=== PATIENT | male | born 1940 | race African-American/Black ===

== ENCOUNTER 2020-08-16 21:21 | Inpatient (IN) | payer MEDICARE, SELFPAY ==
[2020-08-16] VITALS (7 sets, daily range): BP systolic 163–242; BP diastolic 114–173; PULSE 106–150; RESP 24–31; TEMP 36.1–36.8; O2SAT 91–100; BMI 20.1
--- NOTE | ~2020-08-16 | US_ITS ---
EXAMINATION: US VENOUS ULTRASOUND WITH DOPPLER LOWER EXTREMITY, BILATERAL CLINICAL INFORMATION: Swelling, right greater than left COMPARISON: None TECHNIQUE: Ultrasound of the deep veins is performed from the hip to the calf bilaterally with compression sonography and color and pulse Doppler assessment. Spectral analysis with color-flow imaging is performed. FINDINGS: RIGHT: There is normal venous compression and respiratory variation and augmented flow. The visualized common femoral vein, superficial femoral vein, profunda femoral vein, popliteal vein, and the trifurcation region shows no evidence of deep venous thrombosis. There is no significant popliteal fossa cyst. LEFT: There is normal venous compression and respiratory variation and augmented flow. The visualized common femoral vein, superficial femoral vein, profunda femoral vein, popliteal vein, and the trifurcation region shows no evidence of deep venous thrombosis. There is no significant popliteal fossa cyst. If the patient's symptoms persist, followup ultrasound in 5 days 7 days might be of value to exclude proximal propagation from a non-visualized calf vein. US/US venous duplex LE BI IMPRESSION: No DVT demonstrated in the bilateral lower extremities.
--- NOTE | ~2020-08-16 | CT_ITS ---
EXAMINATION: CTA CHEST, ABDOMEN AND PELVIS WITH CONTRAST CLINICAL INFORMATION: Reason for Exam aaa dissection. COMPARISON: No pertinent prior studies are available for comparison. TECHNIQUE: Initially, noncontrast timing run was performed with the timing in the proximal descending thoracic aorta. Next, Multidetector volumetric imaging was performed from the thoracic inlet through the pubic symphysis following administration of 85 mL Omnipaque 350. Sagittal and coronal reformatted images were obtained on the technologist's workstation. In addition, Images were evaluated on an independent dedicated 3-D workstation and 3-D images were reconstructed with concurrent radiologist supervision and subsequently interpreted. This CT examination was performed using dose optimization techniques as appropriate, variously including the following: *Automated exposure control *Adjustment of mA and/or kV according to patient size (this includes techniques or standardized protocols for targeted exams where dose is matched to indication/reason for exam; i.e. extremities or head) *Use of iterative reconstruction technique DLP: 433 mGy-cm FINDINGS: VASCULATURE The ascending aorta appears unremarkable. A tricuspid aortic valve is present. Maximal dimension of the ascending aorta in the transverse plane at the level of the right main pulmonary artery is 3.2 x 3.1 cm. A three-vessel arch is present and the great vessels are widely patent and normal in appearance. Of note, just beyond the origin of the left subclavian, the aortic lumen increases in size but the superior aspect does not fill with contrast and some irregular projections from the opacified lumen can be seen protruding into this area. Differential diagnosis would include a dissection with a thrombosed false lumen versus eccentric thrombus with ulceration. This abnormal area of aorta extends over a length of about 5 cm. I suspect that the most likely diagnosis is the ulcerated thrombus rather than a dissection. Distal to this, the aortic lumen is ectatic and only a single lumen is identified. As the aorta extends into the abdomen, the contrast bolus becomes suboptimal. An aorto biiliac stent graft is present. On the right, the stent graft extends into the external iliac artery and on the left just into the common iliac artery. In the distal aorta and pelvic vessels, there is no opacification whatsoever so patency cannot even be assessed. Although not carried out for evaluation of the pulmonary arteries, no large pulmonary emboli are seen. Aortic branches are suboptimally visualized due to the poor contrast bolus. A celiac stenosis is present. The SMA is patent. Single renal arteries are patent. The NEETU is not seen. NONVASCULAR : CHEST: Lung: Emphysematous changes are present throughout the lungs. Multiple areas of bullous formation are seen. No worrisome lung masses are seen. Mosaic ground-glass changes are present throughout which could represent some element of interstitial edema secondary to elevated left ventricular end-diastolic pressure. The left atrium appears enlarged. Mediastinum: The mediastinum is unremarkable. Heart size is normal. The left atrium appears enlarged. No hilar or mediastinal lymphadenopathy. Pericardium/Pleura: No significant effusion. No pleural mass or thickening. Chest Wall/Axilla: Unremarkable ABDOMEN/PELVIS: Peritoneal Space: No significant free air or free fluid identified. Liver, Gallbladder, Biliary Tree: The liver is normal in size, shape, and attenuation. No focal hepatic lesion or biliary ductal dilatation is present. The gallbladder is poorly seen but is probably present and contracted. High density material is suggested within the gallbladder but there is considerable artifact from EKG leads. Pancreas: Unremarkable Spleen: Unremarkable Adrenal Glands: Unremarkable Kidneys and Ureters: The kidneys are normal in size, shape, and attenuation. No hydronephrosis, hydroureter, or calculi seen. No perinephric stranding. Bladder: Unremarkable Gastrointestinal Tract: The small and large bowel are unremarkable. The appendix is unremarkable. Abdominal Wall: No significant hernia is appreciated. Lymph Nodes: No gross retroperitoneal lymphadenopathy. PELVIC VISCERA: There is marked prostatic enlargement with prostate measuring 6.2 x 4.8 x 6.9 cm. Marked symmetric bladder wall thickening is present measuring over a centimeter in thickness. OSSEUS STRUCTURES: Marked degenerative changes are present in the spine most marked in the lumbar region with severe disc space narrowing at all lumbar levels. There is grade 1 anterolisthesis of L4 upon L5. No pars defects are seen. CT/CT angio abdomen pelvis IMPRESSION: 1. No evidence of an ascending aortic aneurysm or dissection. 2. Transverse arch is abnormal for about 5 cm where there is eccentric dilatation and non filling of the lumen on the superior aspect. Most likely diagnosis would be ulceration into eccentric plaque but a thrombosed dissection is a possibility but felt to be much less likely. 3. The descending thoracic aorta otherwise appears normal. 4. Aortobiiliac stent graft as described above. 5. Nonvascular findings show emphysema, ground-glass changes which may represent mild interstitial edema, possible gallstones. Markedly enlarged prostate with markedly thickened bladder. This critical result was discussed with Dr. Norwood at 22:43 on the day the exam and it was ascertained that the content and urgency of the report was understood at the time of direct communication.
--- NOTE | ~2020-08-16 | XR_ITS ---
EXAMINATION: XR CHEST CLINICAL INFORMATION: Question of aortic dissection COMPARISON: None TECHNIQUE: Frontal view of the chest was obtained. FINDINGS: Heart size is normal. The aorta is unfolded. The lungs may be hyperinflated. Increased reticular nodular interstitial markings are present throughout. As no prior films are available for comparison, the significance is uncertain. Some curly B lines are present at the right lung base which would be chronic. Findings could represent chronic interstitial disease or even more acute multifocal groundglass infiltrates. Incidental note made of the top of an aortic stent graft in the abdominal aorta. XR/XR chest 1V IMPRESSION: Pulmonary parenchymal findings as described above which could be chronic but some/all could be relatively acute as well. If prior films are available for comparison this would be helpful.. It seems that this patient will be undergoing chest CT which should be able to give significantly better information.
--- NOTE | 2020-08-16 21:37 | ECG_ITS ---
Test Reason : SOB Blood Pressure : / mmHG Vent. Rate : 101 BPM Atrial Rate : 101 BPM P-R Int : 156 ms QRS Dur : 084 ms QT Int : 402 ms P-R-T Axes : 080 091 098 degrees QTc Int : 521 ms Sinus tachycardia with Fusion complexes Possible Left atrial enlargement Rightward axis ST & T wave abnormality, consider anterior ischemia Prolonged QT Abnormal ECG No previous ECGs available Referred By: Kun Rincon Electronically Signed By:Celestino Connors
--- NOTE | 2020-08-16 21:44 | ED_ITS ---
HPI - SOB/Dyspnea General Chief Complaint: Dyspnea Stated Complaint: SOB Time Seen by Provider: 08/16/20 21:31 Source: patient Mode of arrival: EMS History of Present Illness HPI Narrative: This is an 79-year-old male who is brought in via EMS for acute onset of shortness of breath without chest pain or abdominal pain and reports that he has a significant history of cardiac stents as well as AAA repair. Patient denies being on any current medications and has not seen a physician in a number of months. He denies any recent fevers, chills or GI symptoms. Patient states lack of feeling in left upper extremity since placement of his c ardiac stents and states that this is not new, and denies motor dysfunction. COVID is negative. On further questioning patient states that he had a transient episode of shortness of breath couple of days ago, but states that it passed. In addition, patient reports weight loss over the past few months. Related Data Home Medications Medication Instructions Recorded Confirmed No Known Home Meds 08/17/20 08/17/20 Allergies Allergy/AdvReac Type Severity Reaction Status Date / Time No Known Allergies Allergy Verified 08/16/20 21:31 Review of Systems Review of Systems: Pertinent positives and negatives as stated in HPI 10 point review of systems is otherwise negative. PMFSH Past Medical History Source: nursing notes reviewed Social History Social History Smoking Status: Current every day smoker Smoked in Last 30 Days: No Advance Directives: No Advance Directives Information Provided: No Physical Exam Vital Signs: Vital Signs: Last Vital Signs Temp 98.2 F 08/16/20 22:16 Pulse 108 H 08/17/20 00:57 Resp 26 H 08/17/20 00:57 BP 164/107 H 08/17/20 00:57 Pulse Ox 100 08/17/20 00:57 Body Mass Index 20.1 VITAL SIGNS: Reviewed. GENERAL: Well developed, well nourished, severe respiratory distress HEAD: Normocephalic/atraumatic EYES: PERRLA, EOMI OROPHARYNX: no oral lesions noted, posterior pharynx clear, dry mucosa NECK: Supple, no adenopathy LUNGS: Normal breath sounds, or tachypnea, increased work of breathing, retractions, nasal cannula in place@4L nasal cannula. SpO2<95> CARDIOVASCULAR: Regular rate and rhythm without noted murmurs, no JVD or lower extremity edema. ABDOMEN: Soft, non-tender, non-distended with bowel sounds. No palpable masses noted. SKIN: Inspection of the skin reveals no rashes NEUROLOGIC: Alert and oriented x 4. Patient reports baseline lack of feeling in left upper extremity that is not new Course Course Course Narrative: This is an 79-year-old male with significant cardiovascular disease urgently concerning for possible dissection,ruptured aneurysm, PE but also noted to have significant blood pressure elevation which may be causing a flash pulmonary edema. An additional IV line was placed CT scan was entered and patient was given nitropaste, labetalol, Lasix and sent over to the CT scanner for rule out of the above differentials. EKG is significant for inverted T-waves in V3/V4 of unclear significance as there is none for comparison however in this context felt to demonstrate ischemic changes likely secondary to hypertension/tachycardia as well as a noted JANAK, but no ST elevation noted. All investigations reviewed and patient will be admitted after discussing with inpatient hospitalist team for hypertensive emergency associated flash pulmonary edema. Reviewed CT scan records from [facility]. On re-evaluation patient's blood pressure has significantly improved after initial dose of hydralazine with addition of half-inch of nitro and patient is now tolerating nasal cannula without difficulties. Will repeat troponin and EKG. Admitted to inpatient hospitalist team for further management. 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 Although this was dissection protocol they state there is no appreciation of PE and further states that the study is suboptimal for abdomen and pelvis. Time: 22:45 Reevaluation #2: Consult to [facility]. On review of CT scan records will cancel consult. Time: 23:00 Reevaluation #3: Discussed the case with the [facility] who currently recommends a trial of hydralazine prior to nitro drip and possible transition onto high-flow. Time: 23:25 MDM - SOB/Dyspnea Lab Data Result diagrams: 08/16/20 22:10 08/16/20 22:10 Labs: Lab Results 03/12/21 03/12/21 03/12/21 Range/Units 21:56 22:10 22:10 WBC 4.6 L (4.8-10.8) X10*3/uL RBC 3.91 L (4.60-5.80) X10*6/uL Hgb 12.7 L (14.0-18.0) g/dl Hct 37.5 L (42-52) % MCV 95.9 (80-98) fL MCH 32.5 (27.0-33.0) pg MCHC 33.9 (31.0-36.0) g/dl RDW 13.4 (11.0-16.0) % Plt Count 95 L (160-400) X10*3/uL MPV 11.5 (9.4-12.4) fL Immature Gran % (Auto) 0.6 H (0.0-0.4) % Neut % (Auto) 57.5 (45-73) % Lymph % (Auto) 24.4 (20-40) % Desoto % (Auto) 15.8 H (2-11) % Eos % (Auto) 1.3 (0-4) % Baso % (Auto) 0.4 (0-2) % Lymph # (Auto) 1.1 L (1.2-4.9) X10*3/uL Desoto # (Auto) 0.7 (0.1-1.2) X10*3/uL Eos # (Auto) 0.1 (0.0-0.4) X10*3/uL Baso # (Auto) 0.0 (0.0-0.2) X10*3/uL Abs Immat Gran (auto) 0.03 (0.00-0.03) X10*3/uL Absolute Neuts (auto) 2.7 (2.0-8.3) X10*3/uL Absolute Nucleated RBC 0.000 (0.0-0.012) X10*3/uL Nucleated RBC % (auto) 0.0 (0.0-0.2) /100WBC Smear Tech's Comments VERIFIED PT 12.1 (10.8-13.0) SEC INR 1.0 (0.9-1.1) APTT 33.9 (24.1-38.0) SEC D-Dimer 5440 NG/ML O2 Saturation ABG pH at Pt Temp ABG pH (Temp Correct) ABG pCO2 at Pt Temp ABG pCO2 (Temp Corrct ABG pO2 at Pt Temp ABG pO2 (Temp Correct ABG HCO3 ABG Base Excess (Actual) Sodium (135-145) mmol/L Potassium (3.3-5.1) mmol/L Chloride (96-108) mmol/L Carbon Dioxide (22-29) mmol/L Anion Gap (12-20) BUN (9-16) mg/dL Creatinine (0.5-1.4) mg/dL Estim Creat Clear Calc Estimated GFR Random Glucose (60-115) mg/dL Lactic Acid (0.5-2.0) mmol/L Calcium (8.4-10.2) mg/dL Total Bilirubin (0.0-1.0) mg/dL Direct Bilirubin (0.0-0.5) mg/dL AST (5-37) U/L ALT (0-40) U/L Alkaline Phosphatase (39-117) U/L Troponin I High Sens (<3.5-35.0) ng/L B-Natriuretic Peptide (<100) pg/mL Total Protein (6.5-8.0) g/dL Albumin (3.5-5.0) g/dL Coronavirus (PCR) (Negative) COVID-19 (PRABHAKAR) Negative (Negative) COVID-19 Clin Com See Note Influenza Type A (PCR) (Negative) Influenza Type B (PCR) (Negative) RSV RNA Qual (PCR) (Negative) 08/16/20 08/16/20 08/16/20 Range/Units 22:10 22:10 22:10 WBC (4.8-10.8) X10*3/uL RBC (4.60-5.80) X10*6/uL Hgb (14.0-18.0) g/dl Hct (42-52) % MCV (80-98) fL MCH (27.0-33.0) pg MCHC (31.0-36.0) g/dl RDW (11.0-16.0) % Plt Count (160-400) X10*3/uL MPV (9.4-12.4) fL Immature Gran % (Auto) (0.0-0.4) % Neut % (Auto) (45-73) % Lymph % (Auto) (20-40) % Desoto % (Auto) (2-11) % Eos % (Auto) (0-4) % Baso % (Auto) (0-2) % Lymph # (Auto) (1.2-4.9) X10*3/uL [place]oto # (Auto) (0.1-1.2) X10*3/uL Eos # (Auto) (0.0-0.4) X10*3/uL Baso # (Auto) (0.0-0.2) X10*3/uL Abs Immat Gran (auto) (0.00-0.03) X10*3/uL Absolute Neuts (auto) (2.0-8.3) X10*3/uL Absolute Nucleated RBC (0.0-0.012) X10*3/uL Nucleated RBC % (auto) (0.0-0.2) /100WBC Smear Tech's Comments PT (10.8-13.0) SEC INR (0.9-1.1) APTT (24.1-38.0) SEC D-Dimer NG/ML O2 Saturation ABG pH at Pt Temp ABG pH (Temp Correct) ABG pCO2 at Pt Temp ABG pCO2 (Temp Corrct ABG pO2 at Pt Temp ABG pO2 (Temp Correct ABG HCO3 ABG Base Excess (Actual) Sodium 136 (135-145) mmol/L Potassium 3.5 (3.3-5.1) mmol/L Chloride 102 (96-108) mmol/L Carbon Dioxide 26 (22-29) mmol/L Anion Gap 12 (12-20) BUN 20 H (9-16) mg/dL Creatinine 1.78 H (0.5-1.4) mg/dL Estim Creat Clear Calc 28.0 Estimated GFR 37 Random Glucose 121 H (60-115) mg/dL Lactic Acid 1.9 (0.5-2.0) mmol/L Calcium 7.8 L (8.4-10.2) mg/dL Total Bilirubin 0.7 (0.0-1.0) mg/dL Direct Bilirubin 0.3 (0.0-0.5) mg/dL AST 29 (5-37) U/L ALT 12 (0-40) U/L Alkaline Phosphatase 75 (39-117) U/L Troponin I High Sens 119.8 H (<3.5-35.0) ng/L B-Natriuretic Peptide 3309 H (<100) pg/mL Total Protein 6.8 (6.5-8.0) g/dL Albumin 3.0 L (3.5-5.0) g/dL Coronavirus (PCR) (Negative) COVID-19 (PRABHAKAR) (Negative) COVID-19 Clin Com Influenza Type A (PCR) (Negative) Influenza Type B (PCR) (Negative) RSV RNA Qual (PCR) (Negative) 08/16/20 08/16/20 08/16/20 Range/Units 22:10 22:20 22:20 WBC (4.8-10.8) X10*3/uL RBC (4.60-5.80) X10*6/uL Hgb (14.0-18.0) g/dl Hct (42-52) % MCV (80-98) fL MCH (27.0-33.0) pg MCHC (31.0-36.0) g/dl RDW (11.0-16.0) % Plt Count (160-400) X10*3/uL MPV (9.4-12.4) fL Immature Gran % (Auto) (0.0-0.4) % Neut % (Auto) (45-73) % Lymph % (Auto) (20-40) % Desoto % (Auto) (2-11) % Eos % (Auto) (0-4) % Baso % (Auto) (0-2) % Lymph # (Auto) (1.2-4.9) X10*3/uL [place] # (Auto) (0.1-1.2) X10*3/uL Eos # (Auto) (0.0-0.4) X10*3/uL Baso # (Auto) (0.0-0.2) X10*3/uL Abs Immat Gran (auto) (0.00-0.03) X10*3/uL Absolute Neuts (auto) (2.0-8.3) X10*3/uL Absolute Nucleated RBC (0.0-0.012) X10*3/uL Nucleated RBC % (auto) (0.0-0.2) /100WBC Smear Tech's Comments PT (10.8-13.0) SEC INR (0.9-1.1) APTT (24.1-38.0) SEC D-Dimer NG/ML O2 Saturation Cancelled 87.0 ABG pH at Pt Temp Cancelled 7.38 ABG pH (Temp Correct) Cancelled 7.39 ABG pCO2 at Pt Temp Cancelled 39 ABG pCO2 (Temp Corrct Cancelled 39 ABG pO2 at Pt Temp Cancelled 58 L ABG pO2 (Temp Correct Cancelled 58 L ABG HCO3 Cancelled 23 ABG Base Excess (Actual) Cancelled -0.9 Sodium (135-145) mmol/L Potassium (3.3-5.1) mmol/L Chloride (96-108) mmol/L Carbon Dioxide (22-29) mmol/L Anion Gap (12-20) BUN (9-16) mg/dL Creatinine (0.5-1.4) mg/dL Estim Creat Clear Calc Estimated GFR Random Glucose (60-115) mg/dL Lactic Acid (0.5-2.0) mmol/L Calcium (8.4-10.2) mg/dL Total Bilirubin (0.0-1.0) mg/dL Direct Bilirubin (0.0-0.5) mg/dL AST (5-37) U/L ALT (0-40) U/L Alkaline Phosphatase (39-117) U/L Troponin I High Sens (<3.5-35.0) ng/L B-Natriuretic Peptide (<100) pg/mL Total Protein (6.5-8.0) g/dL Albumin (3.5-5.0) g/dL Coronavirus (PCR) NEGATIVE (Negative) COVID-19 (PRABHAKAR) (Negative) COVID-19 Clin Com Influenza Type A (PCR) NEGATIVE (Negative) Influenza Type B (PCR) NEGATIVE (Negative) RSV RNA Qual (PCR) NEGATIVE (Negative) 08/17/20 Range/Units 01:21 WBC (4.8-10.8) X10*3/uL RBC (4.60-5.80) X10*6/uL Hgb (14.0-18.0) g/dl Hct (42-52) % MCV (80-98) fL MCH (27.0-33.0) pg MCHC (31.0-36.0) g/dl RDW (11.0-16.0) % Plt Count (160-400) X10*3/uL MPV (9.4-12.4) fL Immature Gran % (Auto) (0.0-0.4) % Neut % (Auto) (45-73) % Lymph % (Auto) (20-40) % Desoto % (Auto) (2-11) % Eos % (Auto) (0-4) % Baso % (Auto) (0-2) % Lymph # (Auto) (1.2-4.9) X10*3/uL [place]oto # (Auto) (0.1-1.2) X10*3/uL Eos # (Auto) (0.0-0.4) X10*3/uL Baso # (Auto) (0.0-0.2) X10*3/uL Abs Immat Gran (auto) (0.00-0.03) X10*3/uL Absolute Neuts (auto) (2.0-8.3) X10*3/uL Absolute Nucleated RBC (0.0-0.012) X10*3/uL Nucleated RBC % (auto) (0.0-0.2) /100WBC Smear Tech's Comments PT (10.8-13.0) SEC INR (0.9-1.1) APTT (24.1-38.0) SEC D-Dimer NG/ML O2 Saturation ABG pH at Pt Temp ABG pH (Temp Correct) ABG pCO2 at Pt Temp ABG pCO2 (Temp Corrct ABG pO2 at Pt Temp ABG pO2 (Temp Correct ABG HCO3 ABG Base Excess (Actual) Sodium (135-145) mmol/L Potassium (3.3-5.1) mmol/L Chloride (96-108) mmol/L Carbon Dioxide (22-29) mmol/L Anion Gap (12-20) BUN (9-16) mg/dL Creatinine (0.5-1.4) mg/dL Estim Creat Clear Calc Estimated GFR Random Glucose (60-115) mg/dL Lactic Acid (0.5-2.0) mmol/L Calcium (8.4-10.2) mg/dL Total Bilirubin (0.0-1.0) mg/dL Direct Bilirubin (0.0-0.5) mg/dL AST (5-37) U/L ALT (0-40) U/L Alkaline Phosphatase (39-117) U/L Troponin I High Sens 291.8 H D (<3.5-35.0) ng/L B-Natriuretic Peptide (<100) pg/mL Total Protein (6.5-8.0) g/dL Albumin (3.5-5.0) g/dL Coronavirus (PCR) (Negative) COVID-19 (PRABHAKAR) (Negative) COVID-19 Clin Com Influenza Type A (PCR) (Negative) Influenza Type B (PCR) (Negative) RSV RNA Qual (PCR) (Negative) ECG Data Attestation: I personally reviewed and interpreted this ECG as follows: Prior ECG tracings: not available for review Ischemic changes: t wave inversions (V3 V4) Interpretation: Sinus tachycardia, HR-101, T-wave inversions noted in V3/before no EKG for comparison and patient tachypneic and tachycardic, MO/QRS are within normal limits with [id number] Discharge Plan Discharge Clinical Impression: Hypertensive emergency, Acute respiratory distress, Flash pulmonary edema Patient Disposition: Admitted As Inpatient
[2020-08-16] MEDS: Labetalol HCL 100 MG/20 ML VIAL 20 MG IVPUSH (21:50)
[2020-08-16] MEDS: Furosemide 40 MG/4 ML VIAL IVPUSH (21:50)
[2020-08-16] MEDS: Nitroglycerin 2 % Oint 1 GM Packet 0.5 INCH TRANSDERMA (21:51)
[2020-08-16 22:16] LABS: COVID-19 Test Negative (Negative)
[2020-08-16 22:20] LABS: Basophils Percent Auto 0.4 % (0-2); MANUAL DIFF FLAG SCAN; Mean Corpuscular Volume 95.9 fL (80-98); PLT CLUMP 1; Red Cell Distribution Width 13.4 % (11.0-16.0); SCAN SMEAR FLAG 1
[2020-08-16 22:22] LABS: Eosinophils Absolute Auto 0.1 X10*3/uL (0.0-0.4); Eosinophils Percent Auto 1.3 % (0-4); Hematocrit 37.5 % (42-52); Hemoglobin 12.7 g/dl (14.0-18.0); Imm Gran Abs Auto 0.03 X10*3/uL (0.00-0.03); Imm Gran Pct Auto 0.6 % (0.0-0.4); Lymphocytes Absolute Auto 1.1 X10*3/uL (1.2-4.9); Lymphocytes Percent Auto 24.4 % (20-40); Mean Corpuscular HGB Conc 33.9 g/dl (31.0-36.0); Mean Corpuscular Hemoglobin 32.5 pg (27.0-33.0); Mean Platelet Volume 11.5 fL (9.4-12.4); Monocytes Absolute Auto 0.7 X10*3/uL (0.1-1.2); Monocytes Percent Auto 15.8 % (2-11); Neutrophils Absolute Auto 2.7 X10*3/uL (2.0-8.3); Neutrophils Percent Auto 57.5 % (45-73); Red Blood Count 3.91 X10*6/uL (4.60-5.80); White Blood Count 4.6 X10*3/uL (4.8-10.8)
[2020-08-16 22:32] LABS: Prothrombin Time 12.1 SEC (10.8-13.0)
[2020-08-16 22:35] LABS: Partial Thromboplastin Time 33.9 SEC (24.1-38.0)
[2020-08-16 22:42] LABS: Platelet Count 95 X10*3/uL (160-400)
[2020-08-16 22:43] LABS: ABG Base Excess -0.9 mmol/L; ABG HCO3 23 mmol/L (22-26); ABG pCO2 39 mmHg (32-45); ABG pCO2 TC 39 mmHg (32-45); ABG pH 7.38 (7.35-7.45); ABG pH TC 7.39 (7.35-7.45); ABG pO2 58 mmHg (83-108); ABG pO2 TC 58 (83-108)
[2020-08-16 22:48] LABS: SLIDE REVIEW VERIFIED
[2020-08-16 22:56] LABS: Lactic Acid 1.9 mmol/L (0.5-2.0)
[2020-08-16 22:58] LABS: Influenza A PCR NEGATIVE (Negative); Influenza B PCR NEGATIVE (Negative); Resp Syncy Virus RNA Qual PCR NEGATIVE (Negative); SARS COV2 PCR INHOUSE NEGATIVE (Negative)
[2020-08-16 23:01] LABS: Alanine Aminotransferase 12 U/L (0-40); Alkaline Phosphatase 75 U/L (39-117); Anion Gap 12 (12-20); Aspartate Amino Transferase 29 U/L (5-37); Bilirubin Direct 0.3 mg/dL (0.0-0.5); Bilirubin Total 0.7 mg/dL (0.0-1.0); Blood Urea Nitrogen 20 mg/dL (9-16); Calcium 7.8 mg/dL (8.4-10.2); Carbon Dioxide 26 mmol/L (22-29); Chloride 102 mmol/L (96-108); Estimated Glomerular Filt Rate 37; Glucose Random 121 mg/dL (60-115); Potassium 3.5 mmol/L (3.3-5.1); Sodium 136 mmol/L (135-145); Total Protein 6.8 g/dL (6.5-8.0)
[2020-08-16 23:10] LABS: B Type Natriuretic Peptide 3309 pg/mL (<100); Troponin-I High Sensitivity 119.8 ng/L (<3.5-35.0)
[2020-08-16] MEDS: hydrALAZINE HCl 20 MG/ML VIAL 10 MG IVPUSH (23:54)
[2020-08-17] VITALS (11 sets, daily range): BP systolic 125–164; BP diastolic 81–108; PULSE 65–108; RESP 18–26; TEMP 36.2–37; O2SAT 95–100
[2020-08-17 00:12] LABS: D Dimer 5440 NG/ML
--- NOTE | 2020-08-17 00:59 | ECG_ITS ---
Test Reason : REPEAT Blood Pressure : / mmHG Vent. Rate : 110 BPM Atrial Rate : 110 BPM P-R Int : 144 ms QRS Dur : 092 ms QT Int : 374 ms P-R-T Axes : 082 083 091 degrees QTc Int : 506 ms Sinus tachycardia with occasional Premature ventricular complexes and Fusion complexes T wave abnormality, consider anterolateral ischemia Abnormal ECG When compared with ECG of 16-AUG-2020 21:56, Premature ventricular complexes are now Present Inverted T waves have replaced nonspecific T wave abnormality in Inferior leads Referred By: Iliana Lacey Electronically Signed By:Celestino Connors
[2020-08-17 01:58] LABS: Troponin-I High Sensitivity 291.8 ng/L (<3.5-35.0)
--- NOTE | 2020-08-17 05:17 | CA_ITS ---
Transthoracic Echocardiogram Patient (Last, First, Middle): Froilan Nieto Jr, Gender: Male Date of : 1940 Age: 79 Procedure Date: 08/17/2020 Procedure Type: Transthoracic Echocardiogram Location: [facility] Height: 172.72 cm Weight: 59.88 kg BSA: 1.71 m2 Heart Rate: bpm BP: 157 / 105 mmHg Deputy Sheriff: DAVID Referring MD: Robert Israel MD Symptoms: chf Study Quality: Good Conclusions: - The left ventricular systolic function is moderate to severely decreased. The visually estimated ejection fraction is between 25-30%. There is severe global hypokinesis. - Normal right ventricular cavity size and systolic function. - There is mild to moderate tricuspid valve regurgitation. Moderately elevated right atrial pressure. Mild to moderate pulmonary hypertension is present. - There is a small circumferential pericardial effusion. Findings Left Ventricle Normal left ventricular cavity size. There is mildly increased left ventricular wall thickness. The left ventricular systolic function is moderate to severely decreased. The visually estimated ejection fraction is between 25-30%. There is severe global hypokinesis. Abnormal diastolic function is noted. Spectral Doppler is indicative of a pseudonormal filling pattern. Right Ventricle Normal right ventricular cavity size and systolic function. Atria The left atrium is likely dilated. The right atrium is mildly dilated. Aortic Valve There is a normal trileaflet aortic valve. There is mild calcification of the aortic valve. There is mild thickening of the aortic valve. There is no aortic valve stenosis. There is no aortic valve regurgitation. Mitral Valve The mitral valve appears normal. There is mild mitral valve regurgitation. There is no mitral valve stenosis. Pulmonic Valve The pulmonic valve is likely normal. Tricuspid Valve Normal tricuspid valve structure and function. There is mild to moderate tricuspid valve regurgitation. Moderately elevated right atrial pressure. Mild to moderate pulmonary hypertension is present. Great Vessels There is mild dilatation of the ascending aorta. The visualized portions of the pulmonary artery and branches are normal. Venous The inferior vena cava is dilated and does not collapse with inspiration. Pericardium/Pleural There is a small circumferential pericardial effusion. There are no definitive echocardiographic findings of tamponade physiology. Prior Study Comparison No prior study available for comparison. Measurements 2D Linear Measurements IVSd: 1.27 0.6-0.9/0.6-1.0 cm LVIDd: 3.97 3.9-5.3/4.2-5.9 cm LVIDd Index: 2.32 2.4-3.2/2.2-3.1 cm/m2 LVIDs: 3.53 2.0-3.6 cm LVPWd: 1.32 0.7-1.1 cm Ao Root: 3.70 2.1-3.5 cm LA Diam: 3.40 2.7-3.8/3.0-4.0 cm LAIDs Index: 1.99 1.5-2.3 cm/m2 LV Mass: 228.52 67-162/88-224 g LV Mass Index: 133.64 43-95/49-115 g/m2 LVOT Diam: 2.10 3.0+(-)1.3 cm 2D Systolic Function EF 4C: 34.50 >55% EF 2C: 40.00 >55% Aortic Valve AoV Pk Samy: 1.26 AoV Mn Samy: 0.84 AoV VTI: 0.18 AoV Pk Grad: 6.00 Aov Mn Grad: 3.00 REY Cont.VTI: 2.02 LVOT LVOT Pk Samy: 0.70 LVOT Mn Samy: 0.43 LVOT VTI: 0.10 LVOT Pk Grad: 2.00 LVOT Mn Grad: 1.00 LVOT Diam: 2.10 LVOT Area: 3.46 Tricuspid Valve TR Pk Samy: 3.12 TR Pk Grad: 39.00 RA Press: 8.00 RVSP: 47.00 Great Vessels Aorta Ao Root-2D: 3.70 2.0-3.7 cm Ao Asc: 3.70 2.1-3.4 cm Updated in Other Vendor System with Status of Final Celestino Connors MD electronically signed on 08/17/2020 5:12:51 PM with status of Final
[2020-08-17] MEDS: Heparin Sodium,Porcine 5,000 UNIT/ML VIAL 5000 UNIT SUBCUT (09:20)
[2020-08-17] MEDS: Furosemide 40 MG/4 ML VIAL IVPUSH ×2 (09:21→16:48)
[2020-08-17] MEDS: 0.9 % Sodium Chloride Flush 3 ML SYRINGE IVFLUSH ×3 (09:21→21:00)
[2020-08-17] MEDS: Acetaminophen 325 MG TABLET 650 MG PO (10:04)
--- NOTE | 2020-08-17 10:09 | P.EN_ITS ---
Event Note Date of Service: 08/17/20 Event Note: 79-year-old gentleman with past medical history of coronary artery disease status post stent placement, status post AAA repair currently not taking any medications at home presented to [facility] with acute onset of shortness of breath and was noted to be in severe respiratory distress and had significantly elevated blood pressure, patient required multiple medications in ER including labetalol, Lasix, IV hydralazine, IV nitro subsequently blood pressure improved, CTA chest abdomen and pelvis showed nonvascular finding in lungs with ground-glass changes representing mild interstitial edema, and there was no evidence of an ascending aortic aneurysm or dissection there was a aorto bi-iliac stent graft in place. Showed a hematocrit of 37.5 creatinine of 1.78 with a BUN of 20, blood sugar 121, 1st troponin 100 in 19 the jumped up to 291 and a BNP of 3309 and alb of 3.0 At present patient complaining of left-sided chest discomfort he admits it is related to rib pain since he fell couple days ago and provide history of recurrent falls secondary to neuropathy,, patient continued to drink alcohol to cans of beer daily but previously was a heavy drinker, continue to smoke 1 pack last for 3 days, he lives at [facility] in [place], he was previously residing in [place] most of his care is done at [facility], this is his 1st visit to [facility]. On examination resting comfortably Neck elevated JVD Heart regular Abdomen soft nontender Extremities bilateral pitting edema Assessment and plan Hypertensive urgency with congestive heart failure with elevated troponin and abnormal EKG Will continue treatment for congestive heart failure with IV Lasix twice daily, case discussed with Cardiology blood pressure medications added including Coreg and amlodipine Will repeat troponin and EKG, obtain echocardiogram for EF and wall motion abnormality will continue close tele monitoring. History of alcohol abuse no evidence of alcohol withdrawal will place on CIUT protocol Peripheral neuropathy with recurrent fall will need PT eval prior to discharge status post AAA repair in [address] abdomen
--- NOTE | 2020-08-17 11:23 | PM.CNCAR ---
History of Present Illness History of Present Illness Date of Service: 08/17/20 Requesting physician: Robert Israel Chief complaint: CHF, hypertensive emergency Narrative: 79-year-old gentleman with background history of alcohol use, hypertension, coronary artery disease, noncompliance with medications and aortic aneurysm status post repair who is presenting with shortness of breath and elevated blood pressure. His workup has shown evidence of congestive heart failure and his blood pressure was significantly elevated on admission. He does not know his medications. He has not been taking any medications recently. His ECG showing anterior T-wave inversions with no old ECGs available. He is denying any cardiac sounding chest pain. He has left-sided sharp chest discomfort after a fall. He is saying he has no sensations on his legs which is likely due to previous alcohol use. He is saying his it drinking 2-3 beers a day but was drinking heavily in the past. I reviewed his records at [facility] and his last ECG from 11/29/2019 was sent she normal and did not have any T-wave changes. It appears he has chronic hepatitis C and was seeing gastroenterology at [facility]. He has CKD stage 2 and was following Nephrology till 2011. 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 This was done in [address] Bob Palumbo. [facility] Social History Social History Household Members: None Housing: Assisted Living Facility Do you presently have visiting nurse or other home services: No Smoking Status: Current every day smoker Tobacco Type: Cigarette Packs Per Day: 0.5 Cigarettes Per Day: 10.0 Years Smoked: 40 Smoked in Last 30 Days: Yes Patient Interested in Nicotine Replacement: Yes Patient Given Instructions on How to Stop Smoking: Yes Date Education Initiated: 08/17/20 Second Hand Smoke Exposure: No Use of substances other than those prescribed or required for medical reasons: No Have you been hit, kicked, punched, or otherwise hurt by someone within the past year? If so, by whom?: No Do you feel safe in your current relationship?: No Current Relationship Is there a partner from a previous relationship who is making you feel unsafe now?: No Are you made to feel afraid or neglected: No Advance Directives: No Advance Directives Information Provided: No Do you have thoughts of harming others: None Do you have a plan to hurt others: No Plan Recently lost weight without trying: No Meds Allergies Allergy/AdvReac Type Severity Reaction Status Date / Time No Known Allergies Allergy Verified 08/16/20 21:31 Active Medications: Current Medications Generic Name Dose Route Start Last Admin Trade Name Freq PRN Reason Stop Dose Admin Acetaminophen 650 mg 08/17/20 05:17 08/17/20 10:04 Acetaminophen 325 Mg Tablet PO 650 mg Q6H PRN Administration Pain, Mild (Pain Scale 1-3) Docusate Sodium 100 mg 08/17/20 05:17 Docusate Sodium 100 Mg Capsule PO DAILY PRN Constipation Furosemide 40 mg 08/17/20 08:00 08/17/20 09:21 Furosemide 40 Mg/4 Ml Vial IVPUSH 40 mg BID@0800,1700 [facility] Administration Protocol Heparin Sodium (Porcine) 5,000 unit 08/17/20 09:00 08/17/20 09:20 Heparin Sodium,Porcine 5,000 Unit/Ml Vial SUBCUT 5,000 unit Q12H FROILAN Administration Metoprolol Tartrate 25 mg 08/17/20 10:15 Metoprolol Tartrate 25 Mg Tablet PO BID [facility] Protocol Ondansetron HCl 4 mg 08/17/20 05:17 Ondansetron Hcl 4 Mg/2 Ml Vial IVPUSH Q8H PRN Nausea and Vomiting Oxycodone HCl 5 mg 08/17/20 10:07 Oxycodone Hcl Immed Release 5 Mg Tablet PO Q6H PRN Pain, Moderate (Pain Scale 4-6 Sodium Chloride 3 ml 08/17/20 08:00 08/17/20 09:21 0.9 % Sodium Chloride Flush 3 Ml Syringe IVFLUSH 3 ml QSHIFT [facility] Administration Home Medications Medication Instructions Recorded Confirmed Last Taken Type No Known Home Meds 08/17/20 08/17/20 Unknown History Physical Exam Vital Signs: Vital Signs: Last Vital Signs Temp 98.5 F 08/17/20 07:44 Pulse 108 H 08/17/20 07:44 Resp 20 08/17/20 07:44 BP 157/105 H 08/17/20 07:44 Pulse Ox 100 08/17/20 07:44 Body Mass Index 20.1 GENERAL APPEARANCE: in no acute distress. HEENT: unremarkable. HEAD: normocephalic, atraumatic. NECK/THYROID: no carotid bruit, positive JVD SKIN: no suspicious lesions, warm and dry. HEART: no murmurs, regular rate and rhythm, S1, S2 normal. LUNGS: clear to auscultation bilaterally. ABDOMEN: normal, bowel sounds present, soft, nontender, nondistended. EXTREMITIES: no clubbing, cyanosis. 2+ edema at ankles. PERIPHERAL PULSES: equal. NEUROLOGIC: nonfocal, alert and oriented. PSYCH: mood/affect full range. Results Labs and Meds Result diagrams: 08/16/20 22:10 08/16/20 22:10 Lab results: Laboratory Results - last 24 hr 08/16/20 08/16/20 08/16/20 21:56 22:10 22:10 WBC 4.6 L RBC 3.91 L Hgb 12.7 L Hct 37.5 L MCV 95.9 MCH 32.5 MCHC 33.9 RDW 13.4 Plt Count 95 L MPV 11.5 Immature Gran % (Auto) 0.6 H Neut % (Auto) 57.5 Lymph % (Auto) 24.4 [place] % (Auto) 15.8 H Eos % (Auto) 1.3 Baso % (Auto) 0.4 Lymph # (Auto) 1.1 L [place] # (Auto) 0.7 Eos # (Auto) 0.1 Baso # (Auto) 0.0 Abs Immat Gran (auto) 0.03 Absolute Neuts (auto) 2.7 Absolute Nucleated RBC 0.000 Nucleated RBC % (auto) 0.0 Smear Tech's Comments VERIFIED PT 12.1 INR 1.0 APTT 33.9 D-Dimer 5440 O2 Saturation ABG pH at Pt Temp ABG pH (Temp Correct) ABG pCO2 at Pt Temp ABG pCO2 (Temp Corrct ABG pO2 at Pt Temp ABG pO2 (Temp Correct ABG HCO3 ABG Base Excess (Actual) Sodium Potassium Chloride Carbon Dioxide Anion Gap BUN Creatinine Estim Creat Clear Calc Estimated GFR Random Glucose Lactic Acid Calcium Total Bilirubin Direct Bilirubin AST ALT Alkaline Phosphatase Troponin I High Sens B-Natriuretic Peptide Total Protein Albumin Coronavirus (PCR) COVID-19 (PRABHAKAR) Negative COVID-19 Clin Com See Note Influenza Type A (PCR) Influenza Type B (PCR) RSV RNA Qual (PCR) 08/16/20 08/16/20 08/16/20 22:10 22:10 22:10 WBC RBC Hgb Hct MCV MCH MCHC RDW Plt Count MPV Immature Gran % (Auto) Neut % (Auto) Lymph % (Auto) [place] % (Auto) Eos % (Auto) Baso % (Auto) Lymph # (Auto) [place] # (Auto) Eos # (Auto) Baso # (Auto) Abs Immat Gran (auto) Absolute Neuts (auto) Absolute Nucleated RBC Nucleated RBC % (auto) Smear Tech's Comments PT INR APTT D-Dimer O2 Saturation ABG pH at Pt Temp ABG pH (Temp Correct) ABG pCO2 at Pt Temp ABG pCO2 (Temp Corrct ABG pO2 at Pt Temp ABG pO2 (Temp Correct ABG HCO3 ABG Base Excess (Actual) Sodium 136 Potassium 3.5 Chloride 102 Carbon Dioxide 26 Anion Gap 12 BUN 20 H Creatinine 1.78 H Estim Creat Clear Calc 28.0 Estimated GFR 37 Random Glucose 121 H Lactic Acid 1.9 Calcium 7.8 L Total Bilirubin 0.7 Direct Bilirubin 0.3 AST 29 ALT 12 Alkaline Phosphatase 75 Troponin I High Sens 119.8 H B-Natriuretic Peptide 3309 H Total Protein 6.8 Albumin 3.0 L Coronavirus (PCR) COVID-19 (PRABHAKAR) COVID-19 Clin Com Influenza Type A (PCR) Influenza Type B (PCR) RSV RNA Qual (PCR) 08/16/20 08/16/20 08/16/20 22:10 22:20 22:20 WBC RBC Hgb Hct MCV MCH MCHC RDW Plt Count MPV Immature Gran % (Auto) Neut % (Auto) Lymph % (Auto) [place] % (Auto) Eos % (Auto) Baso % (Auto) Lymph # (Auto) [place] # (Auto) Eos # (Auto) Baso # (Auto) Abs Immat Gran (auto) Absolute Neuts (auto) Absolute Nucleated RBC Nucleated RBC % (auto) Smear Tech's Comments PT INR APTT D-Dimer O2 Saturation Cancelled 87.0 ABG pH at Pt Temp Cancelled 7.38 ABG pH (Temp Correct) Cancelled 7.39 ABG pCO2 at Pt Temp Cancelled 39 ABG pCO2 (Temp Corrct Cancelled 39 ABG pO2 at Pt Temp Cancelled 58 L ABG pO2 (Temp Correct Cancelled 58 L ABG HCO3 Cancelled 23 ABG Base Excess (Actual) Cancelled -0.9 Sodium Potassium Chloride Carbon Dioxide Anion Gap BUN Creatinine Estim Creat Clear Calc Estimated GFR Random Glucose Lactic Acid Calcium Total Bilirubin Direct Bilirubin AST ALT Alkaline Phosphatase Troponin I High Sens B-Natriuretic Peptide Total Protein Albumin Coronavirus (PCR) NEGATIVE COVID-19 (PRABHAKAR) COVID-19 Clin Com Influenza Type A (PCR) NEGATIVE Influenza Type B (PCR) NEGATIVE RSV RNA Qual (PCR) NEGATIVE 08/17/20 01:21 WBC RBC Hgb Hct MCV MCH MCHC RDW Plt Count MPV Immature Gran % (Auto) Neut % (Auto) Lymph % (Auto) [place] % (Auto) Eos % (Auto) Baso % (Auto) Lymph # (Auto) [place] # (Auto) Eos # (Auto) Baso # (Auto) Abs Immat Gran (auto) Absolute Neuts (auto) Absolute Nucleated RBC Nucleated RBC % (auto) Smear Tech's Comments PT INR APTT D-Dimer O2 Saturation ABG pH at Pt Temp ABG pH (Temp Correct) ABG pCO2 at Pt Temp ABG pCO2 (Temp Corrct ABG pO2 at Pt Temp ABG pO2 (Temp Correct ABG HCO3 ABG Base Excess (Actual) Sodium Potassium Chloride Carbon Dioxide Anion Gap BUN Creatinine Estim Creat Clear Calc Estimated GFR Random Glucose Lactic Acid Calcium Total Bilirubin Direct Bilirubin AST ALT Alkaline Phosphatase Troponin I High Sens 291.8 H D B-Natriuretic Peptide Total Protein Albumin Coronavirus (PCR) COVID-19 (PRABHAKAR) COVID-19 Clin Com Influenza Type A (PCR) Influenza Type B (PCR) RSV RNA Qual (PCR) Imaging Radiologist's impression: Impressions Chest X-Ray 08/16/20 21:33 IMPRESSION: Pulmonary parenchymal findings as described above which could be chronic but some/all could be relatively acute as well. If prior films are available for comparison this would be helpful.. It seems that this patient will be undergoing chest CT which should be able to give significantly better information. Abdomen/Pelvis CTA 08/16/20 21:41 IMPRESSION: 1. No evidence of an ascending aortic aneurysm or dissection. 2. Transverse arch is abnormal for about 5 cm where there is eccentric dilatation and non filling of the lumen on the superior aspect. Most likely diagnosis would be ulceration into eccentric plaque but a thrombosed dissection is a possibility but felt to be much less likely. 3. The descending thoracic aorta otherwise appears normal. 4. Aortobiiliac stent graft as described above. 5. Nonvascular findings show emphysema, ground-glass changes which may represent mild interstitial edema, possible gallstones. Markedly enlarged prostate with markedly thickened bladder. This critical result was discussed with Dr. Norwood at 22:43 on the day the exam and it was ascertained that the content and urgency of the report was understood at the time of direct communication. Chest CTA 08/16/20 21:41 IMPRESSION: 1. No evidence of an ascending aortic aneurysm or dissection. 2. Transverse arch is abnormal for about 5 cm where there is eccentric dilatation and non filling of the lumen on the superior aspect. Most likely diagnosis would be ulceration into eccentric plaque but a thrombosed dissection is a possibility but felt to be much less likely. 3. The descending thoracic aorta otherwise appears normal. 4. Aortobiiliac stent graft as described above. 5. Nonvascular findings show emphysema, ground-glass changes which may represent mild interstitial edema, possible gallstones. Markedly enlarged prostate with markedly thickened bladder. This critical result was discussed with Dr. Norwood at 22:43 on the day the exam and it was ascertained that the content and urgency of the report was understood at the time of direct communication. Venous Duplex 08/17/20 00:01 IMPRESSION: No DVT demonstrated in the bilateral lower extremities. Assessment and Plan (1) Hypertensive emergency: Status: Acute (2) Flash pulmonary edema: Status: Acute (3) NSTEMI (non-ST elevated myocardial infarction): Status: Acute 79-year-old gentleman with background history of abdominal aortic aneurysm for which she underwent endovascular repair in 2019, reported history of coronary artery disease, hypertension, chronic kidney disease and alcohol use was presenting with significantly elevated blood pressures and dyspnea. Clinically was in heart failure. He is still volume overloaded. Continue IV diuretics for now. Changes metoprolol to carvedilol 3.125 mg twice a day. Add amlodipine 5 mg once a day. Give him aspirin 325 mg and start aspirin 81 mg daily from tomorrow. His ECG is abnormal and showing anterior T-wave inversions and seems quite ischemic. I think we should start him on heparin drip. We will do an echocardiogram to assess his wall motion. Please keep him on a CIWA scale to make sure he does not going to alcohol withdrawal. He is saying he has cut back from alcohol but he has been a significant drinker all his life. Based on echocardiography we will give further recommendations if he has LV dysfunction present or not. We will follow along with you. Thank you for allowing me to participate in the care of your patient. Please feel free to contact me if you have any questions.
[2020-08-17] MEDS: oxyCODONE HCl Immed Release 5 MG TABLET PO (13:18)
[2020-08-17] MEDS: amLODIPine Besylate 5 MG TABLET PO (13:19)
[2020-08-17] MEDS: carvediloL 3.125 MG TABLET PO ×2 (13:19→20:59)
[2020-08-17 13:52] LABS: Troponin-I High Sensitivity 467.8 ng/L (<3.5-35.0)
[2020-08-17 14:13] LABS: PTT Heparin Drip 33.6 SEC (53-77.9)
[2020-08-17] MEDS: Heparin Sodium,Porcine/1/2NS 25,000 UNIT/250 ML IV.SOLN 7.2 UNIT IVCONT (14:16)
[2020-08-17] MEDS: Heparin Sodium,Porcine 5,000 UNIT/ML VIAL 3600 UNIT IVPUSH (14:18)
[2020-08-17] MEDS: Aspirin 325 MG TABLET PO (14:19)
--- NOTE | 2020-08-17 19:04 | PM.IMHP ---
History of Present Illness Date of Service: 08/17/20 Chief Complaint: sob This is an 79 yo with pmhx of triple A status post repair in 2019, hypertension who presents to the hospital with complaints of sudden-onset shortness of breath. Patient reports that this occurred about 3 days ago, resolved spontaneously and reoccurred on day of presentation. He denies having any chest pain, no palpitations, no chills or fever. He denies having a cough. Denies any recent travel sick contacts. He reports a chronic swelling in his legs since his aneurysmal repair in 2019. Denies having any abdominal pain, nausea or vomiting, no diarrhea or constipation, no urinary symptoms. He reports loss of feeling in his left arm and leg since the surgery of aneurysm in 2019. Patient reports that he has not been taking his blood pressure medication for few months as he did not refill his prescriptions. On arrival to the hospital patient found to have a blood pressure of 232/173, received labetalol, transdermal nitroglycerin, and hydralazine with blood pressure improving to the 170s/114 ,He also had a heart rate of 150, otherwise temp of 97.0? satting 95% on room air. Respiratory rate of 31. Patient was placed on CPAP in the ED with improvement of his respiratory status. There was reported hypoxia by EMS although patient was not hypoxic in the ED. Labs are significant for WBC count hemoglobin of 12.7, ABG showed a pH of 7.38, sodium 136, potassium 3.5, BUN of 20, creatinine of 1.78, high sensitivity troponin of 119 repeat of 291, BNP of 3309. Serology negative. CT angiogram showed of ascending aortic aneurysm or dissection, abnormal transverse arch where there is a centric dilation and nonfilling of the lumen. This appears to be chronic on review of documents obtained from outside hospital. Chest CT also showed nonvascular findings of emphysema, ground-glass changes which may represent mild interstitial edema. Past medical history as below and confirmed with patient Review of Systems Review of Systems: Yes all other systems are reviewed and are negative [facility] Medical History (Updated 08/17/20 @ 22:52 by Robert Israel MD) Hypertension Surgical History (Updated 08/17/20 @ 22:46 by Robert Israel MD) History of AAA (abdominal aortic aneurysm) repair Social History Household Members: None Housing: Assisted Living Facility Do you presently have visiting nurse or other home services: No Smoking Status: Current every day smoker Tobacco Type: Cigarette Packs Per Day: 0.5 Cigarettes Per Day: 10.0 Years Smoked: 40 Smoked in Last 30 Days: Yes Patient Interested in Nicotine Replacement: Yes Patient Given Instructions on How to Stop Smoking: Yes Date Education Initiated: 08/17/20 Second Hand Smoke Exposure: No Use of substances other than those prescribed or required for medical reasons: No Have you been hit, kicked, punched, or otherwise hurt by someone within the past year? If so, by whom?: No Do you feel safe in your current relationship?: No Current Relationship Is there a partner from a previous relationship who is making you feel unsafe now?: No Are you made to feel afraid or neglected: No Advance Directives: No Advance Directives Information Provided: No Do you have thoughts of harming others: None Do you have a plan to hurt others: No Plan Recently lost weight without trying: No Meds Allergies Allergy/AdvReac Type Severity Reaction Status Date / Time No Known Allergies Allergy Verified 08/16/20 21:31 Active Medications: Current Medications Generic Name Dose Route Start Last Admin Trade Name Freq PRN Reason Stop Dose Admin Acetaminophen 650 mg 08/17/20 05:17 08/17/20 10:04 Acetaminophen 325 Mg Tablet PO 650 mg Q6H PRN Administration Pain, Mild (Pain Scale 1-3) Amlodipine Besylate 5 mg 08/17/20 11:30 08/17/20 13:19 Amlodipine Besylate 5 Mg Tablet PO 5 mg DAILY [facility] Administration Protocol Aspirin 81 mg 08/18/20 09:00 Aspirin 81 Mg Tab.Chew PO DAILY [facility] Carvedilol 3.125 mg 08/17/20 11:30 08/17/20 13:19 Carvedilol 3.125 Mg Tablet PO 3.125 mg BID [facility] Administration Protocol Docusate Sodium 100 mg 08/17/20 05:17 Docusate Sodium 100 Mg Capsule PO DAILY PRN Constipation Furosemide 40 mg 08/17/20 08:00 08/17/20 16:48 Furosemide 40 Mg/4 Ml Vial IVPUSH 40 mg BID@0800,1700 [facility] Administration Protocol Heparin Sodium (Porcine) 2,400 unit 08/17/20 13:38 Heparin Sodium,Porcine 5,000 Unit/Ml Vial 40 unit/kg (2400 unit) IVPUSH BOLUS PRN 40 unit/kg - Heparin Protocol Heparin Sodium (Porcine) 4,800 unit 08/17/20 13:39 Heparin Sodium,Porcine 5,000 Unit/Ml Vial 80 unit/kg (4800 unit) IVPUSH BOLUS PRN 80 unit/kg - Heparin Protocol Heparin Sodium/Sodium Chloride 25,000 unit in 250 mls @ 0 mls/hr 08/17/20 13:30 08/17/20 14:16 IVCONT 12 units/kg/hr .Q0M [facility]OILAN 7.2 mls/hr Administration Protocol Per Protocol Ondansetron HCl 4 mg 08/17/20 05:17 Ondansetron Hcl 4 Mg/2 Ml Vial IVPUSH Q8H PRN Nausea and Vomiting Oxycodone HCl 5 mg 08/17/20 10:07 08/17/20 13:18 Oxycodone Hcl Immed Release 5 Mg Tablet PO 5 mg Q6H PRN Administration Pain, Moderate (Pain Scale 4-6 Sodium Chloride 3 ml 08/17/20 08:00 08/17/20 16:49 0.9 % Sodium Chloride Flush 3 Ml Syringe IVFLUSH 3 ml QSHIFT [facility] Administration Home Medications Medication Instructions Recorded Confirmed Last Taken Type No Known Home Meds 08/17/20 08/17/20 Unknown History Physical Exam Vital Signs and Narrative: Vital Signs: Last Vital Signs Temp 97.2 F 08/17/20 15:24 Pulse 89 08/17/20 15:24 Resp 20 08/17/20 15:24 BP 140/85 H 08/17/20 15:24 Pulse Ox 100 08/17/20 15:24 Body Mass Index 20.1 Const: General: cooperative and no acute distress Orientation/consciousness: patient oriented x3 Eyes: General: appearance normal, both eyes and all related structures Resp: Effort & Inspection: normal respiratory effort and able to speak in complete sentences Auscultation: clear to auscultation bilaterally Cardio: Rate: regular rate Rhythm: regular rhythm GI: Palpation (GI): Soft to palpation Auscultation: normal bowel sounds Skin: General skin exam: no rashes or lesions noted Neuro: General: patient oriented x3 Cognition (Neuro): normal cognition Extrem: Other: 2+ pitting edema bilaterally General: Yes normal to inspection Results Labs CBC and Chem 7: 08/16/20 22:10 08/16/20 22:10 Labs: Laboratory Results - last 24 hr 08/16/20 08/16/20 08/16/20 21:56 22:10 22:10 MCV 95.9 MCH 32.5 MCHC 33.9 RDW 13.4 Plt Count 95 L MPV 11.5 Immature Gran % (Auto) 0.6 H Neut % (Auto) 57.5 Lymph % (Auto) 24.4 [place] % (Auto) 15.8 H Eos % (Auto) 1.3 Baso % (Auto) 0.4 Lymph # (Auto) 1.1 L [place] # (Auto) 0.7 Eos # (Auto) 0.1 Baso # (Auto) 0.0 Abs Immat Gran (auto) 0.03 Absolute Neuts (auto) 2.7 Absolute Nucleated RBC 0.000 Nucleated RBC % (auto) 0.0 Smear Tech's Comments VERIFIED PT 12.1 INR 1.0 APTT 33.9 PTT (Heparin Protocol) D-Dimer 5440 O2 Saturation ABG pH at Pt Temp ABG pH (Temp Correct) ABG pCO2 at Pt Temp ABG pCO2 (Temp Corrct ABG pO2 at Pt Temp ABG pO2 (Temp Correct ABG HCO3 ABG Base Excess (Actual) Anion Gap Estim Creat Clear Calc Estimated GFR Random Glucose Lactic Acid Calcium Total Bilirubin Direct Bilirubin AST ALT Alkaline Phosphatase Troponin I High Sens B-Natriuretic Peptide Total Protein Albumin Coronavirus (PCR) COVID-19 (PRABHAKAR) Negative COVID-19 Clin Com See Note Influenza Type A (PCR) Influenza Type B (PCR) RSV RNA Qual (PCR) 08/16/20 08/16/20 08/16/20 22:10 22:10 22:10 MCV MCH MCHC RDW Plt Count MPV Immature Gran % (Auto) Neut % (Auto) Lymph % (Auto) [place] % (Auto) Eos % (Auto) Baso % (Auto) Lymph # (Auto) [place] # (Auto) Eos # (Auto) Baso # (Auto) Abs Immat Gran (auto) Absolute Neuts (auto) Absolute Nucleated RBC Nucleated RBC % (auto) Smear Tech's Comments PT INR APTT PTT (Heparin Protocol) D-Dimer O2 Saturation ABG pH at Pt Temp ABG pH (Temp Correct) ABG pCO2 at Pt Temp ABG pCO2 (Temp Corrct ABG pO2 at Pt Temp ABG pO2 (Temp Correct ABG HCO3 ABG Base Excess (Actual) Anion Gap 12 Estim Creat Clear Calc 28.0 Estimated GFR 37 Random Glucose 121 H Lactic Acid 1.9 Calcium 7.8 L Total Bilirubin 0.7 Direct Bilirubin 0.3 AST 29 ALT 12 Alkaline Phosphatase 75 Troponin I High Sens 119.8 H B-Natriuretic Peptide 3309 H Total Protein 6.8 Albumin 3.0 L Coronavirus (PCR) COVID-19 (PRABHAKAR) COVID-19 Clin Com Influenza Type A (PCR) Influenza Type B (PCR) RSV RNA Qual (PCR) 08/16/20 08/16/20 08/16/20 22:10 22:20 22:20 MCV MCH MCHC RDW Plt Count MPV Immature Gran % (Auto) Neut % (Auto) Lymph % (Auto) [place] % (Auto) Eos % (Auto) Baso % (Auto) Lymph # (Auto) [place] # (Auto) Eos # (Auto) Baso # (Auto) Abs Immat Gran (auto) Absolute Neuts (auto) Absolute Nucleated RBC Nucleated RBC % (auto) Smear Tech's Comments PT INR APTT PTT (Heparin Protocol) D-Dimer O2 Saturation Cancelled 87.0 ABG pH at Pt Temp Cancelled 7.38 ABG pH (Temp Correct) Cancelled 7.39 ABG pCO2 at Pt Temp Cancelled 39 ABG pCO2 (Temp Corrct Cancelled 39 ABG pO2 at Pt Temp Cancelled 58 L ABG pO2 (Temp Correct Cancelled 58 L ABG HCO3 Cancelled 23 ABG Base Excess (Actual) Cancelled -0.9 Anion Gap Estim Creat Clear Calc Estimated GFR Random Glucose Lactic Acid Calcium Total Bilirubin Direct Bilirubin AST ALT Alkaline Phosphatase Troponin I High Sens B-Natriuretic Peptide Total Protein Albumin Coronavirus (PCR) NEGATIVE COVID-19 (PRABHAKAR) COVID-19 Clin Com Influenza Type A (PCR) NEGATIVE Influenza Type B (PCR) NEGATIVE RSV RNA Qual (PCR) NEGATIVE 08/17/20 08/17/20 08/17/20 01:21 12:20 13:38 MCV MCH MCHC RDW Plt Count MPV Immature Gran % (Auto) Neut % (Auto) Lymph % (Auto) [place] % (Auto) Eos % (Auto) Baso % (Auto) Lymph # (Auto) [place] # (Auto) Eos # (Auto) Baso # (Auto) Abs Immat Gran (auto) Absolute Neuts (auto) Absolute Nucleated RBC Nucleated RBC % (auto) Smear Tech's Comments PT INR APTT PTT (Heparin Protocol) 33.6 L D-Dimer O2 Saturation ABG pH at Pt Temp ABG pH (Temp Correct) ABG pCO2 at Pt Temp ABG pCO2 (Temp Corrct ABG pO2 at Pt Temp ABG pO2 (Temp Correct ABG HCO3 ABG Base Excess (Actual) Anion Gap Estim Creat Clear Calc Estimated GFR Random Glucose Lactic Acid Calcium Total Bilirubin Direct Bilirubin AST ALT Alkaline Phosphatase Troponin I High Sens 291.8 H D 467.8 H D B-Natriuretic Peptide Total Protein Albumin Coronavirus (PCR) COVID-19 (PRABHAKAR) COVID-19 Clin Com Influenza Type A (PCR) Influenza Type B (PCR) RSV RNA Qual (PCR) Imaging Radiologist's Impressions: Impressions Chest X-Ray 08/16/20 21:33 IMPRESSION: Pulmonary parenchymal findings as described above which could be chronic but some/all could be relatively acute as well. If prior films are available for comparison this would be helpful.. It seems that this patient will be undergoing chest CT which should be able to give significantly better information. Abdomen/Pelvis CTA 08/16/20 21:41 IMPRESSION: 1. No evidence of an ascending aortic aneurysm or dissection. 2. Transverse arch is abnormal for about 5 cm where there is eccentric dilatation and non filling of the lumen on the superior aspect. Most likely diagnosis would be ulceration into eccentric plaque but a thrombosed dissection is a possibility but felt to be much less likely. 3. The descending thoracic aorta otherwise appears normal. 4. Aortobiiliac stent graft as described above. 5. Nonvascular findings show emphysema, ground-glass changes which may represent mild interstitial edema, possible gallstones. Markedly enlarged prostate with markedly thickened bladder. This critical result was discussed with Dr. Norwood at 22:43 on the day the exam and it was ascertained that the content and urgency of the report was understood at the time of direct communication. Chest CTA 08/16/20 21:41 IMPRESSION: 1. No evidence of an ascending aortic aneurysm or dissection. 2. Transverse arch is abnormal for about 5 cm where there is eccentric dilatation and non filling of the lumen on the superior aspect. Most likely diagnosis would be ulceration into eccentric plaque but a thrombosed dissection is a possibility but felt to be much less likely. 3. The descending thoracic aorta otherwise appears normal. 4. Aortobiiliac stent graft as described above. 5. Nonvascular findings show emphysema, ground-glass changes which may represent mild interstitial edema, possible gallstones. Markedly enlarged prostate with markedly thickened bladder. This critical result was discussed with Dr. Norwood at 22:43 on the day the exam and it was ascertained that the content and urgency of the report was understood at the time of direct communication. Venous Duplex 08/17/20 00:01 IMPRESSION: No DVT demonstrated in the bilateral lower extremities. Assessment and Plan (1) NSTEMI (non-ST elevated myocardial infarction): Status: Acute (2) Hypertensive emergency: Status: Acute (3) Flash pulmonary edema: Status: Acute (4) Acute respiratory distress: Status: Acute (5) CHF exacerbation: Status: Acute This is a 79-year-old male with a past medical history of AAA repair and hypertension who has not been taking his medications for a while presents to the hospital with acute onset shortness of breath and hypertensive emergency # acute respiratory distress - most likely secondary to flash pulmonary edema in the setting of hypertensive emergency - patient denies history of heart failur but has significantly elevated BNP - has pulmonary edema CT angiogram - no hypoxia was was placed on CPAP for respiratory distress with improvement in his respiratory status Plan: - will start him on Lasix 40 IV b.i.d. - blood pressure control - monitor respiratory status, O2 as required # hypertensive emergency - most likely due to the noncompliance with medications - patient reports that he has history of hypertension and supposed to be on medications but has not taken his medications for months due to his failure to refill his prescriptions - presented with a blood pressure of 230/170s Plan: - blood pressure is normal controlled, - given the severe hypertension would not want to reduce the blood pressure for more than 25% over the next few hours - at this time will monitor, and give hydralazine p.r.n. to keep the blood pressure within 25% reduction # NSTEMI - patient has elevated troponin - cardiology consulted - will obtain echocardiogram DVT prophylaxis: Heparin subQ
[2020-08-17 20:47] LABS: PTT Heparin Drip 75.8 SEC (53-77.9)
[2020-08-18 03:49] VITALS: BP 151/86; PULSE 80; RESP 18; TEMP 36.8; O2SAT 100
[2020-08-18 03:50] LABS: PLT CLUMP 1
[2020-08-18 03:52] LABS: Hematocrit 30.7 % (42-52); Hemoglobin 10.6 g/dl (14.0-18.0); Mean Corpuscular HGB Conc 34.5 g/dl (31.0-36.0); Mean Corpuscular Hemoglobin 32.8 pg (27.0-33.0); Mean Platelet Volume 11.6 fL (9.4-12.4); Platelet Count 109 X10*3/uL (160-400); Red Blood Count 3.23 X10*6/uL (4.60-5.80); Red Cell Distribution Width 13.3 % (11.0-16.0); White Blood Count 4.4 X10*3/uL (4.8-10.8)
[2020-08-18 04:02] LABS: PTT Heparin Drip 70.7 SEC (53-77.9)
[2020-08-18 04:25] LABS: Anion Gap 9 (12-20); Blood Urea Nitrogen 32 mg/dL (9-16); Calcium 7.5 mg/dL (8.4-10.2); Carbon Dioxide 28 mmol/L (22-29); Chloride 104 mmol/L (96-108); Creatinine Clr Calc Pharmacy 22.1; Estimated Glomerular Filt Rate 28; Glucose Random 113 mg/dL (60-115); Potassium 3.4 mmol/L (3.3-5.1); Sodium 138 mmol/L (135-145)
[2020-08-18] MEDS: oxyCODONE HCl Immed Release 5 MG TABLET PO (05:02)
[2020-08-18 07:27] VITALS: BP 136/93; PULSE 80; RESP 18; TEMP 36.5; O2SAT 99
[2020-08-18 08:20] LABS: Cholesterol 162 mg/dL; HDL Cholesterol 53 mg/dL; LDL Cholesterol Calculated 100 mg/dl; Triglycerides 47 mg/dL
[2020-08-18 09:02] LABS: Troponin-I High Sensitivity 278.2 ng/L (<3.5-35.0)
[2020-08-18] MEDS: amLODIPine Besylate 5 MG TABLET PO (09:42)
[2020-08-18] MEDS: Aspirin 81 MG TAB.CHEW PO (09:42)
[2020-08-18] MEDS: carvediloL 3.125 MG TABLET PO (09:42)
[2020-08-18] MEDS: 0.9 % Sodium Chloride Flush 3 ML SYRINGE IVFLUSH ×3 (09:42→23:16)
[2020-08-18] MEDS: Atorvastatin Calcium 80 MG TABLET PO (09:42)
[2020-08-18 11:00] LABS: B Type Natriuretic Peptide 2532 pg/mL (<100)
[2020-08-18 11:50] VITALS: BP 142/89; PULSE 86; RESP 16; TEMP 36.6; O2SAT 98
--- NOTE | 2020-08-18 13:16 | PM.PNCARD ---
Subjective Subjective Date of Service: 08/18/20 Principal diagnosis: Cardiomyopathy, elevated blood pressure, ischemic EKG changes Interval history: He is saying his breathing is much better. His edema is improved. Kidney function has worsened today. He is off diuretics now. Review of Systems Review of Systems No symptoms Physical Exam Vital Signs: Last Vital Signs Temp 97.8 F 08/18/20 11:50 Pulse 86 08/18/20 11:50 Resp 16 08/18/20 11:50 BP 142/89 H 08/18/20 11:50 Pulse Ox 98 08/18/20 11:50 Body Mass Index 20.1 GENERAL APPEARANCE: in no acute distress, well developed, well nourished. HEENT: unremarkable. HEAD: normocephalic, atraumatic. NECK/THYROID: no carotid bruit, no jugular venous distention. SKIN: no suspicious lesions, warm and dry. HEART: no murmurs, regular rate and rhythm, S1, S2 normal. LUNGS: clear to auscultation bilaterally. ABDOMEN: normal, bowel sounds present, soft, nontender, nondistended. EXTREMITIES: no clubbing, cyanosis, or edema. PERIPHERAL PULSES: equal. NEUROLOGIC: nonfocal, alert and oriented. PSYCH: mood/affect full range. Results Labs and Meds Result diagrams: 08/18/20 03:29 08/18/20 03:29 Lab results: Laboratory Results - last 24 hr 08/17/20 08/17/20 08/17/20 12:20 13:38 20:30 WBC RBC Hgb Hct MCV MCH MCHC RDW Plt Count MPV Immature Gran % (Auto) Neut % (Auto) Lymph % (Auto) [place] % (Auto) Eos % (Auto) Baso % (Auto) Lymph # (Auto) [place] # (Auto) Eos # (Auto) Baso # (Auto) Abs Immat Gran (auto) Absolute Neuts (auto) Absolute Nucleated RBC Nucleated RBC % (auto) PTT (Heparin Protocol) 33.6 L 75.8 D Sodium Potassium Chloride Carbon Dioxide Anion Gap BUN Creatinine Estim Creat Clear Calc Estimated GFR Random Glucose Calcium Troponin I High Sens 467.8 H D B-Natriuretic Peptide Triglycerides Cholesterol LDL Cholesterol, Calc HDL Cholesterol 08/18/20 08/18/20 08/18/20 00:43 03:29 03:29 WBC 4.4 L RBC 3.23 L Hgb 10.6 L Hct 30.7 L MCV 95.0 MCH 32.8 MCHC 34.5 RDW 13.3 Plt Count 109 L MPV 11.6 Immature Gran % (Auto) Cancelled Neut % (Auto) Cancelled Lymph % (Auto) Cancelled [place] % (Auto) Cancelled Eos % (Auto) Cancelled Baso % (Auto) Cancelled Lymph # (Auto) Cancelled [place] # (Auto) Cancelled Eos # (Auto) Cancelled Baso # (Auto) Cancelled Abs Immat Gran (auto) Cancelled Absolute Neuts (auto) Cancelled Absolute Nucleated RBC 0.000 Nucleated RBC % (auto) 0.0 PTT (Heparin Protocol) Cancelled Sodium 138 Potassium 3.4 Chloride 104 Carbon Dioxide 28 Anion Gap 9 L BUN 32 H D Creatinine 2.26 H Estim Creat Clear Calc 22.1 Estimated GFR 28 Random Glucose 113 Calcium 7.5 L Troponin I High Sens B-Natriuretic Peptide Triglycerides 47 Cholesterol 162 LDL Cholesterol, Calc 100 HDL Cholesterol 53 08/18/20 08/18/20 08/18/20 03:29 03:29 09:53 WBC RBC Hgb Hct MCV MCH MCHC RDW Plt Count MPV Immature Gran % (Auto) Neut % (Auto) Lymph % (Auto) [place] % (Auto) Eos % (Auto) Baso % (Auto) Lymph # (Auto) [place] # (Auto) Eos # (Auto) Baso # (Auto) Abs Immat Gran (auto) Absolute Neuts (auto) Absolute Nucleated RBC Nucleated RBC % (auto) PTT (Heparin Protocol) 70.7 Sodium Potassium Chloride Carbon Dioxide Anion Gap BUN Creatinine Estim Creat Clear Calc Estimated GFR Random Glucose Calcium Troponin I High Sens 278.2 H B-Natriuretic Peptide 2532 H Triglycerides Cholesterol LDL Cholesterol, Calc HDL Cholesterol Progress Note: A&P Assessment and plan (1) CHF exacerbation: Status: Acute (2) NSTEMI (non-ST elevated myocardial infarction): Status: Acute (3) Hypertensive emergency: Status: Acute (4) Cardiomyopathy: Status: Acute Assessment and Plan: 79-year-old gentleman with background history of abdominal aortic aneurysm for which she underwent endovascular repair, hepatitis-C, chronic kidney disease and hypertension with noncompliance who presented with elevated blood pressures and congestive heart failure. Echocardiography is showing moderate to severely reduced ejection fraction with normal right ventricular function. He was drinking alcohol but has cut back significantly and is drinking approximately 2 beers a day. He was diuresed but his creatinine worsened. He is off diuretics right now. His blood pressure is improving right now. He had anterior T-wave inversions on EKG which are new compared to his previous reference from [facility]. He is on heparin drip right now for non ST elevation MO. Given EKG changes I think we treat him as if he has underlying coronary disease. Also with right ventricular function being completely normal I think alcohol potentially is not the cause. He will need ischemic evaluation. Given kidney injury, we will see how his creatinine trends from here and decide about stress testing versus cardiac catheterization. I am increasing his carvedilol to 6.25 mg twice a day. Due to kidney injury I would not add PEDRO-inhibitor or ARB right now. We will follow along with you. Thank you for allowing me to participate in the care of your patient. Please feel free to contact me if you have any questions. Fall Risk Details Current Medications: Current Medications Generic Name Dose Route Start Last Admin Trade Name Gabriela PRN Reason Stop Dose Admin Acetaminophen 650 mg 08/17/20 05:17 08/17/20 10:04 Acetaminophen 325 Mg Tablet PO 650 mg Q6H PRN Administration Pain, Mild (Pain Scale 1-3) Amlodipine Besylate 5 mg 08/17/20 11:30 08/18/20 09:42 Amlodipine Besylate 5 Mg Tablet PO 5 mg DAILY [facility] Administration Protocol Aspirin 81 mg 08/18/20 09:00 08/18/20 09:42 Aspirin 81 Mg Tab.Chew PO 81 mg DAILY [facility] Administration Atorvastatin Calcium 80 mg 08/18/20 09:00 08/18/20 09:42 Atorvastatin Calcium 80 Mg Tablet PO 80 mg DAILY [facility] Administration Carvedilol 3.125 mg 08/17/20 11:30 08/18/20 09:42 Carvedilol 3.125 Mg Tablet PO 3.125 mg BID [facility] Administration Protocol Docusate Sodium 100 mg 08/17/20 05:17 Docusate Sodium 100 Mg Capsule PO DAILY PRN Constipation Heparin Sodium (Porcine) 2,400 unit 08/17/20 13:38 Heparin Sodium,Porcine 5,000 Unit/Ml Vial 40 unit/kg (2400 unit) IVPUSH BOLUS PRN 40 unit/kg - Heparin Protocol Heparin Sodium (Porcine) 4,800 unit 08/17/20 13:39 Heparin Sodium,Porcine 5,000 Unit/Ml Vial 80 unit/kg (4800 unit) IVPUSH BOLUS PRN 80 unit/kg - Heparin Protocol Heparin Sodium/Sodium Chloride 25,000 unit in 250 mls @ 0 mls/hr 08/17/20 13:30 08/17/20 14:16 IVCONT 12 units/kg/hr .Q0M FROILAN 7.2 mls/hr Administration Protocol Per Protocol Ondansetron HCl 4 mg 08/17/20 05:17 Ondansetron Hcl 4 Mg/2 Ml Vial IVPUSH Q8H PRN Nausea and Vomiting Oxycodone HCl 5 mg 08/17/20 10:07 08/18/20 05:02 Oxycodone Hcl Immed Release 5 Mg Tablet PO 5 mg Q6H PRN Administration Pain, Moderate (Pain Scale 4-6 Sodium Chloride 3 ml 08/17/20 08:00 08/18/20 09:42 0.9 % Sodium Chloride Flush 3 Ml Syringe IVFLUSH 3 ml QSHIFT [facility] Administration Time Spent With Patient Time: Total time spent is greater than 50% in coordination of care (as documented) at patient's floor/unit and/or counseling patient: Time with patient: 15 - 24 minutes
--- NOTE | 2020-08-18 13:26 | HO.PM.IMPN ---
Subjective Subjective Date of Service: 08/18/20 Interval History: Patient feeling better this morning with less left-sided rib pain, denies chest discomfort no shortness of breath leg edema has improved no other acute issues overnight. General no headache no dizziness no fever chills. Respiratory no cough, no shortness of breath Gastrointestinal no nausea, no vomiting, no abdominal pain Physical Exam Vital Signs: Vital Signs: Last Vital Signs Temp 97.8 F 08/18/20 11:50 Pulse 86 08/18/20 11:50 Resp 16 08/18/20 11:50 BP 142/89 H 08/18/20 11:50 Pulse Ox 98 08/18/20 11:50 Body Mass Index 20.1 General patient resting comfortably in no acute distress. Neck supple, no JVD. CVS regular rate rhythm, Respiratory lungs clear to auscultation, no respiratory distress, no wheeze, no rhonchi. Gastrointestinal abdomen soft, nontender, bowel sounds audible, no guarding , no rigidity. Extremities significant improvement in lower extremity edema, still persistent bilateral foot swelling. Neuro nonfocal . Skin no rash Objective Data Current Medications Generic Name Dose Route Start Last Admin Trade Name Freq PRN Reason Stop Dose Admin Acetaminophen 650 mg 08/17/20 05:17 08/17/20 10:04 Acetaminophen 325 Mg Tablet PO 650 mg Q6H PRN Administration Pain, Mild (Pain Scale 1-3) Amlodipine Besylate 5 mg 08/17/20 11:30 08/18/20 09:42 Amlodipine Besylate 5 Mg Tablet PO 5 mg DAILY [facility]OILAN Administration Protocol Aspirin 81 mg 08/18/20 09:00 08/18/20 09:42 Aspirin 81 Mg Tab.Chew PO 81 mg DAILY [facility] Administration Atorvastatin Calcium 80 mg 08/18/20 09:00 08/18/20 09:42 Atorvastatin Calcium 80 Mg Tablet PO 80 mg DAILY [facility] Administration Carvedilol 6.25 mg 08/18/20 21:00 Carvedilol 3.125 Mg Tablet PO BID [facility] Protocol Docusate Sodium 100 mg 08/17/20 05:17 Docusate Sodium 100 Mg Capsule PO DAILY PRN Constipation Heparin Sodium (Porcine) 2,400 unit 08/17/20 13:38 Heparin Sodium,Porcine 5,000 Unit/Ml Vial 40 unit/kg (2400 unit) IVPUSH BOLUS PRN 40 unit/kg - Heparin Protocol Heparin Sodium (Porcine) 4,800 unit 08/17/20 13:39 Heparin Sodium,Porcine 5,000 Unit/Ml Vial 80 unit/kg (4800 unit) IVPUSH BOLUS PRN 80 unit/kg - Heparin Protocol Heparin Sodium/Sodium Chloride 25,000 unit in 250 mls @ 0 mls/hr 08/17/20 13:30 08/17/20 14:16 IVCONT 12 units/kg/hr .Q0M FROILAN 7.2 mls/hr Administration Protocol Per Protocol Ondansetron HCl 4 mg 08/17/20 05:17 Ondansetron Hcl 4 Mg/2 Ml Vial IVPUSH Q8H PRN Nausea and Vomiting Oxycodone HCl 5 mg 08/17/20 10:07 08/18/20 05:02 Oxycodone Hcl Immed Release 5 Mg Tablet PO 5 mg Q6H PRN Administration Pain, Moderate (Pain Scale 4-6 Sodium Chloride 3 ml 08/17/20 08:00 08/18/20 09:42 0.9 % Sodium Chloride Flush 3 Ml Syringe IVFLUSH 3 ml QSHIFT FROILAN Administration Labs CBC & Chem 7: 08/18/20 03:29 08/18/20 03:29 Microbiology Microbiology Results: Microbiology 08/16/20 22:49 Blood - Venous Blood Culture - Preliminary No growth after 24 hours. 08/16/20 22:50 Blood - Venous Blood Culture - Preliminary No growth after 24 hours. Assessment and Plan (1) Cardiomyopathy: Status: Acute (2) CHF exacerbation: Status: Acute (3) NSTEMI (non-ST elevated myocardial infarction): Status: Acute (4) Abnormal EKG: Status: Acute (5) Hypertensive emergency: Status: Acute (6) Acute respiratory distress: Status: Acute (7) Flash pulmonary edema: Status: Acute Assessment and Plan: 79-year-old gentleman with past medical history of abdominal aortic aneurysm / endovascular repair, hepatitis-C, chronic kidney disease and hypertension with noncompliance presented with elevated blood pressures, respiratory distress and congestive heart failure. Hypertensive emergency Due to noncompliance patient treated aggressively with IV labetalol, IV hydralazine and nitro in the emergency room patient blood pressure improved, currently on Coreg blood pressure control continue current medications and follow blood pressure. Acute respiratory distress related to pulmonary edema echocardiogram showed an EF of 25-30% with global hypokinesis and diastolic dysfunction Patient treated with IV Lasix 40 mg b.i.d. with good response, leg edema significantly improved, Will hold Lasix today due to worsening renal function follow BMP and BNP Non ST-elevation NH will continue IV heparin beta-blockers and statins, patient being followed by Cardiology will need ischemic evaluation with significant global hypokinesis and low EF, LDL 100 with a total cholesterol of 162. Left-sided chest wall pain due to recurrent fall and rib contusion continue oxycodone and Tylenol for pain encourage incentive spirometer. History of alcohol abuse no evidence of alcohol withdrawal continue CIWA protocol Peripheral neuropathy with recurrent fall will need PT eval prior to discharge status post AAA repair in [address] abdomen DVT prophylaxis on IV heparin
[2020-08-18] MEDS: Heparin Sodium,Porcine/1/2NS 25,000 UNIT/250 ML IV.SOLN 7.2 UNIT IVCONT (13:54)
[2020-08-18 16:00] VITALS: BP 120/78; PULSE 80; RESP 18; TEMP 37.3; O2SAT 100
--- NOTE | 2020-08-18 16:14 | MHC.CM.PN ---
P REPORTS HE LIVES ALONE IN SENIOR [facility]OUSING, NO ASSISTED LIVING. PT HAS NO IN HOME SERVICES AND IS INDEPENDENT WITH CARE. PT REPORTS HE HAS BEEN WORKING WITH AN AGENCY CALLED [employer] TO GET IN HOME SERVICES. PT REPORTS HE HAS A CANE BUT USUALLY USES HIS ROLLATOR BUT ADMITS HE HAS BEEN FALLING RECENTLY. PT DOES NOT KNOW THE NAME OF HIS PCP BUT REPORTS HE GOES TO [address] [place] [address] [place] . PT DOES NOT HAVE A HCP, HE IS INTERESTED IN COMPLETING ONE BUT DOES NOT HAVE HIS DAUGHTERS INFORMATION. HE WILL GET IT THIS EVENING WHEN SHE CALLS AND COMPLETE ONE ON WEDNESDAY. [facility] DELIVERED CURRENT DC PLAN IS HOME. PT IS UNSURE ABOUT SERVICES. PT WILL LIKELY NEED A CHAIR VAN HOME
[2020-08-18 19:32] VITALS: BP 139/84; PULSE 83
[2020-08-18] MEDS: carvediloL 3.125 MG TABLET 6.25 MG PO (19:32)
[2020-08-18 19:33] VITALS: BP 139/84; PULSE 83; RESP 16; TEMP 36.4; O2SAT 100
[2020-08-19] VITALS (9 sets, daily range): BP systolic 144–170; BP diastolic 81–96; PULSE 75–98; RESP 18–24; TEMP 36.4–37.2; O2SAT 94–100
[2020-08-19 06:13] LABS: Eosinophils Absolute Auto 0.1 X10*3/uL (0.0-0.4); Imm Gran Abs Auto 0.02 X10*3/uL (0.00-0.03); Imm Gran Pct Auto 0.4 % (0.0-0.4); PLT CLUMP 1; SCAN SMEAR FLAG 1
[2020-08-19 06:15] LABS: Basophils Percent Auto 0.8 % (0-2); Hematocrit 30.8 % (42-52); Hemoglobin 10.1 g/dl (14.0-18.0); Lymphocytes Absolute Auto 1.1 X10*3/uL (1.2-4.9); Lymphocytes Percent Auto 22.8 % (20-40); Mean Corpuscular HGB Conc 32.8 g/dl (31.0-36.0); Mean Corpuscular Hemoglobin 31.5 pg (27.0-33.0); Mean Platelet Volume 11.2 fL (9.4-12.4); Monocytes Percent Auto 19.4 % (2-11); Neutrophils Absolute Auto 2.7 X10*3/uL (2.0-8.3); Neutrophils Percent Auto 54.6 % (45-73); Platelet Count 129 X10*3/uL (160-400); Red Blood Count 3.21 X10*6/uL (4.60-5.80); Red Cell Distribution Width 13.1 % (11.0-16.0)
[2020-08-19 06:17] LABS: MANUAL DIFF FLAG NO
[2020-08-19 06:43] LABS: Anion Gap 11 (12-20); Blood Urea Nitrogen 36 mg/dL (9-16); Calcium 7.6 mg/dL (8.4-10.2); Carbon Dioxide 28 mmol/L (22-29); Chloride 104 mmol/L (96-108); Creatinine Clr Calc Pharmacy 21.7; Estimated Glomerular Filt Rate 27; Glucose Random 99 mg/dL (60-115); Sodium 139 mmol/L (135-145)
[2020-08-19] MEDS: Atorvastatin Calcium 80 MG TABLET PO (08:39)
[2020-08-19] MEDS: Aspirin 81 MG TAB.CHEW PO (08:39)
[2020-08-19] MEDS: 0.9 % Sodium Chloride Flush 3 ML SYRINGE IVFLUSH ×2 (08:39→16:04)
[2020-08-19] MEDS: carvediloL 3.125 MG TABLET 6.25 MG PO (08:39)
[2020-08-19] MEDS: amLODIPine Besylate 5 MG TABLET PO (08:39)
[2020-08-19] MEDS: carvediloL 12.5 MG TABLET PO ×2 (09:48→21:34)
--- NOTE | 2020-08-19 10:49 | P.CDIC_ITS ---
CDI Concurrent Query Service Date: 08/19/20 Documentation Clarification: Please clarify if you are treating a proba ble/suspected/likely or confirmed: Acute kidney failure with CKD stage 1-5 CKD stage 1-5 Please specify if known or other Provider Response: Other Other Diagnosis: Acute on chronic kidney disease PLEASE DO NOT DELETE/MODIFY EXISTING CONTENT Additional information is needed in order to code to the highest accuracy and appropriate Severity of Illness (SOI). Please clarify the information noted below in your progress notes and discharge summary. Risk Factors/Clinical Indicators/Treatments PN: 08/18 - Hold lasix today due to worsening renal function follow BMP and BNP. Cr: 1.78 2.26 2.30 Bun 20 32 36 Gfr 37 28 27 History of CKD CDS: Cheyenne Isaac [facility], CDIS Contact Number: [phone] Please Review the information above and exercise your independent professional judgment in responding to the query. If you concur, pleas document in the PROGRESS NOTES and DISCHARGE SUMMARY. If you do not agree with the query, please document in the query above. THIS QUERY IS PART OF THE PERMANENT MEDICAL RECORD
--- NOTE | 2020-08-19 13:19 | PC.NURSE ---
Assisted patient OOB to chair. Very weak. Needed 1-2 assist with walker. unstaedy on feet. )2 waened off. 94% after being on RA for 1 hour and after getting patient oob.
--- NOTE | 2020-08-19 13:22 | P.PNIM_ITS ---
Subjective Subjective Date of Service: 08/19/20 Interval History: Patient feeling better this a.m. less pain on left side of chest, no shortness of breath no acute issues overnight, mostly in bed, complaining of recurrent falls at home with ambulation. General no headache, no dizziness, no fever chills. Respiratory no cough, no shortness of breath Gastrointestinal no nausea, no vomiting, no abdominal pain Physical Exam Vital Signs: Vital Signs: Last Vital Signs Temp 99.0 F 08/19/20 12:00 Pulse 94 08/19/20 12:00 Resp 24 H 08/19/20 12:00 BP 148/95 H 08/19/20 12:00 Pulse Ox 94 08/19/20 12:00 Body Mass Index 20.1 General resting comfortably in no acute distress. Neck supple, no JVD. CVS regular rate rhythm, Respiratory lungs clear to auscultation, no respiratory distress, no wheeze, no rhonchi. Gastrointestinal abdomen soft, nontender, bowel sounds audible, no guarding , no rigidity. Extremities significant improvement in lower extremity edema, mild swelling of right ankle. Neuro nonfocal . Skin no rash Objective Data Current Medications Generic Name Dose Route Start Last Admin Trade Name Freq PRN Reason Stop Dose Admin Acetaminophen 650 mg 08/17/20 05:17 08/17/20 10:04 Acetaminophen 325 Mg Tablet PO 650 mg Q6H PRN Administration Pain, Mild (Pain Scale 1-3) Amlodipine Besylate 5 mg 08/17/20 11:30 08/19/20 08:39 Amlodipine Besylate 5 Mg Tablet PO 5 mg DAILY FROILAN Administration Protocol Aspirin 81 mg 08/18/20 09:00 08/19/20 08:39 Aspirin 81 Mg Tab.Chew PO 81 mg DAILY [facility] Administration Atorvastatin Calcium 80 mg 08/18/20 09:00 08/19/20 08:39 Atorvastatin Calcium 80 Mg Tablet PO 80 mg DAILY [facility] Administration Carvedilol 12.5 mg 08/19/20 09:00 08/19/20 09:48 Carvedilol 12.5 Mg Tablet PO 6.25 mg BID [facility] Administration Protocol Docusate Sodium 100 mg 08/17/20 05:17 Docusate Sodium 100 Mg Capsule PO DAILY PRN Constipation Heparin Sodium (Porcine) 2,400 unit 08/17/20 13:38 Heparin Sodium,Porcine 5,000 Unit/Ml Vial 40 unit/kg (2400 unit) IVPUSH BOLUS PRN 40 unit/kg - Heparin Protocol Heparin Sodium (Porcine) 4,800 unit 08/17/20 13:39 Heparin Sodium,Porcine 5,000 Unit/Ml Vial 80 unit/kg (4800 unit) IVPUSH BOLUS PRN 80 unit/kg - Heparin Protocol Heparin Sodium/Sodium Chloride 25,000 unit in 250 mls @ 0 mls/hr 08/17/20 13:30 08/18/20 13:54 IVCONT 12 units/kg/hr .Q0M FROILAN 7.2 mls/hr Administration Protocol Per Protocol Ondansetron HCl 4 mg 08/17/20 05:17 Ondansetron Hcl 4 Mg/2 Ml Vial IVPUSH Q8H PRN Nausea and Vomiting Oxycodone HCl 5 mg 08/17/20 10:07 08/18/20 05:02 Oxycodone Hcl Immed Release 5 Mg Tablet PO 5 mg Q6H PRN Administration Pain, Moderate (Pain Scale 4-6 Sodium Chloride 3 ml 08/17/20 08:00 08/19/20 08:39 0.9 % Sodium Chloride Flush 3 Ml Syringe IVFLUSH 3 ml QSHIFT FROILAN Administration Labs CBC & Chem 7: 08/19/20 06:00 08/19/20 06:00 Microbiology Microbiology Results: Microbiology 08/16/20 22:49 Blood - Venous Blood Culture - Preliminary No growth after 48 hours. 08/16/20 22:50 Blood - Venous Blood Culture - Preliminary No growth after 48 hours. Assessment and Plan (1) Cardiomyopathy: Status: Acute (2) CHF exacerbation: Status: Acute (3) NSTEMI (non-ST elevated myocardial infarction): Status: Acute (4) Abnormal EKG: Status: Acute (5) Hypertensive emergency: Status: Acute (6) Acute respiratory distress: Status: Acute (7) Flash pulmonary edema: Status: Acute (8) Acute worsening of stage 3 chronic kidney disease: Status: Acute Assessment and Plan: 79-year-old gentleman with past medical history of abdominal aortic aneurysm / endovascular repair, hepatitis-C, chronic kidney disease and hypertension with noncompliance presented with elevated blood pressures, respiratory distress and congestive heart failure. Hypertensive emergency Blood pressure improved, but remains elevated will increase dose of Coreg, and continue Norvasc follow BP closely Acute respiratory distress related to pulmonary edema echocardiogram showed an EF of 25-30% with global hypokinesis and diastolic dysfunction Patient appears euvolemic continue to hold Lasix,s/p IV Lasix 40 mg b.i.d. with good response, leg edema significantly improved, BNP improved from 3309 - 2532 follow BMP Acute on chronic kidney disease stage 3 Creatinine remains elevated but stable, will continue to hold Lasix follow BMP avoid nephrotoxins. Non ST-elevation CT will dc IV heparin x 48hrs, continue beta-blockers and statins, patient being followed by Cardiology will need ischemic evaluation with significant global hypokinesis and low EF, LDL 100 with a total cholesterol of 162. Left-sided chest wall pain due to recurrent fall and rib contusion continue oxycodone and Tylenol for pain encourage incentive spirometer. History of alcohol abuse no evidence of alcohol withdrawal continue CIWA protocol Peripheral neuropathy with recurrent fall will obtain PT eval once heparin drip is discontinued. Patient lives alone at [facility]. status post AAA repair in [address] abdomen DVT prophylaxis on IV heparin
[2020-08-19] MEDS: hydrALAZINE HCl 25 MG TABLET PO (21:34)
[2020-08-20] VITALS (8 sets, daily range): BP systolic 116–152; BP diastolic 68–100; PULSE 72–84; RESP 18–20; TEMP 36.3–36.8; O2SAT 96–99
[2020-08-20] MEDS: 0.9 % Sodium Chloride Flush 3 ML SYRINGE IVFLUSH ×3 (02:45→16:40)
[2020-08-20] MEDS: hydrALAZINE HCl 25 MG TABLET PO ×3 (08:11→22:07)
[2020-08-20] MEDS: Atorvastatin Calcium 80 MG TABLET PO (08:11)
[2020-08-20] MEDS: amLODIPine Besylate 5 MG TABLET PO (08:11)
[2020-08-20] MEDS: carvediloL 12.5 MG TABLET PO ×2 (08:11→22:07)
[2020-08-20] MEDS: Aspirin 81 MG TAB.CHEW PO (08:11)
[2020-08-20] MEDS: Docusate Sodium 100 MG CAPSULE PO (08:15)
--- NOTE | 2020-08-20 10:34 | P.PNCA_ITS ---
Subjective Subjective Date of Service: 08/20/20 Principal diagnosis: Cardiomyopathy, elevated blood pressure, ischemic EKG changes Interval history: Patient is not having cardiac symptoms. Says that he is tired. No palpitations or arrhythmias Review of Systems Constitutional: Reports no additional constitutional complaints Cardiovascular: Reports no additional cardiovascular complaints Respiratory: Reports no additional respiratory complaints Gastrointestinal: Reports no additional gastrointestinal complaints Musculoskeletal: Reports no additional musculoskeletal complaints Reports system reviewed and no additional complaints, except as documented Psychiatric: Reports no additional psychiatric complaints Physical Exam Vital Signs: Last Vital Signs Temp 97.3 F 08/20/20 08:00 Pulse 82 08/20/20 08:11 Resp 20 08/20/20 08:00 BP 152/96 H 08/20/20 08:11 Pulse Ox 98 08/20/20 08:00 Body Mass Index 20.1 Const General: cooperative, comfortable, no acute distress, alert, awake, ill appe aring and poor hygiene Nutritional Appearance: thin Orientation/consciousness: patient oriented x3 Neck Neck: Yes trachea midline, Yes supple and Yes no JVD Resp Effort & Inspection: normal respiratory effort Auscultation: clear to auscultation bilaterally Cardio Jugular venous distension: no JVD Palpation: abnormal PMI displaced PMI Rate: regular rate Rhythm: regular rhythm Heart sounds: S1 normal heart sound present and S2 normal heart sound present GI Auscultation: normal bowel sounds Skin General skin exam: no rashes or lesions noted Neuro General: patient oriented x3 Extrem General: Yes no clubbing, cyanosis or edema Results Labs and Meds Result diagrams: 08/19/20 06:00 08/19/20 06:00 Progress Note: A&P Assessment and plan (1) Cardiomyopathy: Status: Acute Assessment and Plan: Cardiomyopathy. will require ischemic evaluation. Agree with maximising hydralazine. Add isordil 5 mg bid to his regimen. Agree with maximising coreg. Will need out patient MPI. Alcohol abstinence. (2) Uncontrolled hypertension: Status: Acute Fall Risk Details Current Medications: Current Medications Generic Name Dose Route Start Last Admin Trade Name Freq PRN Reason Stop Dose Admin Acetaminophen 650 mg 08/17/20 05:17 08/17/20 10:04 Acetaminophen 325 Mg Tablet PO 650 mg Q6H PRN Administration Pain, Mild (Pain Scale 1-3) Amlodipine Besylate 5 mg 08/17/20 11:30 08/20/20 08:11 Amlodipine Besylate 5 Mg Tablet PO 5 mg DAILY [facility] Administration Protocol Aspirin 81 mg 08/18/20 09:00 08/20/20 08:11 Aspirin 81 Mg Tab.Chew PO 81 mg DAILY [facility] Administration Atorvastatin Calcium 80 mg 08/18/20 09:00 08/20/20 08:11 Atorvastatin Calcium 80 Mg Tablet PO 80 mg DAILY [facility] Administration Carvedilol 12.5 mg 08/19/20 09:00 08/20/20 08:11 Carvedilol 12.5 Mg Tablet PO 12.5 mg BID [facility] Administration Protocol Docusate Sodium 100 mg 08/17/20 05:17 08/20/20 08:15 Docusate Sodium 100 Mg Capsule PO 100 mg DAILY PRN Administration Constipation Hydralazine HCl 50 mg 08/20/20 21:00 Hydralazine Hcl 50 Mg Tablet PO BID [facility] Protocol Ondansetron HCl 4 mg 08/17/20 05:17 Ondansetron Hcl 4 Mg/2 Ml Vial IVPUSH Q8H PRN Nausea and Vomiting Oxycodone HCl 5 mg 08/17/20 10:07 08/18/20 05:02 Oxycodone Hcl Immed Release 5 Mg Tablet PO 5 mg Q6H PRN Administration Pain, Moderate (Pain Scale 4-6 Sodium Chloride 3 ml 08/17/20 08:00 08/20/20 08:12 0.9 % Sodium Chloride Flush 3 Ml Syringe IVFLUSH 3 ml QSHIFT [facility] Administration Time Spent With Patient Time: Total time spent is greater than 50% in coordination of care (as documented) at patient's floor/unit and/or counseling patient: Time with patient: 15 - 24 minutes
[2020-08-20] MEDS: Lactulose 20 GM/30 ML SOLUTION 15 GM PO (11:25)
--- NOTE | 2020-08-20 15:30 | P.PNIM_ITS ---
Subjective Subjective Date of Service: 08/20/20 Interval History: Patient feels very tired today complaining of constipation, otherwise denies any shortness of breath cough chest discomfort, PND or orthopnea no other acute issues overnight. ROS General no headache, no dizziness, no fever chills, generalized weakness. Respiratory no cough, no shortness of breath Gastrointestinal no nausea, no vomiting, no abdominal pain, constipation Physical Exam Vital Signs: Vital Signs: Last Vital Signs Temp 97.8 F 08/20/20 15: Pulse 72 08/20/20 15: Resp 18 08/20/20 15:21 BP 124/74 08/20/20 15: Pulse Ox 98 08/20/20 15: Body Mass Index 20.1 General resting comfortably blocks tired, no distress Neck supple, no JVD. CVS regular rate rhythm, Respiratory lungs clear to auscultation, no respiratory distress, no wheeze, no rhonchi. Gastrointestinal abdomen soft, nontender, bowel sounds audible, no guarding , no rigidity. Extremities significant improvement in lower extremity edema, mild swelling of right ankle. Neuro nonfocal . Skin no rash Objective Data Current Medications Generic Name Dose Route Start Last Admin Trade Name Freq PRN Reason Stop Dose Admin Acetaminophen 650 mg 08/17/20 05:17 08/17/20 10:04 Acetaminophen 325 Mg Tablet PO 650 mg Q6H PRN Administration Pain, Mild (Pain Scale 1-3) Amlodipine Besylate 5 mg 08/17/20 11:30 08/20/20 08:11 Amlodipine Besylate 5 Mg Tablet PO 5 mg DAILY [facility] Administration Protocol Aspirin 81 mg 08/18/20 09:00 08/20/20 08:11 Aspirin 81 Mg Tab.Chew PO 81 mg DAILY [facility] Administration Atorvastatin Calcium 80 mg 08/18/20 09:00 08/20/20 08:11 Atorvastatin Calcium 80 Mg Tablet PO 80 mg DAILY [facility] Administration Carvedilol 12.5 mg 08/19/20 09:00 08/20/20 08:11 Carvedilol 12.5 Mg Tablet PO 12.5 mg BID [facility] Administration Protocol Docusate Sodium 100 mg 08/20/20 21:00 Docusate Sodium 100 Mg Capsule PO BID [facility] Hydralazine HCl 50 mg 08/20/20 21:00 Hydralazine Hcl 50 Mg Tablet PO BID [facility] Protocol Ondansetron HCl 4 mg 08/17/20 05:17 Ondansetron Hcl 4 Mg/2 Ml Vial IVPUSH Q8H PRN Nausea and Vomiting Oxycodone HCl 5 mg 08/17/20 10:07 08/18/20 05:02 Oxycodone Hcl Immed Release 5 Mg Tablet PO 5 mg Q6H PRN Administration Pain, Moderate (Pain Scale 4-6 Sodium Chloride 3 ml 08/17/20 08:00 08/20/20 08:12 0.9 % Sodium Chloride Flush 3 Ml Syringe IVFLUSH 3 ml QSHIFT [facility]OILAN Administration Labs CBC & Chem 7: 08/19/20 06:00 08/19/20 06:00 Microbiology Microbiology Results: Microbiology 08/16/20 22:49 Blood - Venous Blood Culture - Preliminary No growth after 48 hours. 08/16/20 22:50 Blood - Venous Blood Culture - Preliminary No growth after 48 hours. Assessment and Plan (1) NSTEMI (non-ST elevated myocardial infarction): Status: Acute (2) Hypertensive emergency: Status: Acute (3) Acute respiratory distress: Status: Acute (4) Acute worsening of stage 3 chronic kidney disease: Status: Acute (5) Cardiomyopathy: Status: Acute (6) CHF exacerbation: Status: Acute (7) Abnormal EKG: Status: Acute (8) Uncontrolled hypertension: Status: Acute Assessment and Plan: 79-year-old gentleman with past medical history of abdominal aortic aneurysm / endovascular repair, hepatitis-C, chronic kidney disease and hypertension with noncompliance presented with elevated blood pressures, respiratory distress and congestive heart failure. Hypertensive emergency Blood pressure improved, but remains elevated, on Coreg 12.5 mg b.i.d., Norvasc 5 mg daily, hydralazine 25 b.i.d. therefore will increase dose of hydralazine to 50 b.i.d. and will add Isordil 5 mg b.i.d. as per Cardiology recommendation. Acute respiratory distress related to pulmonary edema echocardiogram showed an EF of 25-30% with global hypokinesis and diastolic dysfunction Patient appears euvolemic continue to hold Lasix,s/p IV Lasix 40 mg b.i.d. with good response, leg edema significantly improved, BNP improved from 3309 - 2532 follow BMP Acute on chronic kidney disease stage 3 Creatinine remains elevated but stable, will continue to hold Lasix follow BMP avoid nephrotoxins. Obtain nephrology consultation. Constipation likely due to narcotic medication will add Colace 100 b.i.d. scheduled and give lactulose follow clinical course, no abdominal pain. Non ST-elevation CT s/p IV heparin x 48hrs, continue beta-blockers and statins, patient being followed by Cardiology will need ischemic evaluation plan for outpatient, with significant global hypokinesis and low EF, LDL 100 with a total cholesterol of 162. Left-sided chest wall pain due to recurrent fall and rib contusion continue oxycodone and Tylenol for pain encourage incentive spirometer. History of alcohol abuse no evidence of alcohol withdrawal continue CIWA protocol Peripheral neuropathy with recurrent fall, seen by Physical therapy and they recommend short-term rehab status post AAA repair [place] [address] abdomen DVT prophylaxis on IV heparin
--- NOTE | 2020-08-20 20:38 | PM.CNNEP ---
History of Present Illness Reason for Consult Consult date: 08/20/20 Reason for consult: janak on ckd Chief Complaint Chief complaint: CHF, hypertensive emergency History of Present Illness Narrative: ASkto see PTto assit in eval and tx of janak on ckd and severe htn in setting of severe asvd and h/o AAA repair 2018. On adm c/o sob and noted severe HTN 230/128 and concern for aortic dissection so he underwent CTA of chest and abd and disection was r/o. he has not been taking his blood pressure medication for few months as he did not refill his prescriptions. he is comfortable today but c/o numbing of legs which has been ever since hiss AAA repair. He c/o of unsteady gait and falling epsidoeds. He is unaware of any kidney probs. No CP/or SOB. NO gh/dysurai Review of Systems Review of Systems No symptoms Yes all other systems are reviewed and are negative Constitutional: Reports no additional constitutional complaints Cardiovascular: Reports no additional cardiovascular complaints Respiratory: Reports no additional respiratory complaints Gastrointestinal: Reports no additional gastrointestinal complaints Musculoskeletal: Reports no additional musculoskeletal complaints Reports system reviewed and no additional complaints, except as documented Psychiatric: Reports no additional psychiatric complaints [facility], [facility] Past Medical History Medical History (Updated 08/20/20 @ 10:37 by Ry Vitale MD) Hypertension Surgical History Surgical History (Updated 08/17/20 @ 22:46 by Robert Israel MD) History of AAA (abdominal aortic aneurysm) repair Social History Social History Household Members: None Housing: Assisted Living Facility Do you presently have visiting nurse or other home services: No Smoking Status: Current every day smoker Tobacco Type: Cigarette Packs Per Day: 0.5 Cigarettes Per Day: 10.0 Years Smoked: 40 Smoked in Last 30 Days: Yes Patient Interested in Nicotine Replacement: Yes Patient Given Instructions on How to Stop Smoking: Yes Date Education Initiated: 08/17/20 Second Hand Smoke Exposure: No Use of substances other than those prescribed or required for medical reasons: No Currently Displaying Signs/Symptoms of Drug Intoxication Withdrawal: No Have you been hit, kicked, punched, or otherwise hurt by someone within the past year? If so, by whom?: No Do you feel safe in your current relationship?: No Current Relationship Is there a partner from a previous relationship who is making you feel unsafe now?: No Are you made to feel afraid or neglected: No Advance Directives: No Advance Directives Information Provided: No Do you have thoughts of harming others: None Do you have a plan to hurt others: No Plan Recently lost weight without trying: No service: No Current occupational status: retired Meds Allergies Allergy/AdvReac Type Severity Reaction Status Date / Time No Known Allergies Allergy Verified 08/16/20 21:31 Active Medications: Current Medications Generic Name Dose Route Start Last Admin Trade Name Freq PRN Reason Stop Dose Admin Acetaminophen 650 mg 08/17/20 05:17 08/17/20 10:04 Acetaminophen 325 Mg Tablet PO 650 mg Q6H PRN Administration Pain, Mild (Pain Scale 1-3) Amlodipine Besylate 5 mg 08/17/20 11:30 08/20/20 08:11 Amlodipine Besylate 5 Mg Tablet PO 5 mg DAILY FROILAN Administration Protocol Aspirin 81 mg 08/18/20 09:00 08/20/20 08:11 Aspirin 81 Mg Tab.Chew PO 81 mg DAILY FROILAN Administration Atorvastatin Calcium 80 mg 08/18/20 09:00 08/20/20 08:11 Atorvastatin Calcium 80 Mg Tablet PO 80 mg DAILY FROILAN Administration Carvedilol 12.5 mg 08/19/20 09:00 08/20/20 08:11 Carvedilol 12.5 Mg Tablet PO 12.5 mg BID FROILAN Administration Protocol Docusate Sodium 100 mg 08/20/20 21:00 Docusate Sodium 100 Mg Capsule PO BID [facility] Hydralazine HCl 25 mg 08/20/20 21:00 Hydralazine Hcl 25 Mg Tablet PO BID [facility] Protocol Isosorbide Dinitrate 5 mg 08/21/20 08:00 Isosorbide Dinitrate 5 Mg Tablet PO 0800,1300 [facility] Protocol Ondansetron HCl 4 mg 08/17/20 05:17 Ondansetron Hcl 4 Mg/2 Ml Vial IVPUSH Q8H PRN Nausea and Vomiting Oxycodone HCl 5 mg 08/17/20 10:07 08/18/20 05:02 Oxycodone Hcl Immed Release 5 Mg Tablet PO 5 mg Q6H PRN Administration Pain, Moderate (Pain Scale 4-6 Sodium Chloride 3 ml 08/17/20 08:00 08/20/20 16:40 0.9 % Sodium Chloride Flush 3 Ml Syringe IVFLUSH 3 ml QSHIFT [facility] Administration Home Medications Medication Instructions Recorded Confirmed Last Taken Type No Known Home Meds 08/17/20 08/17/20 Unknown History Physical Exam Vital Signs: Last Vital Signs Temp 98.0 F 08/20/20 19:07 Pulse 77 08/20/20 19:07 Resp 18 08/20/20 19:07 BP 151/96 H 08/20/20 19:07 Pulse Ox 99 08/20/20 19:07 Body Mass Index 20.1 Const General: cooperative, comfortable, no acute distress, alert, awake, ill appearing and poor hygiene Nutritional Appearance: thin Orientation/consciousness: patient oriented x3 Eyes General: appearance normal, both eyes and all related structures Neck Neck: Yes trachea midline, Yes supple and Yes no JVD Resp Effort & Inspection: normal respiratory effort and able to speak in complete sentences Auscultation: clear to auscultation bilaterally Cardio Jugular venous distension: no JVD Palpation: abnormal PMI displaced PMI Rate: regular rate Rhythm: regular rhythm Heart sounds: S1 normal heart sound present and S2 normal heart sound present GI Palpation (GI): Soft to palpation Auscultation: normal bowel sounds Skin General skin exam: no rashes or lesions noted Neuro General: patient oriented x3 Cognition (Neuro): normal cognition Extrem Other: 2+ pitting edema bilaterally General: Yes normal to inspection and Yes no clubbing, cyanosis or edema Results Lab Results Result Diagrams: 08/19/20 06:00 08/19/20 06:00 Lab results: Chemistry 08/18/20 08/19/20 03:29 06:00 Sodium 138 139 Potassium 3.4 4.0 Carbon Dioxide 28 28 BUN 32 H D 36 H Creatinine 2.26 H 2.30 H Calcium 7.5 L 7.6 L Hematology 08/18/20 08/19/20 03:29 06:00 WBC 4.4 L 5.0 Hgb 10.6 L 10.1 L Plt Count 109 L 129 L Assessment and Plan (1) NSTEMI (non-ST elevated myocardial infarction): Status: Acute (2) Hypertensive emergency: Status: Acute (3) Acute respiratory distress: Status: Acute (4) Acute worsening of stage 3 chronic kidney disease: Status: Acute (5) Cardiomyopathy: Status: Acute (6) CHF exacerbation: Status: Acute (7) Abnormal EKG: Status: Acute (8) Uncontrolled hypertension: Status: Acute 1. JANAK: incr SCr may reflect WANDER and or severe HTN assoc kidney injury malignant HTN vs other less likely causes: AGN, AIN or OBs 2 CKD 3: DADA/IRD and/or HTN nephrosclerosis 3. HTN: suboptimal control, but getting better 4. AAA PLAN: reveiw CTA with radiology for ques of DADA; cont uptitrate meds to control bp; avoid ntoxins need close outpt f/u re:CKD 79-year-old gentleman with past medical history of abdominal aortic aneurysm / endovascular repair, hepatitis-C, chronic kidney disease and hypertension with noncompliance presented with elevated blood pressures, respiratory distress and congestive heart failure. Hypertensive emergency Blood pressure improved, but remains elevated, on Coreg 12.5 mg b.i.d., Norvasc 5 mg daily, hydralazine 25 b.i.d. therefore will increase dose of hydralazine to 50 b.i.d. and will add Isordil 5 mg b.i.d. as per Cardiology recommendation. Acute respiratory distress related to pulmonary edema echocardiogram showed an EF of 25-30% with global hypokinesis and diastolic dysfunction Patient appears euvolemic continue to hold Lasix,s/p IV Lasix 40 mg b.i.d. with good response, leg edema significantly improved, BNP improved from 3309 - 2532 follow BMP Acute on chronic kidney disease stage 3 Creatinine remains elevated but stable, will continue to hold Lasix follow BMP avoid nephrotoxins. Obtain nephrology consultation. Constipation likely due to narcotic medication will add Colace 100 b.i.d. scheduled and give lactulose follow clinical course, no abdominal pain. Non ST-elevation [place] s/p IV heparin x 48hrs, continue beta-blockers and statins, patient being followed by Cardiology will need ischemic evaluation plan for outpatient, with significant global hypokinesis and low EF, LDL 100 with a total cholesterol of 162. Left-sided chest wall pain due to recurrent fall and rib contusion continue oxycodone and Tylenol for pain encourage incentive spirometer. History of alcohol abuse no evidence of alcohol withdrawal continue CIWA protocol Peripheral neuropathy with recurrent fall, seen by Physical therapy and they recommend short-term rehab status post AAA repair in [address] abdomen DVT prophylaxis on IV heparin
[2020-08-21] VITALS: BP 137/91; PULSE 77; RESP 20; TEMP 37.1; O2SAT 99
[2020-08-21] MEDS: 0.9 % Sodium Chloride Flush 3 ML SYRINGE IVFLUSH ×2 (01:44→08:43)
[2020-08-21 03:42] VITALS: BP 144/90; PULSE 78; RESP 20; TEMP 36.4; O2SAT 99
[2020-08-21 07:20] LABS: Anion Gap 13 (12-20); Blood Urea Nitrogen 33 mg/dL (9-16); Calcium 7.6 mg/dL (8.4-10.2); Carbon Dioxide 24 mmol/L (22-29); Chloride 105 mmol/L (96-108); Estimated Glomerular Filt Rate 32; Glucose Random 97 mg/dL (60-115); Potassium 4.1 mmol/L (3.3-5.1); Sodium 138 mmol/L (135-145)
[2020-08-21 07:35] LABS: B Type Natriuretic Peptide 1867 pg/mL (<100)
[2020-08-21 08:00] VITALS: BP 160/94; PULSE 88; RESP 18; TEMP 36.4; O2SAT 95
[2020-08-21] MEDS: amLODIPine Besylate 5 MG TABLET PO (08:43)
[2020-08-21] MEDS: hydrALAZINE HCl 25 MG TABLET PO (08:44)
[2020-08-21] MEDS: carvediloL 12.5 MG TABLET PO (08:44)
[2020-08-21] MEDS: Atorvastatin Calcium 80 MG TABLET PO (08:44)
[2020-08-21] MEDS: Aspirin 81 MG TAB.CHEW PO (08:44)
[2020-08-21] MEDS: Isosorbide Dinitrate 5 MG TABLET PO ×2 (08:44→13:27)
[2020-08-21 12:00] VITALS: BP 145/85; PULSE 76; RESP 20; TEMP 36.6; O2SAT 100
--- NOTE | 2020-08-21 13:14 | MHC.CM.PN ---
Patient does have have a PCP Dr Jordana Way CM met with patient for choices of home care. [facility] is 1st choice. referral made via [employer].
--- NOTE | 2020-08-21 13:38 | W.MHC.F2F ---
Service Date Service Date: 08/21/20 Encounter Date of encounter: 08/21/20 Encounter: Patient with hypertensive emergency in noncompliance with medication, unsteady gait with recurrent falls non ST-elevation [place] Reasons for Services Reason for intermediate: CV/CP assess and/or care and medication treatment Reason for physical therapy: home safety and mobility Homebound: Leaving the home is medically contraindicated at this time without the asist of a device and/or another person due th the listed conditions above and below. Reason homebound: unsteady gait / fall risk Certification: Based on the above findings, I certify that this patient is confined to the home and needs intermittent intermediate care, physical therapy and/or speech therapy, or continues to need occupational therapy. The patient is under my care, and I have initiated the establishment of the plan of care. The patient will be followed by a physician who will periodically review the plan of care.
--- NOTE | 2020-08-21 13:49 | PM.DS ---
DS: Providers Provider Date of Service: 08/21/20 Date of admission: 08/17/20 02:01 Primary care physician: Unknown Physician Consults: 08/17/20 05:17 Consult to Cardiology Routine Consulting Provider: Celestino Connors Reason for consultation: chf, htn Has provider been notified: No 08/20/20 11:19 Consult to Nephrology Routine Consulting Provider: Leonardo Weinberg Reason for consultation: ling DS: Diagnosis Discharge Diagnosis (1) NSTEMI (non-ST elevated myocardial infarction): Status: Acute (2) Hypertensive emergency: Status: Acute (3) Acute respiratory distress: Status: Acute (4) Acute worsening of stage 3 chronic kidney disease: Status: Acute (5) Cardiomyopathy: Status: Acute (6) CHF exacerbation: Status: Acute (7) Abnormal EKG: Status: Acute (8) Uncontrolled hypertension: Status: Acute DS: Medications Discharge Medications Home Medications: Previous Rx's Medication Instructions Recorded acetaminophen 650 mg PO Q6H PRN #100 tab 08/21/20 aspirin 81 mg PO DAILY #30 tab 08/21/20 atorvastatin [Lipitor] 40 mg PO DAILY #30 tab 08/21/20 carvedilol 12.5 mg PO BID #60 tab 08/21/20 hydralazine 50 mg PO BID #60 tab 08/21/20 isosorbide dinitrate 5 mg PO 0800,1300 #60 tab 08/21/20 DS: Summary Hospital Course Hospital Course: History of presenting illness Chief Complaint: sob This is an 79 yo with pmhx of triple A status post repair in 2019, hypertension who presents to the hospital with complaints of sudden-onset shortness of breath. Patient reports that this occurred about 3 days ago, resolved spontaneously and reoccurred on day of presentation. He denies having any chest pain, no palpitations, no chills or fever. He denies having a cough. Denies any recent travel sick contacts. He reports a chronic swelling in his legs since his aneurysmal repair in 2019. Denies having any abdominal pain, nausea or vomiting, no diarrhea or constipation, no urinary symptoms. He reports loss of feeling in his left arm and leg since the surgery of aneurysm in 2019. Patient reports that he has not been taking his blood pressure medication for few months as he did not refill his prescriptions. On arrival to the hospital patient found to have a blood pressure of 232/173, received labetalol, transdermal nitroglycerin, and hydralazine with blood pressure improving to the 170s/114 ,He also had a heart rate of 150, otherwise temp of 97.0? satting 95% on room air. Respiratory rate of 31. Patient was placed on CPAP in the ED with improvement of his respiratory status. There was reported hypoxia by EMS although patient was not hypoxic in the ED. Labs are significant for WBC count hemoglobin of 12.7, ABG showed a pH of 7.38, sodium 136, potassium 3.5, BUN of 20, creatinine of 1.78, high sensitivity troponin of 119 repeat of 291, BNP of 3309. Serology negative. CT angiogram showed of ascending aortic aneurysm or dissection, abnormal transverse arch where there is a centric dilation and nonfilling of the lumen. This appears to be chronic on review of documents obtained from outside hospital. Chest CT also showed nonvascular findings of emphysema, ground-glass changes which may represent mild interstitial edema. Past medical history Hypertension History of triple a repair Hospital course 79-year-old gentleman with past medical history of abdominal aortic aneurysm / endovascular repair, hepatitis-C, chronic kidney disease and hypertension with noncompliance presented with elevated blood pressures, respiratory distress and congestive heart failure. Hypertensive emergency Blood pressure improved, patient was not taking blood pressure medications for last several weeks has been started on Coreg 12.5 mg b.i.d. hydralazine 50 b.i.d.,and Isordil 5 mg b.i.d. Recommended outpatient follow-up with Cardiology. Acute respiratory distress related to pulmonary edema echocardiogram showed an EF of 25-30% with global hypokinesis and diastolic dysfunction patient treated with 1 dose of iv Lasix, Subsequent to that patient lower extremity edema resolved was noted to have worsening creatinine therefore diuretics held,at present patient is euvolemic BNP improved from 3309 - 2532 renal function is stable. Acute on chronic kidney disease stage 3 Creatinine remains elevated but stable, seems at his baseline, recommend outpatient nephrology follow up. Non ST-elevation [place] s/p IV heparin x 48hrs, continue beta-blockers and statins, patient seen by Cardiology they plan for outpatient ischemic workup. Left-sided chest wall pain due to recurrent fall and rib contusion continue pain has improved recommend to continue Tylenol as needed. History of alcohol abuse no evidence of alcohol withdrawal patient drinks 2 beer daily recommend to cut back on drinking due to recurrent falls. Peripheral neuropathy with recurrent fall, seen by Physical therapy,they recommend short-term rehab however patient declined and wishes to be discharged home therefore will arrange for home PT and VNA service patient is aware of risk of recurrent fall. status post AAA repair in [address] abdomen. Time Spent with Patient Time attestation: Total time spent providing and/or coordinating discharge services: Discharge coordination time: Greater than 30 minutes Physical Exam Vital Signs: Vital Signs: Last Vital Signs Temp 97.8 F 08/21/20 12:00 Pulse 76 08/21/20 12:00 Resp 20 08/21/20 12:00 BP 145/85 H 08/21/20 12:00 Pulse Ox 100 08/21/20 12:00 Body Mass Index 20.1 General resting comfortably blocks tired, no distress Neck supple, no JVD. CVS regular rate rhythm, Respiratory lungs clear to auscultation, no respiratory distress, no wheeze, no rhonchi. Gastrointestinal abdomen soft, nontender, bowel sounds audible, no guarding , no rigidity. Extremities significant improvement in lower extremity edema, mild swelling of right ankle (chronic.) Neuro nonfocal . Skin no rash DS: Data Data Completed and Pending Labs on day of discharge: Laboratory Results - last 24 hr 08/21/20 08/21/20 05:50 05:50 Sodium 138 Potassium 4.1 Chloride 105 Carbon Dioxide 24 Anion Gap 13 BUN 33 H Creatinine 2.00 H Estim Creat Clear Calc 25.0 Estimated GFR 32 Random Glucose 97 Calcium 7.6 L B-Natriuretic Peptide 1867 H Preliminary micro results at discharge 08/16/20 22:49 Blood Culture - Preliminary Blood - Venous No growth after 48 hours. 08/16/20 22:50 Blood Culture - Preliminary Blood - Venous No growth after 48 hours. Discharge Plan Discharge Patient Disposition: Home Health Service Referrals: Physician,Unknown [Primary Care Provider] - Discharge Medications: New acetaminophen 325 mg Tablet 650 mg PO Q6H PRN (Reason: Pain, Mild (Pain Scale 1-3)) Qty: 100 RF: 0 carvedilol 12.5 mg Tablet 12.5 mg PO BID Qty: 60 RF: 0 aspirin 81 mg Tablet,Chewable 81 mg PO DAILY Qty: 30 RF: 0 isosorbide dinitrate 5 mg Tablet 5 mg PO 0800,1300 Qty: 60 RF: 0 hydralazine 50 mg tablet 50 mg PO BID Qty: 60 RF: 0 atorvastatin [Lipitor] 40 mg tablet 40 mg PO DAILY Qty: 30 RF: 0 Discharge Orders: Discharge Order (Routine); Ordered 08/21/20 Ordered By: Raisa Mcdermott Diet: low fat, low cholesterol Activity on Discharge: As tolerated Stand Alone Forms: Patient Portal Discharge page Care Plan Goals: Unsteady gait and fall recommend physical therapy Health Concerns: Hypertensive emergency/non ST-elevation ID take all medications as prescribed Plan of Treatment: Follow-up with cardiology and primary care physician in 1 week
--- NOTE | 2020-08-21 14:43 | MHC.CM.PN ---
Patient will be discharging home with services from [facility]. CM will set up transport via chair van. Nurse and patient are aware.
[2020-08-21 15:35] VITALS: BP 132/81; PULSE 70; RESP 19; TEMP 36.4; O2SAT 98
== END 2020-08-21 16:35 | disposition home health service (06) | DRG 280 ==
LOC: HO.ED 08-17 01:16 → HO.IMC 08-17 04:39
PROVIDERS: Internal Medicine; Admitting Provider Internal Medicine; Emergency Provider Student in an Organized Health Care Education/Training Program; PCP Pediatrics; Visit Provider Hospitalist
DX: I21.4 Non-ST elevation (NSTEMI) myocardial infarction (principal); I50.33 Acute on chronic diastolic (congestive) heart failure; I16.1 Hypertensive emergency; N17.9 Acute kidney failure, unspecified; I13.0 Hypertensive heart and chronic kidney disease with heart failure and stage 1 through stage 4 chronic kidney disease, or unspecified chronic kidney disease; R06.03 Acute respiratory distress; I25.10 Atherosclerotic heart disease of native coronary artery without angina pectoris; R29.6 Repeated falls; F10.10 Alcohol abuse, uncomplicated; N18.30 Chronic kidney disease, stage 3 unspecified; Z91.14 Patient's other noncompliance with medication regimen; K59.03 Drug induced constipation; T40.605A Adverse effect of unspecified narcotics, initial encounter; Y92.239 Unspecified place in hospital as the place of occurrence of the external cause; G62.9 Polyneuropathy, unspecified; Z91.81 History of falling; F17.210 Nicotine dependence, cigarettes, uncomplicated; Z71.6 Tobacco abuse counseling; Z20.822 Contact with and (suspected) exposure to COVID-19; Z79.82 Long term (current) use of aspirin; Z79.899 Other long term (current) drug therapy
CPT/HCPCS: 0241U; 36415; 71045; 71275; 74174; 80048; 80061; 80076; 83605; 83880; 84484; 85025; 85027; 85379; 85610; 85730; 87040; 87635; 93005; 93306; 93970; 94660; 96374; 96375; 97162; 99285; J1940; Q9967

== ENCOUNTER 2020-10-08 21:40 | Inpatient (IN) | payer MEDICARE, SELFPAY ==
--- NOTE | ~2020-10-08 | XR_ITS ---
EXAMINATION: XR CHEST CLINICAL INFORMATION: AMS. COMPARISON: Chest 08/16/2020 TECHNIQUE: Frontal view of the chest was obtained. FINDINGS: The lungs are well-expanded and clear. The heart size and pulmonary vascularity is normal. No gross bony abnormality. XR/XR chest 1V IMPRESSION: Unremarkable chest exam.
--- NOTE | ~2020-10-08 | CT_ITS ---
EXAMINATION: CT HEAD WITHOUT CONTRAST CLINICAL INFORMATION: AMS COMPARISON: None TECHNIQUE: Contiguous axial imaging was performed from the skull base to vertex without intravenous administration of contrast. This CT examination was performed using dose optimization techniques as appropriate, variously including the following: *Automated exposure control *Adjustment of mA and/or kV according to patient size (this includes techniques or standardized protocols for targeted exams where dose is matched to indication/reason for exam; i.e. extremities or head) *Use of iterative reconstruction technique DLP: 687 mGy-cm FINDINGS: There is no evidence of acute intracranial hemorrhage or territorial infarction. No abnormal mass effect or midline shift is seen. Gomez to white matter differentiation is well preserved. No extra-axial fluid collections are identified. The ventricles are symmetrical and normal size. There is mild periarticular hypodensity in both cerebral hemispheres without mass effect or edema. The osseous structures and soft tissues are normal. The mastoid air cells and visualized portions of the paranasal sinuses are well aerated. CT/CT head/brain wo con IMPRESSION: No acute intracranial process seen.
--- NOTE | ~2020-10-08 | US_ITS ---
EXAMINATION: US RENAL ARTERY DOPPLER CLINICAL INFORMATION: Renal artery stenosis. COMPARISON: CTA of 08/16/2020. TECHNIQUE: Renal ultrasound. Doppler ultrasound (spectral analysis and color Doppler) of the renal arteries and aorta were performed. There are limitations to the exam due to patient's body habitus and mobility problems as well as erratic breathing. FINDINGS: The right kidney measures 9.3 cm x 3.9 cm x 6.3 cm in sagittal, AP and transverse dimensions. The left kidney measures 8.9 cm x 6.4 cm x 4.6 cm in sagittal, AP and transverse dimensions. Right kidney: Within the upper pole, there is a septated cyst without internal vascularity measuring 1.7 x 1.4 x 1.9 cm in size. Within the midpole, there is a 2.3 x 1.8 x 1.7 cm simple-appearing cyst. Within the lower pole, there is a 1.2 x 1.1 x 1.1 cm simple-appearing cyst. No hydronephrosis or calculi identified. Left kidney: There is an echogenic focus seen within the lower pole consistent with small calculus. Within the midpole region, there is a hypoechoic area measuring approximately 8 x 9 x 10 mm in size which may represent a small cyst. No significant distal sound enhancement is seen and the lesion is too small to characterize well. RENAL ARTERY VELOCITIES: The renal arteries originate about the proximal aspect of the aortic stent graft. Right: The resistive indices are normal. Proximally: 19.7 cm/s. Mid: 27 cm/s. Distal: 41 cm/s. Left: Resistive indices are normal. Proximally: Not identified. Mid: Not identified. Distally: 20 cm/s. The aortic velocity is 42 cm/s. The renal aortic ratio is 0.96 on the right and 0.46 on the left. These values are within normal limits. Incidentally noted is a small amount of free fluid adjacent to the spleen. US/US renal doppler IMPRESSION: Right renal cysts. Probable 1 cm left renal cyst with nonobstructing calculus also noted. Limited evaluation with no evidence of right renal artery stenosis. Evaluation of the left renal artery is limited with left renal artery ratio of 0.46 without definite evidence of renal artery stenosis.
--- NOTE | 2020-10-08 21:43 | ECG_ITS ---
Test Reason : SOB Blood Pressure : / mmHG Vent. Rate : 094 BPM Atrial Rate : 094 BPM P-R Int : 164 ms QRS Dur : 092 ms QT Int : 420 ms P-R-T Axes : 000 223 240 degrees QTc Int : 525 ms Normal sinus rhythm Right superior axis deviation Inferior infarct , age undetermined Prolonged QT Abnormal ECG When compared with ECG of 17-AUG-2020 01:11, Significant changes have occurred Referred By: Renny Mena Electronically Signed By:NIDA VARGAS
[2020-10-08 21:49] VITALS: BP 201/135; PULSE 95; RESP 20; TEMP 37; O2SAT 100; BMI 17.7
[2020-10-08 21:59] VITALS: BP 201/135; PULSE 95
[2020-10-08] MEDS: Labetalol HCL 100 MG/20 ML VIAL 10 MG IVPUSH (21:59)
[2020-10-08] MEDS: ondansetron HCL 4 MG/2 ML VIAL IVPUSH (21:59)
[2020-10-08 22:00] VITALS: BP 189/114; BP 201/135; PULSE 91; PULSE 95; RESP 25; TEMP 37; O2SAT 95
[2020-10-08] MEDS: Nitroglycerin 2 % Oint 1 GM Packet 1 INCH TRANSDERMA (22:00)
[2020-10-08 22:06] VITALS: BP 192/116; PULSE 95
[2020-10-08 22:07] LABS: Glucose, Whole Blood 67 mg/dL (60-115)
[2020-10-08 22:08] LABS: MANUAL DIFF FLAG NO
[2020-10-08 22:10] LABS: Basophils Percent Auto 0.4 % (0-2); Eosinophils Absolute Auto 0.1 X10*3/uL (0.0-0.4); Hematocrit 27.2 % (42-52); Hemoglobin 8.8 g/dl (14.0-18.0); Imm Gran Abs Auto 0.02 X10*3/uL (0.00-0.03); Imm Gran Pct Auto 0.3 % (0.0-0.4); Lymphocytes Absolute Auto 1.2 X10*3/uL (1.2-4.9); Lymphocytes Percent Auto 15.9 % (20-40); Mean Corpuscular HGB Conc 32.4 g/dl (31.0-36.0); Mean Corpuscular Hemoglobin 28.7 pg (27.0-33.0); Mean Corpuscular Volume 88.6 fL (80-98); Mean Platelet Volume 11.4 fL (9.4-12.4); Monocytes Absolute Auto 0.6 X10*3/uL (0.1-1.2); Monocytes Percent Auto 7.9 % (2-11); Neutrophils Absolute Auto 5.5 X10*3/uL (2.0-8.3); Neutrophils Percent Auto 74.5 % (45-73); Platelet Count 193 X10*3/uL (160-400); Red Blood Count 3.07 X10*6/uL (4.60-5.80); Red Cell Distribution Width 16.7 % (11.0-16.0); White Blood Count 7.4 X10*3/uL (4.8-10.8)
[2020-10-08 22:21] LABS: INTERNATIONAL NORM RATIO 1.1 (0.9-1.1); Prothrombin Time 12.9 SEC (10.8-13.0)
--- NOTE | 2020-10-08 22:21 | ED.GENADULT ---
HPI - General Adult General Chief complaint: Altered Mental Status Stated complaint: DIFF BREATHING Time Seen by Provider: 10/08/20 21:43 Source: patient and EMS Mode of arrival: EMS Limitations: other (Poor historian) History of Present Illness HPI narrative: Patient comes to emergency room complaining of shortness of breath. According to EMS, a patient's roommate called EMS, told them that the patient was complaining of shortness of breath. The roommates were unable to give any history as far as when patient's symptoms started. Patient is poor historian himself, states that he is complaining of shortness of breath, denies chest pain, denies headache. Patient states that he takes hydralazine at home and is compliant with his medication for blood pressure. Of note, patient was hospitalized with a similar presentation on August 2020. Patient was admitted for hypertensive crisis, NSTEMI, shortness of breath, CHF, chronic kidney disease Related Data Previous Rx's Medication Instructions Recorded acetaminophen 650 mg PO Q6H PRN #100 tab 08/21/20 aspirin 81 mg PO DAILY #30 tab 08/21/20 atorvastatin [Lipitor] 40 mg PO DAILY #30 tab 08/21/20 carvedilol 12.5 mg PO BID #60 tab 08/21/20 hydralazine 50 mg PO BID #60 tab 08/21/20 isosorbide dinitrate 5 mg PO 0800,1300 #60 tab 08/21/20 Allergies Allergy/AdvReac Type Severity Reaction Status Date / Time No Known Allergies Allergy Verified 10/08/20 21:48 Review of Systems Review of Systems: Constitutional : No Weight loss, No Fever, No Chills, No Night Sweats, No Fatigue, No Malaise ENT/Mouth : No Hearing loss, No Ear Pain, No Nasal Congestion, No Sinus Pain, No Hoarseness, No sore throat, No Rhinorrhea, No Swallowing Difficulty Eyes: No Eye Pain, No Swelling, No Redness, No Foreign Body, No Discharge, No Vision Changes Cardiovascular : No Chest Pain, complaining of shortness of breath at rest, worse with exertion Respiratory : No Cough, No Sputum, No Wheezing complaining of dyspnea Gastrointestinal : Complaining of nausea and vomiting starting today, No Diarrhea, No Constipation, No abdominal Pain, No Hematochezia, No Melena Genitourinary : no irregular bleeding, No Dysuria, No Urinary Frequency, No Hematuria, No Urinary Incontinence, No Urgency, No Flank Pain, No Urinary Flow Changes, No Hesitancy Musculoskeletal : No joint pain, No Myalgias, No Joint Swelling Skin : No Skin Lesions, No rash Neuro : No Weakness, No Numbness, No Paresthesias, No Loss of Consciousness, No Dizziness, No Headache Psych : No Anxiety/Panic, No Depression, No SI/HI/AH/VH, No Social Issues, Heme/Lymph: No Bruising, No Bleeding,No Lymphadenopathy Endocrine : No Polyuria, No Polydipsia, No Temperature Intolerance FOR[facility]LY [facility] Past Medical History Medical History Abnormal EKG Cardiomyopathy CHF exacerbation Hypertension Surgical History History of AAA (abdominal aortic aneurysm) repair Social History Social History Household Members: None Housing: Assisted Living Facility Alcohol intake: current Smoking Status: Current every day smoker Tobacco Type: Cigarette Packs Per Day: 0.5 Cigarettes Per Day: 10.0 Years Smoked: 40 Second Hand Smoke Exposure: No Use of substances other than those prescribed or required for medical reasons: No Advance Directives: No Advance Directives Information Provided: No service: No Current occupational status: retired Physical Exam Vital Signs: Vital Signs: Last Vital Signs Temp 97.7 F 10/08/20 23:28 Pulse 92 10/09/20 00:01 Resp 20 10/08/20 23:28 BP 180/110 H 10/09/20 00:01 Pulse Ox 98 10/08/20 23:28 Oxygen Flow Rate 2 10/08/20 21:49 Body Mass Index 17.7 Appearance: Alert. No acute distress, actively vomiting Eyes: Pupils equal, round and reactive to light. ENT: Pharynx normal. Neck: Normal inspection. Neck supple. No lymph nodes noted. No crepitus CVS: Normal heart rate and rhythm. S1-S2, +3 systolic murmur Respiratory: Seems to have shortness of breath, oxygen saturation 96% on room air, mild bilateral crackles Abdomen: Soft and nontender. No rigidity. No distention. Skin: Skin warm and dry. Normal skin color. Normal skin turgor. Extremities: +2 pitting edema bilaterally, no calf tenderness Neuro:No motor deficit. No sensory deficit. Moving all extermities. No slurred speech. Course Course Course Narrative: Discussed the patient with our hospitalist Dr. Israel, patient will be admitted for CHF exacerbation and occult GI bleed. Medical Decision Making Lab Data Result diagrams: 10/08/20 22:03 10/08/20 22:02 Labs: Lab Results 10/08/20 10/08/20 10/08/20 Range/Units 21:58 22:02 22:02 WBC (4.8-10.8) X10*3/uL RBC (4.60-5.80) X10*6/uL Hgb (14.0-18.0) g/dl Hct (42-52) % MCV (80-98) fL MCH (27.0-33.0) pg MCHC (31.0-36.0) g/dl RDW (11.0-16.0) % Plt Count (160-400) X10*3/uL MPV (9.4-12.4) fL Immature Gran % (Auto) (0.0-0.4) % Neut % (Auto) (45-73) % Lymph % (Auto) (20-40) % [place] % (Auto) (2-11) % Eos % (Auto) (0-4) % Baso % (Auto) (0-2) % Lymph # (Auto) (1.2-4.9) X10*3/uL [place] # (Auto) (0.1-1.2) X10*3/uL Eos # (Auto) (0.0-0.4) X10*3/uL Baso # (Auto) (0.0-0.2) X10*3/uL Abs Immat Gran (auto) (0.00-0.03) X10*3/uL Absolute Neuts (auto) (2.0-8.3) X10*3/uL Absolute Nucleated RBC (0.0-0.012) X10*3/uL Nucleated RBC % (auto) (0.0-0.2) /100WBC PT (10.8-13.0) SEC INR (0.9-1.1) APTT (24.1-38.0) SEC Sodium 136 (135-145) mmol/L Potassium 4.6 (3.3-5.1) mmol/L Chloride 100 (96-108) mmol/L Carbon Dioxide 18 L (22-29) mmol/L Anion Gap 23 H (12-20) BUN 42 H (9-16) mg/dL Creatinine 2.09 H (0.5-1.4) mg/dL Estim Creat Clear Calc 24.3 Estimated GFR 31 POC Glucose 67 (60-115) mg/dL Random Glucose 67 (60-115) mg/dL Calcium 9.1 D (8.4-10.2) mg/dL Total Bilirubin 0.8 (0.0-1.0) mg/dL AST 72 H (5-37) U/L ALT 39 (0-40) U/L Alkaline Phosphatase 118 H D (39-117) U/L Troponin I High Sens (<3.5-35.0) ng/L B-Natriuretic Peptide (<100) pg/mL Total Protein 9.0 H D (6.5-8.0) g/dL Albumin 4.0 D (3.5-5.0) g/dL Stool Occult Blood (NEGATIVE) Ethyl Alcohol mg/dL COVID-19 (PRABHAKAR) Negative (Negative) COVID-19 Clin Com See Note 10/08/20 10/08/20 10/08/20 Range/Units 22:03 22:03 22:03 WBC 7.4 (4.8-10.8) X10*3/uL RBC 3.07 L (4.60-5.80) X10*6/uL Hgb 8.8 L (14.0-18.0) g/dl Hct 27.2 L (42-52) % MCV 88.6 (80-98) fL MCH 28.7 (27.0-33.0) pg MCHC 32.4 (31.0-36.0) g/dl RDW 16.7 H (11.0-16.0) % Plt Count 193 D (160-400) X10*3/uL MPV 11.4 (9.4-12.4) fL Immature Gran % (Auto) 0.3 (0.0-0.4) % Neut % (Auto) 74.5 H (45-73) % Lymph % (Auto) 15.9 L (20-40) % [place] % (Auto) 7.9 (2-11) % Eos % (Auto) 1.0 (0-4) % Baso % (Auto) 0.4 (0-2) % Lymph # (Auto) 1.2 (1.2-4.9) X10*3/uL [place] # (Auto) 0.6 (0.1-1.2) X10*3/uL Eos # (Auto) 0.1 (0.0-0.4) X10*3/uL Baso # (Auto) 0.0 (0.0-0.2) X10*3/uL Abs Immat Gran (auto) 0.02 (0.00-0.03) X10*3/uL Absolute Neuts (auto) 5.5 (2.0-8.3) X10*3/uL Absolute Nucleated RBC 0.000 (0.0-0.012) X10*3/uL Nucleated RBC % (auto) 0.0 (0.0-0.2) /100WBC PT 12.9 (10.8-13.0) SEC INR 1.1 (0.9-1.1) APTT 34.0 (24.1-38.0) SEC Sodium (135-145) mmol/L Potassium (3.3-5.1) mmol/L Chloride (96-108) mmol/L Carbon Dioxide (22-29) mmol/L Anion Gap (12-20) BUN (9-16) mg/dL Creatinine (0.5-1.4) mg/dL Estim Creat Clear Calc Estimated GFR POC Glucose (60-115) mg/dL Random Glucose (60-115) mg/dL Calcium (8.4-10.2) mg/dL Total Bilirubin (0.0-1.0) mg/dL AST (5-37) U/L ALT (0-40) U/L Alkaline Phosphatase (39-117) U/L Troponin I High Sens 13.7 D (<3.5-35.0) ng/L B-Natriuretic Peptide 2906 H (<100) pg/mL Total Protein (6.5-8.0) g/dL Albumin (3.5-5.0) g/dL Stool Occult Blood (NEGATIVE) Ethyl Alcohol mg/dL COVID-19 (PRABHAKAR) (Negative) COVID-19 Clin Com 10/08/20 10/08/20 Range/Units 22:03 23:30 WBC (4.8-10.8) X10*3/uL RBC (4.60-5.80) X10*6/uL Hgb (14.0-18.0) g/dl Hct (42-52) % MCV (80-98) fL MCH (27.0-33.0) pg MCHC (31.0-36.0) g/dl RDW (11.0-16.0) % Plt Count (160-400) X10*3/uL MPV (9.4-12.4) fL Immature Gran % (Auto) (0.0-0.4) % Neut % (Auto) (45-73) % Lymph % (Auto) (20-40) % [place] % (Auto) (2-11) % Eos % (Auto) (0-4) % Baso % (Auto) (0-2) % Lymph # (Auto) (1.2-4.9) X10*3/uL [place] # (Auto) (0.1-1.2) X10*3/uL Eos # (Auto) (0.0-0.4) X10*3/uL Baso # (Auto) (0.0-0.2) X10*3/uL Abs Immat Gran (auto) (0.00-0.03) X10*3/uL Absolute Neuts (auto) (2.0-8.3) X10*3/uL Absolute Nucleated RBC (0.0-0.012) X10*3/uL Nucleated RBC % (auto) (0.0-0.2) /100WBC PT (10.8-13.0) SEC INR (0.9-1.1) APTT (24.1-38.0) SEC Sodium (135-145) mmol/L Potassium (3.3-5.1) mmol/L Chloride (96-108) mmol/L Carbon Dioxide (22-29) mmol/L Anion Gap (12-20) BUN (9-16) mg/dL Creatinine (0.5-1.4) mg/dL Estim Creat Clear Calc Estimated GFR POC Glucose (60-115) mg/dL Random Glucose (60-115) mg/dL Calcium (8.4-10.2) mg/dL Total Bilirubin (0.0-1.0) mg/dL AST (5-37) U/L ALT (0-40) U/L Alkaline Phosphatase (39-117) U/L Troponin I High Sens (<3.5-35.0) ng/L B-Natriuretic Peptide (<100) pg/mL Total Protein (6.5-8.0) g/dL Albumin (3.5-5.0) g/dL Stool Occult Blood POSITIVE (NEGATIVE) Ethyl Alcohol 70 mg/dL COVID-19 (PRABHAKAR) (Negative) COVID-19 Clin Com Imaging Data Chest x-ray: Radiologist's impression: The lungs are well-expanded and clear. The heart size and pulmonary vascularity is normal. No gross bony abnormality. XR/XR chest 1V IMPRESSION: Unremarkable chest exam. CT of the head: Radiologist's impression: There is no evidence of acute intracranial hemorrhage or territorial infarction. No abnormal mass effect or midline shift is seen. Gomez to white matter differentiation is well preserved. No extra-axial fluid collections are identified. The ventricles are symmetrical and normal size. There is mild periarticular hypodensity in both cerebral hemispheres without mass effect or edema. The osseous structures and soft tissues are normal. The mastoid air cells and visualized portions of the paranasal sinuses are well aerated. CT/CT head/brain wo con IMPRESSION: No acute intracranial process seen ECG Data Attestation: I personally reviewed and interpreted this ECG as follows: (Sinus rhythm, heart rate 94, no ST segment depression or elevation, no T-wave inversion, prolonged QTc 525) Discharge Plan Discharge Clinical Impression: Occult GI bleeding CHF (congestive heart failure) Qualifiers: Heart failure type: unspecified Heart failure chronicity: unspecified Qualified Code(s): I50.9 - Heart failure, unspecified Anemia Qualifiers: Anemia type: unspecified type Qualified Code(s): D64.9 - Anemia, unspecified Patient Disposition: Admitted As Inpatient
[2020-10-08 22:29] LABS: COVID-19 Test Negative (Negative)
[2020-10-08 22:37] LABS: Ethanol 70 mg/dL
[2020-10-08 22:44] LABS: Troponin-I High Sensitivity 13.7 ng/L (<3.5-35.0)
[2020-10-08 22:47] LABS: Alanine Aminotransferase 39 U/L (0-40); Alkaline Phosphatase 118 U/L (39-117); Anion Gap 23 (12-20); Aspartate Amino Transferase 72 U/L (5-37); Bilirubin Total 0.8 mg/dL (0.0-1.0); Blood Urea Nitrogen 42 mg/dL (9-16); Calcium 9.1 mg/dL (8.4-10.2); Carbon Dioxide 18 mmol/L (22-29); Chloride 100 mmol/L (96-108); Creatinine Clr Calc Pharmacy 24.3; Estimated Glomerular Filt Rate 31; Glucose Random 67 mg/dL (60-115); Potassium 4.6 mmol/L (3.3-5.1); Sodium 136 mmol/L (135-145)
[2020-10-08 23:22] LABS: B Type Natriuretic Peptide 2906 pg/mL (<100)
[2020-10-08 23:28] VITALS: BP 177/109; PULSE 92; RESP 20; TEMP 36.5; O2SAT 98
[2020-10-08 23:35] LABS: OBS Int Ctl Valid YES; OBS1 POSITIVE (NEGATIVE)
[2020-10-09] VITALS (15 sets, daily range): BP systolic 155–181; BP diastolic 91–112; PULSE 81–96; RESP 14–19; TEMP 36.6–37.3; O2SAT 94–100
--- NOTE | 2020-10-09 | PC.NURSE ---
admitting MD is at bedside
[2020-10-09] MEDS: Labetalol HCL 100 MG/20 ML VIAL 10 MG IVPUSH (00:01)
--- NOTE | 2020-10-09 00:24 | PM.IMHP ---
History of Present Illness Date of Service: 10/09/20 Chief Complaint: SOB This is an 79-year-old male with past medical history of AAA status post repair in 2019, CHF with reduced ejection fraction, hypertension who presents to the hospital with complaints shortness of breath that started today. Patient reports some lower extremity edema, mild cough with some sputum production, no orthopnea or PND. No chest pain, no palpitations. No abdominal pain nausea or vomiting, no diarrhea constipation. No fever or chills. No urinary symptoms and no sick contacts or recent travel. Patient also denies any melena, bright blood per rectum, no bloody vomiting . On arrival to the ED patient hemodynamically stable with blood pressure of 201/135, heart rate of 95, respiratory rate of 20, 95% on room air. Mother significant for WBC count 7.4, hemoglobin of 8.8 that dropped from 10.1 in August,, hematocrit 27.2, MCV of 88.6, RDW of 16.7, sodium 136, potassium 4.6, BUN of 42, creatinine of 2.9 with baseline around 1.78, AST of 72, ALT of 39, alk-phos of 118, BNP of 2106, COVID-19 negative, alcohol level of 70, Chest x-ray shows unremarkable exam, head CT unremarkable EKG shows normal sinus rhythm Patient reports that he drinks about 1-2 L daily with no history of withdrawals Review of Systems Review of Systems: Yes all other systems are reviewed and are negative [facility] Medical History Abnormal EKG Cardiomyopathy CHF exacerbation Hypertension Surgical History History of AAA (abdominal aortic aneurysm) repair Social History Household Members: None Housing: Assisted Living Facility Alcohol intake: current Smoking Status: Current every day smoker Tobacco Type: Cigarette Packs Per Day: 0.5 Cigarettes Per Day: 10.0 Years Smoked: 40 Second Hand Smoke Exposure: No Use of substances other than those prescribed or required for medical reasons: No Advance Directives: No Advance Directives Information Provided: No service: No Current occupational status: retired Meds Allergies Allergy/AdvReac Type Severity Reaction Status Date / Time No Known Allergies Allergy Verified 05/04/21 21:48 Physical Exam Vital Signs and Narrative: Vital Signs: Last Vital Signs Temp 97.7 F 10/08/20 23:28 Pulse 92 10/09/20 00:01 Resp 20 10/08/20 23:28 BP 180/110 H 10/09/20 00:01 Pulse Ox 98 10/08/20 23:28 Oxygen Flow Rate 2 10/08/20 21:49 Body Mass Index 17.7 Const: General: cooperative and no acute distress Orientation/consciousness: patient oriented x3 Eyes: General: appearance normal, both eyes and all related structures Resp: Effort & Inspection: normal respiratory effort and able to speak in complete sentences Cardio: Rate: regular rate Rhythm: regular rhythm GI: Palpation (GI): Soft to palpation Auscultation: normal bowel sounds Skin: General skin exam: no rashes or lesions noted Neuro: General: patient oriented x3 Cognition (Neuro): normal cognition Extrem: Other: 1+ pedal edema around ankles bilaterally General: Yes normal to inspection Results Labs CBC and Chem 7: 10/08/20 22:03 10/08/20 22:02 Labs: Laboratory Results - last 24 hr 10/08/20 10/08/20 10/08/20 21:58 22:02 22:02 MCV MCH MCHC RDW Plt Count MPV Immature Gran % (Auto) Neut % (Auto) Lymph % (Auto) [place] % (Auto) Eos % (Auto) Baso % (Auto) Lymph # (Auto) [place] # (Auto) Eos # (Auto) Baso # (Auto) Abs Immat Gran (auto) Absolute Neuts (auto) Absolute Nucleated RBC Nucleated RBC % (auto) PT INR APTT Anion Gap 23 H Estim Creat Clear Calc 24.3 Estimated GFR 31 POC Glucose 67 Random Glucose 67 Calcium 9.1 D Total Bilirubin 0.8 AST 72 H ALT 39 Alkaline Phosphatase 118 H D Troponin I High Sens B-Natriuretic Peptide Total Protein 9.0 H D Albumin 4.0 D Stool Occult Blood Ethyl Alcohol COVID-19 (PRABHAKAR) Negative COVID-19 Clin Com See Note 10/08/20 10/08/20 10/08/20 22:03 22:03 22:03 MCV 88.6 MCH 28.7 MCHC 32.4 RDW 16.7 H Plt Count 193 D MPV 11.4 Immature Gran % (Auto) 0.3 Neut % (Auto) 74.5 H Lymph % (Auto) 15.9 L [place] % (Auto) 7.9 Eos % (Auto) 1.0 Baso % (Auto) 0.4 Lymph # (Auto) 1.2 [place] # (Auto) 0.6 Eos # (Auto) 0.1 Baso # (Auto) 0.0 Abs Immat Gran (auto) 0.02 Absolute Neuts (auto) 5.5 Absolute Nucleated RBC 0.000 Nucleated RBC % (auto) 0.0 PT 12.9 INR 1.1 APTT 34.0 Anion Gap Estim Creat Clear Calc Estimated GFR POC Glucose Random Glucose Calcium Total Bilirubin AST ALT Alkaline Phosphatase Troponin I High Sens 13.7 D B-Natriuretic Peptide 2906 H Total Protein Albumin Stool Occult Blood Ethyl Alcohol COVID-19 (PRABHAKAR) COVID-19 [employer] 10/08/20 10/08/20 22:03 23:30 MCV MCH MCHC RDW Plt Count MPV Immature Gran % (Auto) Neut % (Auto) Lymph % (Auto) [place] % (Auto) Eos % (Auto) Baso % (Auto) Lymph # (Auto) [place] # (Auto) Eos # (Auto) Baso # (Auto) Abs Immat Gran (auto) Absolute Neuts (auto) Absolute Nucleated RBC Nucleated RBC % (auto) PT INR APTT Anion Gap Estim Creat Clear Calc Estimated GFR POC Glucose Random Glucose Calcium Total Bilirubin AST ALT Alkaline Phosphatase Troponin I High Sens B-Natriuretic Peptide Total Protein Albumin Stool Occult Blood POSITIVE Ethyl Alcohol 70 COVID-19 (PRABHAKAR) COVID-19 [employer] Radiologist's Impressions: Impressions Chest X-Ray 10/08/20 21:43 IMPRESSION: Unremarkable chest exam. Head CT 10/08/20 21:43 IMPRESSION: No acute intracranial process seen. Assessment and Plan (1) CHF exacerbation: Status: Acute (2) Anemia: Qualifiers: Anemia type: unspecified type Qualified Code(s): D64.9 - Anemia, unspecified Status: Acute (3) Occult GI bleeding: Status: Acute (4) Hypertensive crisis: Status: Acute (5) Elevated troponin: Status: Acute (6) Acute kidney injury superimposed on CKD: Status: Acute This 79-year-old male with past medical history of CHF with reduced ejection fraction, HTN, AAA repair presents the hospital shortness of breath. # acute CHF exacerbation - most likely secondary to hypertensive emergency S blood pressure was in 200/130s on arrival - had an echo done in August of this year which showed ejection fraction of 25-30% - BNP in the , - troponin initially elevated at 13.7 increased to 20.1 no chest pain or EKG suggestive of ACS - will start him on IV Lasix 40 b.i.d., low-sodium diet, strict I&O, daily weight - will not repeat echo as he had 1 done most recently in August # normocytic anemia with positive occult stool - hemoglobin did drop from 10-8.8 - patient denies any melena, no bright red blood per rectum no hemoptysis - will start him on PPI IV b.i.d. - consult GI # hypertensive crisis - presented with blood pressure of 200/135 which most likely led to his CHF exacerbation - received multiple doses of labetalol - will resume his home medications of carvedilol, hydralazine - may need increase of his carvedilol versus addition of another agent given this 2nd admission within 1 year for hypertensive crisis eating to CHF exacerbation - p.r.n. hydralazine IV for SBP above 180 # elevated troponin - most likely type 2 - no EKG changes, no chest pain # JANAK and CKD - treat heart failure - follow BMP DVT prophylaxis: Heparin subQ
[2020-10-09 01:31] LABS: Troponin-I High Sensitivity 20.1 ng/L (<3.5-35.0)
[2020-10-09] MEDS: Furosemide 40 MG/4 ML VIAL IVPUSH ×2 (02:26→12:20)
[2020-10-09] MEDS: Heparin Sodium,Porcine 5,000 UNIT/ML VIAL 5000 UNIT SUBCUT ×2 (02:26→14:08)
--- NOTE | 2020-10-09 06:17 | PC.NURSE ---
PT RESTING IN STRETCHER, WAKES TO VOICE PT DENIES COMPLAINTS, DENIES CHEST PAIN OR SOB. PT'S B/P REMAINS AROUND 176/109, HR 90. HOSPITALIST AWARE OF B/P. WILL CONTINUE TO MONITOR PT.
[2020-10-09] MEDS: hydrALAZINE HCl 20 MG/ML VIAL 5 MG IVPUSH (06:33)
[2020-10-09] MEDS: Pantoprazole Sodium 40 MG/10 ML VIAL IVPUSH ×2 (06:34→17:27)
--- NOTE | 2020-10-09 06:34 | PC.NURSE ---
pt medicated for b/p as per emar.
[2020-10-09] MEDS: 0.9 % Sodium Chloride Flush 3 ML SYRINGE IVFLUSH ×3 (07:21→19:46)
[2020-10-09 08:45] LABS: Glucose Urine UA NEG (NEG); Leukocyte Esterase Urine 1+ (NEG); Nitrite Urine NEG (NEG); Specific Gravity - Urine 1.015 (1.005-1.025); UACC Culture Trigger YES; Urine Blood TRACE (NEG); Urine Ketones NEG (NEG); Urine Protein 1+ MG/DL (NEG-TRACE)
[2020-10-09 08:47] LABS: Appearance Urine CLOUDY; Color Urine YELLOW
[2020-10-09 08:56] LABS: UACC CULT YES; WBC Urine TNTC /HPF (0-4)
[2020-10-09 08:57] LABS: Bacteria Urine 2+ /LPF; Mucus Urine 1+ /LPF; WBC Clumps Urine NOTED
[2020-10-09 09:05] LABS: Amphetamine Screen Urine Not Detected (Not Detect); Barbiturates, Urine Not Detected (Not Detect); Benzodiazepines Screen Urine Not Detected (Not Detect); Cannabinoid Screen Urine Not Detected (Not Detect); Cocaine Screen Urine POSITIVE (Not Detect); Opiate Screen Urine Not Detected (Not Detect); Phencyclidine Screen Urine Not Detected (Not Detect)
[2020-10-09 09:22] LABS: Hematocrit 27.1 % (42-52); Hemoglobin 8.8 g/dl (14.0-18.0); Mean Corpuscular HGB Conc 32.5 g/dl (31.0-36.0); Mean Corpuscular Hemoglobin 28.6 pg (27.0-33.0); Mean Platelet Volume 11.6 fL (9.4-12.4); NRBC Pct Auto 0.3 /100WBC (0.0-0.2); Platelet Count 149 X10*3/uL (160-400); Red Blood Count 3.08 X10*6/uL (4.60-5.80); Red Cell Distribution Width 16.7 % (11.0-16.0); White Blood Count 6.8 X10*3/uL (4.8-10.8)
[2020-10-09 09:53] LABS: Anion Gap 18 (12-20); Blood Urea Nitrogen 48 mg/dL (9-16); Calcium 8.9 mg/dL (8.4-10.2); Carbon Dioxide 22 mmol/L (22-29); Chloride 100 mmol/L (96-108); Estimated Glomerular Filt Rate 27; Glucose Random 162 mg/dL (60-115); Potassium 4.6 mmol/L (3.3-5.1); Sodium 135 mmol/L (135-145)
--- NOTE | 2020-10-09 10:53 | P.CDIC_ITS ---
CDI Concurrent Query Service Date: 10/12/20 Documentation Clarification: Please clarify if you are treating a proba ble/suspected/likely or confirmed: CKD, please specify stage 1 - 5 ESRD Provider Response: CKD Stage 3 PLEASE DO NOT DELETE/MODIFY EXISTING CONTENT Additional information is needed in order to code to the highest accuracy and appropriate Severity of Illness (SOI). Please clarify the information noted below in your progress notes and discharge summary. Risk Factors/Clinical Indicators/Treatments 79 year old male admitted with altered mental status, difficulty breathing, vomit, 2+ edema. BUN 42 Creatinine 2.09 Per H&P: JANAK on CKD Per Discharge Summary 08/21/20, acute worsening of stage 3 CKD CDS: Jazzy Lester RN Contact Number: [phone] Please Review the information above and exercise your independent professional judgment in responding to the query. If you concur, pleas document in the PROGRESS NOTES and DISCHARGE SUMMARY. If you do not agree with the query, please document in the query above. THIS QUERY IS PART OF THE PERMANENT MEDICAL RECORD
[2020-10-09] MEDS: hydrALAZINE HCl 50 MG TABLET PO ×2 (13:34→19:45)
[2020-10-09] MEDS: carvediloL 12.5 MG TABLET PO ×2 (13:35→19:45)
--- NOTE | 2020-10-09 14:28 | HO.PM.IMPN ---
Subjective Subjective Date of Service: 10/09/20 Interval History: follow up for CHF, elevated HTN confused this morning, not able to provide much history about why he is in the hospital Denies chest pain or shortness of breath Review of Systems Review of Systems: Yes all other systems are reviewed and are negative Constitutional Constitutional: Denies chills and Denies fever(s) Cardiovascular Cardiovascular: Denies chest pain Respiratory Respiratory: Denies cough Gastrointestinal Gastrointestinal: Denies abdominal pain Neurologic Neurologic: Reports confusion Psychiatric Psychiatric: Reports confusion Physical Exam Vital Signs: Vital Signs: Last Vital Signs Temp 98.5 F 10/09/20 02:25 Pulse 93 10/09/20 13:35 Resp 17 10/09/20 12:21 BP 173/107 H 10/09/20 13:35 Pulse Ox 96 10/09/20 12:21 Oxygen Flow Rate 2 10/08/20 21:49 Body Mass Index 17.7 Const: General: alert, awake and confusion Nutritional Appearance: thin Orientation/consciousness: confusion HENMT: Head: Yes normocephalic and Yes atraumatic Eyes: Sclerae: sclerae normal Chest: Chest palpation & inspection: normal inspection of the chest Resp: Effort & Inspection: normal respiratory effort and no respiratory distress Auscultation: clear to auscultation bilaterally Cardio: Rate: regular rate Rhythm: regular rhythm GI: Palpation (GI): Soft to palpation and nontender Neuro: General: confusion Cranial nerves: Yes CN's II-XII intact bilaterally and Yes Bilaterally intact EOM present Extrem: Other: 1+ b/l leg edema General: Yes normal to inspection Objective Data Current Medications Generic Name Dose Route Start Last Admin Trade Name Samiq PRN Reason Stop Dose Admin Acetaminophen 650 mg 10/09/20 00:43 Acetaminophen 325 Mg Tablet PO Q6H PRN Pain, Mild (Pain Scale 1-3) Atorvastatin Calcium 40 mg 10/10/20 09:00 Atorvastatin Calcium 40 Mg Tablet PO DAILY FROILAN Carvedilol 12.5 mg 10/09/20 13:30 10/09/20 13:35 Carvedilol 12.5 Mg Tablet PO 12.5 mg BID FROILAN Administration Protocol Docusate Sodium 100 mg 10/09/20 00:43 Docusate Sodium 100 Mg Capsule PO DAILY PRN Constipation Furosemide 40 mg 10/09/20 00:43 10/09/20 12:20 Furosemide 40 Mg/4 Ml Vial IVPUSH 40 mg Q12H FROILAN Administration Protocol Heparin Sodium (Porcine) 5,000 unit 10/09/20 02:00 10/09/20 14:08 Heparin Sodium,Porcine 5,000 Unit/Ml Vial SUBCUT 5,000 unit Q12H FROILAN Administration Hydralazine HCl 50 mg 10/09/20 13:30 10/09/20 13:34 Hydralazine Hcl 50 Mg Tablet PO 50 mg BID FROILAN Administration Protocol Ondansetron HCl 4 mg 10/09/20 00:43 Ondansetron Hcl 4 Mg/2 Ml Vial IVPUSH Q8H PRN Nausea and Vomiting Pantoprazole Sodium 40 mg 10/09/20 06:30 10/09/20 06:34 Pantoprazole Sodium 40 Mg/10 Ml Vial IVPUSH 40 mg BID@0630,1630 FROILAN Administration Sodium Chloride 3 ml 10/09/20 08:00 10/09/20 07:21 0.9 % Sodium Chloride Flush 3 Ml Syringe IVFLUSH 3 ml QSHIFT FROILAN Administration Labs CBC & Chem 7: 10/09/20 09:11 10/09/20 09:11 Assessment and Plan (1) Acute kidney injury superimposed on CKD: Status: Acute (2) Elevated troponin: Status: Acute (3) CHF exacerbation: Status: Acute (4) Hypertensive crisis: Status: Acute Assessment and Plan: This 79-year-old male with past medical history of CHF with reduced ejection fraction, HTN, AAA repair, h/o etoh use, chronic HCV who presents the hospital shortness of breath found to have CHF, uncontrolled HTN. acute on chronic HFrEF Echo from 08/25 shows ECH 25-30% with global hypokinesis most likely secondary to uncontrolled HTN. blood pressure was in 200/130s on arrival. previous history of non-compliance. - BNP in the , - will hold further diuresis given worsening renal failure - continue low-sodium diet, strict I&O, daily weight - cardiology consult normocytic anemia with positive occult stool - hemoglobin did drop from 10-8.8 - continue PPI IV b.i.d. - GI consult pending Uncontrolled HTN received multiple doses of labetalol in ED - resume his home medications carvedilol, hydralazine - monitor BP closely prolonged QT -tele monitoring -check magnesium elevated troponin troponin flat JANAK on CKD3 - follow BMP closely - nephrology consult h/o etoh etoh level 70 on admission -CIWA monitoring thrombocytopenia chronic. 149 today likely r/t to liver dz (chronic HCV) h/o peripheral neuropathy DVT prophylaxis: mechanical devices Attending: Dr. Santoro
[2020-10-09 14:52] LABS: Magnesium 2.3 mg/dL (1.6-2.6)
--- NOTE | 2020-10-09 18:34 | P.EN_ITS ---
Event Note Date of Service: 10/09/20 Event Note: Hx via patient and EMR. He presently seems alert and answers appro priately. Oriented x 3 Imp: 79 yo male with hx of chronic EtOH and smoking, along with other medical issues including vascular disease/HTN/CHF, admitted with anemia and Heme + stool. He denies any GI symptoms here nor at home, and denies any signs of GI bleeding. He denies using NSAIDs. He denies any previous colonoscopies, although thinks he may have had an EGD but isn't very clear about that. His abdominal exam is benign. He is tolerating his diet here. I suspect his anemia is multifactorial in relation to chronic disease, renal insufficiency, nutritional, EtOH, and maybe some blood loss from chronic EtOH. Obviously a GI neoplasm can't be completely excluded either. Rec: Check Iron/B12/Folate levels in AM. Follow Hgb. Change to oral PPI. Avoid anticoagulation if possible. Please try to check with his PCP or at [facility] to be sure that he hasn't had any previous colonoscopies and/or EGD's before having him go through any procedures here given his age and comorbidities. If he has ir on deficiency I would recommend GI workup if not done in the past. If things are stable and he does need the procedures done, they can be done as an outpatient if he thinks he will follow up. Otherwise he says he would be willing to do them here as an inpatient if need be. However, he would need his other medical issues stabilized first. D/W patient. Thanks
--- NOTE | 2020-10-09 20:09 | P.CONNP_ITS ---
History of Present Illness Reason for Consult Consult date: 10/09/20 Reason for consult: JANAK, HTN emergrency Chief Complaint Chief complaint: Chf Exacerbation History of Present Illness Narrative: Ask to see PT for JANAK and HTN emergency in stting of active cocaine use. Poor historian ansd info obtained from EHR. Presented to hosp with SOB and severe HTN and urine cady positive. Breathing much imporved after IV lasix and IV labaetalaol with BP improved. SDeneis CP. H/O CKD with bsl SCr 1.5-1.8 range. Denies CP. Denies GH/dysuria michael UA shows wbc. Dneis use of nsaids. Last hosp similar presentation with SOB and w/u included CTA of chest revealing abnl thoracic aortic arch with diltiation and question of dissection was raised but felt not to be the ase. Card echo showing low EF 25% and pulm HTN. H/O AAA repair 2018. Review of Systems Review of Systems Constitutional : No Weight loss, No Fever, No Chills, No Night Sweats, No Fatigue, No Malaise ENT/Mouth : No Hearing loss, No Ear Pain, No Nasal Congestion, No Sinus Pain, No Hoarseness, No sore throat, No Rhinorrhea, No Swallowing Difficulty Eyes: No Eye Pain, No Swelling, No Redness, No Foreign Body, No Discharge, No Vision Changes Cardiovascular : No Chest Pain, complaining of shortness of breath at rest, worse with exertion Respiratory : No Cough, No Sputum, No Wheezing complaining of dyspnea Gastrointestinal : Complaining of nausea and vomiting starting today, No Diarrhea, No Constipation, No abdominal Pain, No Hematochezia, No Melena Genitourinary : no irregular bleeding, No Dysuria, No Urinary Frequency, No Hematuria, No Urinary Incontinence, No Urgency, No Flank Pain, No Urinary Flow Changes, No Hesitancy Musculoskeletal : No joint pain, No Myalgias, No Joint Swelling Skin : No Skin Lesions, No rash Neuro : No Weakness, No Numbness, No Paresthesias, No Loss of Consciousness, No Dizziness, No Headache Psych : No Anxiety/Panic, No Depression, No SI/HI/AH/VH, No Social Issues, Heme/Lymph: No Bruising, No Bleeding,No Lymphadenopathy Endocrine : No Polyuria, No Polydipsia, No Temperature Intolerance Yes all other systems are reviewed and are negative Constitutional: Denies chills and Denies fever(s) Cardiovascular: Denies chest pain Respiratory: Denies cough Gastrointestinal: Denies abdominal pain Reports confusion Psychiatric: Reports confusion [facility] Past Medical History Medical History Abnormal EKG Cardiomyopathy CHF exacerbation Hypertension Surgical History Surgical History History of AAA (abdominal aortic aneurysm) repair Social History Social History Household Members: Other Household Members Other:: care home Housing: Other Housing Other:: care home Do you presently have visiting nurse or other home services: Yes (care home) Alcohol intake: current Smoking Status: Current every day smoker Tobacco Type: Cigarette Packs Per Day: 0.5 Cigarettes Per Day: 10.0 Years Smoked: 40 Smoked in Last 30 Days: Yes Patient Interested in Nicotine Replacement: Yes Second Hand Smoke Exposure: No Use of substances other than those prescribed or required for medical reasons: Yes Substance Use Type: Crack/Cocaine Substance Use Frequency: Occasionally Last Used Substance: Unknown Currently Displaying Signs/Symptoms of Drug Intoxication Withdrawal: No Any prior treatment program specific to substance use: No Have you been hit, kicked, punched, or otherwise hurt by someone within the past year? If so, by whom?: No Do you feel safe in your current relationship?: No Current Relationship Is there a partner from a previous relationship who is making you feel unsafe now?: No Are you made to feel afraid or neglected: No Advance Directives: No Advance Directives Information Provided: No Do you have thoughts of harming others: None Do you have a plan to hurt others: No Plan Recently lost weight without trying: No Nutrition Risks: No Nutritional Risk service: No Current occupational status: retired Meds Allergies Allergy/AdvReac Type Severity Reaction Status Date / Time No Known Allergies Allergy Verified 10/08/20 21:48 Active Medications: Current Medications Generic Name Dose Route Start Last Admin Trade Name Freq PRN Reason Stop Dose Admin Acetaminophen 650 mg 10/09/20 00:43 Acetaminophen 325 Mg Tablet PO Q6H PRN Pain, Mild (Pain Scale 1-3) Atorvastatin Calcium 40 mg 10/10/20 09:00 Atorvastatin Calcium 40 Mg Tablet PO DAILY FROILAN Carvedilol 12.5 mg 10/09/20 13:30 10/09/20 19:45 Carvedilol 12.5 Mg Tablet PO 12.5 mg BID [facility] Administration Protocol Docusate Sodium 100 mg 10/09/20 00:43 Docusate Sodium 100 Mg Capsule PO DAILY PRN Constipation Hydralazine HCl 50 mg 10/09/20 13:30 10/09/20 19:45 Hydralazine Hcl 50 Mg Tablet PO 50 mg BID [facility] Administration Protocol Omeprazole 20 mg 10/10/20 06:30 Omeprazole 20 Mg Capsule. PO DAILY@0630 [facility] Ondansetron HCl 4 mg 10/09/20 00:43 Ondansetron Hcl 4 Mg/2 Ml Vial IVPUSH Q8H PRN Nausea and Vomiting Sodium Chloride 3 ml 10/09/20 08:00 10/09/20 19:46 0.9 % Sodium Chloride Flush 3 Ml Syringe IVFLUSH 3 ml QSHIFT [facility] Administration Physical Exam Vital Signs: Last Vital Signs Temp 97.9 F 10/09/20 19:31 Pulse 88 10/09/20 19:45 Resp 16 10/09/20 19:31 BP 170/92 H 10/09/20 19:45 Pulse Ox 94 10/09/20 19:31 Oxygen Flow Rate 2 10/08/20 21:49 Body Mass Index 17.7 Const General: cooperative, no acute distress, alert, awake and confusion Nutritional Appearance: thin Orientation/consciousness: patient oriented x3 and confusion HENMT Head: Yes normocephalic and Yes atraumatic Eyes General: appearance normal, both eyes and all related structures Sclerae: sclerae normal Chest Chest palpation & inspection: normal inspection of the chest Resp Effort & Inspection: normal respiratory effort, able to speak in complete sentences and no respiratory distress Auscultation: clear to auscultation bilaterally Cardio Rate: regular rate Rhythm: regular rhythm GI Palpation (GI): Soft to palpation and nontender Auscultation: normal bowel sounds Skin General skin exam: no rashes or lesions noted Neuro General: patient oriented x3 and confusion Cranial nerves: Yes CN's II-XII intact bilaterally and Yes Bilaterally intact EOM present Cognition (Neuro): normal cognition Extrem Other: 1+ b/l leg edema General: Yes normal to inspection Results Lab Results Result Diagrams: 10/09/20 09:11 10/09/20 09:11 Lab results: Chemistry 10/08/20 10/09/20 22:02 09:11 Sodium 136 135 Potassium 4.6 4.6 Carbon Dioxide 18 L 22 BUN 42 H 48 H Creatinine 2.09 H 2.31 H Calcium 9.1 D 8.9 Hematology 10/08/20 10/09/20 22:03 09:11 WBC 7.4 6.8 Hgb 8.8 L 8.8 L Plt Count 193 D 149 L Urinalysis 10/09/20 08:21 Urine Color YELLOW Urine Appearance CLOUDY Urine pH 6.0 Ur Specific [place] 1.015 Urine Protein 1+ H Urine Glucose (UA) NEG Urine Ketones NEG Urine Blood TRACE Urine Nitrite NEG Ur Leukocyte Esterase 1+ H Urine RBC 1-4 Urine WBC TNTC H Ur Squamous Epith Cells NONE Assessment and Plan (1) Acute kidney injury superimposed on CKD: Status: Acute (2) Elevated troponin: Status: Acute (3) CHF exacerbation: Status: Acute (4) Hypertensive crisis: Status: Acute This 79-year-old male with past medical history of CHF with reduced ejection fraction, HTN, AAA repair, h/o etoh use, chronic HCV who presents the hospital shortness of breath found to have CHF, uncontrolled HTN. 1. JANAK: clinical presentation mist c/w severe HTN causing renal injury --HTN criisi and renal func may worsen furhter with BP imporvement in the short term; other poss includedisection to renal arteries with ischemia, urine wbc raise cocnern for AIM and/or pyelo; cady pos raises cocnern for cocaine kidney with severe renal vasc vasoconstriction Other poss: Obs uropathy; cocaine assoc NACA GN ( cady cut with levamisole which can cause anca vasculitis) 2. HTN emerg: ques non-compl and/or cocacine precipitation or both 3. HFrEF 4. Thoracic AA with ques of disction raised in the past -- back in 08/2020 adm REC: cont BP control using combine a/b blockage given cocaine use; track UOP/renal func; doppler of renals; check anca; u/s to r/o Obs uropathy; check BPs in both R/L arm to seeif there is ad ifference will follow deon with team
[2020-10-10] VITALS (13 sets, daily range): BP systolic 151–181; BP diastolic 78–107; PULSE 68–83; RESP 14–18; TEMP 36.1–37.2; O2SAT 96–100; BMI 17.2
--- NOTE | 2020-10-10 | ECG_ITS ---
Test Reason : CAD Blood Pressure : / mmHG Vent. Rate : 077 BPM Atrial Rate : 077 BPM P-R Int : 174 ms QRS Dur : 086 ms QT Int : 406 ms P-R-T Axes : 074 071 138 degrees QTc Int : 459 ms Sinus rhythm with occasional Premature ventricular complexes Nonspecific ST and T wave abnormality Premature ventricular complexes Abnormal ECG When compared with ECG of 08-OCT-2020 22:01, Premature ventricular complexes are now Present Questionable change in QRS axis Criteria for Inferior infarct are no longer Present ST now depressed in Inferior leads Nonspecific T wave abnormality now evident in Anterior leads QT has shortened Referred By: Nida Vargas Electronically Signed By:NIDA VARGAS
--- NOTE | 2020-10-10 03:37 | CONS_ITS ---
DATE OF SERVICE: 10/09/2020 REASON FOR CONSULTATION: Anemia and heme-positive stool. HISTORY OF PRESENT ILLNESS: This has been obtained from the patient and the medical record. At the time of this dictation, the patient seems to be alert and oriented to person and place and year, and answers questions appropriately. The patient is an 79-year-old male with underlying multiple medical problems, including vascular disease, hypertension, CHF, and renal insufficiency, as well as some history of alcohol and tobacco use, who presents with significant hypertension. Upon presentation to the ER, he was found to be more anemic than his usual baseline with a hemoglobin of 8.8, compared to 10.1 in August. He was found to have heme-positive stool. However, he denies any particular GI symptoms at the present time. He describes that he was eating fairly well at home. His bowel movements have been fairly regular. He has not noticed any significant heartburn, dysphagia, nausea, nor vomiting. He denies any abdominal pains. He has not noticed any hematochezia nor melena. He denies use of any aspirin nor NSAIDs on a regular basis. He smokes at least 2 cigarettes daily and also has at least a couple of drinks a day. The patient's hemoglobin has remained stable here in the hospital. He does not show any signs of active bleeding. He has been eating comfortably and tolerating his diet. He presently denies any abdominal pain. The patient cannot recall ever having had a colonoscopy. He thinks he may have had an upper endoscopy at [facility], but is not very certain about that. MEDICATIONS: His present medications include acetaminophen, atorvastatin, carvedilol, Colace, hydralazine, labetalol, IV pantoprazole, Zofran p.r.n. PAST MEDICAL HISTORY: Hypertension. CHF. Renal insufficiency. Congestive heart failure. Anemia. He has a history of vascular disease with an apparent abdominal aortic aneurysm and based on his imaging studies looks like he has an aortoiliac stent in place. I am not certain as to whether or not he actually had a surgical repair of the abdominal aortic aneurysm. He denies any other surgeries. He denies any known history of IA, stroke, nor diabetes. SOCIAL HISTORY: He smokes and drinks as above. He is single. FAMILY HISTORY: Noncontributory. REVIEW OF SYSTEMS: CONSTITUTIONAL: He reports that he has been feeling somewhat tired at home. However, he does report that his appetite has been fairly good. CARDIAC: No chest pain. PULMONARY: No coughing, no hemoptysis. GI: As above. PHYSICAL EXAMINATION: GENERAL: The patient is a pleasant, alert, comfortable-appearing male, in no distress. SKIN: Warm and dry. HEENT: Anicteric sclerae. NECK: Supple. CARDIAC: Normal S1, S2. ABDOMEN: Soft, nondistended, nontender without organomegaly or mass. LABORATORY DATA: Hemoglobin 8.8, MCV 88, platelets 193,000. In August, his hemoglobin was 10.1 with MCV 96. PT 12.9 with INR 1.1. Normal electrolytes. BUN 48, creatinine 2.3. Total bilirubin 0.8, AST 72, ALT 39, alkaline phosphatase 118. In August, his BUN was 33 with creatinine of 2.0. Stool was heme positive. Alcohol level was 70 and his urine tested positive for cocaine. COVID test was negative. Chest x-ray was negative. Head CT was negative for any acute process. IMPRESSION: In regard to the patient's heme-positive stool and anemia, I do suspect the anemia is very chronic in nature in relation to multiple factors, including chronic disease, renal insufficiency, nutritional, alcohol, and probable some chronic blood loss in relation to his alcohol use. Given his age, obviously a gastrointestinal neoplasm cannot be completely excluded either. At this point, he appears very stable and without any signs of active bleeding. I would therefore continue his diet and switch him to an oral PPI. I shall order blood work for the morning including iron studies, B12 and folate levels to assess for any nutritional deficiencies. I would avoid anticoagulation if possible. If possible, it will be important to check with his primary care physician and/or [facility] to be sure that he has not had any previous colonoscopies and upper endoscopies before I have him go through those procedures here given his age and comorbidities. If indeed he has an iron-deficiency anemia and has not had any fairly recent GI procedures, then he would need an upper endoscopy and colonoscopy on that basis. They do not necessarily need to be done as an inpatient, but given his overall situation and condition, it might be reasonable to do them as an inpatient if he is agreeable. I did review the procedures with him in regard to their potential need, in regard to ruling out a source of gastrointestinal blood loss. In the event they are needed, I did review the potential risks including bleeding and perforation, and did obtain consent at this time. However, he would definitely need his other medical issues stabilized, including his blood pressure, renal insufficiency, and any component of CHF or other cardiac issues. This has all been discussed with the patient. Thank you for this consultation. MD DALE Silva/CONSUELO / [id number]
[2020-10-10 04:47] LABS: MANUAL DIFF FLAG NO
[2020-10-10 04:51] LABS: Basophils Percent Auto 0.3 % (0-2); Eosinophils Percent Auto 0.3 % (0-4); Hematocrit 22.9 % (42-52); Hemoglobin 7.5 g/dl (14.0-18.0); Imm Gran Abs Auto 0.01 X10*3/uL (0.00-0.03); Imm Gran Pct Auto 0.1 % (0.0-0.4); Lymphocytes Absolute Auto 1.4 X10*3/uL (1.2-4.9); Lymphocytes Percent Auto 20.9 % (20-40); Mean Corpuscular HGB Conc 32.8 g/dl (31.0-36.0); Mean Corpuscular Hemoglobin 27.9 pg (27.0-33.0); Mean Corpuscular Volume 85.1 fL (80-98); Mean Platelet Volume 11.6 fL (9.4-12.4); Monocytes Absolute Auto 1.2 X10*3/uL (0.1-1.2); NRBC Pct Auto 0.3 /100WBC (0.0-0.2); Neutrophils Absolute Auto 4.2 X10*3/uL (2.0-8.3); Neutrophils Percent Auto 60.4 % (45-73); Platelet Count 177 X10*3/uL (160-400); Red Blood Count 2.69 X10*6/uL (4.60-5.80); Red Cell Distribution Width 17.1 % (11.0-16.0); White Blood Count 6.9 X10*3/uL (4.8-10.8)
[2020-10-10 05:18] LABS: Iron 13 mcg/dL (45-160); Percent Iron Saturation 4 % (15-50); Total Iron Binding Capacity 317 mcg/dL (228-428); Unsaturated Iron Binding 304 ug/dL
[2020-10-10 05:19] LABS: Anion Gap 19 (12-20); Blood Urea Nitrogen 68 mg/dL (9-16); Calcium 7.9 mg/dL (8.4-10.2); Carbon Dioxide 20 mmol/L (22-29); Chloride 103 mmol/L (96-108); Creatinine Clr Calc Pharmacy 17.9; Estimated Glomerular Filt Rate 22; Glucose Random 135 mg/dL (60-115); Potassium 4.1 mmol/L (3.3-5.1); Sodium 138 mmol/L (135-145)
[2020-10-10 05:40] LABS: Ferritin 49 ng/mL (20-250)
[2020-10-10] MEDS: Omeprazole 20 MG CAPSULE.DR PO (05:42)
[2020-10-10 05:49] LABS: Folate 10.9 ng/mL (> or = 4.0); Vitamin B12 504 pg/mL (200-900)
[2020-10-10] MEDS: carvediloL 12.5 MG TABLET PO ×2 (08:29→20:08)
[2020-10-10] MEDS: 0.9 % Sodium Chloride Flush 3 ML SYRINGE IVFLUSH ×3 (08:29→23:43)
[2020-10-10] MEDS: hydrALAZINE HCl 50 MG TABLET PO ×2 (08:30→20:05)
[2020-10-10] MEDS: Atorvastatin Calcium 40 MG TABLET PO (08:30)
--- NOTE | 2020-10-10 11:19 | PM.CNCAR ---
History of Present Illness History of Present Illness Date of Service: 10/10/20 Consult reason: congestive heart failure Chief complaint: Chf Exacerbation Narrative: This is a cardiology consultation regarding congestive heart failure. Patient presents the hospital with complaints of shortness of breath. He states that he was doing okay but all of sudden started having shortness of breath while just sitting and that led to the hospitalization. He had reported some lower extremity edema as well along with some mild cough. However no PND or orthopnea. No anginal-type chest pains or palpitations or in fact any other complaints. When he came in his blood pressure was apparently very high at 2 101/135 mm Hg. Subsequently, he was admitted for further care. He is daily drinker and according to H and P, he drinks almost 1-2 L daily. He just had an echocardiogram few weeks ago during a prior hospitalization and that showed markedly diminished LVEF. Review of Systems Review of Systems: Yes all other systems are reviewed and are negative Cardiovascular: Cardiovascular: Reports as per HPI, Reports no additional cardiovascular complaints, Denies acrocyanosis, Denies cool extremities, Denies painful fingertips, Denies chest pain, Denies chest pain at rest, Denies diaphoresis, Denies syncope, Denies irregular heart rhythm, Denies claudication, Denies leg edema, Denies lightheadedness, Denies palpitations and Reports dyspnea Respiratory: Respiratory: Reports dyspnea Neurologic: Denies syncope Endocrine: Endocrine: Denies palpitations [facility] Past Medical History Medical History (Updated 10/10/20 @ 11:25 by Lester Gu MD) Abnormal EKG Alcohol abuse Cardiomyopathy CHF exacerbation Hypertension Surgical History Surgical History History of AAA (abdominal aortic aneurysm) repair Social History Social History Household Members: Other Household Members Other:: [facility] Housing: Other Housing Other:: [facility] Do you presently have visiting nurse or other home services: Yes ([facility]) Alcohol intake: current Smoking Status: Current every day smoker Tobacco Type: Cigarette Packs Per Day: 0.5 Cigarettes Per Day: 10.0 Years Smoked: 40 Smoked in Last 30 Days: Yes Patient Interested in Nicotine Replacement: Yes Second Hand Smoke Exposure: No Use of substances other than those prescribed or required for medical reasons: Yes Substance Use Type: Crack/Cocaine Substance Use Frequency: Occasionally Last Used Substance: Unknown Currently Displaying Signs/Symptoms of Drug Intoxication Withdrawal: No Any prior treatment program specific to substance use: No Have you been hit, kicked, punched, or otherwise hurt by someone within the past year? If so, by whom?: No Do you feel safe in your current relationship?: No Current Relationship Is there a partner from a previous relationship who is making you feel unsafe now?: No Are you made to feel afraid or neglected: No Advance Directives: No Advance Directives Information Provided: No Do you have thoughts of harming others: None Do you have a plan to hurt others: No Plan Recently lost weight without trying: No Nutrition Risks: No Nutritional Risk service: No Current occupational status: retired [employer] Allergies Allergy/AdvReac Type Severity Reaction Status Date / Time No Known Allergies Allergy Verified 10/08/20 21:48 Active Medications: Current Medications Generic Name Dose Route Start Last Admin Trade Name Freq PRN Reason Stop Dose Admin Acetaminophen 650 mg 10/09/20 00:43 Acetaminophen 325 Mg Tablet PO Q6H PRN Pain, Mild (Pain Scale 1-3) Atorvastatin Calcium 40 mg 10/10/20 09:00 10/10/20 08:30 Atorvastatin Calcium 40 Mg Tablet PO 40 mg DAILY [facility] Administration Carvedilol 12.5 mg 10/09/20 13:30 10/10/20 08:29 Carvedilol 12.5 Mg Tablet PO 12.5 mg BID [facility] Administration Protocol Docusate Sodium 100 mg 10/09/20 00:43 Docusate Sodium 100 Mg Capsule PO DAILY PRN Constipation Hydralazine HCl 50 mg 10/09/20 13:30 10/10/20 08:30 Hydralazine Hcl 50 Mg Tablet PO 50 mg BID [facility] Administration Protocol Omeprazole 20 mg 10/10/20 06:30 10/10/20 05:42 Omeprazole 20 Mg Capsule.Dr PO 20 mg DAILY@0630 [facility] Administration Ondansetron HCl 4 mg 10/09/20 00:43 Ondansetron Hcl 4 Mg/2 Ml Vial IVPUSH Q8H PRN Nausea and Vomiting Sodium Chloride 3 ml 10/09/20 08:00 10/10/20 08:29 0.9 % Sodium Chloride Flush 3 Ml Syringe IVFLUSH 3 ml QSHIFT [facility] Administration Physical Exam Vital Signs: Vital Signs: Last Vital Signs Temp 98.1 F 10/10/20 07:43 Pulse 68 10/10/20 08:30 Resp 18 10/10/20 07:43 BP 151/85 H 10/10/20 08:30 Pulse Ox 96 10/10/20 07:43 Oxygen Flow Rate 2 10/08/20 21:49 Body Mass Index 17.2 Const: General: cooperative, comfortable and no acute distress Orientation/consciousness: patient oriented x3 HENMT: Other: Unremarkable Neck: Neck: Yes normal visual inspection Chest: Chest palpation & inspection: normal inspection of the chest Resp: Auscultation: clear to auscultation bilaterally, no crackles and no wheezes Cardio: Jugular venous distension: no JVD Palpation: normal PMI Heart sounds: S1 normal heart sound present, S2 normal heart sound present, no gallops, no murmurs and no rubs GI: Palpation (GI): Soft to palpation Back/Spine/Pelvis: Other: unremarkable Skin: General skin exam: no rashes or lesions noted Neuro: General: patient oriented x3 Extrem: General: Yes no clubbing, cyanosis or edema Psych: Mental Status: mental status grossly normal Results Labs and Meds Result diagrams: 10/10/20 04:16 10/10/20 04:16 Lab results: Laboratory Results - last 24 hr 10/09/20 10/10/20 10/10/20 09:11 04:16 04:16 WBC 6.9 RBC 2.69 L Hgb 7.5 L Hct 22.9 L MCV 85.1 MCH 27.9 MCHC 32.8 RDW 17.1 H Plt Count 177 MPV 11.6 Immature Gran % (Auto) 0.1 Neut % (Auto) 60.4 Lymph % (Auto) 20.9 [place] % (Auto) 18.0 H Eos % (Auto) 0.3 Baso % (Auto) 0.3 Lymph # (Auto) 1.4 [place] # (Auto) 1.2 Eos # (Auto) 0.0 Baso # (Auto) 0.0 Abs Immat Gran (auto) 0.01 Absolute Neuts (auto) 4.2 Absolute Nucleated RBC 0.020 H Nucleated RBC % (auto) 0.3 H Sodium 138 Potassium 4.1 Chloride 103 Carbon Dioxide 20 L Anion Gap 19 BUN 68 H Creatinine 2.83 H Estim Creat Clear Calc 17.9 Estimated GFR 22 Random Glucose 135 H Calcium 7.9 L D Magnesium 2.3 Iron TIBC % Saturation Unsat Iron Binding Ferritin Vitamin B12 Folate Blood Type Antibody Screen Crossmatch 10/10/20 10/10/20 10/10/20 04:16 04:16 09:06 WBC RBC Hgb Hct MCV MCH MCHC RDW Plt Count MPV Immature Gran % (Auto) Neut % (Auto) Lymph % (Auto) [place] % (Auto) Eos % (Auto) Baso % (Auto) Lymph # (Auto) [place] # (Auto) Eos # (Auto) Baso # (Auto) Abs Immat Gran (auto) Absolute Neuts (auto) Absolute Nucleated RBC Nucleated RBC % (auto) Sodium Potassium Chloride Carbon Dioxide Anion Gap BUN Creatinine Estim Creat Clear Calc Estimated GFR Random Glucose Calcium Magnesium Iron 13 L TIBC 317 % Saturation 4 L Unsat Iron Binding 304 Ferritin 49 Vitamin B12 504 Folate 10.9 Blood Type A Positive Antibody Screen NEGATIVE Crossmatch See Detail ECG Attestation: I personally reviewed and interpreted this ECG as follows: Interpretation: Admission EKG shows sinus rhythm at 94/Min. Possibly old inferior infarct. Left ventricular hypertrophy. QT also appears prolonged. Compared to prior EKG, the inferior will findings not previously seen. Also the T inversions in previous EKGs now see more upright. Assessment and Plan (1) Hypertensive urgency: Status: Acute (2) Acute on chronic systolic and diastolic heart failure, NYHA class 3: Status: Acute (3) Anemia: Qualifiers: Anemia type: unspecified type Qualified Code(s): D64.9 - Anemia, unspecified Status: Acute (4) Alcohol abuse: Status: Acute (5) Cocaine abuse: Status: Acute Based on labs, he is anemic. Hemoglobin is 7.5. He also has acute on chronic renal failure. Creatinine today is 2.83. High sensitivity troponins are within range. EKG findings as discussed above. Cocaine was positive on admission. Alcohol was also elevated. Overall, multiple issues. Likely a lot of noncompliance with his medications. Currently on carvedilol 12.5 mg b.i.d. and hydralazine. Blood pressure seems much better than on arrival but still on the higher side. Reasonable to watch him on this does. Otherwise of 25-30%. Be ischemic cardiomyopathy versus related to hypertension versus alcohol related versus cocaine related or multifactorial. If he is able to changes lifestyle around then potentially further workup with ischemia studies although because of renal failure that will also be somewhat limited. For now, optimize his blood pressure management and treat him for presumed CAD with aspirin and statins. We will follow. With regard to colonoscopy, he will be at high cardiac risk for any perioperative complications.
--- NOTE | 2020-10-10 11:30 | HO.PM.IMPN ---
Subjective Subjective Date of Service: 10/10/20 Interval History: seen and examined this morning awake and alert, no complaints this morning leg edema improving. Review of Systems Review of Systems: Yes all other systems are reviewed and are negative Constitutional Constitutional: Denies chills and Denies fever(s) Cardiovascular Cardiovascular: Denies chest pain, Denies syncope and Denies palpitations Respiratory Respiratory: Denies cough Gastrointestinal Gastrointestinal: Denies abdominal pain Neurologic Neurologic: Denies syncope Endocrine Endocrine: Denies palpitations Physical Exam Vital Signs: Vital Signs: Last Vital Signs Temp 98.1 F 10/10/20 07:43 Pulse 68 10/10/20 08:30 Resp 18 10/10/20 07:43 BP 151/85 H 10/10/20 08:30 Pulse Ox 96 10/10/20 07:43 Oxygen Flow Rate 2 10/08/20 21:49 Body Mass Index 17.2 Const: General: comfortable, no acute distress, alert and awake Nutritional Appearance: thin HENMT: Head: Yes normocephalic and Yes atraumatic Eyes: Sclerae: sclerae normal Chest: Chest palpation & inspection: normal inspection of the chest Resp: Effort & Inspection: normal respiratory effort and no respiratory distress Auscultation: clear to auscultation bilaterally Cardio: Rate: regular rate Rhythm: regular rhythm GI: Palpation (GI): Soft to palpation and nontender Neuro: Cranial nerves: Yes CN's II-XII intact bilaterally and Yes Bilaterally intact EOM present Extrem: Other: trace b/l leg edema General: Yes normal to inspection Objective Data Current Medications Generic Name Dose Route Start Last Admin Trade Name Freq PRN Reason Stop Dose Admin Acetaminophen 650 mg 10/09/20 00:43 Acetaminophen 325 Mg Tablet PO Q6H PRN Pain, Mild (Pain Scale 1-3) Atorvastatin Calcium 40 mg 10/10/20 09:00 10/10/20 08:30 Atorvastatin Calcium 40 Mg Tablet PO 40 mg DAILY [facility] Administration Carvedilol 12.5 mg 10/09/20 13:30 10/10/20 08:29 Carvedilol 12.5 Mg Tablet PO 12.5 mg BID [facility] Administration Protocol Docusate Sodium 100 mg 10/09/20 00:43 Docusate Sodium 100 Mg Capsule PO DAILY PRN Constipation Hydralazine HCl 50 mg 10/09/20 13:30 10/10/20 08:30 Hydralazine Hcl 50 Mg Tablet PO 50 mg BID [facility] Administration Protocol Omeprazole 20 mg 10/10/20 06:30 10/10/20 05:42 Omeprazole 20 Mg Capsule. PO 20 mg DAILY@0630 [facility] Administration Ondansetron HCl 4 mg 10/09/20 00:43 Ondansetron Hcl 4 Mg/2 Ml Vial IVPUSH Q8H PRN Nausea and Vomiting Sodium Chloride 3 ml 10/09/20 08:00 10/10/20 08:29 0.9 % Sodium Chloride Flush 3 Ml Syringe IVFLUSH 3 ml QSHIFT [facility] Administration Labs CBC & Chem 7: 10/10/20 04:16 10/10/20 04:16 Microbiology Microbiology Results: Microbiology 10/09/20 Unknown Urine clean catch - Clean Catch Midstream Urine Culture - Preliminary Gram negative nabil Assessment and Plan (1) Hypertensive urgency: Status: Acute (2) Acute on chronic systolic and diastolic heart failure, NYHA class 3: Status: Acute (3) Anemia: Status: Acute (4) Alcohol abuse: Status: Acute (5) Cocaine abuse: Status: Acute (6) Acute kidney injury superimposed on CKD: Status: Acute (7) Elevated troponin: Status: Acute (8) CHF exacerbation: Status: Acute (9) Hypertensive crisis: Status: Acute Assessment and Plan: This 79-year-old male with past medical history of CHF with reduced ejection fraction, HTN, AAA repair, h/o etoh use, chronic HCV who presents the hospital shortness of breath found to have CHF, uncontrolled HTN and anemia with heme +stool. acute on chronic systolic and diastolic heart failure. Improving. Echo from 08/25 shows ECH 25-30% with global hypokinesis most likely secondary to uncontrolled HTN vs etoh use vs cocaine use. also previous history of medication non-compliance. - will hold further diuresis given worsening renal failure - continue low-sodium diet, strict I&O, daily weight - cardiology following, will eventually need outpatient ischemic workup normocytic anemia with positive occult stool - H/H further drop to 7.5/22.9, will transfuse 1 u rbc - continue PPI IV b.i.d. - seen by GI, rec EGD/colonoscopy if not done recently. pt high risk for perioperative complications - avoid AC, ASA (asa recommended by cardiology when safe from GI perspective) JANAK on CKD3 SCr increased to 2.83 Most likely r/t uncontrolled HTN. - diuretics on hold - nephrology following - further workup in progress - follow BMP closely Uncontrolled HTN - BP improved with resumption of home medications carvedilol, hydralazine - monitor BP closely prolonged QT repeat EKG improved. -tele monitoring. magnesium 2.3 elevated troponin troponin flat h/o etoh etoh level 70 on admission no evidence of alcohol withdrawal -CIWA monitoring thrombocytopenia chronic. stable likely r/t to liver dz (chronic HCV) h/o peripheral neuropathy/unsteady gait Code status - full code DVT prophylaxis: mechanical devices Attending: Dr. Santoro
--- NOTE | 2020-10-10 11:40 | P.PNNP_ITS ---
Subjective Subjective Date of Service: 10/10/20 Interval history: Seen and examiend BP better Scr incr furhte this am Physical Exam Vital Signs: Vital Signs: Last Vital Signs Temp 98.1 F 10/10/20 07:43 Pulse 68 10/10/20 08:30 Resp 18 10/10/20 07:43 BP 151/85 H 10/10/20 08:30 Pulse Ox 96 10/10/20 07:43 Oxygen Flow Rate 2 10/08/20 21:49 Body Mass Index 17.2 Const: General: cooperative, no acute distress, alert, awake and confusion Nutritional Appearance: thin Orientation/consciousness: patient oriented x3 and confusion HENMT: Head: Yes normocephalic and Yes atraumatic Eyes: General: appearance normal, both eyes and all related structures Sclerae: sclerae normal Chest: Chest palpation & inspection: normal inspection of the chest Resp: Effort & Inspection: normal respiratory effort, able to speak in complete sentences and no respiratory distress Auscultation: clear to auscultation bilaterally Cardio: Rate: regular rate Rhythm: regular rhythm GI: Palpation (GI): Soft to palpation and nontender Auscultation: normal bowel sounds Skin: General skin exam: no rashes or lesions noted Neuro: General: patient oriented x3 and confusion Cranial nerves: Yes CN's II-XII intact bilaterally and Yes Bilaterally intact EOM present Cognition (Neuro): normal cognition Extrem: Other: 1+ b/l leg edema General: Yes normal to inspection Objective Data Labs CBC & Chem 7: 10/10/20 04:16 10/10/20 04:16 Labs: Laboratory Results - last 24 hr 10/09/20 10/10/20 10/10/20 09:11 04:16 04:16 WBC 6.9 RBC 2.69 L Hgb 7.5 L Hct 22.9 L MCV 85.1 MCH 27.9 MCHC 32.8 RDW 17.1 H Plt Count 177 MPV 11.6 Immature Gran % (Auto) 0.1 Neut % (Auto) 60.4 Lymph % (Auto) 20.9 [place] % (Auto) 18.0 H Eos % (Auto) 0.3 Baso % (Auto) 0.3 Lymph # (Auto) 1.4 [place] # (Auto) 1.2 Eos # (Auto) 0.0 Baso # (Auto) 0.0 Abs Immat Gran (auto) 0.01 Absolute Neuts (auto) 4.2 Absolute Nucleated RBC 0.020 H Nucleated RBC % (auto) 0.3 H Sodium 138 Potassium 4.1 Chloride 103 Carbon Dioxide 20 L Anion Gap 19 BUN 68 H Creatinine 2.83 H Estim Creat Clear Calc 17.9 Estimated GFR 22 Random Glucose 135 H Calcium 7.9 L D Magnesium 2.3 Iron TIBC % Saturation Unsat Iron Binding Ferritin Vitamin B12 Folate Blood Type Antibody Screen Crossmatch 10/10/20 10/10/20 10/10/20 04:16 04:16 09:06 WBC RBC Hgb Hct MCV MCH MCHC RDW Plt Count MPV Immature Gran % (Auto) Neut % (Auto) Lymph % (Auto) [place] % (Auto) Eos % (Auto) Baso % (Auto) Lymph # (Auto) [place] # (Auto) Eos # (Auto) Baso # (Auto) Abs Immat Gran (auto) Absolute Neuts (auto) Absolute Nucleated RBC Nucleated RBC % (auto) Sodium Potassium Chloride Carbon Dioxide Anion Gap BUN Creatinine Estim Creat Clear Calc Estimated GFR Random Glucose Calcium Magnesium Iron 13 L TIBC 317 % Saturation 4 L Unsat Iron Binding 304 Ferritin 49 Vitamin B12 504 Folate 10.9 Blood Type A Positive Antibody Screen NEGATIVE Crossmatch See Detail Microbiology Microbiology Results: Microbiology 10/09/20 Unknown Urine clean catch - Clean Catch Midstream Urine Culture - Preliminary Gram negative nabil Assessment & Plan Assessment and plan (1) Acute kidney injury superimposed on CKD: Status: Acute (2) Elevated troponin: Status: Acute (3) CHF exacerbation: Status: Acute (4) Hypertensive crisis: Status: Acute Assessment and Plan: This 79-year-old male with past medical history of CHF with reduced ejection fraction, HTN, AAA repair, h/o etoh use, chronic HCV who presents the hospital shortness of breath found to have CHF, uncontrolled HTN and JANAK on CKD. 1. JANAK: clinical presentation most c/w severe HTN causing renal injury --HTN criisi and renal func worse today is not unexpected with the lowering of BP other poss include: disection to renal arteries with ischemia ( given lack of diff in BP in RUE vs LUR makes this less llikelty but still a possibility and may need MRA to completely rule this out as well as to r/o aortic dissection in general ,urine wbc raise cocnern for AIN and/or pyelo; cocaine pos raises cocnern for cocaine kidney with severe renal vasc vasoconstriction Obs uropathy; cocaine assoc NACA GN ( cocaine cut with levamisole which can cause anca vasculitis) 2. HTN emerg: ques non-compl and/or cocacine precipitation or both 3. HFrEF: suspect epsidoe of SOB was d/t HTN emerg and not mora hypervol 4. Thoracic AA with ques of disction raised in the past -- back in 08/2020 adm 5. Anemia: decr Hb--ques MAHA 6. CKD 3b: bsl Scr 1.5-2.0: suspect HTN renal dis REC: cont BP control; track UOP/renal func; doppler of renals; check anca ( pending); u/s to r/o Obs uropathy; avid Ntoxins; check LDH and haptoglobin; consider MRA of renal s will follow deon with team Time Spent With Patient Time: Total time spent is greater than 50% in coordination of care (as document ed) at patient's floor/unit and/or counseling patient:
--- NOTE | 2020-10-10 12:36 | MHC.CM.PN ---
PATIENT LIVES ALONE. HE HAS [facility] IN THE HOME FOR TWO MORE VISITS. PATIENT IS HOPING TO DISCHARGE TO A SNF FROM HERE. HE HAS NO PREFERENCE FOR FACILITY, BUT DOES WANT [facility]. [facility] LIST OF CONTRACTED FACILITIES TO BE PROVIDED. HCP IS ON FILE. AGENT IS DAUGHTER LEE ANN ([phone]) HIS DAUGHTER WALLY ([phone]) LIVES IN [place] AND PATIENT ASKS THAT CASE MANAGEMENT CALL HER WITH ANY QUESTIONS OR SNF CHOICES. PCP IS DR LAZARO TATE OF [facility]. UPDATE MADE IN fintonic TASK. IMM 5/6 IN CHART.
--- NOTE | 2020-10-10 12:52 | MHC.CM.PN ---
CALL TO DAUGHTER CLARA ([phone]) DETAILED MESSAGE LEFT WITH CONTACT NUMBERS FOR THIS [place] MATE. PATIENT IS AGREEABLE TO [facility] OF [facility] AND [facility] REFERRALS; NOW PLACED. PER PHYSICIAN ROUNDS, PATIENT IS LIKELY HERE THROUGH THE WEEKEND.
[2020-10-10 20:14] LABS: Hematocrit 25.5 % (42-52); Hemoglobin 8.5 g/dl (14.0-18.0)
[2020-10-11] VITALS (13 sets, daily range): BP systolic 154–189; BP diastolic 82–104; PULSE 66–87; RESP 15–20; TEMP 35.8–36.6; O2SAT 96–98; BMI 16.9
[2020-10-11] MEDS: hydrALAZINE HCl 20 MG/ML VIAL 5 MG IVPUSH (00:21)
--- NOTE | 2020-10-11 00:24 | MHC.PIE ---
P- Patient's BP 180/98 manually. I- Patient assessed , asymptomatic. Dr. Israel notified. Hydralazine 5 mg ordered/ administered. E- Will continue to monitor. Patient sleeping at present time.
[2020-10-11] MEDS: Acetaminophen 325 MG TABLET 650 MG PO (05:13)
[2020-10-11] MEDS: Omeprazole 20 MG CAPSULE.DR PO (05:13)
[2020-10-11] MEDS: 0.9 % Sodium Chloride Flush 3 ML SYRINGE IVFLUSH ×2 (05:15→08:41)
[2020-10-11 06:51] LABS: Hematocrit 26.4 % (42-52); Hemoglobin 8.5 g/dl (14.0-18.0); Mean Corpuscular HGB Conc 32.2 g/dl (31.0-36.0); Mean Corpuscular Hemoglobin 28.1 pg (27.0-33.0); Mean Corpuscular Volume 87.1 fL (80-98); Platelet Count 167 X10*3/uL (160-400); Red Blood Count 3.03 X10*6/uL (4.60-5.80); Red Cell Distribution Width 16.9 % (11.0-16.0); White Blood Count 6.6 X10*3/uL (4.8-10.8)
[2020-10-11 07:03] LABS: Anion Gap 14 (12-20); Blood Urea Nitrogen 61 mg/dL (9-16); Calcium 7.9 mg/dL (8.4-10.2); Carbon Dioxide 24 mmol/L (22-29); Chloride 107 mmol/L (96-108); Creatinine Clr Calc Pharmacy 21.4; Estimated Glomerular Filt Rate 28; Glucose Random 109 mg/dL (60-115); Lactate Dehydrogenase 176 U/L (118-273); Potassium 3.6 mmol/L (3.3-5.1); Sodium 141 mmol/L (135-145)
[2020-10-11] MEDS: hydrALAZINE HCl 50 MG TABLET PO ×2 (08:41→22:01)
[2020-10-11] MEDS: carvediloL 12.5 MG TABLET PO ×2 (08:41→22:02)
[2020-10-11] MEDS: Atorvastatin Calcium 40 MG TABLET PO (08:41)
[2020-10-11 10:37] LABS: Myeloperoxidase Antibody <1.0 AI; Proteinase 3 PR3 Antibodies <1.0 AI
--- NOTE | 2020-10-11 11:22 | PM.PNNEP ---
Subjective Subjective Date of Service: 10/11/20 Interval history: Seen and examiend Events noted U/S and doppler of renals noted--nothing definitive/limited quality Physical Exam Vital Signs: Vital Signs: Last Vital Signs Temp 97.9 F 10/11/20 08:00 Pulse 66 10/11/20 09:20 Resp 18 10/11/20 08:00 BP 168/82 H 10/11/20 09:20 Pulse Ox 96 10/11/20 08:00 Oxygen Flow Rate 2 10/08/20 21:49 Body Mass Index 16.9 Const: General: cooperative, no acute distress, alert, awake and confusion Nutritional Appearance: thin Orientation/consciousness: patient oriented x3 and confusion HENMT: Head: Yes normocephalic and Yes atraumatic Eyes: General: appearance normal, both eyes and all related structures Sclerae: sclerae normal Chest: Chest palpation & inspection: normal inspection of the chest Resp: Effort & Inspection: normal respiratory effort, able to speak in complete sentences and no respiratory distress Auscultation: clear to auscultation bilaterally Cardio: Rate: regular rate Rhythm: regular rhythm GI: Palpation (GI): Soft to palpation and nontender Auscultation: normal bowel sounds Skin: General skin exam: no rashes or lesions noted Neuro: General: patient oriented x3 and confusion Cranial nerves: Yes CN's II-XII intact bilaterally and Yes Bilaterally intact EOM present Cognition (Neuro): normal cognition Extrem: Other: 1+ b/l leg edema General: Yes normal to inspection Objective Data Labs CBC & Chem 7: 10/11/20 05:55 10/11/20 05:55 Labs: Laboratory Results - last 24 hr 10/10/20 10/10/20 10/10/20 04:16 09:06 20:07 WBC RBC Hgb 8.5 L Hct 25.5 L MCV MCH MCHC RDW Plt Count MPV Absolute Nucleated RBC Nucleated RBC % (auto) Sodium Potassium Chloride Carbon Dioxide Anion Gap BUN Creatinine Estim Creat Clear Calc Estimated GFR Random Glucose Calcium Lactate Dehydrogenase Proteinase 3 (PR3) Ab <1.0 Myeloperoxidase Ab <1.0 Blood Type A Positive Antibody Screen NEGATIVE Crossmatch See Detail 10/11/20 10/11/20 10/11/20 05:55 05:55 05:55 WBC 6.6 RBC 3.03 L Hgb 8.5 L Hct 26.4 L MCV 87.1 MCH 28.1 MCHC 32.2 RDW 16.9 H Plt Count 167 MPV 12.0 Absolute Nucleated RBC 0.000 Nucleated RBC % (auto) 0.0 Sodium 141 Potassium 3.6 Chloride 107 Carbon Dioxide 24 Anion Gap 14 BUN 61 H Creatinine 2.26 H Estim Creat Clear Calc 21.4 Estimated GFR 28 Random Glucose 109 Calcium 7.9 L Lactate Dehydrogenase 176 Proteinase 3 (PR3) Ab Myeloperoxidase Ab Blood Type Antibody Screen Crossmatch Microbiology Microbiology Results: Microbiology 10/09/20 Unknown Urine clean catch - Clean Catch Midstream Urine Culture - Final Klebsiella pneumoniae 10/09/20 06:15 Urine clean catch - Catheterized Urine Culture - Preliminary Gram negative nabil Assessment & Plan Assessment and plan (1) Acute kidney injury superimposed on CKD: Status: Acute (2) Elevated troponin: Status: Acute (3) CHF exacerbation: Status: Acute (4) Hypertensive crisis: Status: Acute Assessment and Plan: This 79-year-old male with past medical history of CHF with reduced ejection fraction, HTN, AAA repair, h/o etoh use, chronic HCV who presents the hospital shortness of breath found to have CHF, uncontrolled HTN and JANAK on CKD. 1. JANAK: clinical presentation most c/w severe HTN causing renal injury --HTN crisis and renal func now grad imporoving other poss include: disection to renal arteries with ischemia ( given lack of diff in BP in RUE vs LUR makes this less llikelty but still a possibility and may need MRA to completely rule this out as well as to r/o aortic dissection in general urine wbc raise cocnern for AIN and/or pyelo; cocaine pos raises cocnern for cocaine kidney with severe renal vasc vasoconstriction Obs uropathy; cocaine assoc NACA GN ( cocaine cut with levamisole which can cause anca vasculitis) 2. HTN emerg: ques non-compl and/or cocacine precipitation or both 3. HFrEF: suspect epsidoe of SOB was d/t HTN emerg and not mora hypervol 4. Thoracic AA with ques of disction raised in the past -- back in 08/2020 adm 5. Anemia: decr Hb; Fe def 6. CKD 3b: bsl Scr 1.5-2.0: suspect HTN renal dis REC: incr BP meds control; track UOP/renal func; avoid Ntoxins; check LDH and haptoglobin will follow deon with team Time Spent With Patient Time: Total time spent is greater than 50% in coordination of care (as documented) at patient's floor/unit and/or counseling patient:
[2020-10-11] MEDS: Sodium Ferric Gluconat/Sucrose 125 MG in 0.9 % Sodium Chloride 100 ML 100 MG IV (11:23)
--- NOTE | 2020-10-11 11:49 | P.PNCA_ITS ---
Subjective Subjective Date of Service: 10/11/20 Interval history: He denies any specific complaints like chest pain or shortness of breath at this time. Review of Systems Review of Systems Yes all other systems are reviewed and are negative Cardiovascular: Reports as per HPI, Reports no additional cardiovascular complaints, Denies acrocyanosis, Denies cool extremities, Denies painful fingertips, Denies chest pain, Denies chest pain at rest, Denies diaphoresis, Denies syncope, Denies irregular heart rhythm, Denies claudication, Denies leg edema, Denies lightheadedness, Denies palpitations and Reports dyspnea Respiratory: Reports dyspnea Denies syncope Endocrine: Denies palpitations Physical Exam Vital Signs: Last Vital Signs Temp 97.3 F 10/11/20 11:34 Pulse 82 10/11/20 11:34 Resp 18 10/11/20 11:34 BP 161/91 H 10/11/20 11:34 Pulse Ox 97 10/11/20 11:34 Oxygen Flow Rate 2 10/08/20 21:49 Body Mass Index 16.9 Const General: cooperative, comfortable and no acute distress Orientation/consciousness: patient oriented x3 HENMT Other: Unremarkable Neck Neck: Yes normal visual inspection Chest Chest palpation & inspection: normal inspection of the chest Resp Auscultation: clear to auscultation bilaterally, no crackles and no wheezes Cardio Jugular venous distension: no JVD Palpation: normal PMI Heart sounds: S1 normal heart sound present, S2 normal heart sound present, no gallops, no murmurs and no rubs GI Palpation (GI): Soft to palpation Back/Spine/Pelvis Other: unremarkable Skin General skin exam: no rashes or lesions noted Neuro General: patient oriented x3 Extrem General: Yes no clubbing, cyanosis or edema Psych Mental Status: mental status grossly normal Results Labs and Meds Result diagrams: 10/11/20 05:55 10/11/20 05:55 Lab results: Laboratory Results - last 24 hr 10/10/20 10/10/20 10/10/20 04:16 09:06 20:07 WBC RBC Hgb 8.5 L Hct 25.5 L MCV MCH MCHC RDW Plt Count MPV Absolute Nucleated RBC Nucleated RBC % (auto) Sodium Potassium Chloride Carbon Dioxide Anion Gap BUN Creatinine Estim Creat Clear Calc Estimated GFR Random Glucose Calcium Lactate Dehydrogenase Proteinase 3 (PR3) Ab <1.0 Myeloperoxidase Ab <1.0 Blood Type A Positive Antibody Screen NEGATIVE Crossmatch See Detail 10/11/20 10/11/20 10/11/20 05:55 05:55 05:55 WBC 6.6 RBC 3.03 L Hgb 8.5 L Hct 26.4 L MCV 87.1 MCH 28.1 MCHC 32.2 RDW 16.9 H Plt Count 167 MPV 12.0 Absolute Nucleated RBC 0.000 Nucleated RBC % (auto) 0.0 Sodium 141 Potassium 3.6 Chloride 107 Carbon Dioxide 24 Anion Gap 14 BUN 61 H Creatinine 2.26 H Estim Creat Clear Calc 21.4 Estimated GFR 28 Random Glucose 109 Calcium 7.9 L Lactate Dehydrogenase 176 Proteinase 3 (PR3) Ab Myeloperoxidase Ab Blood Type Antibody Screen Crossmatch Imaging Radiologist's impression: Impressions Renal Ultrasound 10/10/20 11:00 IMPRESSION: Right renal cysts. Probable 1 cm left renal cyst with nonobstructing calculus also noted. Limited evaluation with no evidence of right renal artery stenosis. Evaluation of the left renal artery is limited with left renal artery ratio of 0.46 without definite evidence of renal artery stenosis. Progress Note: A&P Assessment and plan (1) Hypertensive urgency: Status: Acute (2) Acute on chronic systolic and diastolic heart failure, NYHA class 3: Status: Acute (3) Anemia: Status: Acute (4) Alcohol abuse: Status: Acute (5) Cocaine abuse: Status: Acute Assessment and Plan: Based on labs, he is anemic. Hemoglobin is 7.5-8.5. He also has acute on chronic renal failure. Creatinine today is 2.26. High sensitivity troponins are within range. Cocaine was positive on admission. Alcohol was also elevated. Overall, multiple issues. Likely a lot of noncompliance with his medications. Blood pressure seems much better than on arrival but still on the higher side. Otherwise LVEF 25-30%. Ischemic cardiomyopathy versus related to hypertension versus alcohol related versus cocaine related or multifactorial. If he is able to changes lifestyle around then potentially further workup with ischemia studies although because of renal failure that will also be somewhat limited. For now, optimize his blood pressure management and treat him for presumed CAD with aspirin and statins. He is on carvedilol, isosorbide, hydralazine. We will follow. With regard to colonoscopy, he will be at high cardiac risk for any perioperative complications. Fall Risk Details Current Medications: Current Medications Generic Name Dose Route Start Last Admin Trade Name Freq PRN Reason Stop Dose Admin Acetaminophen 650 mg 10/09/20 00:43 10/11/20 05:13 Acetaminophen 325 Mg Tablet PO 650 mg Q6H PRN Administration Pain, Mild (Pain Scale 1-3) Atorvastatin Calcium 40 mg 10/10/20 09:00 10/11/20 08:41 Atorvastatin Calcium 40 Mg Tablet PO 40 mg DAILY FROILAN Administration Carvedilol 12.5 mg 10/09/20 13:30 10/11/20 08:41 Carvedilol 12.5 Mg Tablet PO 12.5 mg BID [facility] Administration Protocol Docusate Sodium 100 mg 10/09/20 00:43 Docusate Sodium 100 Mg Capsule PO DAILY PRN Constipation Hydralazine HCl 50 mg 10/09/20 13:30 10/11/20 08:41 Hydralazine Hcl 50 Mg Tablet PO 50 mg BID [facility] Administration Protocol Ferric Sodium Gluconate 110 mls @ 100 mls/hr 10/11/20 10:51 10/11/20 11:23 Complex 125 mg/ Sodium IV 10/11/20 11:56 100 mls/hr Chloride ONCE ONE Administration Omeprazole 20 mg 10/10/20 06:30 10/11/20 05:13 Omeprazole 20 Mg Capsule.Dr PO 20 mg DAILY@0630 [facility] Administration Ondansetron HCl 4 mg 10/09/20 00:43 Ondansetron Hcl 4 Mg/2 Ml Vial IVPUSH Q8H PRN Nausea and Vomiting Sodium Chloride 3 ml 10/09/20 08:00 10/11/20 08:41 0.9 % Sodium Chloride Flush 3 Ml Syringe IVFLUSH 3 ml QSHIFT FROILAN Administration Time Spent With Patient Time: Total time spent is greater than 50% in coordination of care (as documented) at patient's floor/unit and/or counseling patient: Time with patient: less than 15 minutes
--- NOTE | 2020-10-11 12:19 | PM.DS ---
DS: Providers Provider Date of Service: 10/13/20 Date of admission: 10/09/20 00:43 Primary care physician: Unknown Physician Consults: 10/09/20 06:21 Consult to Gastroenterology Routine Consulting Provider: Trent Jin Reason for consultation: GI bleed Has provider been notified: No 10/09/20 14:48 Consult to Cardiology Routine Consulting Provider: Lester Gu Reason for consultation: chf Has provider been notified: No 10/09/20 14:51 Consult to Nephrology Routine Consulting Provider: Leonardo Weinberg Reason for consultation: janak Has provider been notified: No DS: Diagnosis Discharge Diagnosis (1) Hypertensive urgency: Status: Acute (2) Acute on chronic systolic and diastolic heart failure, NYHA class 3: Status: Acute (3) Anemia: Status: Acute (4) Alcohol abuse: Status: Acute (5) Cocaine abuse: Status: Acute DS: Medications Discharge Medications Home Medications: Previous Rx's Medication Instructions Recorded atorvastatin [Lipitor] 40 mg PO DAILY #30 tab 08/21/20 carvedilol 12.5 mg PO BID #60 tab 08/21/20 hydralazine 50 mg PO BID #60 tab 08/21/20 DS: Summary Hospital Course Hospital Course: From H&P This is an 79-year-old male with past medical history of AAA status post repair in 2019, CHF with reduced ejection fraction, hypertension who presents to the hospital with complaints shortness of breath that started today. Patient reports some lower extremity edema, mild cough with some sputum production, no orthopnea or PND. No chest pain, no palpitations. No abdominal pain nausea or vomiting, no diarrhea constipation. No fever or chills. No urinary symptoms and no sick contacts or recent travel. Patient also denies any melena, bright blood per rectum, no bloody vomiting . On arrival to the ED patient hemodynamically stable with blood pressure of 201/135, heart rate of 95, respiratory rate of 20, 95% on room air. Mother significant for WBC count 7.4, hemoglobin of 8.8 that dropped from 10.1 in August,, hematocrit 27.2, MCV of 88.6, RDW of 16.7, sodium 136, potassium 4.6, BUN of 42, creatinine of 2.9 with baseline around 1.78, AST of 72, ALT of 39, alk-phos of 118, BNP of 2106, COVID-19 negative, alcohol level of 70, cocaine + acute on chronic systolic and diastolic heart failure. Echo from 08/25 shows EF 25-30% with global hypokinesis. Heart failure was most likely precipitated by uncontrolled HTN. Also previous history of medication non-compliance. CHF likely related to underlying alcohol, cocaine use as well as likely coronary artery disease. He had recent admission with NSTEMI. Was seen in consultation by Cardiology who recommended need for outpatient ischemic workup. He was initially started on IV Lasix with improvement in lower extremity edema and respiratory status. Diuresis was discontinued due to increasing creatinine. He will be discharged home with 40 mg of Lasix daily. He should schedule a follow-up appointment with Cardiology for follow-up. normocytic anemia with positive occult stool. Patient denied active bleeding. His H/H dropped to 7.5/22.9 necessitating blood transfusion. H/H remained stable following transfusion. He was seen in consultation by GI who recommended EGD/colonoscopy if not done recently. However Cardiology recommended deferring GI workup until outpatient ischemic workup has been completed as patient is currently high risk for perioperative complications. Iron studies were consistent with iron deficiency anemia and patient received iron transfusion. Aspirin was recommended by Cardiology but given anemia will be deferred for now. JANAK on CKD3. SCr increased to 2.83. Most likely r/t uncontrolled HTN. Patient was seen in consultation by Nephrology. Renal ultrasound showed no evidence of renal artery stenosis or obstruction. Creatinine improved to 2.2 within patient's baseline after holding Lasix. Patient should have repeat BMP in 1 week to monitor kidney function. Uncontrolled HTN. May have been precipitated by cocaine versus noncompliance. BP improved with resumption of home medications carvedilol, hydralazine and isosorbide. Should follow-up with PCP for close blood pressure monitoring Anticipate less than 30 day stay at [facility] Time Spent with Patient Time attestation: Total time spent providing and/or coordinating discharge services: Discharge coordination time: Greater than 30 minutes Physical Exam Vital Signs: Vital Signs: Last Vital Signs Temp 97.3 F 10/11/20 11:34 Pulse 82 10/11/20 11:57 Resp 18 10/11/20 11:34 BP 161/91 H 10/11/20 11:57 Pulse Ox 97 10/11/20 11:57 Oxygen Flow Rate 2 10/08/20 21:49 Body Mass Index 16.9 Const: General: comfortable, no acute distress, alert and awake Nutritional Appearance: thin HENMT: Head: Yes normocephalic and Yes atraumatic Eyes: Sclerae: sclerae normal Chest: Chest palpation & inspection: normal inspection of the chest Resp: Effort & Inspection: normal respiratory effort and no respiratory distress Auscultation: clear to auscultation bilaterally Cardio: Rate: regular rate Rhythm: regular rhythm GI: Palpation (GI): Soft to palpation and nontender Neuro: Cranial nerves: Yes CN's II-XII intact bilaterally and Yes Bilaterally intact EOM present Extrem: Other: no leg edema General: Yes normal to inspection DS: Data Data Completed and Pending Labs on day of discharge: Laboratory Results - last 24 hr 10/10/20 10/10/20 10/10/20 04:16 09:06 20:07 WBC RBC Hgb 8.5 L Hct 25.5 L MCV MCH MCHC RDW Plt Count MPV Absolute Nucleated RBC Nucleated RBC % (auto) Sodium Potassium Chloride Carbon Dioxide Anion Gap BUN Creatinine Estim Creat Clear Calc Estimated GFR Random Glucose Calcium Lactate Dehydrogenase Proteinase 3 (PR3) Ab <1.0 Myeloperoxidase Ab <1.0 Crossmatch See Detail 10/11/20 10/11/20 10/11/20 05:55 05:55 05:55 WBC 6.6 RBC 3.03 L Hgb 8.5 L Hct 26.4 L MCV 87.1 MCH 28.1 MCHC 32.2 RDW 16.9 H Plt Count 167 MPV 12.0 Absolute Nucleated RBC 0.000 Nucleated RBC % (auto) 0.0 Sodium 141 Potassium 3.6 Chloride 107 Carbon Dioxide 24 Anion Gap 14 BUN 61 H Creatinine 2.26 H Estim Creat Clear Calc 21.4 Estimated GFR 28 Random Glucose 109 Calcium 7.9 L Lactate Dehydrogenase 176 Proteinase 3 (PR3) Ab Myeloperoxidase Ab Crossmatch Preliminary micro results at discharge 10/09/20 06:15 Urine Culture - Preliminary Urine clean catch - Catheterized Gram negative nabil Discharge Plan Discharge Patient Disposition: er [facility] Discharge Diagnosis: Uncontrolled HTN/hypertensive crisis Acute on chronic systolic CHF JANAK on Chronic kidney disease Anemia with heme + stools Polysubstance abuse Referrals: Jordana Way MD [Physician] - 1 Week Leonardo Weinberg MD [Physician] - 1 Week Lester Gu MD [Physician] - 1 Week Trent Jin [Physician] - 1 Week Discharge Medications: New furosemide [Lasix] 40 mg tablet 40 mg PO DAILY 30 Days Qty: 30 RF: 0 omeprazole 40 mg capsule,delayed release(DR/EC) 40 mg PO BID 30 Days Qty: 60 RF: 0 isosorbide dinitrate 5 mg Tablet 5 mg PO 0800,1300 30 Days Qty: 60 RF: 0 Continued carvedilol 12.5 mg Tablet 12.5 mg PO BID Qty: 60 RF: 0 atorvastatin [Lipitor] 40 mg tablet 40 mg PO DAILY Qty: 30 RF: 0 Changed hydralazine 50 mg tablet 50 mg PO TID 30 Days Qty: 90 RF: 0 Activity on Discharge: As tolerated Stand Alone Forms: Patient Portal Discharge page Other Ambulatory Orders: Basic Metabolic Panel (Routine) Timeframe: 20201018 Facility: [facility] - Location: Laboratory Ordered By: Ira Schmidt Complete Blood Count no Diff (Routine) Timeframe: 20201018 Facility: [facility] - Location: Laboratory Ordered By: Ira Schmidt Care Plan Goals: See below Health Concerns: Cocaine & alcohol use Heart Failure Uncontrolled Blood pressure Chronic kidney disease Plan of Treatment: Do not use alcohol or cocaine Please take blood pressure medication as prescribed Please call to schedule a follow-up appointment with Cardiology Please call to schedule follow-up appointment with Gastroenterology Assessment: See discharge summary
[2020-10-11 12:59] LABS: COVID-19 Test Negative (Negative)
--- NOTE | 2020-10-11 13:12 | MHC.CLN ---
F/U PO INTAKE 100% DIET RX 2GM NA -APPROPRIATE PT RECEIVING ENSURE BID TO INCREASE KCALS SUPPLEMENT PROVIDES 700KCALS, 40G PROTEIN
[2020-10-11] MEDS: Isosorbide Dinitrate 5 MG TABLET PO (15:25)
--- NOTE | 2020-10-11 16:42 | HO.PM.IMPN ---
Subjective Subjective Date of Service: 10/11/20 Interval History: seen and examined this morning no overnight events, no specific complaints this morning Review of Systems Review of Systems: Yes all other systems are reviewed and are negative Constitutional Constitutional: Denies chills and Denies fever(s) Cardiovascular Cardiovascular: Denies chest pain Respiratory Respiratory: Denies cough Gastrointestinal Gastrointestinal: Denies abdominal pain Physical Exam Vital Signs: Vital Signs: Last Vital Signs Temp 97.8 F 10/11/20 15:26 Pulse 76 10/11/20 15:26 Resp 20 10/11/20 15:26 BP 189/98 H 10/11/20 15:26 Pulse Ox 97 10/11/20 15:26 Oxygen Flow Rate 2 10/08/20 21:49 Body Mass Index 16.9 Const: Nutritional Appearance: thin Orientation/consciousness: patient oriented x3 HENMT: Head: Yes normocephalic and Yes atraumatic Eyes: Sclerae: sclerae normal Chest: Chest palpation & inspection: normal inspection of the chest Resp: Effort & Inspection: normal respiratory effort and no respiratory distress Auscultation: clear to auscultation bilaterally Cardio: Rate: regular rate Rhythm: regular rhythm GI: Palpation (GI): Soft to palpation and nontender Neuro: General: patient oriented x3 Cranial nerves: Yes CN's II-XII intact bilaterally and Yes Bilaterally intact EOM present Objective Data Current Medications Generic Name Dose Route Start Last Admin Trade Name Freq PRN Reason Stop Dose Admin Acetaminophen 650 mg 10/09/20 00:43 10/11/20 05:13 Acetaminophen 325 Mg Tablet PO 650 mg Q6H PRN Administration Pain, Mild (Pain Scale 1-3) Atorvastatin Calcium 40 mg 10/10/20 09:00 10/11/20 08:41 Atorvastatin Calcium 40 Mg Tablet PO 40 mg DAILY FROILAN Administration Carvedilol 12.5 mg 10/09/20 13:30 10/11/20 08:41 Carvedilol 12.5 Mg Tablet PO 12.5 mg BID [facility] Administration Protocol Docusate Sodium 100 mg 10/09/20 00:43 Docusate Sodium 100 Mg Capsule PO DAILY PRN Constipation Hydralazine HCl 50 mg 10/09/20 13:30 10/11/20 08:41 Hydralazine Hcl 50 Mg Tablet PO 50 mg BID [facility] Administration Protocol Isosorbide Dinitrate 5 mg 10/11/20 13:00 10/11/20 15:25 Isosorbide Dinitrate 5 Mg Tablet PO 5 mg 0800,1300 [facility] Administration Protocol Omeprazole 20 mg 10/10/20 06:30 10/11/20 05:13 Omeprazole 20 Mg Capsule. PO 20 mg DAILY@0630 [facility] Administration Ondansetron HCl 4 mg 10/09/20 00:43 Ondansetron Hcl 4 Mg/2 Ml Vial IVPUSH Q8H PRN Nausea and Vomiting Sodium Chloride 3 ml 10/09/20 08:00 10/11/20 08:41 0.9 % Sodium Chloride Flush 3 Ml Syringe IVFLUSH 3 ml QSHIFT [facility] Administration Labs CBC & Chem 7: 10/11/20 05:55 10/11/20 05:55 Microbiology Microbiology Results: Microbiology 10/09/20 Unknown Urine clean catch - Clean Catch Midstream Urine Culture - Final Klebsiella pneumoniae 10/09/20 06:15 Urine clean catch - Catheterized Urine Culture - Preliminary Gram negative nabil Assessment and Plan (1) Acute on chronic systolic and diastolic heart failure, NYHA class 3: Status: Acute (2) Hypertensive urgency: Status: Acute (3) Acute kidney injury superimposed on CKD: Status: Acute (4) Anemia: Status: Acute (5) Alcohol abuse: Status: Acute (6) Cocaine abuse: Status: Acute Assessment and Plan: This 79-year-old male with past medical history of CHF with reduced ejection fraction, HTN, AAA repair, h/o etoh use, chronic HCV who presents the hospital shortness of breath found to have CHF, uncontrolled HTN and anemia with heme +stool. acute on chronic systolic and diastolic heart failure. Improving. Echo from 08/25 shows ECH 25-30% with global hypokinesis most likely secondary to uncontrolled HTN vs etoh use vs cocaine use. also previous history of medication non-compliance. - will hold further diuresis given worsening renal failure - continue low-sodium diet, strict I&O, daily weight - cardiology following, will need outpatient ischemic workup normocytic anemia with positive occult stool s/p transfusion 10/10 with appropriate rise in H&H -PO PPI - seen by GI, rec EGD/colonoscopy if not done recently. however pt high risk for perioperative complications and therefore Cardiology recommends waiting until outpatient ischemic workup completed prior to proceeding with GI workup - avoid AC, ASA (asa recommended by cardiology when safe from GI perspective) JANAK on CKD3 SCr trending down to 2.26 - diuretics on hold - nephrology following - renal US with no evidence of DADA - follow BMP closely Uncontrolled HTN - BP improved with resumption of home medications carvedilol, hydralazine, imdur - monitor BP closely prolonged QT repeat EKG improved. elevated troponin troponin flat h/o etoh etoh level 70 on admission no evidence of alcohol withdrawal -CIWA monitoring thrombocytopenia chronic. stable likely r/t to liver dz (chronic HCV) h/o peripheral neuropathy/unsteady gait Code status - full code DVT prophylaxis: mechanical devices disposition - to STR. awaiting insurance authorization Attending: Dr. Santoro
--- NOTE | 2020-10-11 19:56 | P.PNGI_ITS ---
Subjective Subjective Date of Service: 10/11/20 Interval History: Patient feels OK. He denies abdominal pain. He has been eating well. He c/o several days without a BM. There has been no obvious bleeding. Physical Exam Vital Signs: Vital Signs: Last Vital Signs Temp 97.8 F 10/11/20 19:15 Pulse 87 10/11/20 19:15 Resp 15 10/11/20 19:15 BP 170/95 H 10/11/20 19:15 Pulse Ox 98 10/11/20 19:15 Oxygen Flow Rate 2 10/08/20 21:49 Body Mass Index 16.9 Const: General: cooperative, comfortable, no acute distress and well developed Eyes: Sclerae: sclerae normal GI: Other: Nontender, Nondistended Inspection: Yes normal to inspection Palpation (GI): Soft to palpation Percussion: Yes normal to percussion Auscultation: normal bowel sounds Objective Data Labs CBC & Chem 7: 10/11/20 05:55 10/11/20 05:55 Labs: Laboratory Results - last 24 hr 10/10/20 10/10/20 10/11/20 04:16 20:07 05:55 WBC 6.6 RBC 3.03 L Hgb 8.5 L 8.5 L Hct 25.5 L 26.4 L MCV 87.1 MCH 28.1 MCHC 32.2 RDW 16.9 H Plt Count 167 MPV 12.0 Absolute Nucleated RBC 0.000 Nucleated RBC % (auto) 0.0 Sodium Potassium Chloride Carbon Dioxide Anion Gap BUN Creatinine Estim Creat Clear Calc Estimated GFR Random Glucose Calcium Lactate Dehydrogenase Proteinase 3 (PR3) Ab <1.0 Myeloperoxidase Ab <1.0 COVID-19 (PRABHAKAR) COVID-[employer] 10/11/20 10/11/20 10/11/20 05:55 05:55 12:30 WBC RBC Hgb Hct MCV MCH MCHC RDW Plt Count MPV Absolute Nucleated RBC Nucleated RBC % (auto) Sodium 141 Potassium 3.6 Chloride 107 Carbon Dioxide 24 Anion Gap 14 BUN 61 H Creatinine 2.26 H Estim Creat Clear Calc 21.4 Estimated GFR 28 Random Glucose 109 Calcium 7.9 L Lactate Dehydrogenase 176 Proteinase 3 (PR3) Ab Myeloperoxidase Ab COVID-19 (PRABHAKAR) Negative COVID-19 Clin Com See Note Microbiology Microbiology Results: Microbiology 10/09/20 Unknown Urine clean catch - Clean Catch Midstream Urine Culture - Final Klebsiella pneumoniae 10/09/20 06:15 Urine clean catch - Catheterized Urine Culture - Preliminary Gram negative nabil Progress Note: A&P Assessment and plan (1) Iron deficiency anemia: Problem details: Imp: Iron deficiency anemia with Heme + stool. He did have a negative colonoscopy at [facility] [place] in 2008. He has not had an EGD. The anemia is certainly mutifactorial in relation to some chronic blood loss, as well as from renal i nsufficiency and EtOH use. Rec: He should undergo an eventual colonoscopy and EGD. I am aware of car diology's concerns. The GI procedures will need to wait until he is cleared by cardiology. This will need to be coordinated by cardiology and his PCP. I can do his procedures as an outpatient but I will need to be notified when he is cleared for them. I did review this in detail with the patient and advised him of the need to follow up with me for the GI procedures once his cardiac workup has been completed. He understood. Status: Acute Fall Risk Details Current Medications: Current Medications Generic Name Dose Route Start Last Admin Trade Name Freq PRN Reason Stop Dose Admin Acetaminophen 650 mg 10/09/20 00:43 10/11/20 05:13 Acetaminophen 325 Mg Tablet PO 650 mg Q6H PRN Administration Pain, Mild (Pain Scale 1-3) Atorvastatin Calcium 40 mg 10/10/20 09:00 10/11/20 08:41 Atorvastatin Calcium 40 Mg Tablet PO 40 mg DAILY FROILAN Administration Carvedilol 12.5 mg 10/09/20 13:30 10/11/20 08:41 Carvedilol 12.5 Mg Tablet PO 12.5 mg BID [facility] Administration Protocol Docusate Sodium 100 mg 10/09/20 00:43 Docusate Sodium 100 Mg Capsule PO DAILY PRN Constipation Hydralazine HCl 50 mg 10/09/20 13:30 10/11/20 08:41 Hydralazine Hcl 50 Mg Tablet PO 50 mg BID [facility] Administration Protocol Isosorbide Dinitrate 5 mg 10/11/20 13:00 10/11/20 15:25 Isosorbide Dinitrate 5 Mg Tablet PO 5 mg 0800,1300 [facility] Administration Protocol Omeprazole 20 mg 10/10/20 06:30 10/11/20 05:13 Omeprazole 20 Mg Capsule. PO 20 mg DAILY@0630 [facility] Administration Ondansetron HCl 4 mg 10/09/20 00:43 Ondansetron Hcl 4 Mg/2 Ml Vial IVPUSH Q8H PRN Nausea and Vomiting Sodium Chloride 3 ml 10/09/20 08:00 10/11/20 08:41 0.9 % Sodium Chloride Flush 3 Ml Syringe IVFLUSH 3 ml QSHIFT FROILAN Administration Time Spent With Patient Time: Total time spent is greater than 50% in coordination of care (as documented) at patient's floor/unit and/or counseling patient: Time with patient: 15 - 24 minutes
[2020-10-11] MEDS: Milk of Magnesia 30 ML ORAL.SUSP PO (22:02)
[2020-10-12] VITALS (8 sets, daily range): BP systolic 151–181; BP diastolic 88–97; PULSE 75–85; RESP 16–17; TEMP 36.7–37.1; O2SAT 95–100
[2020-10-12] MEDS: Omeprazole 20 MG CAPSULE.DR PO (06:22)
[2020-10-12 06:30] LABS: MANUAL DIFF FLAG NO
[2020-10-12 06:49] LABS: Basophils Percent Auto 0.6 % (0-2); Eosinophils Absolute Auto 0.1 X10*3/uL (0.0-0.4); Eosinophils Percent Auto 1.8 % (0-4); Hematocrit 26.4 % (42-52); Hemoglobin 8.5 g/dl (14.0-18.0); Imm Gran Abs Auto 0.04 X10*3/uL (0.00-0.03); Imm Gran Pct Auto 0.6 % (0.0-0.4); Lymphocytes Absolute Auto 1.1 X10*3/uL (1.2-4.9); Mean Corpuscular HGB Conc 32.2 g/dl (31.0-36.0); Mean Corpuscular Hemoglobin 28.2 pg (27.0-33.0); Mean Corpuscular Volume 87.7 fL (80-98); Mean Platelet Volume 11.1 fL (9.4-12.4); Monocytes Absolute Auto 1.3 X10*3/uL (0.1-1.2); Monocytes Percent Auto 19.6 % (2-11); Neutrophils Absolute Auto 4.1 X10*3/uL (2.0-8.3); Neutrophils Percent Auto 61.4 % (45-73); Platelet Count 170 X10*3/uL (160-400); Red Blood Count 3.01 X10*6/uL (4.60-5.80); Red Cell Distribution Width 16.9 % (11.0-16.0); White Blood Count 6.7 X10*3/uL (4.8-10.8)
[2020-10-12 06:59] LABS: Anion Gap 10 (12-20); Blood Urea Nitrogen 54 mg/dL (9-16); Calcium 8.3 mg/dL (8.4-10.2); Carbon Dioxide 26 mmol/L (22-29); Chloride 110 mmol/L (96-108); Creatinine Clr Calc Pharmacy 24.3; Estimated Glomerular Filt Rate 32; Glucose Random 111 mg/dL (60-115); Magnesium 2.1 mg/dL (1.6-2.6); Potassium 3.6 mmol/L (3.3-5.1); Sodium 142 mmol/L (135-145)
[2020-10-12] MEDS: hydrALAZINE HCl 50 MG TABLET PO ×2 (08:30→21:16)
[2020-10-12] MEDS: Isosorbide Dinitrate 5 MG TABLET PO ×2 (08:30→13:28)
[2020-10-12] MEDS: carvediloL 12.5 MG TABLET PO ×2 (08:30→21:16)
[2020-10-12] MEDS: Atorvastatin Calcium 40 MG TABLET PO (08:30)
[2020-10-12] MEDS: 0.9 % Sodium Chloride Flush 3 ML SYRINGE IVFLUSH ×3 (08:31→21:16)
--- NOTE | 2020-10-12 10:32 | P.PNIM_ITS ---
Subjective Subjective Date of Service: 10/12/20 <GUME Garza - Last Filed: 10/12/20 10:43> 10/12/20 <Shivam Calderon MD - Last Filed: 10/12/20 20:47> Interval History: seen in follow up Seen and examined this morning Denies shortness of breath, chest pain, palpitations <GUME Garza - Last Filed: 10/12/20 10:43> Review of Systems Review of Systems: Yes all other systems are reviewed and are negative <GUME Garza - Last Filed: 10/12/20 10:43> Constitutional Constitutional: Denies chills and Denies fever(s) <GUME Garza - Last Filed: 10/12/20 10:43> Cardiovascular Cardiovascular: Denies chest pain <GUME Garza - Last Filed: 10/12/20 10:43> Respiratory Respiratory: Denies cough <GUME Garza - Last Filed: 10/12/20 10:43> Gastrointestinal Gastrointestinal: Denies abdominal pain <GUME Garza - Last Filed: 10/12/20 10:43> Physical Exam Vital Signs: Vital Signs: Last Vital Signs Temp 98.3 F 10/12/20 07:44 Pulse 81 10/12/20 08:30 Resp 17 10/12/20 07:44 BP 181/94 H 10/12/20 08:30 Pulse Ox 96 10/12/20 07:44 Oxygen Flow Rate 2 10/08/20 21:49 Body Mass Index 16.9 <GUME Garza - Last Filed: 10/12/20 10:43> Const: General: comfortable, no acute distress, alert and awake <GUME Garza - Last Filed: 10/12/20 10:43> Nutritional Appearance: thin <GUME Garza - Last Filed: 10/12/20 10:43> Orientation/consciousness: patient oriented x3 <GUME Garza - Last Filed: 10/12/20 10:43> HENMT: Head: Yes normocephalic and Yes atraumatic <GUME Garza - Last Filed: 10/12/20 10:43> Eyes: Sclerae: sclerae normal <GUME Garza - Last Filed: 10/12/20 10:43> Chest: Chest palpation & inspection: normal inspection of the chest <GUME Garza - Last Filed: 10/12/20 10:43> Resp: Effort & Inspection: normal respiratory effort and no respiratory distress <GUME Garza - Last Filed: 10/12/20 10:43> Auscultation: clear to auscultation bilaterally <GUME Garza - Last Filed: 10/12/20 10:43> Cardio: Rate: regular rate <GUME Garza - Last Filed: 10/12/20 10:43> Rhythm: regular rhythm <GUME Garza - Last Filed: 10/12/20 10:43> GI: Palpation (GI): Soft to palpation and nontender <GUME Garza - Last Filed: 10/12/20 10:43> : Other: robb <GUME Garza - Last Filed: 10/12/20 10:43> Neuro: General: patient oriented x3 <GUME Garza - Last Filed: 10/12/20 10:43> Cranial nerves: Yes CN's II-XII intact bilaterally and Yes Bilaterally intact EOM present <GUME Garza - Last Filed: 10/12/20 10:43> Extrem: Other: no leg edema <GUME Garza - Last Filed: 10/12/20 10:43> General: Yes normal to inspection <GUME Garza - Last Filed: 10/12/20 10:43> Objective Data Current Medications Generic Name Dose Route Start Last Admin Trade Name Freq PRN Reason Stop Dose Admin Acetaminophen 650 mg 10/09/20 00:43 10/11/20 05:13 Acetaminophen 325 Mg Tablet PO 650 mg Q6H PRN Administration Pain, Mild (Pain Scale 1-3) Atorvastatin Calcium 40 mg 10/10/20 09:00 10/12/20 08:30 Atorvastatin Calcium 40 Mg Tablet PO 40 mg DAILY FROILAN Administration Carvedilol 12.5 mg 10/09/20 13:30 10/12/20 08:30 Carvedilol 12.5 Mg Tablet PO 12.5 mg BID [facility] Administration Protocol Docusate Sodium 100 mg 10/09/20 00:43 Docusate Sodium 100 Mg Capsule PO DAILY PRN Constipation Hydralazine HCl 50 mg 10/09/20 13:30 10/12/20 08:30 Hydralazine Hcl 50 Mg Tablet PO 50 mg BID [facility] Administration Protocol Isosorbide Dinitrate 5 mg 10/11/20 13:00 10/12/20 08:30 Isosorbide Dinitrate 5 Mg Tablet PO 5 mg 0800,1300 [facility] Administration Protocol Omeprazole 20 mg 10/10/20 06:30 10/12/20 06:22 Omeprazole 20 Mg Capsule.Dr PO 20 mg DAILY@0630 [facility] Administration Ondansetron HCl 4 mg 10/09/20 00:43 Ondansetron Hcl 4 Mg/2 Ml Vial IVPUSH Q8H PRN Nausea and Vomiting Sodium Chloride 3 ml 10/09/20 08:00 10/12/20 08:31 0.9 % Sodium Chloride Flush 3 Ml Syringe IVFLUSH 3 ml QSHIFT [facility] Administration <GUME Garza - Last Filed: 10/12/20 10:43> Labs CBC & Chem 7: : 10/12/20 06:18 10/12/20 06:18 <GUME Garza - Last Filed: 10/12/20 10:43> Microbiology Microbiology Results: Microbiology 10/09/20 06:15 Urine clean catch - Catheterized Urine Culture - Final Klebsiella pneumoniae 10/09/20 Unknown Urine clean catch - Clean Catch Midstream Urine Culture - Final Klebsiella pneumoniae <GUME Garza - Last Filed: 10/12/20 10:43> Assessment and Plan (1) Iron deficiency anemia: Status: Acute <GUME Garza Last Filed: 10/12/20 10:43> (2) Acute on chronic systolic and diastolic heart failure, NYHA class 3: Status: Acute <GUME Garza Last Filed: 10/12/20 10:43> (3) Hypertensive urgency: Status: Acute <GUME Garza Last Filed: 10/12/20 10:43> (4) Acute kidney injury superimposed on CKD: Status: Acute <GUME Garza - Last Filed: 10/12/20 10:43> (5) Anemia: Status: Acute <GUME Garza - Last Filed: 10/12/20 10:43> (6) Alcohol abuse: Status: Acute <GUME Garza - Last Filed: 10/12/20 10:43> (7) Cocaine abuse: Status: Acute <GUME Garza - Last Filed: 10/12/20 10:43> Assessment and Plan: This 79-year-old male with past medical history of CHF with reduced ejection fraction, HTN, AAA repair, h/o etoh use, chronic HCV who presents the hospital shortness of breath found to have CHF, uncontrolled HTN and anemia with heme +stool. acute on chronic systolic and diastolic heart failure. Improving. Echo from 08/25 shows ECH 25-30% with global hypokinesis most likely secondary to uncontrolled HTN vs etoh use vs cocaine use. also previous history of medication non-compliance. - will start po lasix - continue low-sodium diet, I&O, daily weight - cardiology following, will need outpatient ischemic workup normocytic anemia with positive occult stool s/p transfusion 10/10 with appropriate rise in H&H -PO PPI - seen by GI, rec EGD/colonoscopy. however pt high risk for perioperative complications and therefore Cardiology recommends waiting until outpatient ischemic workup completed prior to proceeding with GI workup - avoid AC, ASA (asa recommended by cardiology when safe from GI perspective) JANAK on CKD3 Renal function back to baseline - nephrology following - renal US with no evidence of DADA - follow BMP Uncontrolled HTN - BP improved with resumption of home medications carvedilol, hydralazine, imdur - monitor BP closely prolonged QT repeat EKG improved. elevated troponin troponin flat h/o etoh etoh level 70 on admission no evidence of alcohol withdrawal -CIWA monitoring thrombocytopenia chronic. stable likely r/t to liver dz (chronic HCV) h/o peripheral neuropathy/unsteady gait Code status - full code DVT prophylaxis: mechanical devices disposition - to STR. awaiting insurance authorization Attending: Dr. Santoro <GUME Garza - Last Filed: 10/12/20 10:43> I saw in an exam the patient and discussed the plan of care with mid level provider and I agree with assessment and plan as discuss abobe. <Shivam Calderon MD - Last Filed: 10/12/20 20:47>
[2020-10-12 13:36] LABS: Haptoglobin 131 mg/dL (43-212)
--- NOTE | 2020-10-12 21:02 | P.PNNP_ITS ---
Subjective Subjective Date of Service: 10/12/20 Interval history: Seen and examined. Events noted Physical Exam Vital Signs: Vital Signs: Last Vital Signs Temp 98.3 F 10/12/20 19:32 Pulse 85 10/12/20 19:32 Resp 17 10/12/20 19:32 BP 177/97 H 10/12/20 19:32 Pulse Ox 100 10/12/20 19:32 Oxygen Flow Rate 2 10/08/20 21:49 Body Mass Index 16.9 Const: General: cooperative, no acute distress, alert, awake and confusion Nutritional Appearance: thin Orientation/consciousness: patient oriented x3 and confusion HENMT: Head: Yes normocephalic and Yes atraumatic Eyes: General: appearance normal, both eyes and all related structures Sclerae: sclerae normal Chest: Chest palpation & inspection: normal inspection of the chest Resp: Effort & Inspection: normal respiratory effort, able to speak in complete sentences and no respiratory distress Auscultation: clear to auscultation bilaterally Cardio: Rate: regular rate Rhythm: regular rhythm GI: Palpation (GI): Soft to palpation and nontender Auscultation: normal bowel sounds Skin: General skin exam: no rashes or lesions noted Neuro: General: patient oriented x3 and confusion Cranial nerves: Yes CN's II-XII intact bilaterally and Yes Bilaterally intact EOM present Cognition (Neuro): normal cognition Extrem: Other: 1+ b/l leg edema General: Yes normal to inspection Objective Data Labs CBC & Chem 7: 10/12/20 06:18 10/12/20 06:18 Labs: Laboratory Results - last 24 hr 10/11/20 10/12/20 10/12/20 05:55 06:18 06:18 WBC 6.7 RBC 3.01 L Hgb 8.5 L Hct 26.4 L MCV 87.7 MCH 28.2 MCHC 32.2 RDW 16.9 H Plt Count 170 MPV 11.1 Immature Gran % (Auto) 0.6 H Neut % (Auto) 61.4 Lymph % (Auto) 16.0 L [place] % (Auto) 19.6 H Eos % (Auto) 1.8 Baso % (Auto) 0.6 Lymph # (Auto) 1.1 L [place] # (Auto) 1.3 H Eos # (Auto) 0.1 Baso # (Auto) 0.0 Abs Immat Gran (auto) 0.04 H Absolute Neuts (auto) 4.1 Absolute Nucleated RBC 0.000 Nucleated RBC % (auto) 0.0 Haptoglobin 131 Sodium Cancelled Potassium Cancelled Chloride Cancelled Carbon Dioxide Cancelled Anion Gap Cancelled BUN Cancelled Creatinine Cancelled Estim Creat Clear Calc Cancelled Estimated GFR Cancelled Random Glucose Cancelled Calcium Cancelled Magnesium 10/12/20 06:18 WBC RBC Hgb Hct MCV MCH MCHC RDW Plt Count MPV Immature Gran % (Auto) Neut % (Auto) Lymph % (Auto) [place] % (Auto) Eos % (Auto) Baso % (Auto) Lymph # (Auto) [place] # (Auto) Eos # (Auto) Baso # (Auto) Abs Immat Gran (auto) Absolute Neuts (auto) Absolute Nucleated RBC Nucleated RBC % (auto) Haptoglobin Sodium 142 Potassium 3.6 Chloride 110 H Carbon Dioxide 26 Anion Gap 10 L BUN 54 H Creatinine 1.99 H Estim Creat Clear Calc 24.3 Estimated GFR 32 Random Glucose 111 Calcium 8.3 L Magnesium 2.1 Microbiology Microbiology Results: Microbiology 10/09/20 06:15 Urine clean catch - Catheterized Urine Culture - Final Klebsiella pneumoniae 10/09/20 Unknown Urine clean catch - Clean Catch Midstream Urine Culture - Final Klebsiella pneumoniae Assessment & Plan Assessment and plan (1) Acute kidney injury superimposed on CKD: Status: Acute (2) Elevated troponin: Status: Acute (3) CHF exacerbation: Status: Acute (4) Hypertensive crisis: Status: Acute Assessment and Plan: This 79-year-old male with past medical history of CHF with reduced ejection fr action, HTN, AAA repair, h/o etoh use, chronic HCV who presents the hospital shortness of breath found to have CHF, uncontrolled HTN and JANAK on CKD. 1. JANAK: clinical presentation most c/w severe HTN causing renal injury --HTN crisis and renal func now grad imporoving 2. HTN emerg: ques non-compl and/or cocacine precipitation or both 3. HFrEF: suspect epsidoe of SOB was d/t HTN emerg and not mora hypervol 4. Thoracic AA with ques of disction raised in the past -- back in 08/2020 adm 5. Anemia: decr Hb; Fe def 6. CKD 3b: bsl Scr 1.5-2.0: suspect HTN renal dis REC: cont incr BP meds control; track UOP/renal func; avoid Ntoxins; d/c planning will follow deon with team Time Spent With Patient Time: Total time spent is greater than 50% in coordination of care (as documented) at patient's floor/unit and/or counseling patient:
[2020-10-13] VITALS (12 sets, daily range): BP systolic 131–173; BP diastolic 64–97; PULSE 72–85; RESP 13–18; TEMP 36.4–36.6; O2SAT 97–100; BMI 16.8
[2020-10-13] MEDS: Omeprazole 20 MG CAPSULE.DR PO (06:15)
[2020-10-13 07:43] LABS: Anion Gap 10 (12-20); Blood Urea Nitrogen 49 mg/dL (9-16); Calcium 8.4 mg/dL (8.4-10.2); Carbon Dioxide 26 mmol/L (22-29); Chloride 108 mmol/L (96-108); Creatinine Clr Calc Pharmacy 25.8; Estimated Glomerular Filt Rate 35; Glucose Random 120 mg/dL (60-115); Potassium 3.8 mmol/L (3.3-5.1); Sodium 140 mmol/L (135-145)
--- NOTE | 2020-10-13 08:55 | PM.PNNEP ---
Subjective Subjective Date of Service: 10/13/20 Interval history: Seen and examined. Events noted Physical Exam Vital Signs: Vital Signs: Last Vital Signs Temp 97.6 F 10/13/20 08:00 Pulse 78 10/13/20 08:00 Resp 15 10/13/20 08:00 BP 132/90 H 10/13/20 08:00 Pulse Ox 97 10/13/20 08:00 Oxygen Flow Rate 2 10/08/20 21:49 Body Mass Index 16.8 Const: General: cooperative, no acute distress, alert, awake and confusion Nutritional Appearance: thin Orientation/consciousness: patient oriented x3 and confusion HENMT: Head: Yes normocephalic and Yes atraumatic Eyes: General: appearance normal, both eyes and all related structures Sclerae: sclerae normal Chest: Chest palpation & inspection: normal inspection of the chest Resp: Effort & Inspection: normal respiratory effort, able to speak in complete sentences and no respiratory distress Auscultation: clear to auscultation bilaterally Cardio: Rate: regular rate Rhythm: regular rhythm GI: Palpation (GI): Soft to palpation and nontender Auscultation: normal bowel sounds Skin: General skin exam: no rashes or lesions noted Neuro: General: patient oriented x3 and confusion Cranial nerves: Yes CN's II-XII intact bilaterally and Yes Bilaterally intact EOM present Cognition (Neuro): normal cognition Extrem: Other: 1+ b/l leg edema General: Yes normal to inspection Objective Data Labs CBC & Chem 7: 10/12/20 06:18 10/13/20 06:32 Labs: Laboratory Results - last 24 hr 10/11/20 10/13/20 05:55 06:32 Haptoglobin 131 Sodium 140 Potassium 3.8 Chloride 108 Carbon Dioxide 26 Anion Gap 10 L BUN 49 H Creatinine 1.87 H Estim Creat Clear Calc 25.8 Estimated GFR 35 Random Glucose 120 H Calcium 8.4 Microbiology Microbiology Results: Microbiology 10/09/20 06:15 Urine clean catch - Catheterized Urine Culture - Final Klebsiella pneumoniae 10/09/20 Unknown Urine clean catch - Clean Catch Midstream Urine Culture - Final Klebsiella pneumoniae Assessment & Plan Assessment and plan (1) Acute kidney injury superimposed on CKD: Status: Acute (2) Elevated troponin: Status: Acute (3) CHF exacerbation: Status: Acute (4) Hypertensive crisis: Status: Acute Assessment and Plan: This 79-year-old male with past medical history of CHF with reduced ejection fraction, HTN, AAA repair, h/o etoh use, chronic HCV who presents the hospital shortness of breath found to have CHF, uncontrolled HTN and JANAK on CKD. 1. JANAK: clinical presentation most c/w severe HTN causing renal injury --HTN crisis and renal func now grad imporoving 2. HTN emerg: ques non-compl and/or cocacine precipitation or both 3. HFrEF: suspect epsidoe of SOB was d/t HTN emerg and not mora hypervol 4. Thoracic AA with ques of disction raised in the past -- back in 08/2020 adm 5. Anemia: decr Hb; Fe def 6. 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
[2020-10-13] MEDS: Furosemide 40 MG TABLET PO (09:26)
[2020-10-13] MEDS: carvediloL 12.5 MG TABLET PO ×2 (09:27→21:31)
[2020-10-13] MEDS: Isosorbide Dinitrate 5 MG TABLET PO ×2 (09:29→14:22)
[2020-10-13] MEDS: hydrALAZINE HCl 50 MG TABLET PO ×3 (09:29→21:31)
[2020-10-13] MEDS: Atorvastatin Calcium 40 MG TABLET PO (09:29)
[2020-10-13] MEDS: 0.9 % Sodium Chloride Flush 3 ML SYRINGE IVFLUSH ×2 (09:30→18:13)
--- NOTE | 2020-10-13 10:53 | P.PNIM_ITS ---
Subjective Subjective Date of Service: 10/13/20 <GMUE Garza - Last Filed: 10/13/20 11:02> 10/13/20 <Shivam Calderon MD - Last Filed: 10/13/20 15:00> Interval History: seen and examined no complaints this morning no overnight events <GUME Garza - Last Filed: 10/13/20 11:02> Review of Systems Review of Systems: Yes all other systems are reviewed and are negative <GUME Garza - Last Filed: 10/13/20 11:02> Constitutional Constitutional: Denies chills and Denies fever(s) <GUME Garza - Last Filed: 10/13/20 11:02> Cardiovascular Cardiovascular: Denies chest pain <GUME Garza - Last Filed: 10/13/20 11:02> Respiratory Respiratory: Denies cough <GUME Garza - Last Filed: 10/13/20 11:02> Gastrointestinal Gastrointestinal: Denies abdominal pain <GUME Garza - Last Filed: 10/13/20 11:02> Physical Exam Vital Signs: Vital Signs: Last Vital Signs Temp 97.6 F 10/13/20 08:00 Pulse 82 10/13/20 09:27 Resp 15 10/13/20 08:00 BP 171/97 H 10/13/20 09:29 Pulse Ox 97 10/13/20 08:00 Oxygen Flow Rate 2 10/08/20 21:49 Body Mass Index 16.8 <GUME Garza - Last Filed: 10/13/20 11:02> Const: General: comfortable, no acute distress, alert and awake <GUME Garza - Last Filed: 10/13/20 11:02> Nutritional Appearance: thin <GUME Garza Last Filed: 10/13/20 11:02> Orientation/consciousness: patient oriented x3 <GUEM Garza - Last Filed: 10/13/20 11:02> HENMT: Head: Yes normocephalic and Yes atraumatic <GUME Garza - Last Filed: 10/13/20 11:02> Eyes: Sclerae: sclerae normal <GUME Garza - Last Filed: 10/13/20 11:02> Chest: Chest palpation & inspection: normal inspection of the chest <GUME Galindo - Last Filed: 10/13/20 11:02> Resp: Effort & Inspection: normal respiratory effort and no respiratory distress <GUME Garza - Last Filed: 10/13/20 11:02> Auscultation: clear to auscultation bilaterally <GUME Garza - Last Filed: 10/13/20 11:02> Cardio: Rate: regular rate <GUME Garza - Last Filed: 10/13/20 11:02> Rhythm: regular rhythm <GUME Garza - Last Filed: 10/13/20 11:02> GI: Palpation (GI): Soft to palpation and nontender <GUME Garza - Last Filed: 10/13/20 11:02> : Other: robb <GUME Garza - Last Filed: 10/13/20 11:02> Neuro: General: patient oriented x3 <GUME Garza - Last Filed: 10/13/20 11:02> Cranial nerves: Yes CN's II-XII intact bilaterally and Yes Bilaterally intact EOM present <GUME Garza - Last Filed: 10/13/20 11:02> Extrem: Other: no leg edema <GUME Garza - Last Filed: 10/13/20 11:02> General: Yes normal to inspection <GUME Garza - Last Filed: 10/13/20 11:02> Objective Data Current Medications Generic Name Dose Route Start Last Admin Trade Name Freq PRN Reason Stop Dose Admin Acetaminophen 650 mg 10/09/20 00:43 10/11/20 05:13 Acetaminophen 325 Mg Tablet PO 650 mg Q6H PRN Administration Pain, Mild (Pain Scale 1-3) Atorvastatin Calcium 40 mg 10/10/20 09:00 10/13/20 09:29 Atorvastatin Calcium 40 Mg Tablet PO 40 mg DAILY FROILAN Administration Carvedilol 12.5 mg 10/09/20 13:30 10/13/20 09:27 Carvedilol 12.5 Mg Tablet PO 12.5 mg BID [facility] Administration Protocol Docusate Sodium 100 mg 10/09/20 00:43 Docusate Sodium 100 Mg Capsule PO DAILY PRN Constipation Furosemide 40 mg 10/13/20 09:00 10/13/20 09:26 Furosemide 40 Mg Tablet PO 40 mg DAILY [facility] Administration Protocol Hydralazine HCl 50 mg 10/09/20 13:30 10/13/20 09:29 Hydralazine Hcl 50 Mg Tablet PO 50 mg BID [facility] Administration Protocol Isosorbide Dinitrate 5 mg 10/11/20 13:00 10/13/20 09:29 Isosorbide Dinitrate 5 Mg Tablet PO 5 mg 0800,1300 [facility] Administration Protocol Omeprazole 20 mg 10/10/20 06:30 10/13/20 06:15 Omeprazole 20 Mg Capsule.Dr PO 20 mg DAILY@0630 [facility] Administration Ondansetron HCl 4 mg 10/09/20 00:43 Ondansetron Hcl 4 Mg/2 Ml Vial IVPUSH Q8H PRN Nausea and Vomiting Sodium Chloride 3 ml 10/09/20 08:00 10/13/20 09:30 0.9 % Sodium Chloride Flush 3 Ml Syringe IVFLUSH 3 ml QSHIFT [facility] Administration <GUME Garza - Last Filed: 10/13/20 11:02> Labs CBC & Chem 7: : 10/12/20 06:18 10/13/20 06:32 <GUME Garza - Last Filed: 10/13/20 11:02> Microbiology Microbiology Results: Microbiology 10/09/20 06:15 Urine clean catch - Catheterized Urine Culture - Final Klebsiella pneumoniae 10/09/20 Unknown Urine clean catch - Clean Catch Midstream Urine Culture - Final Klebsiella pneumoniae <GUME Garza Last Filed: 10/13/20 11:02> Assessment and Plan (1) Iron deficiency anemia: Status: Acute <GUME Garza Last Filed: 10/13/20 11:02> (2) Acute on chronic systolic and diastolic heart failure, NYHA class 3: Status: Acute <GUME Garza Last Filed: 10/13/20 11:02> (3) Hypertensive urgency: Status: Acute <GUME Garza - Last Filed: 10/13/20 11:02> (4) Acute kidney injury superimposed on CKD: Status: Acute <GUME Garza - Last Filed: 10/13/20 11:02> (5) Anemia: Status: Acute <GUME Garza - Last Filed: 10/13/20 11:02> (6) Alcohol abuse: Status: Acute <GUME Garza - Last Filed: 10/13/20 11:02> (7) Cocaine abuse: Status: Acute <GUME Garza - Last Filed: 10/13/20 11:02> Assessment and Plan: This 79-year-old male with past medical history of CHF with reduced ejection fraction, HTN, AAA repair, h/o etoh use, chronic HCV who presents the hospital shortness of breath found to have CHF, uncontrolled HTN and anemia with heme +stool. acute on chronic systolic and diastolic heart failure. Improving. Echo from 08/25 shows ECH 25-30% with global hypokinesis most likely secondary to uncontrolled HTN vs etoh use vs cocaine use. also previous history of medication non-compliance. - will start po lasix - continue low-sodium diet, I&O, daily weight - cardiology following, will need outpatient ischemic workup normocytic anemia with positive occult stool s/p transfusion 10/10 with appropriate rise in H&H. H/H has remained stable. - PO PPI - seen by GI, rec EGD/colonoscopy. however pt high risk for perioperative comp lications and therefore Cardiology recommends waiting until outpatient ischemic workup completed prior to proceeding with GI workup - avoid AC, ASA (asa recommended by cardiology when safe from GI perspective) JANAK on CKD3 Renal function back to baseline nal US with no evidence of DADA - nephrology following Uncontrolled HTN - BP improving with resumption of home medications carvedilol, imdur - will increase hydralazine prolonged QT repeat EKG improved. elevated troponin on admit troponin flat. no chest pain h/o etoh etoh level 70 on admission no evidence of alcohol withdrawal Counseled to stop drinking alcohol completely thrombocytopenia chronic. stable likely r/t to liver dz (chronic HCV) h/o peripheral neuropathy/unsteady gait. seen by PT , recommend STR Code status - full code DVT prophylaxis: mechanical devices disposition - to STR. awaiting insurance authorization Attending: Dr. Calderon <GUME Garza - Last Filed: 10/13/20 11:02>
[2020-10-13] MEDS: Acetaminophen 325 MG TABLET 650 MG PO (12:13)
[2020-10-14] VITALS (12 sets, daily range): BP systolic 145–199; BP diastolic 77–93; PULSE 67–79; RESP 14–18; TEMP 36.5–37.1; O2SAT 97–100; BMI 16.9
[2020-10-14] MEDS: 0.9 % Sodium Chloride Flush 3 ML SYRINGE IVFLUSH ×2 (01:08→08:14)
[2020-10-14 05:38] LABS: Anion Gap 13 (12-20); Blood Urea Nitrogen 51 mg/dL (9-16); Calcium 8.4 mg/dL (8.4-10.2); Carbon Dioxide 26 mmol/L (22-29); Chloride 107 mmol/L (96-108); Creatinine Clr Calc Pharmacy 25.1; Estimated Glomerular Filt Rate 34; Glucose Random 111 mg/dL (60-115); Potassium 3.8 mmol/L (3.3-5.1); Sodium 142 mmol/L (135-145)
[2020-10-14] MEDS: Omeprazole 20 MG CAPSULE.DR PO (05:58)
[2020-10-14] MEDS: Docusate Sodium 100 MG CAPSULE PO (05:58)
[2020-10-14] MEDS: Atorvastatin Calcium 40 MG TABLET PO (08:12)
[2020-10-14] MEDS: hydrALAZINE HCl 50 MG TABLET PO ×3 (08:12→21:50)
[2020-10-14] MEDS: carvediloL 12.5 MG TABLET PO ×2 (08:13→21:51)
[2020-10-14] MEDS: Isosorbide Dinitrate 5 MG TABLET PO ×2 (08:13→14:17)
[2020-10-14] MEDS: Furosemide 40 MG TABLET PO (08:13)
--- NOTE | 2020-10-14 11:31 | PM.PNNEP ---
Subjective Subjective Date of Service: 10/14/20 Interval history: Events noted Lying flat Physical Exam Vital Signs: Vital Signs: Last Vital Signs Temp 97.7 F 10/14/20 07:44 Pulse 73 10/14/20 10:39 Resp 16 10/14/20 07:44 BP 157/87 H 10/14/20 10:39 Pulse Ox 98 10/14/20 07:44 Oxygen Flow Rate 2 10/08/20 21:49 Body Mass Index 16.9 Const: General: awake Resp: Auscultation: clear to auscultation bilaterally Cardio: Heart sounds: no rubs Extrem: Right upper extremity: no edema Objective Data Labs CBC & Chem 7: 10/12/20 06:18 10/14/20 04:44 Labs: Laboratory Results - last 24 hr 10/14/20 04:44 Sodium 142 Potassium 3.8 Chloride 107 Carbon Dioxide 26 Anion Gap 13 BUN 51 H Creatinine 1.92 H Estim Creat Clear Calc 25.1 Estimated GFR 34 Random Glucose 111 Calcium 8.4 Microbiology Microbiology Results: Microbiology 10/09/20 06:15 Urine clean catch - Catheterized Urine Culture - Final Klebsiella pneumoniae 10/09/20 Unknown Urine clean catch - Clean Catch Midstream Urine Culture - Final Klebsiella pneumoniae Assessment & Plan Assessment and plan (1) Acute kidney injury superimposed on CKD: Problem details: This 79-year-old male with past medical history of CHF with reduced ejection fraction, HTN, AAA repair, h/o etoh use, chronic HCV who presents the hospital shortness of breath found to have CHF, uncontrolled HTN and JANAK on CKD. 1. JANAK: clinical presentation most c/w severe HTN causing renal injury --HTN crisis and renal func now grad imporoving 2. HTN emerg: ques non-compl and/or cocaine precipitation or both 3. HFrEF: suspect epsidoe of SOB was d/t HTN emerg and not mora hypervol 4. Thoracic AA with ques of disction raised in the past -- back in 08/2020 adm 5. Anemia: decr Hb; Fe def 6. 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
[2020-10-14 12:31] LABS: Glucose Urine UA NEG (NEG); Leukocyte Esterase Urine 3+ (NEG); Nitrite Urine NEG (NEG); PH 6.5 (5.0-8.0); Specific Gravity - Urine 1.015 (1.005-1.025); UACC Culture Trigger YES; Urine Blood TRACE (NEG); Urine Ketones NEG (NEG); Urine Protein 2+ MG/DL (NEG-TRACE)
[2020-10-14 12:34] LABS: Appearance Urine CLOUDY; Color Urine YELLOW
[2020-10-14 12:57] LABS: Bacteria Urine 3+ /LPF; Urine Talc Crystals TRACE /LPF; WBC Urine TNTC /HPF (0-4)
[2020-10-14 13:03] LABS: WBC Clumps Urine NOTED
--- NOTE | 2020-10-14 13:30 | MHC.CLN ---
F/U PO INTAKE GOOD 75-100% DIET RX 2GM NA -APPROPRIATE PT RECEIVING ENSURE BID TO INCREASE KCALS SUPPLEMENT PROVIDES 700KCALS, 40G PROTEIN FOLLOWING
--- NOTE | 2020-10-14 14:57 | MHC.CM.PN ---
Addendum entered by Rema Schroeder 10/14/20 16:29: PT INFORMED T/W HE HAS BEEN UNABLE TO REACH THE NEIGHBOR THAT HAS HIS HOUSE KEYS. PT REPORTED HE WOULD GO WAIT ON THE DOOR STEP HOWEVER THIS IS NOT A SAFE PLAN. PT INFORMED HE COULD BE TRANSPORTED ONCE HE IS ABLE TO REACH HIS FRIEND. [facility] HAS BEEN PLACED ON HOLD AND THE US OR NURSE WILL CONTACT [facility] ONCE PT HAS MADE CONTACT. Original Note: PT WAS HERE THROUGH THE WEEKEND DUE TO DELAY WITH INSURANCE AUTH FOR STR. CM MET WITH PT THIS MORNING AND HE INDICATED HE WAS NO LONGER INTERESTED IN STR. PT EXPLAINED HE HAS HIS APARTMENT SET UP SO THAT HE CAN ACCESS ANYTHING HE MAY NEED AND HE USES HIS ROLLATOR TO GET AROUND AT HOME. PT REPORTS HE ALSO HAS A NEIGHBOR THAT CHECKS IN ON HIM DAILY. CM MET WITH PT AGAIN THIS AFTERNOON AFTER RECEIVING A NOTICE THAT INSURANCE HAD GIVEN AUTH. PT AGAIN REPORTS HE DOES NOT WANT STR AND WOULD LIKE TO GO HOME WITH [facility] FOR SN AND PT. [facility] PT PREFERENCE. PT WILL DC HOME TODAY AT 1700 HOURS WITH [facility] PT WILL REQUIRE [facility] VS BLS TRANSPORT
--- NOTE | 2020-10-14 18:01 | HO.PM.IMPN ---
Subjective Subjective Date of Service: 10/14/20 Interval History: Follow up. No pain or discomfort. Physical Exam Vital Signs: Vital Signs: Last Vital Signs Temp 97.8 F 10/14/20 15:44 Pulse 67 10/14/20 15:44 Resp 14 10/14/20 15:44 BP 147/77 H 10/14/20 15:44 Pulse Ox 100 10/14/20 15:44 Oxygen Flow Rate 2 10/08/20 21:49 Body Mass Index 16.9 Appearing in no acute distress lung sounds are clear to auscultation heart regular rate rhythm, clear S1, S2 positive bowel sounds, abdomen is soft, nontender neuro patient is alert x3, no focal deficits MSK leg weakness, chronic Objective Data Current Medications Generic Name Dose Route Start Last Admin Trade Name Freq PRN Reason Stop Dose Admin Acetaminophen 650 mg 10/09/20 00:43 10/13/20 12:13 Acetaminophen 325 Mg Tablet PO 650 mg Q6H PRN Administration Pain, Mild (Pain Scale 1-3) Atorvastatin Calcium 40 mg 10/10/20 09:00 10/14/20 08:12 Atorvastatin Calcium 40 Mg Tablet PO 40 mg DAILY FROILAN Administration Carvedilol 12.5 mg 10/09/20 13:30 10/14/20 08:13 Carvedilol 12.5 Mg Tablet PO 12.5 mg BID FROILAN Administration Protocol Docusate Sodium 100 mg 10/09/20 00:43 10/14/20 05:58 Docusate Sodium 100 Mg Capsule PO 100 mg DAILY PRN Administration Constipation Furosemide 40 mg 10/13/20 09:00 10/14/20 08:13 Furosemide 40 Mg Tablet PO 40 mg DAILY FROILAN Administration Protocol Hydralazine HCl 50 mg 10/13/20 15:00 10/14/20 14:17 Hydralazine Hcl 50 Mg Tablet PO 50 mg TID FROILAN Administration Protocol Isosorbide Dinitrate 5 mg 10/11/20 13:00 10/14/20 14:17 Isosorbide Dinitrate 5 Mg Tablet PO 5 mg 0800,1300 FROILAN Administration Protocol Omeprazole 20 mg 10/10/20 06:30 10/14/20 05:58 Omeprazole 20 Mg Capsule.Dr PO 20 mg DAILY@0630 FROILAN Administration Ondansetron HCl 4 mg 10/09/20 00:43 Ondansetron Hcl 4 Mg/2 Ml Vial IVPUSH Q8H PRN Nausea and Vomiting Sodium Chloride 3 ml 10/09/20 08:00 10/14/20 17:01 0.9 % Sodium Chloride Flush 3 Ml Syringe IVFLUSH Not Given QSHIFT FROILAN Labs CBC & Chem 7: 10/12/20 06:18 10/14/20 04:44 Microbiology Microbiology Results: Microbiology 10/09/20 06:15 Urine clean catch - Catheterized Urine Culture - Final Klebsiella pneumoniae 10/09/20 Unknown Urine clean catch - Clean Catch Midstream Urine Culture - Final Klebsiella pneumoniae Assessment and Plan (1) Iron deficiency anemia: Status: Acute Assessment and Plan: This 79-year-old male with past medical history of CHF with reduced ejection fraction, HTN, AAA repair, h/o etoh use, chronic HCV who presents the hospital shortness of breath found to have CHF, uncontrolled HTN and anemia with heme +stool. acute on chronic systolic and diastolic heart failure. Improving. Echo from 08/25 shows ECH 25-30% with global hypokinesis most likely secondary to uncontrolled HTN vs etoh use vs cocaine use. also previous history of medication non-compliance. - lasix - continue low-sodium diet, I&O, daily weight - cardiology following, will need outpatient ischemic workup normocytic anemia with positive occult stool s/p transfusion 10/10 with appropriate rise in H&H. H/H has remained stable. - PO PPI - seen by GI, rec EGD/colonoscopy. however pt high risk for perioperative complications and therefore Cardiology recommends waiting until outpatient ischemic workup completed prior to proceeding with GI workup - avoid AC, ASA (asa recommended by cardiology when safe from GI perspective) JANAK on CKD3 Renal function back to baseline nal US with no evidence of DADA - nephrology following Uncontrolled HTN - BP improving with resumption of home medications carvedilol, imdur - will increase hydralazine prolonged QT repeat EKG improved. elevated troponin on admit troponin flat. no chest pain h/o etoh etoh level 70 on admission no evidence of alcohol withdrawal Counseled to stop drinking alcohol completely thrombocytopenia chronic. stable likely r/t to liver dz (chronic HCV) h/o peripheral neuropathy/unsteady gait. seen by PT , recommend STR Dispo: was supposed to go home today but neighbor was unable to find him his keys therefore he will have to stay another night. Attending: Dr. Santoro
[2020-10-15] VITALS: BP 170/90; PULSE 77; RESP 16; TEMP 36.9; O2SAT 96
[2020-10-15] MEDS: 0.9 % Sodium Chloride Flush 3 ML SYRINGE IVFLUSH (00:48)
[2020-10-15 03:57] VITALS: BP 170/86; PULSE 78; RESP 18; TEMP 36.5; O2SAT 96
[2020-10-15] MEDS: Omeprazole 20 MG CAPSULE.DR PO (05:56)
[2020-10-15 05:57] VITALS: BMI 16.5
[2020-10-15 07:24] VITALS: BP 157/91; PULSE 76; RESP 18; TEMP 36.6; O2SAT 99
[2020-10-15 08:33] VITALS: BP 157/91; PULSE 76
[2020-10-15] MEDS: Isosorbide Dinitrate 5 MG TABLET PO (08:33)
[2020-10-15 08:34] VITALS: BP 157/91; PULSE 76
[2020-10-15] MEDS: carvediloL 12.5 MG TABLET PO (08:34)
[2020-10-15] MEDS: Furosemide 40 MG TABLET PO (08:34)
[2020-10-15] MEDS: hydrALAZINE HCl 50 MG TABLET PO (08:34)
[2020-10-15] MEDS: Atorvastatin Calcium 40 MG TABLET PO (08:34)
--- NOTE | 2020-10-15 08:46 | MHC.CM.PN ---
Patient's Friend will meet him at his apartment today at noon, with his apartment light. CM has requested chair van p/u for today at noon to bring Patient home. Patient is aware of and in agreement with the dc plan.Dominick VENCES, RN & PA are aware.Last IMM addressed yesterday.
--- NOTE | 2020-10-15 09:46 | P.PNNP_ITS ---
Subjective Subjective Date of Service: 10/15/20 Interval history: Follow up. No pain or discomfort. Physical Exam Vital Signs: Vital Signs: Last Vital Signs Temp 97.9 F 10/15/20 07:24 Pulse 76 10/15/20 08:34 Resp 18 10/15/20 07:24 BP 157/91 H 10/15/20 08:34 Pulse Ox 99 10/15/20 07:24 Oxygen Flow Rate 2 10/08/20 21:49 Body Mass Index 16.5 Const: General: awake Resp: Auscultation: clear to auscultation bilaterally Cardio: Heart sounds: no rubs Extrem: Right upper extremity: no edema Objective Data Labs CBC & Chem 7: 10/12/20 06:18 10/14/20 04:44 Labs: Laboratory Results - last 24 hr 10/14/20 12:03 Urine Color YELLOW Urine Appearance CLOUDY Urine pH 6.5 Ur Specific Marvin 1.015 Urine Protein 2+ H Urine Glucose (UA) NEG Urine Ketones NEG Urine Blood TRACE Urine Nitrite NEG Ur Leukocyte Esterase 3+ H Urine RBC 1-4 Urine WBC TNTC H Urine WBC Clumps NOTED Ur Squamous Epith Cells NONE Talc Crystals TRACE Urine Bacteria 3+ Microbiology Microbiology Results: Microbiology 10/09/20 06:15 Urine clean catch - Catheterized Urine Culture - Final Klebsiella pneumoniae 10/09/20 Unknown Urine clean catch - Clean Catch Midstream Urine Culture - Final Klebsiella pneumoniae Assessment & Plan Assessment and plan (1) Acute kidney injury superimposed on CKD: Problem details: 1. JANAK: clinical presentation most c/w severe HTN causing renal injury --HTN crisis and renal func now grad imporoving 2. HTN emerg: ques non-compl and/or cocaine precipitation or both 3. HFrEF: suspect episode of SOB was d/t HTN emerg and not mora hypervol 4. Thoracic AA 5. Anemia: decr Hb; Fe def 6. CKD 3b: bsl Scr 1.5-2.0: suspect HTN renal dis 7. MBD: PTH/vit D Status: Acute Time Spent With Patient Time: Total time spent is greater than 50% in coordination of care (as documented) at patient's floor/unit and/or counseling patient:
--- NOTE | 2020-10-15 11:19 | MHC.CM.PN ---
Per conversation with PT, Patient will dc to home today at noon via [facility], not chair van.
[2020-10-15 11:30] VITALS: BP 146/81; PULSE 66; RESP 18; TEMP 36.8; O2SAT 98
--- NOTE | 2020-10-15 12:03 | P.DS_ITS ---
DS: Providers Provider Date of Service: 10/15/20 <Jerri Srinivasan NP - Last Filed: 10/15/20 12:03> 10/14/20 <Jann Santoro MD - Last Filed: 10/14/20 15:27> Date of admission: 10/09/20 00:43 <Jerri Srinivasan NP - Last Filed: 10/15/20 12:03> Date of discharge: 10/15/20 <Jerri Srinivasan NP - Last Filed: 10/15/20 12:03> Primary care physician: Unknown Physician <Jerri Srinivasan NP - Last Filed: 10/15/20 12:03> Admitting clinician: Robert Israel <Jerri Srinivasan NP - Last Filed: 10/15/20 12:03> Attending physician on admission: Robert Israel <Jerri Srinivasan NP - Last Filed: 10/15/20 12:03> Consults: 10/09/20 06:21 Consult to Gastroenterology Routine Consulting Provider: Trent Jin Reason for consultation: GI bleed Has provider been notified: No 10/09/20 14:48 Consult to Cardiology Routine Consulting Provider: Lester Gu Reason for consultation: chf Has provider been notified: No 10/09/20 14:51 Consult to Nephrology Routine Consulting Provider: Leonardo Weinberg Reason for consultation: janak Has provider been notified: No <Jerri Srinivasan NP - Last Filed: 10/15/20 12:03> Attending physician on discharge: Jann Santoro <Jerri Srinivasan NP - Last Filed: 10/15/20 12:03> Discharging clinician: Jerri Srinivasan <Jerri Srinivasan NP - Last Filed: 10/15/20 12:03> DS: Diagnosis Discharge Diagnosis (1) CHF exacerbation: Status: Acute <Jerri Srinivasan NP - Last Filed: 10/15/20 12:03> (2) Acute kidney injury superimposed on CKD: Status: Acute <Jerri Srinivasan NP - Last Filed: 10/15/20 12:03> Problem details: 1. JANAK: clinical presentation most c/w severe HTN causing renal injury --HTN crisis and renal func now grad imporoving 2. HTN emerg: ques non-compl and/or cocaine precipitation or both 3. HFrEF: suspect episode of SOB was d/t HTN emerg and not mora hypervol 4. Thoracic AA 5. Anemia: decr Hb; Fe def 6. CKD 3b: bsl Scr 1.5-2.0: suspect HTN renal dis 7. MBD: PTH/vit D <Jerri Srinivasan NP - Last Filed: 10/15/20 12:03> (3) Hypertensive urgency: Status: Acute <eJrri Srinivasan NP - Last Filed: 10/15/20 12:03> (4) Anemia: Status: Acute <Jerri Srinivasan NP - Last Filed: 10/15/20 12:03> DS: Medications Discharge Medications Home Medications: Previous Rx's Medication Instructions Recorded atorvastatin [Lipitor] 40 mg PO DAILY #30 tab 08/21/20 carvedilol 12.5 mg PO BID #60 tab 08/21/20 furosemide [Lasix] 40 mg PO DAILY 30 Days #30 tab 10/11/20 isosorbide dinitrate 5 mg PO 0800,1300 30 Days #60 tab 10/11/20 omeprazole 40 mg PO BID 30 Days #60 cap 10/11/20 hydralazine 50 mg PO TID 30 Days #90 tab 10/13/20 <Jerri Srinivasan NP - Last Filed: 10/15/20 12:03> DS: Summary Hospital Course Hospital Course: From H&P This is an 79-year-old male with past medical history of AAA status post repair in 2019, CHF with reduced ejection fraction, hypertension who presents to the hospital with complaints shortness of breath that started today. Patient reports some lower extremity edema, mild cough with some sputum production, no orthopnea or PND. No chest pain, no palpitations. No abdominal pain nausea or vomiting, no diarrhea constipation. No fever or chills. No urinary symptoms and no sick contacts or recent travel. Patient also denies any melena, bright blood per rectum, no bloody vomiting . On arrival to the ED patient hemodynamically stable with blood pressure of 201/135, heart rate of 95, respiratory rate of 20, 95% on room air. Mother significant for WBC count 7.4, hemoglobin of 8.8 that dropped from 10.1 in August,, hematocrit 27.2, MCV of 88.6, RDW of 16.7, sodium 136, potassium 4.6, BUN of 42, creatinine of 2.9 with baseline around 1.78, AST of 72, ALT of 39, alk-phos of 118, BNP of 2106, COVID- 19 negative, alcohol level of 70, cocaine + acute on chronic systolic and diastolic heart failure. Echo from 08/25 shows EF 25-30% with global hypokinesis. Heart failure was most likely precipitated by uncontrolled HTN. Also previous history of medication non-compliance. CHF likely related to underlying alcohol, cocaine use as well as likely coronary artery disease. He had recent admission with NSTEMI. Was seen in consultation by Cardiology who recommended need for outpatient ischemic workup. He was initially started on IV Lasix with improvement in lower extremity edema and respiratory status. Diuresis was discontinued due to increasing creatinine. He will be discharged home with 40 mg of Lasix daily. He should schedule a follow-up appointment with Cardiology for follow-up. normocytic anemia with positive occult stool. Patient denied active bleeding. His H/H dropped to 7.5/22.9 necessitating blood transfusion. H/H remained stable following transfusion. He was seen in consultation by GI who recommended EGD/colonoscopy if not done recently. However Cardiology recommended deferring GI workup until outpatient ischemic workup has been completed as patient is currently high risk for perioperative complications. Iron studies were consistent with iron deficiency anemia and patient received iron transfusion. Aspirin was recommended by Cardiology but given anemia will be deferred for now. JANAK on CKD3. SCr increased to 2.83. Most likely r/t uncontrolled HTN. Patient was seen in consultation by Nephrology. Renal ultrasound showed no evidence of renal artery stenosis or obstruction. Creatinine improved to 2.2 within patient's baseline after holding Lasix. Patient should have repeat BMP in 1 week to monitor kidney function. Uncontrolled HTN. May have been precipitated by cocaine versus noncompliance. BP improved with resumption of home medications carvedilol, hydralazine and isosorbide. Should follow-up with PCP for close blood pressure monitoring Attending Attestation: Patient seen and examined independently and I was present during light portion of E/M service. Agree with Nilesh Srinivasan NP's history, physical, assessment, and plan. <Jerri Srinivasan NP - Last Filed: 10/15/20 12:03> Time Spent with Patient Time attestation: Total time spent providing and/or coordinating discharge services: <Jerri Srinivasan NP - Last Filed: 10/15/20 12:03> Discharge coordination time: Greater than 30 minutes <Jerri Srinivasan NP - Last Filed: 10/15/20 12:03> Physical Exam Vital Signs: Vital Signs: Last Vital Signs Temp 98.7 F 10/14/20 11:56 Pulse 79 10/14/20 14:17 Resp 18 10/14/20 11:56 BP 171/90 H 10/14/20 14:17 Pulse Ox 97 10/14/20 11:56 Oxygen Flow Rate 2 10/08/20 21:49 Body Mass Index 16.9 <Jerri Srinivasan NP - Last Filed: 10/15/20 12:03> Appearing in no acute distress head is normocephalic atraumatic eyes pupils are PERRLA sclera is anicteric mouth throat mucous membranes are intact and moist neck is supple no lymphadenopathy, no JVD noted lung sounds are clear to auscultation heart regular rate rhythm, clear S1, S2 positive bowel sounds, abdomen is soft, nontender neuro patient is alert x3, no focal deficits MSK weakn leg muscles mostly chair bound, able to transfer <Jerri Srinivasan NP - Last Filed: 10/15/20 12:03> DS: Data Data Completed and Pending Labs on day of discharge: Laboratory Results - last 24 hr 10/14/20 10/14/20 04:44 12:03 Sodium 142 Potassium 3.8 Chloride 107 Carbon Dioxide 26 Anion Gap 13 BUN 51 H Creatinine 1.92 H Estim Creat Clear Calc 25.1 Estimated GFR 34 Random Glucose 111 Calcium 8.4 Urine Color YELLOW Urine Appearance CLOUDY Urine pH 6.5 Ur Specific [place] 1.015 Urine Protein 2+ H Urine Glucose (UA) NEG Urine Ketones NEG Urine Blood TRACE Urine Nitrite NEG Ur Leukocyte Esterase 3+ H Urine RBC 1-4 Urine WBC TNTC H Urine WBC Clumps NOTED Ur Squamous Epith Cells NONE Talc Crystals TRACE Urine Bacteria 3+ <Jerri Srinivasan NP - Last Filed: 10/15/20 12:03> Discharge Plan Discharge Anticipated Discharge Date/Time: 10/15/20 07:45 <Jerri Srinivasan NP - Last Filed: 10/15/20 12:03> Patient Disposition: Home Health Service <Jerri Srinivasan NP - Last Filed: 10/15/20 12:03> Discharge Diagnosis: Uncontrolled HTN/hypertensive crisis Acute on chronic systolic CHF JANAK on Chronic kidney disease Anemia with heme + stools Polysubstance abuse <Jerri Srinivasan NP - Last Filed: 10/15/20 12:03> Uncontrolled HTN/hypertensive crisis Acute on chronic systolic CHF JANAK on Chronic kidney disease Anemia with heme + stools Polysubstance abuse <Jann Santoro MD - Last Filed: 10/14/20 15:27> Referrals: Dominick Tee [Outside] - [address] MD [Physician] - 1 Week Leonardo Weinberg MD [Physician] - 1 Week Lester Gu MD [Physician] - 1 Week Trent Jin [Physician] - 1 Week <Jerri Srinivasan NP - Last Filed: 10/15/20 12:03> Discharge Medications: New isosorbide dinitrate 5 mg Tablet 5 mg PO 0800,1300 30 Days Qty: 60 RF: 0 furosemide [Lasix] 40 mg tablet 40 mg PO DAILY 30 Days Qty: 30 RF: 0 omeprazole 40 mg capsule,delayed release(DR/EC) 40 mg PO BID 30 Days Qty: 60 RF: 0 Continued carvedilol 12.5 mg Tablet 12.5 mg PO BID Qty: 60 RF: 0 atorvastatin [Lipitor] 40 mg tablet 40 mg PO DAILY Qty: 30 RF: 0 Changed hydralazine 50 mg tablet 50 mg PO TID 30 Days Qty: 90 RF: 0 <Jerri Srinivasan NP - Last Filed: 10/15/20 12:03> Discharge Orders: Discharge Order (Routine); Ordered 10/15/20 Ordered By: Jerri Srinivasan <Jerri Srinivasan NP - Last Filed: 10/15/20 12:03> Diet: advance to usual diet <Jerri Srinivasan NP - Last Filed: 10/15/20 12:03> advance to usual diet <Jann Santoro MD - Last Filed: 10/14/20 15:27> Activity on Discharge: As tolerated <Jerri Srinivasan NP - Last Filed: 10/15/20 12:03> As tolerated <Jann Santoro MD - Last Filed: 10/14/20 15:27> Stand Alone Forms: Patient Portal Discharge page <Jerri Srinivasan NP - Last Filed: 10/15/20 12:03> Other Ambulatory Orders: Basic Metabolic Panel (Routine) Timeframe: 20201018 Facility: [facility] - Location: Laboratory Ordered By: Ira Schmidt Complete Blood Count no Diff (Routine) Timeframe: 20201018 Facility: [facility] - Location: Laboratory Ordered By: Ira Schmidt <Jerri Srinivasan NP - Last Filed: 10/15/20 12:03> Care Plan Goals: See below <Jerri Srinivasan NP - Last Filed: 10/15/20 12:03> Health Concerns: Cocaine & alcohol use Heart Failure Uncontrolled Blood pressure Chronic kidney disease <Jerri Srinivasan NP - Last Filed: 10/15/20 12:03> Plan of Treatment: Do not use alcohol or cocaine Please take blood pressure medication as prescribed Please call to schedule a follow-up appointment with Cardiology Please call to schedule follow-up appointment with Gastroenterology <Jerri Srinivasan NP - Last Filed: 10/15/20 12:03> Assessment: See discharge summary <Jerri Srinivasan NP - Last Filed: 10/15/20 12:03>
== END 2020-10-15 12:15 | disposition home health service (06) | DRG 291 ==
LOC: HO.ED 10-09 00:06 → HO.EDOVER 10-09 00:52 → HO.S3 10-09 14:14
PROVIDERS: Internal Medicine; Internal Medicine Nephrology; Nurse Practitioner Primary Care; Physician Assistant Medical; Admitting Provider Internal Medicine; Emergency Provider Emergency Medicine; PCP Pediatrics; Visit Provider Nurse Practitioner Acute Care
DX: I13.0 Hypertensive heart and chronic kidney disease with heart failure and stage 1 through stage 4 chronic kidney disease, or unspecified chronic kidney disease (principal); I50.23 Acute on chronic systolic (congestive) heart failure; I50.33 Acute on chronic diastolic (congestive) heart failure; I16.1 Hypertensive emergency; N17.9 Acute kidney failure, unspecified; D69.6 Thrombocytopenia, unspecified; I71.2 Thoracic aortic aneurysm, without rupture; F10.10 Alcohol abuse, uncomplicated; Y90.3 Blood alcohol level of 60-79 mg/100 ml; R94.31 Abnormal electrocardiogram [ECG] [EKG]; F14.10 Cocaine abuse, uncomplicated; G62.9 Polyneuropathy, unspecified; N18.32 Chronic kidney disease, stage 3b; D63.1 Anemia in chronic kidney disease; R19.5 Other fecal abnormalities; E83.9 Disorder of mineral metabolism, unspecified; B18.2 Chronic viral hepatitis C; F17.210 Nicotine dependence, cigarettes, uncomplicated; Z91.19 Patient's noncompliance with other medical treatment and regimen; Z71.6 Tobacco abuse counseling; Z20.822 Contact with and (suspected) exposure to COVID-19; Z79.899 Other long term (current) drug therapy
CPT/HCPCS: 36415; 70450; 71045; 80048; 80053; 80307; 80320; 81001; 81003; 82272; 82607; 82728; 82746; 82947; 83010; 83540; 83615; 83735; 83880; 84484; 85014; 85018; 85025; 85027; 85610; 85730; 86021; 86850; 86900; 86901; 86923; 87086; 87088; 87186; 87635; 93005; 93975; 97116; 97162; 97530; 99285; J1940; J2405; J2916; P9016

== ENCOUNTER 2020-12-31 11:10 | Emergency (ER) | payer MEDICARE, SELFPAY ==
--- NOTE | ~2020-12-31 | XR_ITS ---
EXAMINATION: XR ANKLE, RIGHT CLINICAL INFORMATION: Pain, swelling COMPARISON: None TECHNIQUE: AP, lateral, and mortise views of the right ankle. FINDINGS: There is swelling overlying both the medial and lateral malleoli. The malleoli appear intact and the ankle mortise is symmetric. There is no visible fracture or dislocation. The ankle joint appears normal. The talar dome shows no osteochondral lesion. The hindfoot and ankle are rotated on the lateral view and the subtalar joint is not visualized. The posterior calcaneus is intact. There are atherosclerotic calcifications of the vasculature. XR/XR ankle RT min 3V IMPRESSION: 1. Medial and lateral soft tissue swelling. The malleoli are intact. 2. Hindfoot and ankle rotated on lateral view, subtalar joint not visualized. Posterior calcaneus intact. 3. Atherosclerotic calcifications vasculature. No bony destructive process.
[2020-12-31 11:23] VITALS: BP 183/115; BP 195/123; PULSE 80; PULSE 84; RESP 20; TEMP 36.7; O2SAT 97; BMI 16.9
--- NOTE | 2020-12-31 11:30 | ECG_ITS ---
Test Reason : LOWER EXTRE INJURY Blood Pressure : / mmHG Vent. Rate : 081 BPM Atrial Rate : 081 BPM P-R Int : 162 ms QRS Dur : 090 ms QT Int : 412 ms P-R-T Axes : 048 079 116 degrees QTc Int : 478 ms Normal sinus rhythm Nonspecific ST and T wave abnormality Prolonged QT Abnormal ECG When compared with ECG of 10-OCT-2020 11:41, Premature ventricular complexes are no longer Present Referred By: Generic ED Physician Electronically Signed By:NIDA VARGAS
[2020-12-31 12:01] LABS: MANUAL DIFF FLAG NO
[2020-12-31 12:03] LABS: Basophils Percent Auto 0.9 % (0-2); Eosinophils Absolute Auto 0.3 X10*3/uL (0.0-0.4); Eosinophils Percent Auto 6.4 % (0-4); Hematocrit 35.1 % (42-52); Hemoglobin 11.6 g/dl (14.0-18.0); Lymphocytes Absolute Auto 1.2 X10*3/uL (1.2-4.9); Lymphocytes Percent Auto 28.8 % (20-40); Mean Corpuscular Hemoglobin 26.7 pg (27.0-33.0); Mean Corpuscular Volume 80.7 fL (80-98); Mean Platelet Volume 9.9 fL (9.4-12.4); Monocytes Absolute Auto 0.7 X10*3/uL (0.1-1.2); Monocytes Percent Auto 15.6 % (2-11); Neutrophils Percent Auto 48.3 % (45-73); Platelet Count 149 X10*3/uL (160-400); Red Blood Count 4.35 X10*6/uL (4.60-5.80); White Blood Count 4.2 X10*3/uL (4.8-10.8)
[2020-12-31 12:28] LABS: Ethanol 190 mg/dL
--- NOTE | 2020-12-31 12:46 | ED_ITS ---
HPI - General Adult General Chief complaint: Extremity Injury, Lower Stated complaint: PAIN ALL OVER, ? UTI Time Seen by Provider: 12/31/20 12:30 Source: patient Mode of arrival: EMS Limitations: no limitations History of Present Illness HPI narrative: 80-year-old male who presents emergency department for evaluation right lower extremity pain and inability to walk. The patient states that he has been having pain on and off in his right lower extremity for approximately 2 months. 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 He also states this right lower extremity has been weak and numb. States that he also has numbness and weakness on the left lower extremity and his arms bilaterally. He states that today the pain was more severe. He fell off the couch and asked his significant other to help him back into the couch. The patient states that he ?she panicked ?and called an ambulance. The patient denies any injury from the fall. He states that does not want to be here in the emergency department. He states that he does not want to talk to case management about getting help at home. He states that he gets 24 hour care from his neighbors and from his significant other. He denied headache, chest pain, abdominal pain, nausea, vomiting, fever or chills. Related Data Previous Rx's Medication Instructions Recorded atorvastatin [Lipitor] 40 mg PO DAILY #30 tab 08/21/20 carvedilol 12.5 mg PO BID #60 tab 08/21/20 furosemide [Lasix] 40 mg PO DAILY 30 Days #30 tab 10/11/20 isosorbide dinitrate 5 mg PO 0800,1300 30 Days #60 tab 10/11/20 omeprazole 40 mg PO BID 30 Days #60 cap 10/11/20 hydralazine 50 mg PO TID 30 Days #90 tab 10/13/20 Allergies Allergy/AdvReac Type Severity Reaction Status Date / Time No Known Allergies Allergy Verified 10/08/20 21:48 Review of Systems Review of Systems: Yes all other systems are reviewed and are negative [facility] Past Medical History Medical History Abnormal EKG Acute kidney injury superimposed on CKD Acute on chronic systolic and diastolic heart failure, NYHA class 3 Alcohol abuse Anemia Cardiomyopathy CHF (congestive heart failure) CHF exacerbation Cocaine abuse Hypertension Hypertensive urgency Iron deficiency anemia Occult GI bleeding Surgical History History of AAA (abdominal aortic aneurysm) repair Social History Social History Household Members: Other Household Members Other:: skilled nursing Housing: Other Housing Other:: skilled nursing Do you presently have visiting nurse or other home services: Yes (skilled nursing) Alcohol intake: current Cigarette Packs Per Day: 0.5 Cigarettes Per Day: 10.0 Years Smoked: 40 Second Hand Smoke Exposure: No Substance Use Type: Crack/Cocaine Advance Directives: No Advance Directives Information Provided: Yes service: No Current occupational status: retired Physical Exam Vital Signs: Vital Signs: Last Vital Signs Temp 98.0 F 12/31/20 11:23 Pulse 80 12/31/20 11:23 Resp 20 12/31/20 11:23 BP 183/115 H 12/31/20 11:23 Pulse Ox 97 12/31/20 11:23 Body Mass Index 16.9 Const: General: cooperative Orientation/consciousness: oriented to person and oriented to place Limitations: no limitations HENMT: Head: Yes normal to inspection, Yes normocephalic and Yes atraumatic Ears: external ears normal General nose exam: Normal external nose present Face and sinus: Yes normal facial exam Mouth: Normal oral and palatal mucosa present Throat: Yes posterior oropharynx normal Eyes: Periorbital: periorbital findings normal Eyelids: Yes eyelids normal Conjunctivae: conjunctivae normal Sclerae: sclerae normal Corneas: corneas normal Pupils: Equal, round and reactive pupils present Direct Ophthalmoscopy: normal light reflex Neck: Neck: Yes full ROM, Yes no lymphadenopathy, Yes no meningeal signs, Yes trachea midline and Yes supple Chest: Chest palpation & inspection: normal inspection of the chest and normal palpation of entire chest wall Resp: Effort & Inspection: normal respiratory effort and able to speak in complete sentences Auscultation: clear to auscultation bilaterally Cardio: Rate: regular rate Rhythm: regular rhythm Heart sounds: S1 n ormal heart sound present, S2 normal heart sound present and no murmurs GI: Inspection: Yes normal to inspection Palpation (GI): Soft to palpation, nontender, no guarding, not rigid and No hepatosplenomegaly present : General: Yes no CVA tenderness Back/Spine/Pelvis: Back: no CVA tenderness Cervical Spine: normal cervical lordosis Thoracic/Lumbar Spine: thoracic and lumbar spine normal to inspection Skin: Lesions: no lesions Rashes: no rashes Wounds: no wounds Neuro: General: oriented to person, oriented to place and no meningeal signs Cranial nerves: Yes CN's II-XII intact bilaterally and Yes Equal, round and reactive pupils present Cognition (Neuro): normal cognition Motor exam (neuro): 5/5 motor strength present throughout Extrem: Other: The patient's extremities are very thin, his lower extremities appear to be symmetric in size with some slight increased soft tissue swelling over the right ankle, the patient is not able to lift his legs up against gravity but can move them from side to side. He is able to lift his arms up against gravity. Patient does have tenderness with palpation of both his right and left lower extremities. Psych: Mental Status: mental status grossly normal Speech and movement: Normal speech and movement present Affect: normal affect Attitude: cooperative Thought process: Normal thought process present Thought cont ent: Normal thought content present Course Course Course Narrative: 80-year-old male who presents emergency department for evaluation of increased pain in his right lower extremity and a fall off his couch. Patient's vital signs reveal that he was hypertensive with a blood pressure of 181/115 however the patient states he did not take any of his medications this morning. His exam does reveal atrophy of both his upper and lower extremities with weakness in both lower extremities with only ability to move his lower lower extremities from side to side but not against gravity. The patient does not want to be here in the emergency department and he does not want to talk to our business case analyst. He did agree to blood work. He does not want any pain medications at this time but did agree to take as outpatient medications for his heart and for his blood pressure which were ordered. 1258: The patient's laboratory evaluation revealed chronic normal static anemia with an H&H of 11.6 and 35.1. Patient also has a chronic normocytic anemia with an H&H of 11.6 and 35.1. Patient's platelet count was low at a 40,000, he has had similar low values in the past. Alcohol level was elevated 190, the patient missed to drinking beer this morning. The patient's basic metabolic panel is consistent with chronic kidney disease which she has had in the past as well. Patient does have an elevated high sensitivity troponin a 43.7. The patient is not having any chest pain and I did discuss repeating this test in 3 hours however the patient does not want any further testing and is requesting to go home. The patient's leg pain is chronic and I do not think that there is anything else that we need to do 1st pain at this time. Therefore the patient will be transferred back home by ambulance given his inability to walk. Medical Decision Making Lab Data Result diagrams: 12/31/20 11:57 12/31/20 11:57 Labs: Lab Results 12/31/20 12/31/20 Range/Units 11:57 11:57 WBC 4.2 L (4.8-10.8) X10*3/uL RBC 4.35 L D (4.60-5.80) X10*6/uL Hgb 11.6 L D (14.0-18.0) g/dl Hct 35.1 L D (42-52) % MCV 80.7 (80-98) fL MCH 26.7 L (27.0-33.0) pg MCHC 33.0 (31.0-36.0) g/dl RDW 21.0 H (11.0-16.0) % Plt Count 149 L (160-400) X10*3/uL MPV 9.9 (9.4-12.4) fL Immature Gran % (Auto) 0.0 (0.0-0.4) % Neut % (Auto) 48.3 (45-73) % Lymph % (Auto) 28.8 (20-40) % Adams % (Auto) 15.6 H (2-11) % Eos % (Auto) 6.4 H (0-4) % Baso % (Auto) 0.9 (0-2) % Lymph # (Auto) 1.2 (1.2-4.9) X10*3/uL Adams # (Auto) 0.7 (0.1-1.2) X10*3/uL Eos # (Auto) 0.3 (0.0-0.4) X10*3/uL Baso # (Auto) 0.0 (0.0-0.2) X10*3/uL Abs Immat Gran (auto) 0.00 (0.00-0.03) X10*3/uL Absolute Neuts (auto) 2.0 (2.0-8.3) X10*3/uL Absolute Nucleated RBC 0.000 (0.0-0.012) X10*3/uL Nucleated RBC % (auto) 0.0 (0.0-0.2) /100WBC Ethyl Alcohol 190 mg/dL ECG Data Attestation: I personally reviewed and interpreted this ECG as follows: Interpretation: 1207: Normal sinus rhythm rate of 81, normal NE interval, QRS duration, prolonged QTC of 09/14/2077 milliseconds, less than [address] segment depression V4 through V6, no ST segment elevation, no PACs, no PVCs, compared to EKG dated October 10, [address] segment depressions are not new. Discharge Plan Discharge Clinical Impression: Acute pain of right lower extremity Fall Qualifiers: Encounter type: initial encounter Qualified Code(s): W19.XXXA - Unspecified fall, initial encounter Patient Disposition: Home, Self-Care Additional Instructions: Your blood pressure was high most likely since you did not take her morning medications. I gave you your atorvastatin (Lipitor), carvedilol, furosemide (Lasix), hydralazine, isosorbide dinitrate here in the emergency department. Take your nighttime medicines as you normally do. Take Tylenol (acetaminophen) 500 mg pills, 2 pills every 4 to 6 hours as needed for pain. Follow-up with your doctor in 2 days. Please return to the emergency department if your symptoms get worse or if you develop any symptoms that are concerning to you. Prescriptions: No Action carvedilol 12.5 mg Tablet 12.5 mg PO BID Qty: 60 RF: 0 atorvastatin [Lipitor] 40 mg tablet 40 mg PO DAILY Qty: 30 RF: 0 isosorbide dinitrate 5 mg Tablet 5 mg PO 0800,1300 30 Days Qty: 60 RF: 0 furosemide [Lasix] 40 mg tablet 40 mg PO DAILY 30 Days Qty: 30 RF: 0 omeprazole 40 mg capsule,delayed release(DR/EC) 40 mg PO BID 30 Days Qty: 60 RF: 0 hydralazine 50 mg tablet 50 mg PO TID 30 Days Qty: 90 RF: 0
[2020-12-31 12:47] LABS: Anion Gap 15 (12-20); Blood Urea Nitrogen 22 mg/dL (9-16); Calcium 8.4 mg/dL (8.4-10.2); Carbon Dioxide 23 mmol/L (22-29); Chloride 107 mmol/L (96-108); Creatinine Clr Calc Pharmacy 30.9; Estimated Glomerular Filt Rate 42; Glucose Random 94 mg/dL (60-115); Potassium 3.7 mmol/L (3.3-5.1); Sodium 141 mmol/L (135-145)
[2020-12-31 12:49] LABS: Troponin-I High Sensitivity 43.7 ng/L (<3.5-35.0)
[2020-12-31 12:50] VITALS: BP 214/155; PULSE 85
[2020-12-31] MEDS: Atorvastatin Calcium 40 MG TABLET PO (12:50)
[2020-12-31] MEDS: Isosorbide Dinitrate 5 MG TABLET PO (12:50)
[2020-12-31] MEDS: carvediloL 12.5 MG TABLET PO (12:50)
[2020-12-31] MEDS: hydrALAZINE HCl 50 MG TABLET PO (12:50)
[2020-12-31 13:58] VITALS: BP 186/129; PULSE 87; RESP 18; O2SAT 96
== END 2020-12-31 14:53 | disposition home or self-care (01) ==
PROVIDERS: Emergency Provider Emergency Medicine Emergency Medical Services; PCP Pediatrics
DX: M79.661 Pain in right lower leg (principal); F10.10 Alcohol abuse, uncomplicated; Y90.6 Blood alcohol level of 120-199 mg/100 ml; F14.10 Cocaine abuse, uncomplicated; F17.210 Nicotine dependence, cigarettes, uncomplicated
CPT/HCPCS: 36415; 73610; 80048; 82077; 84484; 85025; 93005; 99284

== ENCOUNTER 2021-01-09 12:39 | Emergency (ER) | payer MEDICARE, SELFPAY ==
[2021-01-09] VITALS (7 sets, daily range): BP systolic 100–190; BP diastolic 79–124; PULSE 81–86; RESP 13–21; TEMP 36.7–37.2; O2SAT 97–100; BMI 20.5
--- NOTE | ~2021-01-09 | XR_ITS ---
EXAMINATION: XR CHEST CLINICAL INFORMATION: Weakness with shortness of breath COMPARISON: October 08, 2020 TECHNIQUE: 2 views of the chest were obtained. FINDINGS: No significant abnormality is noted involving the heart, lungs, mediastinum, bony thorax or soft tissues. XR/XR chest 2V IMPRESSION: No acute disease.
--- NOTE | ~2021-01-09 | CT_ITS ---
EXAMINATION: CT HEAD WITHOUT CONTRAST CLINICAL INFORMATION: AMS COMPARISON: October 08, 2020 TECHNIQUE: Contiguous axial imaging was performed from the skull base to vertex without intravenous administration of contrast. This CT examination was performed using dose optimization techniques as appropriate, variously including the following: *Automated exposure control *Adjustment of mA and/or kV according to patient size (this includes techniques or standardized protocols for targeted exams where dose is matched to indication/reason for exam; i.e. extremities or head) *Use of iterative reconstruction technique DLP: 648 mGy-cm FINDINGS: There is no evidence of acute intracranial hemorrhage or territorial infarction. No abnormal mass effect or midline shift is seen. Gomez to white matter differentiation is well preserved. No extra-axial fluid collections are identified. The ventricles are normal in size. There is a large amount of periventricular white matter low density present. The osseous structures and soft tissues are normal. The mastoid air cells are well aerated. There is mucosal thickening seen within the ethmoid air cells bilaterally. CT/CT head/brain wo con IMPRESSION: No acute intracranial pathology. Findings consistent with microangiopathy.
--- NOTE | 2021-01-09 12:50 | ECG_ITS ---
Test Reason : WEAKNESS Blood Pressure : / mmHG Vent. Rate : 083 BPM Atrial Rate : 083 BPM P-R Int : 190 ms QRS Dur : 086 ms QT Int : 414 ms P-R-T Axes : 080 087 194 degrees QTc Int : 486 ms Sinus rhythm with occasional Premature ventricular complexes ST & T wave abnormality, consider inferior ischemia Prolonged QT Abnormal ECG When compared with ECG of 31-DEC-2020 12:07, Premature ventricular complexes are now Present Referred By: Karissa Cruz Electronically Signed By:Celestino Connors
--- NOTE | 2021-01-09 12:52 | ED_ITS ---
HPI - Weakness General Chief complaint: Weakness Stated complaint: FTT,UNABLE TO GET OOB Time Seen by Provider: 01/09/21 12:50 Source: patient and EMS Mode of arrival: EMS Limitations: no limitations History of Present Illness HPI Narrative: 80-year-old male coming from home with a past medical history of chronic kidney disease, hypertension, anemia, cardiomyopathy last known EF 25- 30%, congestive heart failure, previous nstemi here with complaints of generalized weakness, LE swelling/pain, SOB. Patient was found laying on is couch, soiled in urine. Unclear how long he has been there. Found by visiting nurse. Concern for some confusion from visiting nurse. Patient denies any falls or head injury. He tells me that he has been unable to get off his couch due to generalized weakness. Does report some mild shortness of breath and lower extremity swelling and pain. No chest pain no productive cough. Fevers or chills. He has not received his COVID vaccine Complaint: generalized weakness Related Data Home Medications Medication Instructions Recorded Confirmed hydralazine 50 mg tablet 50 mg PO BID 01/09/21 01/09/21 Previous Rx's Medication Instructions Recorded atorvastatin 40 mg tablet (Lipitor) 40 mg PO DAILY #30 tab 08/21/20 carvedilol 12.5 mg tablet 12.5 mg PO BID #60 tab 08/21/20 furosemide 40 mg tablet (Lasix) 40 mg PO DAILY 30 Days #30 tab 10/11/20 isosorbide dinitrate 5 mg tablet 5 mg PO 0800,1300 30 Days #60 tab 10/11/20 omeprazole 40 mg capsule,delayed 40 mg PO BID 30 Days #60 cap 10/11/20 release Allergies Allergy/AdvReac Type Severity Reaction Status Date / Time No Known Allergies Allergy Verified 10/08/20 21:48 Review of Systems Review of Systems: Yes all other systems are reviewed and are negative Constitutional: Constitutional: Reports no additional constitutional c omplaints, Denies body ache(s), Denies chills, Denies fever(s), Denies headache(s) and Reports weakness Eyes: Eyes: Reports no additional eye complaints and Denies change in vision ENT: Reports system reviewed and no additional complaints, except as documented, Denies dizziness, Denies headache(s), Denies nasal congestion, Denies nasal discharge and Denies neck pain Cardiovascular: Cardiovascular: Reports no additional cardiovascular complaints, Denies chest pain, Reports leg edema and Reports dyspnea Respiratory: Respiratory: Reports no additional respiratory complaints, Reports cough and Reports dyspnea Gastrointestinal: Gastrointestinal: Reports no additional gastrointestinal complaints, Denies abdominal pain, Denies diarrhea, Denies nausea and Denies vomiting Genitourinary: Genitourinary: Denies urinary incontinence Musculoskeletal: Musculoskeletal: Reports no additional musculoskeletal complaints, Denies back pain, Denies arthralgias, Denies joint swelling, Denies neck pain, Denies numbness and Denies tingling Integumentary/Breasts: Skin/Breast: Reports system reviewed and no additional complaints, except as docu and Denies rash Neurologic: Reports system reviewed and no additional complaints, except as documented, Denies Abnormal speech present, Denies dizziness, Denies headache(s), Denies numbness, Denies tingling and Reports weakness PMFSH Past Medical History Attestation statement: The following information was validated with the patient. Source: old records reviewed and nursing notes reviewed Medical History Abnormal EKG Acute kidney injury superimposed on CKD Acute on chronic systolic and diastolic heart failure, NYHA class 3 Alcohol abuse Anemia Cardiomyopathy CHF (congestive heart failure) CHF exacerbation Cocaine abuse Hypertension Hypertensive urgency Iron deficiency anemia Occult GI bleeding Surgical History History of AAA (abdominal aortic aneurysm) repair Social History Social History Household Members: Other Household Members Other:: [facility] Housing: Other Housing Other:: [facility] Do you presently have visiting nurse or other home services: Yes ([facility]) Alcohol intake: current Alcohol intake frequency: a few times a week Alcohol type: beer Patient Tobacco Use Status: Current everyday Tobacco user Cigarette Packs Per Day: 0.5 Cigarettes Per Day: 10.0 Years Smoked: 40 Second Hand Smoke Exposure: No Use of substances other than those prescribed or required for medical reasons: No Substance Use Type: Crack/Cocaine Advance Directives: No Advance Directives Information Provided: Yes service: No Current occupational status: retired Physical Exam Vital Signs: Vital Signs: Last Vital Signs Temp 98.1 F 01/09/21 12:55 Pulse 85 01/09/21 20:00 Resp 16 01/09/21 20:00 BP 190/106 H 01/09/21 20:00 Pulse Ox 100 01/09/21 20:00 Body Mass Index 20.5 Const: General: cooperative, healthy appearing, comfortable and no acute distress Orientation/consciousness: patient oriented x3 Limitations: no limitations HENMT: Head: Yes normal to inspection Ears: hearing grossly normal bilaterally General nose exam: Normal external nose present Face and sinus: Yes normal facial exam Mouth: Normal oral and palatal mucosa present Throat: Yes posterior oropharynx normal and Yes uvula midline Eyes: General: appearance normal, both eyes and all related structures Pupils: Equal, round and reactive pupils present Neck: Other: No midline tenderness, step-offs or deformities Neck: Yes normal visual inspection, Yes full ROM, Yes no lymphadenopathy and Yes no meningeal signs Chest: Chest palpation & inspection: normal inspection of the chest Resp: Other: Diminished breath sounds bilaterally Effort & Inspection: normal respiratory effort Cardio: Rate: regular rate Rhythm: regular rhythm Peripheral pulses: Peripheral pulses 2+ throughout GI: Inspection: Yes normal to inspection Palpation (GI): Soft to palpation and nontender Auscultation: normal bowel sounds Back/Spine/Pelvis: Thoracic/Lumbar Spine: thoracic and lumbar spine normal to inspection Skin: General skin exam: no rashes or lesions noted Neuro: General: patient oriented x3, moves all extremities, no meningeal signs, no focal motor deficits and Unable to assess gait Cranial nerves: Yes Equal, round and reactive pupils present Cognition (Neuro): normal cognition Speech: No Abnormal speech present Gait exam (Neuro): Unable to assess gait Motor exam (neuro): 5/5 motor strength present throughout Sensory Exam: Normal double simultaneous stimulation for sensation Extrem: General: Yes normal to inspection and Yes pedal edema (2+ pitting edema extending over the ankles with mild tenderness. +pulses ) Course Course Course Narrative: 80-year-old male coming from home with complaints of generalized weakness question prolonged down time, shortness of breath, lower extremity swelling and pain. On arrival hemodynamically stable. Alert and oriented x3. He is soiled and urine. Diminished breath sounds bilaterally. Bilateral lower extremity edema which is 2+ pitting. Will check labs, EKG, CT head, chest x-ray, UA, COVID screen 1630-labs show mild anemia, mild thrombocytopenia-unchanged from previous. Labs also show elevated creatinine and BUN at baseline consistent with chronic kidney disease, mildly elevated CK and BNP actually improved from previous. Troponin is mildly elevated the patient does have some nonspecific ST changes. Plan for repeat troponin 3 hours. UA is pending. Imaging shows no acute finding. Discussed patient with his daughter Fabricio. She is quite concerned the patient is unable to care for himself at this point. She is also concerned that he has been drinking alcohol daily. She tells me that he has a neighbor who brings and vodka every day and when she saw him 2 days ago he was quite intoxicated. Add on drug screen and alcohol level. I did explain to her that the patient is alert and oriented. Once his medical workup is done we will discuss disposition. 1900-attempted to contact family unsuccessfully. Repeat troponin unchanged. Less likely ACS with no reports of chest pain and only a mildly elevated troponin which is delta. Likely secondary to uncontrolled hypertension. Medications reconciled the patient to receive his dose of antihypertensives today. I did discuss with the patient that this time I do not feel like it is safe for him to be discharged home. He agrees to short-term rehab placement. Will place physical therapy and case management consult. Placed in position observation pending disposition 2100-Sign out to night team pending disposition. MDM - Weakness Differential Diagnosis Differential diagnosis: Likely UTI, anemia, hypoglycemia, hypothyroidism, rhabdomyolysis, sepsis and dehydration Medical Records Attestation: I reviewed the patient's medical records. Lab Data Attestation: I reviewed the patient's lab results. Result diagrams: 01/09/21 13:10 01/09/21 13:10 Labs: Lab Results 01/09/21 01/09/21 01/09/21 Range/Units 13:09 13:09 13:09 WBC (4.8-10.8) X10*3/uL RBC (4.60-5.80) X10*6/uL Hgb (14.0-18.0) g/dl Hct (42-52) % MCV (80-98) fL MCH (27.0-33.0) pg MCHC (31.0-36.0) g/dl RDW (11.0-16.0) % Plt Count (160-400) X10*3/uL MPV Immature Gran % (Auto) (0.0-0.4) % Neut % (Auto) (45-73) % Lymph % (Auto) (20-40) % [place] % (Auto) (2-11) % Eos % (Auto) (0-4) % Baso % (Auto) (0-2) % Lymph # (Auto) (1.2-4.9) X10*3/uL [place] # (Auto) (0.1-1.2) X10*3/uL Eos # (Auto) (0.0-0.4) X10*3/uL Baso # (Auto) (0.0-0.2) X10*3/uL Abs Immat Gran (auto) (0.00-0.03) X10*3/uL Absolute Neuts (auto) (2.0-8.3) X10*3/uL Absolute Nucleated RBC (0.0-0.012) X10*3/uL Nucleated RBC % (auto) (0.0-0.2) /100WBC PT (9.9-13.0) SEC INR (0.9-1.1) Sodium (135-145) mmol/L Potassium (3.3-5.1) mmol/L Chloride (96-108) mmol/L Carbon Dioxide (22-29) mmol/L Anion Gap (12-20) BUN (9-16) mg/dL Creatinine (0.5-1.4) mg/dL Estim Creat Clear Calc Estimated GFR Random Glucose (60-115) mg/dL Lactic Acid 1.3 (0.5-2.0) mmol/L Calcium (8.4-10.2) mg/dL Magnesium 2.0 (1.6-2.6) mg/dL Total Bilirubin (0.0-1.0) mg/dL Direct Bilirubin (0.0-0.5) mg/dL AST (5-37) U/L ALT (0-40) U/L Alkaline Phosphatase (39-117) U/L Total Creatine Kinase 239 H (38-174) U/L Troponin I High Sens 46.4 H* (<3.5-35.0) ng/L B-Natriuretic Peptide 836 H (<100) pg/mL Total Protein (6.5-8.0) g/dL Albumin (3.5-5.0) g/dL Lipase 137 H (8-78) U/L Urine Color Urine Appearance Urine pH (5.0-8.0) Ur Specific [place] (1.005-1.025) Urine Protein (NEG-TRACE) MG/DL Urine Glucose (UA) (NEG) MG/DL Urine Ketones (NEG) MG/DL Urine Blood (NEG) Urine Nitrite (NEG) Ur Leukocyte Esterase (NEG) Urine RBC (0) /HPF Urine WBC (0-4) /HPF Ur Squamous Epith Cells /LPF Uric Acid Crystals /LPF Urine Bacteria /LPF Urine Opiates Screen (Not Detect) Ur Barbiturates Screen (Not Detect) Ur Phencyclidine Scrn (Not Detect) Ur Amphetamines Screen (Not Detect) U Benzodiazepines Scrn (Not Detect) Urine Cocaine Screen (Not Detect) U Marijuana (THC) Screen (Not Detect) Ethyl Alcohol mg/dL COVID-19 (PRABHAKAR) (Negative) COVID-19 Clin Com 01/09/21 01/09/21 01/09/21 Range/Units 13:10 13:10 13:10 WBC 4.8 (4.8-10.8) X10*3/uL RBC 4.49 L (4.60-5.80) X10*6/uL Hgb 12.1 L (14.0-18.0) g/dl Hct 35.8 L (42-52) % MCV 79.7 L (80-98) fL MCH 26.9 L (27.0-33.0) pg MCHC 33.8 (31.0-36.0) g/dl RDW 21.5 H (11.0-16.0) % Plt Count 132 L (160-400) X10*3/uL MPV Not Reportable Immature Gran % (Auto) 0.2 (0.0-0.4) % Neut % (Auto) 74.0 H (45-73) % Lymph % (Auto) 9.1 L (20-40) % [place] % (Auto) 13.4 H (2-11) % Eos % (Auto) 2.7 (0-4) % Baso % (Auto) 0.6 (0-2) % Lymph # (Auto) 0.4 L (1.2-4.9) X10*3/uL [place] # (Auto) 0.7 (0.1-1.2) X10*3/uL Eos # (Auto) 0.1 (0.0-0.4) X10*3/uL Baso # (Auto) 0.0 (0.0-0.2) X10*3/uL Abs Immat Gran (auto) 0.01 (0.00-0.03) X10*3/uL Absolute Neuts (auto) 3.6 (2.0-8.3) X10*3/uL Absolute Nucleated RBC 0.000 (0.0-0.012) X10*3/uL Nucleated RBC % (auto) 0.0 (0.0-0.2) /100WBC PT (9.9-13.0) SEC INR (0.9-1.1) Sodium 134 L (135-145) mmol/L Potassium 4.3 (3.3-5.1) mmol/L Chloride 102 (96-108) mmol/L Carbon Dioxide 20 L (22-29) mmol/L Anion Gap 16 (12-20) BUN 28 H (9-16) mg/dL Creatinine 1.63 H (0.5-1.4) mg/dL Estim Creat Clear Calc 36.4 Estimated GFR 41 Random Glucose 109 (60-115) mg/dL Lactic Acid (0.5-2.0) mmol/L Calcium 8.4 (8.4-10.2) mg/dL Magnesium (1.6-2.6) mg/dL Total Bilirubin 0.9 (0.0-1.0) mg/dL Direct Bilirubin 0.4 (0.0-0.5) mg/dL AST 87 H (5-37) U/L ALT 45 H (0-40) U/L Alkaline Phosphatase 87 D (39-117) U/L Total Creatine Kinase (38-174) U/L Troponin I High Sens (<3.5-35.0) ng/L B-Natriuretic Peptide (<100) pg/mL Total Protein 8.2 H (6.5-8.0) g/dL Albumin 3.5 (3.5-5.0) g/dL Lipase (8-78) U/L Urine Color Urine Appearance Urine pH (5.0-8.0) Ur Specific [place] (1.005-1.025) Urine Protein (NEG-TRACE) MG/DL Urine Glucose (UA) (NEG) MG/DL Urine Ketones (NEG) MG/DL Urine Blood (NEG) Urine Nitrite (NEG) Ur Leukocyte Esterase (NEG) Urine RBC (0) /HPF Urine WBC (0-4) /HPF Ur Squamous Epith Cells /LPF Uric Acid Crystals /LPF Urine Bacteria /LPF Urine Opiates Screen (Not Detect) Ur Barbiturates Screen (Not Detect) Ur Phencyclidine Scrn (Not Detect) Ur Amphetamines Screen (Not Detect) U Benzodiazepines Scrn (Not Detect) Urine Cocaine Screen (Not Detect) U Marijuana (THC) Screen (Not Detect) Ethyl Alcohol mg/dL COVID-19 (PRABHAKAR) Negative (Negative) COVID-19 Clin Com See Note 01/09/21 01/09/21 01/09/21 Range/Units 13:10 16:13 16:13 WBC (4.8-10.8) X10*3/uL RBC (4.60-5.80) X10*6/uL Hgb (14.0-18.0) g/dl Hct (42-52) % MCV (80-98) fL MCH (27.0-33.0) pg MCHC (31.0-36.0) g/dl RDW (11.0-16.0) % Plt Count (160-400) X10*3/uL MPV Immature Gran % (Auto) (0.0-0.4) % Neut % (Auto) (45-73) % Lymph % (Auto) (20-40) % [place] % (Auto) (2-11) % Eos % (Auto) (0-4) % Baso % (Auto) (0-2) % Lymph # (Auto) (1.2-4.9) X10*3/uL [place] # (Auto) (0.1-1.2) X10*3/uL Eos # (Auto) (0.0-0.4) X10*3/uL Baso # (Auto) (0.0-0.2) X10*3/uL Abs Immat Gran (auto) (0.00-0.03) X10*3/uL Absolute Neuts (auto) (2.0-8.3) X10*3/uL Absolute Nucleated RBC (0.0-0.012) X10*3/uL Nucleated RBC % (auto) (0.0-0.2) /100WBC PT 11.0 (9.9-13.0) SEC INR 1.0 (0.9-1.1) Sodium (135-145) mmol/L Potassium (3.3-5.1) mmol/L Chloride (96-108) mmol/L Carbon Dioxide (22-29) mmol/L Anion Gap (12-20) BUN (9-16) mg/dL Creatinine (0.5-1.4) mg/dL Estim Creat Clear Calc Estimated GFR Random Glucose (60-115) mg/dL Lactic Acid (0.5-2.0) mmol/L Calcium (8.4-10.2) mg/dL Magnesium (1.6-2.6) mg/dL Total Bilirubin (0.0-1.0) mg/dL Direct Bilirubin (0.0-0.5) mg/dL AST (5-37) U/L ALT (0-40) U/L Alkaline Phosphatase (39-117) U/L Total Creatine Kinase (38-174) U/L Troponin I High Sens (<3.5-35.0) ng/L B-Natriuretic Peptide (<100) pg/mL Total Protein (6.5-8.0) g/dL Albumin (3.5-5.0) g/dL Lipase (8-78) U/L Urine Color YELLOW Urine Appearance CLEAR Urine pH 6.0 (5.0-8.0) Ur Specific [place] 1.010 (1.005-1.025) Urine Protein 2+ H (NEG-TRACE) MG/DL Urine Glucose (UA) NEG (NEG) MG/DL Urine Ketones NEG (NEG) MG/DL Urine Blood NEG (NEG) Urine Nitrite NEG (NEG) Ur Leukocyte Esterase NEG (NEG) Urine RBC 0 (0) /HPF Urine WBC 0-2 (0-4) /HPF Ur Squamous Epith Cells TRACE /LPF Uric Acid Crystals TRACE /LPF Urine Bacteria TRACE /LPF Urine Opiates Screen Not Detected (Not Detect) Ur Barbiturates Screen Not Detected (Not Detect) Ur Phencyclidine Scrn Not Detected (Not Detect) Ur Amphetamines Screen Not Detected (Not Detect) U Benzodiazepines Scrn Not Detected (Not Detect) Urine Cocaine Screen POSITIVE H (Not Detect) U Marijuana (THC) Screen Not Detected (Not Detect) Ethyl Alcohol mg/dL COVID-19 (PRABHAKAR) (Negative) COVID-19 Clin Com 01/09/21 01/09/21 Range/Units 17:39 17:39 WBC (4.8-10.8) X10*3/uL RBC (4.60-5.80) X10*6/uL Hgb (14.0-18.0) g/dl Hct (42-52) % MCV (80-98) fL MCH (27.0-33.0) pg MCHC (31.0-36.0) g/dl RDW (11.0-16.0) % Plt Count (160-400) X10*3/uL MPV Immature Gran % (Auto) (0.0-0.4) % Neut % (Auto) (45-73) % Lymph % (Auto) (20-40) % [place] % (Auto) (2-11) % Eos % (Auto) (0-4) % Baso % (Auto) (0-2) % Lymph # (Auto) (1.2-4.9) X10*3/uL [place] # (Auto) (0.1-1.2) X10*3/uL Eos # (Auto) (0.0-0.4) X10*3/uL Baso # (Auto) (0.0-0.2) X10*3/uL Abs Immat Gran (auto) (0.00-0.03) X10*3/uL Absolute Neuts (auto) (2.0-8.3) X10*3/uL Absolute Nucleated RBC (0.0-0.012) X10*3/uL Nucleated RBC % (auto) (0.0-0.2) /100WBC PT (9.9-13.0) SEC INR (0.9-1.1) Sodium (135-145) mmol/L Potassium (3.3-5.1) mmol/L Chloride (96-108) mmol/L Carbon Dioxide (22-29) mmol/L Anion Gap (12-20) BUN (9-16) mg/dL Creatinine (0.5-1.4) mg/dL Estim Creat Clear Calc Estimated GFR Random Glucose (60-115) mg/dL Lactic Acid (0.5-2.0) mmol/L Calcium (8.4-10.2) mg/dL Magnesium (1.6-2.6) mg/dL Total Bilirubin (0.0-1.0) mg/dL Direct Bilirubin (0.0-0.5) mg/dL AST (5-37) U/L ALT (0-40) U/L Alkaline Phosphatase (39-117) U/L Total Creatine Kinase (38-174) U/L Troponin I High Sens 54.5 H* (<3.5-35.0) ng/L B-Natriuretic Peptide (<100) pg/mL Total Protein (6.5-8.0) g/dL Albumin (3.5-5.0) g/dL Lipase (8-78) U/L Urine Color Urine Appearance Urine pH (5.0-8.0) Ur Specific [place] (1.005-1.025) Urine Protein (NEG-TRACE) MG/DL Urine Glucose (UA) (NEG) MG/DL Urine Ketones (NEG) MG/DL Urine Blood (NEG) Urine Nitrite (NEG) Ur Leukocyte Esterase (NEG) Urine RBC (0) /HPF Urine WBC (0-4) /HPF Ur Squamous Epith Cells /LPF Uric Acid Crystals /LPF Urine Bacteria /LPF Urine Opiates Screen (Not Detect) Ur Barbiturates Screen (Not Detect) Ur Phencyclidine Scrn (Not Detect) Ur Amphetamines Screen (Not Detect) U Benzodiazepines Scrn (Not Detect) Urine Cocaine Screen (Not Detect) U Marijuana (THC) Screen (Not Detect) Ethyl Alcohol < 10 mg/dL COVID-19 (PRABHAKAR) (Negative) COVID-19 Clin Com Imaging Data Chest x-ray: Attestation: I personally reviewed and interpreted this imaging study as follows: Radiologist's impression: [address] [address] XRay Report Signed Patient: Froilan Nieto Jr MR#: [id number] : 1940 Acct:[id number] Age/Sex: 80 / M ADM Date: 01/09/21 Loc: HO.ED Attending Dr: Ordering Physician: ROB EVANS NP Date of Service: 01/09/21 Procedure(s): XR chest 2V Accession Number(s): [id number] cc: ROB EVANS NP~ EXAMINATION: XR CHEST CLINICAL INFORMATION: Weakness with shortness of breath COMPARISON: October 08, 2020 TECHNIQUE: 2 views of the chest were obtained. FINDINGS: No significant abnormality is noted involving the heart, lungs, mediastinum, bony thorax or soft tissues. XR/XR chest 2V IMPRESSION: No acute disease. ECG Data Attestation: I personally reviewed and interpreted this ECG as follows: ECG interpretation date: 01/09/21 ECG interpretation time: 13:16 Interpretation: Sinus rhythm with occasional PVCs. T-wave inversions in leads V4 V5 and V6 new when compared to EKG from 12/31/2020 Normal [place], normal QRS, QTC 486 Discharge Plan Discharge Clinical Impression: Weakness Patient Disposition: er [facility] Instructions: Weakness (ED) Prescriptions: No Action carvedilol 12.5 mg Tablet 12.5 mg PO BID Qty: 60 RF: 0 atorvastatin [Lipitor] 40 mg tablet 40 mg PO DAILY Qty: 30 RF: 0 isosorbide dinitrate 5 mg Tablet 5 mg PO 0800,1300 30 Days Qty: 60 RF: 0 furosemide [Lasix] 40 mg tablet 40 mg PO DAILY 30 Days Qty: 30 RF: 0 omeprazole 40 mg capsule,delayed release(DR/EC) 40 mg PO BID 30 Days Qty: 60 RF: 0 hydralazine 50 mg tablet 50 mg PO BID RF: 0
--- NOTE | 2021-01-09 13:35 | PHA.MEDREC ---
Pharmacy Consult ? Medication Reconciliation Pharmacy has completed the medication reconciliation. Patient reports taking all six medication on his list he brought in. Isosorbide mononitrate and Lasix were prescribed when he was discharge 10/15/2020. They were only prescribed for 30 days and he has no claim history for them being filled recently. Cristina Read, PharmD
[2021-01-09 13:56] LABS: COVID-19 Test Negative (Negative); IDNOW Serial# 9DD0AD1C
--- NOTE | 2021-01-09 14:10 | PC.NURSE ---
Lab at bedside drawing blood
--- NOTE | 2021-01-09 14:31 | PC.NURSE ---
Patient resting quietly in bed with eyes closed. Respirations are even and nonlabored. Occasional congested cough noted.
[2021-01-09 14:39] LABS: Basophils Percent Auto 0.6 % (0-2); Imm Gran Abs Auto 0.01 X10*3/uL (0.00-0.03); Imm Gran Pct Auto 0.2 % (0.0-0.4); Lymphocytes Absolute Auto 0.4 X10*3/uL (1.2-4.9)
[2021-01-09 14:41] LABS: Eosinophils Absolute Auto 0.1 X10*3/uL (0.0-0.4); Eosinophils Percent Auto 2.7 % (0-4); Hematocrit 35.8 % (42-52); Hemoglobin 12.1 g/dl (14.0-18.0); Lymphocytes Percent Auto 9.1 % (20-40); Mean Corpuscular HGB Conc 33.8 g/dl (31.0-36.0); Mean Corpuscular Hemoglobin 26.9 pg (27.0-33.0); Mean Corpuscular Volume 79.7 fL (80-98); Monocytes Absolute Auto 0.7 X10*3/uL (0.1-1.2); Monocytes Percent Auto 13.4 % (2-11); Neutrophils Absolute Auto 3.6 X10*3/uL (2.0-8.3); Platelet Count 132 X10*3/uL (160-400); Red Blood Count 4.49 X10*6/uL (4.60-5.80); Red Cell Distribution Width 21.5 % (11.0-16.0); White Blood Count 4.8 X10*3/uL (4.8-10.8)
[2021-01-09 14:42] LABS: MANUAL DIFF FLAG NO
[2021-01-09 15:04] LABS: Lactic Acid 1.3 mmol/L (0.5-2.0)
[2021-01-09 15:17] LABS: Lipase 137 U/L (8-78)
[2021-01-09 15:17] LABS: Alanine Aminotransferase 45 U/L (0-40); Albumin Level 3.5 g/dL (3.5-5.0); Alkaline Phosphatase 87 U/L (39-117); Anion Gap 16 (12-20); Aspartate Amino Transferase 87 U/L (5-37); Bilirubin Direct 0.4 mg/dL (0.0-0.5); Bilirubin Total 0.9 mg/dL (0.0-1.0); Blood Urea Nitrogen 28 mg/dL (9-16); Calcium 8.4 mg/dL (8.4-10.2); Carbon Dioxide 20 mmol/L (22-29); Chloride 102 mmol/L (96-108); Creatinine Clr Calc Pharmacy 36.4; Estimated Glomerular Filt Rate 41; Glucose Random 109 mg/dL (60-115); Potassium 4.3 mmol/L (3.3-5.1); Sodium 134 mmol/L (135-145); Total Protein 8.2 g/dL (6.5-8.0)
[2021-01-09 15:20] LABS: B Type Natriuretic Peptide 836 pg/mL (<100); Troponin-I High Sensitivity 46.4 ng/L (<3.5-35.0)
--- NOTE | 2021-01-09 16:00 | PC.NURSE ---
Permission given by patient to talk on the phone with his daughter.
[2021-01-09 16:36] LABS: Glucose Urine UA NEG (NEG); Leukocyte Esterase Urine NEG (NEG); Nitrite Urine NEG (NEG); UACC Culture Trigger NO; Urine Blood NEG (NEG); Urine Ketones NEG (NEG); Urine Protein 2+ MG/DL (NEG-TRACE)
[2021-01-09 16:39] LABS: Appearance Urine CLEAR; Color Urine YELLOW
[2021-01-09 16:48] LABS: Amphetamine Screen Urine Not Detected (Not Detect); Barbiturates, Urine Not Detected (Not Detect); Benzodiazepines Screen Urine Not Detected (Not Detect); Cannabinoid Screen Urine Not Detected (Not Detect); Cocaine Screen Urine POSITIVE (Not Detect); Opiate Screen Urine Not Detected (Not Detect); Phencyclidine Screen Urine Not Detected (Not Detect)
[2021-01-09 16:52] LABS: RBC Urine 0 /HPF (0); Squamous Epithelial Cell Urine TRACE /LPF; WBC Urine 0-2 /HPF (0-4)
[2021-01-09 16:53] LABS: Bacteria Urine TRACE /LPF; Uric Acid Crystals Urine TRACE /LPF
[2021-01-09 18:09] LABS: Ethanol < 10 mg/dL
[2021-01-09 18:18] LABS: Troponin-I High Sensitivity 54.5 ng/L (<3.5-35.0)
[2021-01-09] MEDS: Omeprazole 40 MG CAPSULE.DR PO (19:56)
[2021-01-09] MEDS: carvediloL 12.5 MG TABLET PO (19:56)
[2021-01-09] MEDS: hydrALAZINE HCl 50 MG TABLET PO (19:56)
[2021-01-09] MEDS: Furosemide 40 MG TABLET PO (19:57)
[2021-01-09] MEDS: Atorvastatin Calcium 40 MG TABLET PO (19:58)
--- NOTE | 2021-01-09 20:02 | PC.NURSE ---
ASSUMED CARE OF PT. PT RESTING IN STRETCHER. B/P 190/106 PA AWARE. PT RECD MEDS EARLY D/T HIGH B/P. PT AWAKE, DENIES ANY COMPLAINTS. PT REMAINS ON MONITOR WITH HR 92. PO 100%. WILL CONTINUE TO MONITOR PT.
--- NOTE | 2021-01-09 20:40 | PC.NURSE ---
PT'S DAUGHTER CALLED AND WAS CONCERNED ABOUT PT. DAUGHTER WAS REASSURE THAT SHE CAN CALL ANYTIME. WILL CONTINUE TO MONITOR PT.
--- NOTE | 2021-01-09 21:32 | MHC.CM.ED ---
CM met with patient. Unable to get of his couch, covered in urine, unable to ambulate. Pt is unkept with extremely long and unkept nails. Pt is pleasant and cooperative, but poor historian. Pt lives alone. States he has friends and neighbors who help him. Pt has HX alcohol and cocaine abuse. Pt agreeable to PT evaluation in the am with the possiblity of STR, pending PT recommendations. [facility] given and reviewed. Four referrals placed. HCP/daughter Cosme Nieto ([phone]). HCP is on file. CM attempted to call daughter, but was unable to leave a message, as mailbox was not activated. CM to follow for d/c needs.
[2021-01-10] VITALS (14 sets, daily range): BP systolic 136–188; BP diastolic 75–108; PULSE 73–88; RESP 16–18; O2SAT 98–99
[2021-01-10] MEDS: Isosorbide Dinitrate 5 MG TABLET PO ×2 (06:43→14:21)
--- NOTE | 2021-01-10 06:52 | PC.NURSE ---
PT'S B/P IS HIGH. PT MEDICATED PER EMAR FOR B/P. WILL CONTINUE TO MONITOR PT.
[2021-01-10] MEDS: carvediloL 12.5 MG TABLET PO ×2 (07:29→20:13)
[2021-01-10] MEDS: Omeprazole 40 MG CAPSULE.DR PO ×2 (07:31→20:13)
[2021-01-10] MEDS: hydrALAZINE HCl 50 MG TABLET PO ×2 (07:31→20:13)
[2021-01-10] MEDS: Furosemide 40 MG TABLET PO (07:31)
--- NOTE | 2021-01-10 09:56 | MHC.CM.ED ---
Patient remains in ER. Physical therapy eval completed. Short term rehab is being recommended. Patient is active with [facility]. Copy of home med list obtained from [facility]. [facility] and [facility] are not able to offer a bed. Clinical updates sent to [facility] and [facility]. Continue to monitor for d/c needs.
--- NOTE | 2021-01-10 10:54 | MHC.CM.ED ---
[facility] is out of network. [facility] is still reviewing. Patient has not received any Covid vaccines. Because of this, patient may be difficult to place. Referral broadcasted within 20 miles of patient's residence. Continue to monitor for d/c needs.
--- NOTE | 2021-01-10 16:41 | MHC.CM.ED ---
Addendum entered by Alana Gutierrez 01/10/21 21:31: Pt spoke with daughter Cody Brandt ([phone]). Pt aware that he will stay in the ED, as he needs STR. Pt is agreeable. Original Note: [facility] is following, as is [facility]. No beds today. [facility] closed and not open on weekends. Do not expect pt d/c until Wednesday. CM to follow for d/c needs.
[2021-01-10] MEDS: Atorvastatin Calcium 40 MG TABLET PO (20:13)
[2021-01-11] VITALS (12 sets, daily range): BP systolic 167–181; BP diastolic 87–113; PULSE 68–97; RESP 16–18; TEMP 37.1–37.2; O2SAT 95–100
[2021-01-11] MEDS: Furosemide 40 MG TABLET PO (08:00)
[2021-01-11] MEDS: hydrALAZINE HCl 50 MG TABLET PO ×2 (08:01→21:30)
[2021-01-11] MEDS: Isosorbide Dinitrate 5 MG TABLET PO ×2 (08:01→12:33)
[2021-01-11] MEDS: carvediloL 12.5 MG TABLET PO ×2 (08:01→21:29)
[2021-01-11] MEDS: Omeprazole 40 MG CAPSULE.DR PO ×2 (08:01→21:30)
--- NOTE | 2021-01-11 18:25 | PC.NURSE ---
spoke with kia burger due to patients consistent high blood pressure- per [employer] [employer] she will increase patients blood pressure medication dosages and to continue to monitor for any alcohol withdrawls
[2021-01-11] MEDS: Atorvastatin Calcium 40 MG TABLET PO (21:30)
[2021-01-12] VITALS (10 sets, daily range): BP systolic 140–187; BP diastolic 87–107; PULSE 79–90; RESP 12–18; TEMP 36.5–37.3; O2SAT 96–98
[2021-01-12] MEDS: Omeprazole 40 MG CAPSULE.DR PO ×2 (09:04→20:34)
[2021-01-12] MEDS: Furosemide 40 MG TABLET PO (09:04)
[2021-01-12] MEDS: Isosorbide Dinitrate 5 MG TABLET PO ×2 (09:05→13:15)
[2021-01-12] MEDS: carvediloL 12.5 MG TABLET PO ×2 (09:05→20:34)
[2021-01-12] MEDS: hydrALAZINE HCl 50 MG TABLET PO ×3 (09:05→20:34)
[2021-01-12] MEDS: Atorvastatin Calcium 40 MG TABLET PO (20:34)
[2021-01-13] VITALS (7 sets, daily range): BP systolic 135–177; BP diastolic 88–108; PULSE 74–85; RESP 16–18; TEMP 37.1; O2SAT 96–97
[2021-01-13] MEDS: hydrALAZINE HCl 50 MG TABLET PO ×2 (08:01→14:53)
[2021-01-13] MEDS: Isosorbide Dinitrate 5 MG TABLET PO ×2 (08:01→12:13)
[2021-01-13] MEDS: Omeprazole 40 MG CAPSULE.DR PO (08:01)
[2021-01-13] MEDS: carvediloL 12.5 MG TABLET PO ×2 (08:02→09:06)
[2021-01-13] MEDS: Furosemide 40 MG TABLET PO (08:02)
--- NOTE | 2021-01-13 15:49 | PC.NURSE ---
Pt states that he no longer wishes to go to rehab at this time. He has services at home. Pt is alert and oriented and capable of making decisions. Plan for DC home with daughter at 5pm.
--- NOTE | 2021-01-13 16:29 | PC.NURSE ---
Pt able to walk about 15 feet in [place] with a walker and 1 assist. Pt is very weak at this time but when he takes his steps slow he is steady.
--- NOTE | 2021-01-13 17:29 | MHC.CM.ED ---
CM is aware of pt refusal for STR and request to go home. Pt is active with [facility]. Request placed for home PT with [facility] [employer]. Per RN, daughter is going to stay with pt this week. Daughter will provide transportation home.
--- NOTE | 2021-01-13 18:13 | PC.NURSE ---
Discusssed plan with daughter that patient refusing rehab and will be sent home with continued [facility] services. Per case mgt message left with company to add PT services for this patient as well.
== END 2021-01-13 20:15 | disposition home or self-care (01) ==
PROVIDERS: Nurse Practitioner Family; Emergency Provider Emergency Medicine
DX: R62.7 Adult failure to thrive (principal); J44.9 Chronic obstructive pulmonary disease, unspecified; R06.02 Shortness of breath; G44.309 Post-traumatic headache, unspecified, not intractable; I13.0 Hypertensive heart and chronic kidney disease with heart failure and stage 1 through stage 4 chronic kidney disease, or unspecified chronic kidney disease; N18.9 Chronic kidney disease, unspecified; R53.1 Weakness; F14.90 Cocaine use, unspecified, uncomplicated; F17.210 Nicotine dependence, cigarettes, uncomplicated; Z20.822 Contact with and (suspected) exposure to COVID-19; Z79.899 Other long term (current) drug therapy; Z71.6 Tobacco abuse counseling
CPT/HCPCS: 36415; 70450; 71046; 80048; 80076; 80307; 81001; 82077; 82550; 83605; 83690; 83735; 83880; 84484; 85025; 85610; 87040; 87635; 93005; 97163; 99285

== ENCOUNTER 2021-03-19 17:01 | Inpatient (IN) | payer MEDICARE, SELFPAY ==
[2021-03-19] VITALS (15 sets, daily range): BP systolic 169–218; BP diastolic 97–130; PULSE 70–90; RESP 12–20; TEMP 36.7; O2SAT 97–100; BMI 17.7
--- NOTE | ~2021-03-19 | CT_ITS ---
EXAMINATION: CT ANGIOGRAPHY CHEST AORTA CT ANGIOGRAPHY ABDOMEN PELVIS CLINICAL INFORMATION: 80-year-old male with history of pain. Evaluate for aortic dissection and pulmonary embolism. COMPARISON: Prior CT exams from 08/16/2020 TECHNIQUE: Multidetector CT imaging examination of the chest, abdomen and pelvis was performed during the arterial phase of intravenous administration of 100 mL Omnipaque 350. Axial images are displayed at 0.625 mm and 5 mm slice thickness. Image processing was performed on the technologist workstation to generate two-dimensional maximum intensity projection images. At the time of interpretation, no images were sent to an independent workstation. There are no three-dimensional images. Coronal and sagittal reformatted images were generated at the technologist's workstation and submitted for review. This CT examination was performed using dose optimization techniques as appropriate, variously including the following: *Automated exposure control *Adjustment of mA and/or kV according to patient size (this includes techniques or standardized protocols for targeted exams where dose is matched to indication/reason for exam; i.e. extremities or head) *Use of iterative reconstruction technique DLP: 393 mGy-cm FINDINGS: CHEST - LUNGS AND PLEURA: Again noted is centrilobular and paraseptal emphysema. The bronchial man are chronically thickened. An old cluster of micronodular opacities is present in the posterior segment of the right upper lobe, compatible with sequela of prior infection or inflammation of small airways. An old calcified granuloma is present in the left upper lobe (axial image 216, series 7). No interval development of a suspicious nodule or mass. No consolidation. No pulmonary edema or pleural effusion. No pneumothorax. PULMONARY ARTERIES: Normal in caliber. No embolic filling defects in the main, lobar or segmental vessels. OTHER CARDIOVASCULAR FINDINGS: The heart size is normal. Aortic root is 3.6 cm. The ascending thoracic aorta is normal in caliber, 3.4 cm transverse and 3.4 cm AP at level right pulmonary artery. Again noted is the dilated aortic arch and descending aorta, and a normal three-vessel configuration at the top of the aortic arch. The aortic arch measures 3 cm proximally and 3.6 cm distally. The proximal and distal descending aorta each measure 3.7 cm in short axis diameter. There is mildly irregular, ulcerated appearing plaque of the aortic arch distal to the takeoff of the left subclavian artery. The chronic mural irregularity at the superior wall of the aortic arch remains stable in appearance compared to 08/16/2020. This could represent an old ulcerated plaque or perhaps old mural thrombus. There is no new pathology in this region of the aorta. No interval development of a dissection flap. MEDIASTINUM/LOWER NECK: The esophagus and thyroid gland are unremarkable. No mediastinal mass. LYMPHATICS: No pathologic sized axillary, hilar or mediastinal lymph nodes. CHEST WALL/BONES: Thoracic vertebra have well preserved height and alignment. No acute fracture or subluxation. No acute rib fracture. No chest wall mass. ABDOMEN AND PELVIS - HEPATOBILIARY: Liver has normal size, contour and attenuation. Gallbladder is unremarkable. No intrahepatic or extrahepatic bile duct dilatation. PANCREAS: No edema, mass or pancreatic ductal dilatation. SPLEEN: Normal size and attenuation. ADRENAL GLANDS: Unremarkable. KIDNEYS AND URETERS: Kidneys are normal in size and enhance symmetrically. No nephrolithiasis or hydronephrosis. Simple cysts of both kidneys. Renal imaging follow-up is not recommended for simple cysts. The ureters are unremarkable. BOWEL AND PERITONEUM: No dilated bowel loops. No bowel wall edema, mesenteric fat stranding or free fluid. Diverticula of the colon without evidence of diverticulitis. No pneumoperitoneum. No evidence of acute inflammation or obstruction along the gastric intestinal tract. Normal appendix. ABDOMINAL WALL: Unremarkable. VESSELS: Again noted is the aortobiiliac stent graft. On the right, the stent includes the external iliac artery. On the left, the stent terminates within the common iliac artery. There is no contrast leakage from the aorta. No inflammatory change in the para-aortic fat. The old infrarenal abdominal aorta aneurysm sac remains thrombosed. 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 Both common iliac, external iliac and left internal iliac arteries remain patent. There is irregular plaque of the proximal left internal iliac artery which measures up to 1.5 cm transverse diameter. The celiac trunk and SMA are widely patent. Both renal arteries opacify with contrast. LYMPH NODES: No pathologic sized lymph nodes in the abdomen or pelvis. No inguinal lymphadenopathy. BLADDER AND PELVIC VISCERA: The base of the urinary bladder is compressed by the large prostate gland. Prostate gland measures approximately 6 cm transverse and 4.4 cm AP. No bladder calculi. No pelvic free fluid. 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 Multilevel degenerative disc disease of lumbar spine. At L4-L5, the severe degenerative disc disease and facet osteoarthritis are associated with grade 1 anterolisthesis of L4 on L5. There is mild, grade 1 anterolisthesis at L5-S1. Pelvic veins and proximal femurs are intact. CT/CT angio abdomen pelvis IMPRESSION: * Chronic pulmonary emphysema and chronic thickening of the bronchial man. Correlate for history of chronic obstructive disease. No acute pneumonia or pleural effusion. * No evidence of pulmonary embolism. * Within the chest, the ascending thoracic aorta remains normal in size. There is chronic, stable dilatation of the aortic arch and descending thoracic aorta. The eccentric thickening of the wall of the aortic arch has a stable appearance compared to 08/16/2020. This could represent ulcerated plaque and/or old thrombus along the wall. No acute pathology. No acute aortic dissection. * Again noted is aortoiliac stent graft of the abdomen and pelvis. There is no contrast leakage from the graft. * No acute inflammatory change or obstruction along the gastrointestinal tract. * Prostate gland is chronically enlarged.
--- NOTE | 2021-03-19 17:17 | ECG_ITS ---
Test Reason : abd pain Blood Pressure : / mmHG Vent. Rate : 078 BPM Atrial Rate : 078 BPM P-R Int : 202 ms QRS Dur : 088 ms QT Int : 440 ms P-R-T Axes : 084 083 113 degrees QTc Int : 501 ms Sinus rhythm with occasional Premature ventricular complexes Possible Left atrial enlargement Nonspecific ST abnormality Prolonged QT Abnormal ECG When compared with ECG of 09-JAN-2021 13:16, T wave inversion no longer evident in Inferior leads Referred By: Fany Ron Electronically Signed By:GEE MARY MD
--- NOTE | 2021-03-19 17:31 | ED.SOB ---
HPI - SOB/Dyspnea General Chief Complaint: Dyspnea <GUME Odom Last Filed: 03/20/21 00:20> Stated Complaint: ABD PAIN <GUME Odom Last Filed: 03/20/21 00:20> Time Seen by Provider: 03/19/21 17:09 <GUME Odom Last Filed: 03/20/21 00:20> Source: patient and EMS <GUME Odom Last Filed: 03/20/21 00:20> Mode of arrival: EMS <GUME Odom Last Filed: 03/20/21 00:20> History of Present Illness HPI Narrative: 80-year-old male with PMHx of AAA s/p repair in 2019, CHF with reduced EF, HTN, CKD, anemia, cardiomyopathy, CHF, NSTEMI, presenting to the ED complaining of sudden onset epigastric/substernal abdominal pain 2 hours [employer]IST while at rest with associated SOB. Reports associated nausea. Denies fever, chills, cough, chest pain, LE edema, lightheadedness/dizzy, numbness/tingling/weakness <GUME Odom Last Filed: 03/20/21 00:20> MD elicited complaint: shortness of breath <GUME Odom Last Filed: 03/20/21 00:20> Related Data Home Medications: Home Medications Medication Instructions Recorded Confirmed hydralazine 50 mg tablet 50 mg PO BID 01/09/21 03/19/21 isosorbide dinitrate 5 mg tablet 5 mg PO BID 03/19/21 03/19/21 Previous Rx's Medication Instructions Recorded atorvastatin 40 mg tablet (Lipitor) 40 mg PO DAILY #30 tab 08/21/20 carvedilol 12.5 mg tablet 12.5 mg PO BID #60 tab 08/21/20 furosemide 40 mg tablet (Lasix) 40 mg PO DAILY 30 Days #30 tab 10/11/20 <GUME Odom Last Filed: 03/20/21 00:20> Allergies/Adverse Reactions: Allergies Allergy/AdvReac Type Severity Reaction Status Date / Time No Known Allergies Allergy Verified 10/08/20 21:48 <GUME Odom Last Filed: 03/20/21 00:20> Review of Systems Review of Systems: Constitutional: No Fever, No Chills, No Fatigue, No Malaise ENT/Mouth: No Ear Pain, No Nasal Congestion, No Sinus Pain, No sore throat, No Rhinorrhea Eyes: No Eye Pain, No Swelling, No Redness Cardiovascular: No Chest Pain, + SOB, No Dyspnea on Exertion, No Orthopnea, No Edema Respiratory: No Cough, No Sputum, + Dyspnea Gastrointestinal: + Nausea, No Vomiting, No Diarrhea, No Constipation, + Abdominal pain Genitourinary: No Dysuria, No Hematuria, No Flank Pain, No Urinary Flow Changes, No Hesitancy Musculoskeletal: No joint pain, No Myalgias, No Joint Swelling Skin: No Skin Lesions, No rash Neuro: No Weakness, No Numbness, No Paresthesias, No Loss of Consciousness, No Dizziness, No Headache <GUME Odom - Last Filed: 03/20/21 00:20> Yes all other systems are reviewed and are negative <GUME Odom - Last Filed: 03/20/21 00:20> [facility] Past Medical History Attestation statement: The following information was validated with the patient. <GUME Odom - Last Filed: 03/20/21 00:20> Medical History: Medical History Abnormal EKG Acute kidney injury superimposed on CKD Acute on chronic systolic and diastolic heart failure, NYHA class 3 Alcohol abuse Anemia Cardiomyopathy CHF (congestive heart failure) CHF exacerbation Cocaine abuse Hypertension Hypertensive urgency Iron deficiency anemia Occult GI bleeding <GUME Odom - Last Filed: 03/20/21 00:20> Surgical History: Surgical History History of AAA (abdominal aortic aneurysm) repair <GUME Odom Last Filed: 03/20/21 00:20> Social History Social History: Social History Household Members: Other Household Members Other:: [facility] Housing: Other Housing Other:: [facility] Do you presently have visiting nurse or other home services: Yes ([facility]) Alcohol intake: current Alcohol intake frequency: a few times a week Alcohol type: beer Patient Tobacco Use Status: Current everyday Tobacco user Cigarette Packs Per Day: 0.5 Cigarettes Per Day: 10.0 Years Smoked: 40 Second Hand Smoke Exposure: No Substance Use Type: Crack/Cocaine Advance Directives: No Advance Directives Information Provided: Yes service: No Current occupational status: retired <GUME Odom - Last Filed: 03/20/21 00:20> Physical Exam Vital Signs: Vital Signs: Last Vital Signs Temp 98.1 F 03/19/21 17:13 Pulse 84 03/20/21 00:12 Resp 16 03/20/21 00:12 BP 167/95 H 03/20/21 00:12 Pulse Ox 97 03/19/21 22:03 Body Mass Index 17.7 <GUME Odom - Last Filed: 03/20/21 00:20> Vital Signs: Last Vital Signs Temp 98.1 F 03/19/21 17:13 Pulse 84 03/20/21 00:12 Resp 16 03/20/21 00:12 BP 167/95 H 03/20/21 00:12 Pulse Ox 97 03/19/21 22:03 Body Mass Index 17.7 <Christopher Hall MD - Last Filed: 03/19/21 20:08> Const: Other: Appears in pain <GUME Odom - Last Filed: 03/20/21 00:20> General: cooperative <GUME Odom - Last Filed: 03/20/21 00:20> Orientation/consciousness: patient oriented x3 <GUME Odom - Last Filed: 03/20/21 00:20> Limitations: no limitations <GUME Odom - Last Filed: 03/20/21 00:20> HENMT: Head: Yes normal to inspection <GUME Odom - Last Filed: 03/20/21 00:20> Ears: hearing grossly normal bilaterally <GUME Odom - Last Filed: 03/20/21 00:20> General nose exam: Normal external nose present <GUME Odom - Last Filed: 03/20/21 00:20> Face and sinus: Yes normal facial exam <GUME Odom - Last Filed: 03/20/21 00:20> Eyes: General: appearance normal, both eyes and all related structures <Fany Ron [place] - Last Filed: 03/20/21 00:20> EOM: EOMs intact bilaterally <Fany Ron [facility] - Last Filed: 03/20/21 00:20> Neck: Neck: Yes normal visual inspection <Fany Ron [facility] - Last Filed: 03/20/21 00:20> Resp: Effort & Inspection: normal respiratory effort <Fany Ron [facility] - Last Filed: 03/20/21 00:20> Auscultation: clear to auscultation bilaterally, no rhonchi and no wheezes <Fany Ron [facility] - Last Filed: 03/20/21 00:20> Cardio: Rate: regular rate <Fany Ron [facility] - Last Filed: 03/20/21 00:20> Heart sounds: S1 normal heart sound present and S2 normal heart sound present <Fany Ron [facility] Last Filed: 03/20/21 00:20> Peripheral pulses: Peripheral pulses 2+ throughout <Fany Ron [facility] - Last Filed: 03/20/21 00:20> GI: Inspection: Yes normal to inspection <Fany Ron [facility] Last Filed: 03/20/21 00:20> Palpation (GI): Soft to palpation, Tenderness to palpation present (GI) in the epigastrum, no guarding, not rigid and no pulsatile masses <Fany Ron [facility] - Last Filed: 03/20/21 00:20> Skin: Rashes: no rashes <Fany Ron [facility] Last Filed: 03/20/21 00:20> Wounds: no wounds <Fany Ron [facility] - Last Filed: 03/20/21 00:20> Neuro: General: patient oriented x3, tone normal and moves all extremities <Fany Ron [facility] - Last Filed: 03/20/21 00:20> Gait exam (Neuro): Normal gait present <Fany Ron [facility] Last Filed: 03/20/21 00:20> Extrem: General: Yes normal to inspection and Yes no pedal edema <Fany Ron [facility] Last Filed: 03/20/21 00:20> Course Course Course Narrative: -1825--difficulty getting IV access on patient. -10mg of IV Labetalol ordered for blood pressure control -191--no leukocytosis. H&H is stable. Lactic negative. Troponin 26.4 > will obtain 3 hour repeat. BNP 536 (chronically elevated) -acute on chronic worsening CKD with BUN of 38, creatinine 2.08 > Additional dose of 10 mg of IV Labetalol given without improvement in BP, most recently 182/108. Will try 1 additional dose of IV labetalol prior to drip and ICU admission - +cocaine and THC -spoke to doubling machine operator Dr. Betts who recommended patient receive his night dose of Coreg 12.5mg as well of 5mg of Amlodipine. Also recommended consulting Nephrology for further recommendations. I spoke to Nephrology who recommended Amlodipine 5 mg, and 50mg of Hydralazine t.i.d. Both consultants agreed on no more IV medications -0018--patient's blood pressure improved to 167/95 after p.o. medications. Admitted to hospitalist service <GUME Odom - Last Filed: 03/20/21 00:20> Reevaluation(s) Reevaluation #1: patient with known Aortic dissection with epigastric tenderness to palpation. Bedside ultrasound showed stented aorto no obvious dissection or AAA. Will CT chest and abdomen, EKG and cardiac enzymes with LFts and lipase. Initial focus is his aorta and control of BP <Christopher Hall MD - Last Filed: 03/19/21 20:08> Time: 17:48 <Christopher Hall MD - Last Filed: 03/19/21 20:08> Reevaluation #2: pressure creeping up again will give another 10mg of labetolol <Christopher Hall MD - Last Filed: 03/19/21 20:08> Time: 20:07 <Christopher Hall MD - Last Filed: 03/19/21 20:08> MDM - SOB/Dyspnea MDM Narrative Medical decision making narrative: 80-year-old male with PMHx of AAA s/p repair in 2019, CHF with reduced EF, HTN, CKD, anemia, cardiomyopathy, CHF, NSTEMI, presenting to the ED complaining of sudden onset epigastric/substernal abdominal pain 2 hours [employer] while at rest with associated SOB. On exam hypertensive 197/110, appears in pain, lungs CTA, abdomen soft with epigastric TTP, no pedal edema/calf tenderness. Bedside ultrasound without appreciable enlarged aorta/rupture with Dr. Hall. Concern for dissection/AAA vs ACS vs PE vs CHF or infectious/metabolic etiologies. EKG is nonischemic Plan: EKG, labs CT angio chest/abdomen/pelvis, COVID 19 testing, anticipated admission <GUME Odom - Last Filed: 03/20/21 00:20> Medical Records Attestation: I reviewed the patient's medical records. <GUME Odom - Last Filed: 03/20/21 00:20> Lab Data Attestation: I reviewed the patient's lab results. <GUME Odom - Last Filed: 03/20/21 00:20> Result diagrams: : 03/19/21 17:30 03/19/21 19:33 <GUME Odom - Last Filed: 03/20/21 00:20> Labs: Lab Results 03/19/21 03/19/21 03/19/21 Range/Units 17:30 17:30 17:30 WBC 4.8 (4.8-10.8) X10*3/uL RBC 4.02 L (4.60-5.80) X10*6/uL Hgb 11.6 L (14.0-18.0) g/dl Hct 34.6 L (42-52) % MCV 86.1 (80-98) fL MCH 28.9 (27.0-33.0) pg MCHC 33.5 (31.0-36.0) g/dl RDW 16.4 H (11.0-16.0) % Plt Count 113 L (160-400) X10*3/uL MPV 11.8 (9.4-12.4) fL Immature Gran % (Auto) 0.2 (0.0-0.4) % Neut % (Auto) 61.8 (45-73) % Lymph % (Auto) 16.3 L (20-40) % [place] % (Auto) 16.3 H (2-11) % Eos % (Auto) 4.8 H (0-4) % Baso % (Auto) 0.6 (0-2) % Lymph # (Auto) 0.8 L (1.2-4.9) X10*3/uL [place] # (Auto) 0.8 (0.1-1.2) X10*3/uL Eos # (Auto) 0.2 (0.0-0.4) X10*3/uL Baso # (Auto) 0.0 (0.0-0.2) X10*3/uL Abs Immat Gran (auto) 0.01 (0.00-0.03) X10*3/uL Absolute Neuts (auto) 3.0 (2.0-8.3) X10*3/uL Absolute Nucleated RBC 0.000 (0.0-0.012) X10*3/uL Nucleated RBC % (auto) 0.0 (0.0-0.2) /100WBC Smear Tech's Comments VERIFIED PT (9.9-13.0) SEC INR (0.9-1.1) APTT (24.1-38.0) SEC Sodium (135-145) mmol/L Potassium (3.3-5.1) mmol/L Chloride (96-108) mmol/L Carbon Dioxide (22-29) mmol/L Anion Gap (12-20) BUN (9-16) mg/dL Creatinine (0.5-1.4) mg/dL Estim Creat Clear Calc Estimated GFR Random Glucose (60-115) mg/dL Lactic Acid 0.8 (0.5-2.0) mmol/L Calcium (8.4-10.2) mg/dL Magnesium (1.6-2.6) mg/dL Total Bilirubin (0.0-1.0) mg/dL Direct Bilirubin (0.0-0.5) mg/dL AST (5-37) U/L ALT (0-40) U/L Alkaline Phosphatase (39-117) U/L Troponin I High Sens 26.4 D (<3.5-35.0) ng/L B-Natriuretic Peptide 536 H (<100) pg/mL Total Protein (6.5-8.0) g/dL Albumin (3.5-5.0) g/dL Lipase (8-78) U/L Urine Opiates Screen (Not Detect) Urine Fentanyl Screen (Not Detect) Ur Barbiturates Screen (Not Detect) Ur Phencyclidine Scrn (Not Detect) Ur Amphetamines Screen (Not Detect) U Benzodiazepines Scrn (Not Detect) Urine Cocaine Screen (Not Detect) U Marijuana (THC) Screen (Not Detect) Ethyl Alcohol mg/dL COVID-19 (PRABHAKAR) (Negative) COVID-19 Clin Com 03/19/21 03/19/21 03/19/21 Range/Units 17:30 19:23 19:23 WBC (4.8-10.8) X10*3/uL RBC (4.60-5.80) X10*6/uL Hgb (14.0-18.0) g/dl Hct (42-52) % MCV (80-98) fL MCH (27.0-33.0) pg MCHC (31.0-36.0) g/dl RDW (11.0-16.0) % Plt Count (160-400) X10*3/uL MPV (9.4-12.4) fL Immature Gran % (Auto) (0.0-0.4) % Neut % (Auto) (45-73) % Lymph % (Auto) (20-40) % [place] % (Auto) (2-11) % Eos % (Auto) (0-4) % Baso % (Auto) (0-2) % Lymph # (Auto) (1.2-4.9) X10*3/uL [place] # (Auto) (0.1-1.2) X10*3/uL Eos # (Auto) (0.0-0.4) X10*3/uL Baso # (Auto) (0.0-0.2) X10*3/uL Abs Immat Gran (auto) (0.00-0.03) X10*3/uL Absolute Neuts (auto) (2.0-8.3) X10*3/uL Absolute Nucleated RBC (0.0-0.012) X10*3/uL Nucleated RBC % (auto) (0.0-0.2) /100WBC Smear Tech's Comments PT (9.9-13.0) SEC INR (0.9-1.1) APTT (24.1-38.0) SEC Sodium (135-145) mmol/L Potassium (3.3-5.1) mmol/L Chloride (96-108) mmol/L Carbon Dioxide (22-29) mmol/L Anion Gap (12-20) BUN (9-16) mg/dL Creatinine (0.5-1.4) mg/dL Estim Creat Clear Calc Estimated GFR Random Glucose (60-115) mg/dL Lactic Acid (0.5-2.0) mmol/L Calcium (8.4-10.2) mg/dL Magnesium (1.6-2.6) mg/dL Total Bilirubin (0.0-1.0) mg/dL Direct Bilirubin (0.0-0.5) mg/dL AST (5-37) U/L ALT (0-40) U/L Alkaline Phosphatase (39-117) U/L Troponin I High Sens (<3.5-35.0) ng/L B-Natriuretic Peptide (<100) pg/mL Total Protein (6.5-8.0) g/dL Albumin (3.5-5.0) g/dL Lipase (8-78) U/L Urine Opiates Screen Not Detected (Not Detect) Urine Fentanyl Screen Not Detected (Not Detect) Ur Barbiturates Screen Not Detected (Not Detect) Ur Phencyclidine Scrn Not Detected (Not Detect) Ur Amphetamines Screen Not Detected (Not Detect) U Benzodiazepines Scrn Not Detected (Not Detect) Urine Cocaine Screen POSITIVE H (Not Detect) U Marijuana (THC) Screen POSITIVE H (Not Detect) Ethyl Alcohol < 10 mg/dL COVID-19 (PRABHAKAR) Negative (Negative) COVID-19 Clin Com See Note 03/19/21 03/19/21 03/19/21 Range/Units 19:33 19:33 19:33 WBC (4.8-10.8) X10*3/uL RBC (4.60-5.80) X10*6/uL Hgb (14.0-18.0) g/dl Hct (42-52) % MCV (80-98) fL MCH (27.0-33.0) pg MCHC (31.0-36.0) g/dl RDW (11.0-16.0) % Plt Count (160-400) X10*3/uL MPV (9.4-12.4) fL Immature Gran % (Auto) (0.0-0.4) % Neut % (Auto) (45-73) % Lymph % (Auto) (20-40) % [place] % (Auto) (2-11) % Eos % (Auto) (0-4) % Baso % (Auto) (0-2) % Lymph # (Auto) (1.2-4.9) X10*3/uL [place] # (Auto) (0.1-1.2) X10*3/uL Eos # (Auto) (0.0-0.4) X10*3/uL Baso # (Auto) (0.0-0.2) X10*3/uL Abs Immat Gran (auto) (0.00-0.03) X10*3/uL Absolute Neuts (auto) (2.0-8.3) X10*3/uL Absolute Nucleated RBC (0.0-0.012) X10*3/uL Nucleated RBC % (auto) (0.0-0.2) /100WBC Smear Tech's Comments PT 10.9 (9.9-13.0) SEC INR 1.0 (0.9-1.1) APTT 34.6 (24.1-38.0) SEC Sodium 137 (135-145) mmol/L Potassium 3.6 (3.3-5.1) mmol/L Chloride 97 (96-108) mmol/L Carbon Dioxide 31 H (22-29) mmol/L Anion Gap 13 (12-20) BUN 38 H (9-16) mg/dL Creatinine 2.08 H (0.5-1.4) mg/dL Estim Creat Clear Calc 22.1 Estimated GFR 31 Random Glucose 94 (60-115) mg/dL Lactic Acid (0.5-2.0) mmol/L Calcium 8.8 (8.4-10.2) mg/dL Magnesium 2.2 (1.6-2.6) mg/dL Total Bilirubin 0.9 (0.0-1.0) mg/dL Direct Bilirubin 0.5 (0.0-0.5) mg/dL AST 59 H (5-37) U/L ALT 34 (0-40) U/L Alkaline Phosphatase 94 (39-117) U/L Troponin I High Sens 29.7 (<3.5-35.0) ng/L B-Natriuretic Peptide (<100) pg/mL Total Protein 8.8 H (6.5-8.0) g/dL Albumin 4.0 (3.5-5.0) g/dL Lipase 85 H (8-78) U/L Urine Opiates Screen (Not Detect) Urine Fentanyl Screen (Not Detect) Ur Barbiturates Screen (Not Detect) Ur Phencyclidine Scrn (Not Detect) Ur Amphetamines Screen (Not Detect) U Benzodiazepines Scrn (Not Detect) Urine Cocaine Screen (Not Detect) U Marijuana (THC) Screen (Not Detect) Ethyl Alcohol mg/dL COVID-19 (PRABHAKAR) (Negative) COVID-19 Clin Com <GUME Odom - Last Filed: 03/20/21 00:20> Lab Results 03/19/21 03/19/21 03/19/21 Range/Units 17:30 17:30 17:30 WBC 4.8 (4.8-10.8) X10*3/uL RBC 4.02 L (4.60-5.80) X10*6/uL Hgb 11.6 L (14.0-18.0) g/dl Hct 34.6 L (42-52) % MCV 86.1 (80-98) fL MCH 28.9 (27.0-33.0) pg MCHC 33.5 (31.0-36.0) g/dl RDW 16.4 H (11.0-16.0) % Plt Count 113 L (160-400) X10*3/uL MPV 11.8 (9.4-12.4) fL Immature Gran % (Auto) 0.2 (0.0-0.4) % Neut % (Auto) 61.8 (45-73) % Lymph % (Auto) 16.3 L (20-40) % York % (Auto) 16.3 H (2-11) % Eos % (Auto) 4.8 H (0-4) % Baso % (Auto) 0.6 (0-2) % Lymph # (Auto) 0.8 L (1.2-4.9) X10*3/uL [place] # (Auto) 0.8 (0.1-1.2) X10*3/uL Eos # (Auto) 0.2 (0.0-0.4) X10*3/uL Baso # (Auto) 0.0 (0.0-0.2) X10*3/uL Abs Immat Gran (auto) 0.01 (0.00-0.03) X10*3/uL Absolute Neuts (auto) 3.0 (2.0-8.3) X10*3/uL Absolute Nucleated RBC 0.000 (0.0-0.012) X10*3/uL Nucleated RBC % (auto) 0.0 (0.0-0.2) /100WBC Smear Tech's Comments VERIFIED PT (9.9-13.0) SEC INR (0.9-1.1) APTT (24.1-38.0) SEC Sodium (135-145) mmol/L Potassium (3.3-5.1) mmol/L Chloride (96-108) mmol/L Carbon Dioxide (22-29) mmol/L Anion Gap (12-20) BUN (9-16) mg/dL Creatinine (0.5-1.4) mg/dL Estim Creat Clear Calc Estimated GFR Random Glucose (60-115) mg/dL Lactic Acid 0.8 (0.5-2.0) mmol/L Calcium (8.4-10.2) mg/dL Magnesium (1.6-2.6) mg/dL Total Bilirubin (0.0-1.0) mg/dL Direct Bilirubin (0.0-0.5) mg/dL AST (5-37) U/L ALT (0-40) U/L Alkaline Phosphatase (39-117) U/L Troponin I High Sens 26.4 D (<3.5-35.0) ng/L B-Natriuretic Peptide 536 H (<100) pg/mL Total Protein (6.5-8.0) g/dL Albumin (3.5-5.0) g/dL Lipase (8-78) U/L Urine Opiates Screen (Not Detect) Urine Fentanyl Screen (Not Detect) Ur Barbiturates Screen (Not Detect) Ur Phencyclidine Scrn (Not Detect) Ur Amphetamines Screen (Not Detect) U Benzodiazepines Scrn (Not Detect) Urine Cocaine Screen (Not Detect) U Marijuana (THC) Screen (Not Detect) Ethyl Alcohol mg/dL COVID-19 (PRABHAKAR) (Negative) COVID-19 Clin Com 03/19/21 03/19/21 03/19/21 Range/Units 17:30 19:23 19:23 WBC (4.8-10.8) X10*3/uL RBC (4.60-5.80) X10*6/uL Hgb (14.0-18.0) g/dl Hct (42-52) % MCV (80-98) fL MCH (27.0-33.0) pg MCHC (31.0-36.0) g/dl RDW (11.0-16.0) % Plt Count (160-400) X10*3/uL MPV (9.4-12.4) fL Immature Gran % (Auto) (0.0-0.4) % Neut % (Auto) (45-73) % Lymph % (Auto) (20-40) % York % (Auto) (2-11) % Eos % (Auto) (0-4) % Baso % (Auto) (0-2) % Lymph # (Auto) (1.2-4.9) X10*3/uL York # (Auto) (0.1-1.2) X10*3/uL Eos # (Auto) (0.0-0.4) X10*3/uL Baso # (Auto) (0.0-0.2) X10*3/uL Abs Immat Gran (auto) (0.00-0.03) X10*3/uL Absolute Neuts (auto) (2.0-8.3) X10*3/uL Absolute Nucleated RBC (0.0-0.012) X10*3/uL Nucleated RBC % (auto) (0.0-0.2) /100WBC Smear Tech's Comments PT (9.9-13.0) SEC INR (0.9-1.1) APTT (24.1-38.0) SEC Sodium (135-145) mmol/L Potassium (3.3-5.1) mmol/L Chloride (96-108) mmol/L Carbon Dioxide (22-29) mmol/L Anion Gap (12-20) BUN (9-16) mg/dL Creatinine (0.5-1.4) mg/dL Estim Creat Clear Calc Estimated GFR Random Glucose (60-115) mg/dL Lactic Acid (0.5-2.0) mmol/L Calcium (8.4-10.2) mg/dL Magnesium (1.6-2.6) mg/dL Total Bilirubin (0.0-1.0) mg/dL Direct Bilirubin (0.0-0.5) mg/dL AST (5-37) U/L ALT (0-40) U/L Alkaline Phosphatase (39-117) U/L Troponin I High Sens (<3.5-35.0) ng/L B-Natriuretic Peptide (<100) pg/mL Total Protein (6.5-8.0) g/dL Albumin (3.5-5.0) g/dL Lipase (8-78) U/L Urine Opiates Screen Not Detected (Not Detect) Urine Fentanyl Screen Not Detected (Not Detect) Ur Barbiturates Screen Not Detected (Not Detect) Ur Phencyclidine Scrn Not Detected (Not Detect) Ur Amphetamines Screen Not Detected (Not Detect) U Benzodiazepines Scrn Not Detected (Not Detect) Urine Cocaine Screen POSITIVE H (Not Detect) U Marijuana (THC) Screen POSITIVE H (Not Detect) Ethyl Alcohol < 10 mg/dL COVID-19 (PRABHAKAR) Negative (Negative) COVID-19 Clin Com See Note 03/19/21 03/19/21 03/19/21 Range/Units 19:33 19:33 19:33 WBC (4.8-10.8) X10*3/uL RBC (4.60-5.80) X10*6/uL Hgb (14.0-18.0) g/dl Hct (42-52) % MCV (80-98) fL MCH (27.0-33.0) pg MCHC (31.0-36.0) g/dl RDW (11.0-16.0) % Plt Count (160-400) X10*3/uL MPV (9.4-12.4) fL Immature Gran % (Auto) (0.0-0.4) % Neut % (Auto) (45-73) % Lymph % (Auto) (20-40) % [place] % (Auto) (2-11) % Eos % (Auto) (0-4) % Baso % (Auto) (0-2) % Lymph # (Auto) (1.2-4.9) X10*3/uL [place] # (Auto) (0.1-1.2) X10*3/uL Eos # (Auto) (0.0-0.4) X10*3/uL Baso # (Auto) (0.0-0.2) X10*3/uL Abs Immat Gran (auto) (0.00-0.03) X10*3/uL Absolute Neuts (auto) (2.0-8.3) X10*3/uL Absolute Nucleated RBC (0.0-0.012) X10*3/uL Nucleated RBC % (auto) (0.0-0.2) /100WBC Smear Tech's Comments PT 10.9 (9.9-13.0) SEC INR 1.0 (0.9-1.1) APTT 34.6 (24.1-38.0) SEC Sodium 137 (135-145) mmol/L Potassium 3.6 (3.3-5.1) mmol/L Chloride 97 (96-108) mmol/L Carbon Dioxide 31 H (22-29) mmol/L Anion Gap 13 (12-20) BUN 38 H (9-16) mg/dL Creatinine 2.08 H (0.5-1.4) mg/dL Estim Creat Clear Calc 22.1 Estimated GFR 31 Random Glucose 94 (60-115) mg/dL Lactic Acid (0.5-2.0) mmol/L Calcium 8.8 (8.4-10.2) mg/dL Magnesium 2.2 (1.6-2.6) mg/dL Total Bilirubin 0.9 (0.0-1.0) mg/dL Direct Bilirubin 0.5 (0.0-0.5) mg/dL AST 59 H (5-37) U/L ALT 34 (0-40) U/L Alkaline Phosphatase 94 (39-117) U/L Troponin I High Sens 29.7 (<3.5-35.0) ng/L B-Natriuretic Peptide (<100) pg/mL Total Protein 8.8 H (6.5-8.0) g/dL Albumin 4.0 (3.5-5.0) g/dL Lipase 85 H (8-78) U/L Urine Opiates Screen (Not Detect) Urine Fentanyl Screen (Not Detect) Ur Barbiturates Screen (Not Detect) Ur Phencyclidine Scrn (Not Detect) Ur Amphetamines Screen (Not Detect) U Benzodiazepines Scrn (Not Detect) Urine Cocaine Screen (Not Detect) U Marijuana (THC) Screen (Not Detect) Ethyl Alcohol mg/dL COVID-19 (PRABHAKAR) (Negative) COVID-19 Clin Com <Christopher Hall MD - Last Filed: 03/19/21 20:08> ECG Data Attestation: I personally reviewed and interpreted this ECG as follows: <GUME Odom - Last Filed: 03/20/21 00:20> ECG interpretation date: 03/19/21 <GUME Odom - Last Filed: 03/20/21 00:20> ECG interpretation time: 17:32 <GUME Odom - Last Filed: 03/20/21 00:20> Prior ECG tracings: available for review <GUME Odom - Last Filed: 03/20/21 00:20> Interpretation: EKG normal sinus rhythm Rate of 78 QRS 88 QTC 501 Nonischemic/no STEMI <GUME Odom - Last Filed: 03/20/21 00:20> Discharge Plan Discharge Clinical Impression: Hypertensive emergency, Acute kidney injury superimposed on CKD <GUME Odom - Last Filed: 03/20/21 00:20> Patient Disposition: Admitted As Inpatient <GUME Odom - Last Filed: 03/20/21 00:20> Prescriptions: No Action carvedilol 12.5 mg Tablet 12.5 mg PO BID Qty: 60 RF: 0 atorvastatin [Lipitor] 40 mg tablet 40 mg PO DAILY Qty: 30 RF: 0 furosemide [Lasix] 40 mg tablet 40 mg PO DAILY 30 Days Qty: 30 RF: 0 hydralazine 50 mg tablet 50 mg PO BID RF: 0 isosorbide dinitrate 5 mg tablet 5 mg PO BID RF: 0 <GUME Odom - Last Filed: 03/20/21 00:20>
--- NOTE | 2021-03-19 18:00 | PC.NURSE ---
IV start/labs attempted by multiple RNs, unsuccessful. at bedside for potential EJ access. Waiting for IV access to go to CT scan. Pt is resting on stretcher, SR on monitor, states pain improved on its own at rest.
--- NOTE | 2021-03-19 18:02 | PHA.MEDREC ---
Pharmacy Consult ? Medication Reconciliation Pharmacy has completed the medication reconciliation. Spoke with patient in the ED. Patient brought in bag with ALL of his medications. He takes his meds at 0900 and 2100. Patient took all morning meds.
[2021-03-19] MEDS: Labetalol HCL 100 MG/20 ML VIAL 10 MG IVPUSH ×3 (18:42→21:13)
[2021-03-19 18:43] LABS: Basophils Percent Auto 0.6 % (0-2); Hemoglobin 11.6 g/dl (14.0-18.0); Imm Gran Abs Auto 0.01 X10*3/uL (0.00-0.03); Imm Gran Pct Auto 0.2 % (0.0-0.4); MANUAL DIFF FLAG SCAN; PLT CLUMP 1; Red Cell Distribution Width 16.4 % (11.0-16.0); SCAN SMEAR FLAG 1
[2021-03-19 18:45] LABS: Eosinophils Absolute Auto 0.2 X10*3/uL (0.0-0.4); Eosinophils Percent Auto 4.8 % (0-4); Hematocrit 34.6 % (42-52); Lymphocytes Absolute Auto 0.8 X10*3/uL (1.2-4.9); Lymphocytes Percent Auto 16.3 % (20-40); Mean Corpuscular HGB Conc 33.5 g/dl (31.0-36.0); Mean Corpuscular Hemoglobin 28.9 pg (27.0-33.0); Mean Corpuscular Volume 86.1 fL (80-98); Mean Platelet Volume 11.8 fL (9.4-12.4); Monocytes Absolute Auto 0.8 X10*3/uL (0.1-1.2); Monocytes Percent Auto 16.3 % (2-11); Neutrophils Percent Auto 61.8 % (45-73); Platelet Count 113 X10*3/uL (160-400); Red Blood Count 4.02 X10*6/uL (4.60-5.80); White Blood Count 4.8 X10*3/uL (4.8-10.8)
[2021-03-19 18:54] LABS: Lactic Acid 0.8 mmol/L (0.5-2.0)
[2021-03-19 19:03] LABS: B Type Natriuretic Peptide 536 pg/mL (<100); SLIDE REVIEW VERIFIED; Troponin-I High Sensitivity 26.4 ng/L (<3.5-35.0)
--- NOTE | 2021-03-19 19:04 | PC.NURSE ---
coordinate measuring machine technician at bedside for redraw.
[2021-03-19 19:07] LABS: Ethanol < 10 mg/dL
--- NOTE | 2021-03-19 19:09 | PC.NURSE ---
Pt off to CT on hospital bed. Plan for labs upon return.
[2021-03-19] MEDS: iohexoL 350 MG/ML 100 ML INFUS..BTL IV (19:18)
[2021-03-19 19:49] LABS: Prothrombin Time 10.9 SEC (9.9-13.0)
[2021-03-19 19:51] LABS: Partial Thromboplastin Time 34.6 SEC (24.1-38.0)
[2021-03-19 19:55] LABS: COVID-19 Test Negative (Negative)
[2021-03-19 19:59] LABS: Troponin-I High Sensitivity 29.7 ng/L (<3.5-35.0)
[2021-03-19 20:01] LABS: Amphetamine Screen Urine Not Detected (Not Detect); Barbiturates, Urine Not Detected (Not Detect); Benzodiazepines Screen Urine Not Detected (Not Detect); Cannabinoid Screen Urine POSITIVE (Not Detect); Cocaine Screen Urine POSITIVE (Not Detect); Fentanyl, urine Not Detected (Not Detect); Opiate Screen Urine Not Detected (Not Detect); Phencyclidine Screen Urine Not Detected (Not Detect)
[2021-03-19 20:03] LABS: Alanine Aminotransferase 34 U/L (0-40); Alkaline Phosphatase 94 U/L (39-117); Anion Gap 13 (12-20); Aspartate Amino Transferase 59 U/L (5-37); Bilirubin Direct 0.5 mg/dL (0.0-0.5); Bilirubin Total 0.9 mg/dL (0.0-1.0); Blood Urea Nitrogen 38 mg/dL (9-16); Calcium 8.8 mg/dL (8.4-10.2); Carbon Dioxide 31 mmol/L (22-29); Chloride 97 mmol/L (96-108); Creatinine Clr Calc Pharmacy 22.1; Estimated Glomerular Filt Rate 31; Glucose Random 94 mg/dL (60-115); Lipase 85 U/L (8-78); Magnesium 2.2 mg/dL (1.6-2.6); Potassium 3.6 mmol/L (3.3-5.1); Sodium 137 mmol/L (135-145); Total Protein 8.8 g/dL (6.5-8.0)
--- NOTE | 2021-03-19 20:09 | PC.NURSE ---
MD notified that PT found to be hypertensive. Plan for IV labetolol.
--- NOTE | 2021-03-19 20:19 | PC.NURSE ---
PT medicated per MAR. Denies any pain at this time.
--- NOTE | 2021-03-19 21:40 | PC.NURSE ---
notified PT found to be hypertensive despite third dose of labetalol.
--- NOTE | 2021-03-19 21:44 | W.PM.CCCN ---
History of Present Illness Data of Consult Service Date: 03/19/21 Requesting physician: Fany Ron Primary Care Provider: Unknown Physician HPI I was called about Mr. Nieto by GUME Ron in the ED bec of accelerated HTN. This is a remote note.? Mr. Ron is an 80 yo M w h/o poorly controlled HTN, CKD, AAA repair in 2019, CHF with reduced EF, NSTEMI, and anemia.? Last echo that I see in his records is from 08/17/20 and shows moderate to severe global LV dysfxn with EF 25-30%.? RV cavity size and systolic function were normal.? There was mild to moderate PHTN.? IVC was dilated with no insp collapse. Looking thru his [facility] Vital Signs records, his BP almost always runs fairly high, usually in the 160-190/105-112 range.? At home he takes Coreg 12.5mg bid, Hydral 50 mg tid, isordil 5mg bid, and Lasix 40mg daily. 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 Denied chest pain, lightheadedness/dizziness, numbness/tingling/weakness.? The patient knows his medications very well and is very compliant w his regimen.? He has not taken his evening Coreg yet. BP was 182/108.? He was breathing easy w Sat 100% on room air.? General phys and neuro exam were unremarkable.? Labs were notable for Hb 11 (stable), plat count 113K (baseline prob about 150K), BUN/creat 38/2.0 (baseline prob 28/1.6, but has been very variable and even up to 68/2.8 earlier this year).? Trop was negative, BNP was 536 (the lowest value since August).? Urine tox screen was positive for cocaine.? EKG was nonischemic. He was ruled out for a dissection.? He was given three doses of IV Labetolol 10 mg with little effect.? I was called.? At this time, the patient is sleeping in bed, breathing easy with Sat 100% on room air. IMPRESSION. This is accelerated HTN.? Cannot definitively call it hypertensive urgency or hypertensive emergency bec there is no clear evidence of end-organ involvement.? (His renal indices are up from the last determination in January, but he?s freq been higher, can?t definitively say that his current numbers are bec of his current BP). In view of that, would not use any intravenous antihypertensives.? Treatment should be with oral agents only.? It is arguable whether he should be admitted to the hospital. I would suggest giving him his evening dose of Coreg now, along with 5 mg amlodipine.? I would call Dr. Weinberg for further rec.? He could also be given NTP 2?, easily wiped off if his BP goes low.? If admitted, the patient can be admitted to med surg or [facility]. My main concern is that with his EF of 25-30%, this man should run a BP no higher than 120, yet he commonly runs in the 200?s range.? He needs much better chronic BP control (which would be achieved over time as an outpatient).? Furthermore, cocaine is about the worst thing for him, and he should be counseled accordingly. Time (including full chart rev and mult d/w ED):? 45 min (04193) [facility] Past Medical History Medical History Abnormal EKG Acute kidney injury superimposed on CKD Acute on chronic systolic and diastolic heart failure, NYHA class 3 Alcohol abuse Anemia Cardiomyopathy CHF (congestive heart failure) CHF exacerbation Cocaine abuse Hypertension Hypertensive urgency Iron deficiency anemia Occult GI bleeding Surgical History Surgical History History of AAA (abdominal aortic aneurysm) repair Social History Social History Household Members: None Household Members Other:: custodial Housing: Apartment Housing Other:: custodial Do you presently have visiting nurse or other home services: No Alcohol intake: current Alcohol intake frequency: a few times a week Alcohol type: beer Patient Tobacco Use Status: Current everyday Tobacco user Cigarette Packs Per Day: 0.5 Cigarettes Per Day: 10.0 Years Smoked: 40 Second Hand Smoke Exposure: No Substance Use Type: Crack/Cocaine service: No Current occupational status: retired Meds Allergies Allergy/AdvReac Type Severity Reaction Status Date / Time No Known Allergies Allergy Verified 10/08/20 21:48 Active Medications: Current Medications Pharmacy Consult (Consult Rx Perform Med Rec) 1 each MISCELLANE ONCE PRN PRN Reason: Consult order Home Medications Medication Instructions Recorded Confirmed Last Taken Type isosorbide dinitrate 5 mg tablet 5 mg PO BID 03/19/21 03/19/21 03/19/21 History Physical Exam Vital Signs: Vital Signs: Last Vital Signs Temp 98.1 F 03/19/21 17:13 Pulse 82 03/19/21 21:36 Resp 16 03/19/21 21:36 BP 208/125 H 03/19/21 21:36 Pulse Ox 100 03/19/21 18:44 Body Mass Index 17.7 Results Labs CBC & Chem 7: 03/20/21 07:32 03/22/21 05:09 Labs: Short CBC 03/19/21 Range/Units 17:30 WBC 4.8 (4.8-10.8) X10*3/uL Hgb 11.6 L (14.0-18.0) g/dl Hct 34.6 L (42-52) % Plt Count 113 L (160-400) X10*3/uL BMP 03/19/21 19:33 Sodium 137 Potassium 3.6 Chloride 97 Carbon Dioxide 31 H BUN 38 H Creatinine 2.08 H Calcium 8.8 Liver Function 03/19/21 Range/Units 19:33 Total Bilirubin 0.9 (0.0-1.0) mg/dL Direct Bilirubin 0.5 (0.0-0.5) mg/dL AST 59 H (5-37) U/L ALT 34 (0-40) U/L Alkaline Phosphatase 94 (39-117) U/L Albumin 4.0 (3.5-5.0) g/dL
[2021-03-19] MEDS: carvediloL 12.5 MG TABLET PO (22:02)
[2021-03-19] MEDS: amLODIPine Besylate 5 MG TABLET PO (22:18)
[2021-03-19] MEDS: hydrALAZINE HCl 50 MG TABLET PO (22:19)
--- NOTE | 2021-03-19 23:26 | PC.NURSE ---
Hospitalist at bedside for primary eval.
[2021-03-20] VITALS (13 sets, daily range): BP systolic 123–186; BP diastolic 72–112; PULSE 69–84; RESP 16–18; TEMP 36.7–36.8; O2SAT 97–99
--- NOTE | 2021-03-20 01:39 | P.HPHOSP_ITS ---
History of Present Illness Date of Service: 03/20/21 Chief Complaint: Epigastric discomfort 80-year-old male with a past medical history of hypertension, hyperlipidemia, CKD, history of aortic aneurysm status post repair in 2019; presented to the hospital today with a chief complaint of epigastric discomfort. Patient reported a possible disease not feeling well and has not been eating good and has no appetite; today his family member came in and gave him orange juice and subsequently he developed acute epigastric discomfort, sharp in nature; denies any lightheadedness dizziness or associated setting; subsequently came to the ER for further evaluation. Denies any headaches or numbness tingling. Denies any blurry vision. Denies any nausea vomiting or diarrhea. Denies any urinary symptoms. Review of all other systems is negative except mentioned above ER course: Per ER team patient on presentation noted to be having elevated blood pressure with systolic in 200s and diastolic in 100s; given couple doses of IV labetalol with no significant improvement; discussed with ICU who recommended p.o. amlodip ine and hydralazine. Which were given followed by the prefers a improved. Also noted to have JANAK on CKD. Admitted for further management. [facility] Medical History Abnormal EKG Acute kidney injury superimposed on CKD Acute on chronic systolic and diastolic heart failure, NYHA class 3 Alcohol abuse Anemia Cardiomyopathy CHF (congestive heart failure) CHF exacerbation Cocaine abuse Hypertension Hypertensive urgency Iron deficiency anemia Occult GI bleeding Pertinent family history: Reviewed Surgical History History of AAA (abdominal aortic aneurysm) repair Social History Household Members: Other Household Members Other:: custodial Housing: Other Housing Other:: custodial Do you presently have visiting nurse or other home services: Yes (custodial) Alcohol intake: current Alcohol intake frequency: a few times a week Alcohol type: beer Patient Tobacco Use Status: Current everyday Tobacco user Cigarette Packs Per Day: 0.5 Cigarettes Per Day: 10.0 Years Smoked: 40 Second Hand Smoke Exposure: No Substance Use Type: Crack/Cocaine Advance Directives: No Advance Directives Information Provided: Yes service: No Current occupational status: retired Meds Allergies Allergy/AdvReac Type Severity Reaction Status Date / Time No Known Allergies Allergy Verified 10/08/20 21:48 Active Medications: Current Medications Acetaminophen (Acetaminophen 325 Mg Tablet) 650 mg PO Q6H PRN PRN Reason: Pain, Mild (Pain Scale 1-3) Atorvastatin Calcium (Atorvastatin Calcium 40 Mg Tablet) 40 mg PO DAILY [facility] Carvedilol (Carvedilol 12.5 Mg Tablet) 12.5 mg PO BID [facility]; Protocol Hydralazine HCl (Hydralazine Hcl 50 Mg Tablet) 50 mg PO BID FROILAN; Protocol Isosorbide Dinitrate (Isosorbide Dinitrate 5 Mg Tablet) 5 mg PO BID FROILAN; Protocol Melatonin (Melatonin 3 Mg Tablet) 6 mg PO BEDTIME PRN PRN Reason: Insomnia Pharmacy Consult (Consult Rx Perform Med Rec) 1 each MISCELLANE ONCE PRN PRN Reason: Consult order Senna (Sennosides 8.6 Mg Tablet) 17.2 mg PO BEDTIME PRN PRN Reason: Constipation Sodium Chloride (0.9 % Sodium Chloride Flush 3 Ml Syringe) 3 ml IVFLUSH QSHIFT [facility] Home Medications Medication Instructions Recorded Confirmed Last Taken Type hydralazine 50 mg tablet 50 mg PO BID 01/09/21 03/19/21 03/19/21 History isosorbide dinitrate 5 mg tablet 5 mg PO BID 03/19/21 03/19/21 03/19/21 History Physical Exam Vital Signs and Narrative: Vital Signs: Last Vital Signs Temp 98.1 F 03/19/21 17:13 Pulse 84 03/20/21 00:12 Resp 16 03/20/21 00:12 BP 167/95 H 03/20/21 00:12 Pulse Ox 97 03/19/21 22:03 Body Mass Index 17.7 Gen: Appears be in no acute distress HEENT: NCAT, Moist mucosa. Pulmonary: Vesicular breath sounds, fair air entry CVS: Normal S1-S2 Abdomen: BS+, Soft, Nontender Extremities: Warm well perfused Neuro: Alert and awake. Results Labs CBC and Chem 7: 03/19/21 17:30 03/19/21 19:33 Labs: Laboratory Results - last 24 hr 03/19/21 03/19/21 03/19/21 17:30 17:30 17:30 MCV 86.1 MCH 28.9 MCHC 33.5 RDW 16.4 H Plt Count 113 L MPV 11.8 Immature Gran % (Auto) 0.2 Neut % (Auto) 61.8 Lymph % (Auto) 16.3 L [place] % (Auto) 16.3 H Eos % (Auto) 4.8 H Baso % (Auto) 0.6 Lymph # (Auto) 0.8 L [place] # (Auto) 0.8 Eos # (Auto) 0.2 Baso # (Auto) 0.0 Abs Immat Gran (auto) 0.01 Absolute Neuts (auto) 3.0 Absolute Nucleated RBC 0.000 Nucleated RBC % (auto) 0.0 Smear Tech's Comments VERIFIED PT INR APTT Anion Gap Estim Creat Clear Calc Estimated GFR Random Glucose Lactic Acid 0.8 Calcium Magnesium Total Bilirubin Direct Bilirubin AST ALT Alkaline Phosphatase Troponin I High Sens 26.4 D B-Natriuretic Peptide 536 H Total Protein Albumin Lipase Urine Opiates Screen Urine Fentanyl Screen Ur Barbiturates Screen Ur Phencyclidine Scrn Ur Amphetamines Screen U Benzodiazepines Scrn Urine Cocaine Screen U Marijuana (THC) Screen Ethyl Alcohol COVID-19 (PRABHAKAR) COVID-No Paper Just Vapor 03/19/21 03/19/21 03/19/21 17:30 19:23 19:23 MCV MCH MCHC RDW Plt Count MPV Immature Gran % (Auto) Neut % (Auto) Lymph % (Auto) [place] % (Auto) Eos % (Auto) Baso % (Auto) Lymph # (Auto) [place] # (Auto) Eos # (Auto) Baso # (Auto) Abs Immat Gran (auto) Absolute Neuts (auto) Absolute Nucleated RBC Nucleated RBC % (auto) Smear Tech's Comments PT INR APTT Anion Gap Estim Creat Clear Calc Estimated GFR Random Glucose Lactic Acid Calcium Magnesium Total Bilirubin Direct Bilirubin AST ALT Alkaline Phosphatase Troponin I High Sens B-Natriuretic Peptide Total Protein Albumin Lipase Urine Opiates Screen Not Detected Urine Fentanyl Screen Not Detected Ur Barbiturates Screen Not Detected Ur Phencyclidine Scrn Not Detected Ur Amphetamines Screen Not Detected U Benzodiazepines Scrn Not Detected Urine Cocaine Screen POSITIVE H U Marijuana (THC) Screen POSITIVE H Ethyl Alcohol < 10 COVID-19 (PRABHAKAR) Negative COVID-No Paper Just Vapor See Note 03/19/21 03/19/21 03/19/21 19:33 19:33 19:33 MCV MCH MCHC RDW Plt Count MPV Immature Gran % (Auto) Neut % (Auto) Lymph % (Auto) [place] % (Auto) Eos % (Auto) Baso % (Auto) Lymph # (Auto) [place] # (Auto) Eos # (Auto) Baso # (Auto) Abs Immat Gran (auto) Absolute Neuts (auto) Absolute Nucleated RBC Nucleated RBC % (auto) Smear Tech's Comments PT 10.9 INR 1.0 APTT 34.6 Anion Gap 13 Estim Creat Clear Calc 22.1 Estimated GFR 31 Random Glucose 94 Lactic Acid Calcium 8.8 Magnesium 2.2 Total Bilirubin 0.9 Direct Bilirubin 0.5 AST 59 H ALT 34 Alkaline Phosphatase 94 Troponin I High Sens 29.7 B-Natriuretic Peptide Total Protein 8.8 H Albumin 4.0 Lipase 85 H Urine Opiates Screen Urine Fentanyl Screen Ur Barbiturates Screen Ur Phencyclidine Scrn Ur Amphetamines Screen U Benzodiazepines Scrn Urine Cocaine Screen U Marijuana (THC) Screen Ethyl Alcohol COVID-19 (PRABHAKAR) COVID-19 Clin Com Imaging Radiologist's Impressions: Impressions Abdomen/Pelvis CTA 03/19/21 17:29 IMPRESSION: * Chronic pulmonary emphysema and chronic thickening of the bronchial man. Correlate for history of chronic obstructive disease. No acute pneumonia or pleural effusion. * No evidence of pulmonary embolism. * Within the chest, the ascending thoracic aorta remains normal in size. There is chronic, stable dilatation of the aortic arch and descending thoracic aorta. The eccentric thickening of the wall of the aortic arch has a stable appearance compared to 08/16/2020. This could represent ulcerated plaque and/or old thrombus along the wall. No acute pathology. No acute aortic dissection. * Again noted is aortoiliac stent graft of the abdomen and pelvis. There is no contrast leakage from the graft. * No acute inflammatory change or obstruction along the gastrointestinal tract. * Prostate gland is chronically enlarged. Chest CTA 03/19/21 17:29 IMPRESSION: * Chronic pulmonary emphysema and chronic thickening of the bronchial man. Correlate for history of chronic obstructive disease. No acute pneumonia or pleural effusion. * No evidence of pulmonary embolism. * Within the chest, the ascending thoracic aorta remains normal in size. There is chronic, stable dilatation of the aortic arch and descending thoracic aorta. The eccentric thickening of the wall of the aortic arch has a stable appearance compared to 08/16/2020. This could represent ulcerated plaque and/or old thrombus along the wall. No acute pathology. No acute aortic dissection. * Again noted is aortoiliac stent graft of the abdomen and pelvis. There is no contrast leakage from the graft. * No acute inflammatory change or obstruction along the gastrointestinal tract. * Prostate gland is chronically enlarged. Assessment and Plan 80-year-old male with a past medical history of hypertension, hyperlipidemia, CKD, history of aortic aneurysm status post repair in 2019; presented to the hospital today with a chief complaint of epigastric discomfort. Epigastric discomfort: Improved. Supportive care. Likely gastritis. Pepcid b.i.d. Acute on chronic kidney injury: Avoid nephrotoxins. Nephrology consult. Monitor renal function. Hold diuretics for now. Hypertensive urgency: Patient received couple doses of IV labetalol; also given p.o. hydralazine 50 mg and amlodipine. Blood pressure improving. Will continue the patient with home medications hydralazine carvedilol. Will also add amlodipine. Hydralazine IV push p.r.n. Will gradually bring down the blood pressure with a goal blood pressure is to keep less than 135/85. History of abdominal aortic aneurysm: Status post repair in 2019. Patient currently denies any complaints. CT showed chronic, stable dilatation of the aortic arch and descending thoracic aorta. Polysubstance abuse: Patient reports that he snorted cocaine 3 days ago. U tox positive for cocaine. DVT prophylaxis: SCD boots Code status: Full code Quality Stroke Does the patient have a stroke diagnosis?: No VTE Prior VTE?: No VTE Risk Level:: Medical - moderate - high VTE Device Contraindication: N/A - Device Ordered VTE Drug Contraindication: Treatment Not Indicated
--- NOTE | 2021-03-20 03:24 | PC.NURSE ---
PT is sleeping in bed. BP found to be increasing over the last 30 minutes.
[2021-03-20] MEDS: hydrALAZINE HCl 20 MG/ML VIAL 10 MG IVPUSH (03:57)
[2021-03-20 07:36] LABS: MANUAL DIFF FLAG NO
[2021-03-20 07:55] LABS: Anion Gap 12 (12-20); Blood Urea Nitrogen 41 mg/dL (9-16); Calcium 8.7 mg/dL (8.4-10.2); Carbon Dioxide 29 mmol/L (22-29); Chloride 104 mmol/L (96-108); Estimated Glomerular Filt Rate 29; Glucose Random 98 mg/dL (60-115); Magnesium 2.2 mg/dL (1.6-2.6); Potassium 3.7 mmol/L (3.3-5.1); Sodium 141 mmol/L (135-145)
[2021-03-20 08:08] LABS: Basophils Percent Auto 0.4 % (0-2); Eosinophils Absolute Auto 0.1 X10*3/uL (0.0-0.4); Eosinophils Percent Auto 2.7 % (0-4); Hematocrit 35.7 % (42-52); Hemoglobin 11.9 g/dl (14.0-18.0); Imm Gran Abs Auto 0.02 X10*3/uL (0.00-0.03); Imm Gran Pct Auto 0.4 % (0.0-0.4); Lymphocytes Absolute Auto 0.9 X10*3/uL (1.2-4.9); Lymphocytes Percent Auto 18.4 % (20-40); Mean Corpuscular HGB Conc 33.3 g/dl (31.0-36.0); Mean Corpuscular Hemoglobin 28.5 pg (27.0-33.0); Mean Corpuscular Volume 85.4 fL (80-98); Mean Platelet Volume 11.8 fL (9.4-12.4); Monocytes Absolute Auto 0.8 X10*3/uL (0.1-1.2); Monocytes Percent Auto 16.4 % (2-11); Neutrophils Percent Auto 61.7 % (45-73); Platelet Count 133 X10*3/uL (160-400); Red Blood Count 4.18 X10*6/uL (4.60-5.80); Red Cell Distribution Width 16.6 % (11.0-16.0); White Blood Count 4.8 X10*3/uL (4.8-10.8)
[2021-03-20] MEDS: Atorvastatin Calcium 40 MG TABLET PO (08:51)
[2021-03-20] MEDS: Famotidine/PF 20 MG/2 ML VIAL IVPUSH (08:51)
[2021-03-20] MEDS: Isosorbide Dinitrate 5 MG TABLET PO ×2 (08:54→21:05)
[2021-03-20] MEDS: carvediloL 12.5 MG TABLET PO ×2 (08:54→17:25)
[2021-03-20] MEDS: hydrALAZINE HCl 50 MG TABLET PO ×2 (08:55→21:09)
[2021-03-20] MEDS: amLODIPine Besylate 5 MG TABLET PO ×2 (08:55→18:43)
[2021-03-20] MEDS: 0.9 % Sodium Chloride Flush 3 ML SYRINGE IVFLUSH ×2 (09:24→21:10)
--- NOTE | 2021-03-20 10:15 | MHC.CM.PN ---
Attempted to meet with patient in regards to discharge planning. Patient is currently sleeping. Attempted to speak to patient's daughter/HCP, Cosme, via telephone at [phone]. Unable to leave a message. Patient was active with [facility] in the past. Reachout to their agency. Patient is not currently active with them. Will attempt to see patient again. Continue to monitor for d/c needs.
--- NOTE | 2021-03-20 12:00 | P.PNIM_ITS ---
Subjective Subjective Date of Service: 03/20/21 Interval History: Abd pain resolved. States last used cocaine 2 wk ago and it is not a regular habit. Does frequently have edible marijuana. No chest pain. Adherent with antihypertensives. Review of Systems Review of Systems: Yes all other systems are reviewed and are negative Physical Exam Vital Signs: Vital Signs: Last Vital Signs Temp 98.0 F 03/20/21 11:57 Pulse 76 03/20/21 11:57 Resp 18 03/20/21 11:57 BP 131/74 03/20/21 11:57 Pulse Ox 97 03/20/21 11:57 Body Mass Index 17.7 Gen: in no acute distress, muscle wasting HEENT: sclera anicteric, moist mucus membranes, edentulous Neck: supple Lungs: clear to auscultation bilaterally Heart: regular rate and rhythm, no murmurs Abd: soft, non-tender, non-distended Ext: no edema Skin: warm/well-perfused Neuro: alert and oriented x3, no focal findings Psych: appropriate affect Objective Data Active Medications Acetaminophen (Acetaminophen 325 Mg Tablet) 650 mg PO Q6H PRN PRN Reason: Pain, Mild (Pain Scale 1-3) Amlodipine Besylate (Amlodipine Besylate 5 Mg Tablet) 5 mg PO DAILY [facility]; Protocol Last Admin: 03/20/21 08:55 Dose: 5 mg Documented by: ADAIR Atorvastatin Calcium (Atorvastatin Calcium 40 Mg Tablet) 40 mg PO DAILY [facility] Last Admin: 03/20/21 08:51 Dose: 40 mg Documented by: ADAIR Carvedilol (Carvedilol 12.5 Mg Tablet) 12.5 mg PO BIDWM [facility]; Protocol Last Admin: 03/20/21 08:54 Dose: 12.5 mg Documented by: ADAIR Famotidine (Famotidine/Pf 20 Mg/2 Ml Vial) 20 mg IVPUSH DAILY [facility] Last Admin: 03/20/21 08:51 Dose: 20 mg Documented by: ADAIR Hydralazine HCl (Hydralazine Hcl 50 Mg Tablet) 50 mg PO BID [facility]; Protocol Last Admin: 03/20/21 08:55 Dose: 50 mg Documented by: ADAIR Hydralazine HCl (Hydralazine Hcl 20 Mg/Ml Vial) 10 mg IVPUSH Q6H PRN; Protocol PRN Reason: BP>160/90 Isosorbide Dinitrate (Isosorbide Dinitrate 5 Mg Tablet) 5 mg PO BID [facility]; Protocol Last Admin: 03/20/21 08:54 Dose: 5 mg Documented by: ADAIR Melatonin (Melatonin 3 Mg Tablet) 6 mg PO BEDTIME PRN PRN Reason: Insomnia Pharmacy Consult (Consult Rx Perform Med Rec) 1 each MISCELLANE ONCE PRN PRN Reason: Consult order Senna (Sennosides 8.6 Mg Tablet) 17.2 mg PO BEDTIME PRN PRN Reason: Constipation Sodium Chloride (0.9 % Sodium Chloride Flush 3 Ml Syringe) 3 ml IVFLUSH QSHIFT [facility] Last Admin: 03/20/21 09:24 Dose: 3 ml Documented by: TALI Labs CBC & Chem 7: 03/20/21 07:32 03/20/21 07:32 Labs: Laboratory Results - last 24 hr 03/19/21 03/19/21 03/19/21 17:30 17:30 17:30 MCV 86.1 MCH 28.9 MCHC 33.5 RDW 16.4 H Plt Count 113 L MPV 11.8 Immature Gran % (Auto) 0.2 Neut % (Auto) 61.8 Lymph % (Auto) 16.3 L [place] % (Auto) 16.3 H Eos % (Auto) 4.8 H Baso % (Auto) 0.6 Lymph # (Auto) 0.8 L [place] # (Auto) 0.8 Eos # (Auto) 0.2 Baso # (Auto) 0.0 Abs Immat Gran (auto) 0.01 Absolute Neuts (auto) 3.0 Absolute Nucleated RBC 0.000 Nucleated RBC % (auto) 0.0 Smear Tech's Comments VERIFIED PT INR APTT Anion Gap Creatinine Estim Creat Clear Calc Estimated GFR Random Glucose Lactic Acid 0.8 Calcium Magnesium Total Bilirubin Direct Bilirubin AST ALT Alkaline Phosphatase Troponin I High Sens 26.4 D B-Natriuretic Peptide 536 H Total Protein Albumin Lipase Urine Opiates Screen Urine Fentanyl Screen Ur Barbiturates Screen Ur Phencyclidine Scrn Ur Amphetamines Screen U Benzodiazepines Scrn Urine Cocaine Screen U Marijuana (THC) Screen Ethyl Alcohol COVID-19 (PRABHAKAR) COVID-19 Clin Com 03/19/21 03/19/21 03/19/21 17:30 19:23 19:23 MCV MCH MCHC RDW Plt Count MPV Immature Gran % (Auto) Neut % (Auto) Lymph % (Auto) [place] % (Auto) Eos % (Auto) Baso % (Auto) Lymph # (Auto) [place] # (Auto) Eos # (Auto) Baso # (Auto) Abs Immat Gran (auto) Absolute Neuts (auto) Absolute Nucleated RBC Nucleated RBC % (auto) Smear Tech's Comments PT INR APTT Anion Gap Creatinine Estim Creat Clear Calc Estimated GFR Random Glucose Lactic Acid Calcium Magnesium Total Bilirubin Direct Bilirubin AST ALT Alkaline Phosphatase Troponin I High Sens B-Natriuretic Peptide Total Protein Albumin Lipase Urine Opiates Screen Not Detected Urine Fentanyl Screen Not Detected Ur Barbiturates Screen Not Detected Ur Phencyclidine Scrn Not Detected Ur Amphetamines Screen Not Detected U Benzodiazepines Scrn Not Detected Urine Cocaine Screen POSITIVE H U Marijuana (THC) Screen POSITIVE H Ethyl Alcohol < 10 COVID-19 (PRABHAKAR) Negative COVID-19 [place] See Note 03/19/21 03/19/21 03/19/21 19:33 19:33 19:33 MCV MCH MCHC RDW Plt Count MPV Immature Gran % (Auto) Neut % (Auto) Lymph % (Auto) [place] % (Auto) Eos % (Auto) Baso % (Auto) Lymph # (Auto) [place] # (Auto) Eos # (Auto) Baso # (Auto) Abs Immat Gran (auto) Absolute Neuts (auto) Absolute Nucleated RBC Nucleated RBC % (auto) Smear Tech's Comments PT 10.9 INR 1.0 APTT 34.6 Anion Gap 13 Creatinine 2.08 H Estim Creat Clear Calc 22.1 Estimated GFR 31 Random Glucose 94 Lactic Acid Calcium 8.8 Magnesium 2.2 Total Bilirubin 0.9 Direct Bilirubin 0.5 AST 59 H ALT 34 Alkaline Phosphatase 94 Troponin I High Sens 29.7 B-Natriuretic Peptide Total Protein 8.8 H Albumin 4.0 Lipase 85 H Urine Opiates Screen Urine Fentanyl Screen Ur Barbiturates Screen Ur Phencyclidine Scrn Ur Amphetamines Screen U Benzodiazepines Scrn Urine Cocaine Screen U Marijuana (THC) Screen Ethyl Alcohol COVID-19 (PRABHAKAR) COVID-19 [facility] Com 03/20/21 03/20/21 07:32 07:32 MCV 85.4 MCH 28.5 MCHC 33.3 RDW 16.6 H Plt Count 133 L MPV 11.8 Immature Gran % (Auto) 0.4 Neut % (Auto) 61.7 Lymph % (Auto) 18.4 L [place] % (Auto) 16.4 H Eos % (Auto) 2.7 Baso % (Auto) 0.4 Lymph # (Auto) 0.9 L [place] # (Auto) 0.8 Eos # (Auto) 0.1 Baso # (Auto) 0.0 Abs Immat Gran (auto) 0.02 Absolute Neuts (auto) 3.0 Absolute Nucleated RBC 0.000 Nucleated RBC % (auto) 0.0 Smear Tech's Comments PT INR APTT Anion Gap 12 Creatinine 2.19 H Estim Creat Clear Calc 21.0 Estimated GFR 29 Random Glucose 98 Lactic Acid Calcium 8.7 Magnesium 2.2 Total Bilirubin Direct Bilirubin AST ALT Alkaline Phosphatase Troponin I High Sens B-Natriuretic Peptide Total Protein Albumin Lipase Urine Opiates Screen Urine Fentanyl Screen Ur Barbiturates Screen Ur Phencyclidine Scrn Ur Amphetamines Screen U Benzodiazepines Scrn Urine Cocaine Screen U Marijuana (THC) Screen Ethyl Alcohol COVID-19 (PRABHAKAR) COVID-19 Clin Com Assessment and Plan (1) Acute kidney injury superimposed on CKD: Status: Acute (2) Hypertensive urgency: Status: Acute Assessment and Plan: hospital d#1 79yo M with chronic HFrEF, HTN, HLD, CKD3, hx AAA repair presenting with epigastric pain, admitted for HTN urgency + JANAK/CKD3, tested positive for cocaine # epigastric pain - resolved, likely was due to cocaine abuse, d/c IV H2RA # HTN urgency - also likely due to cocaine abuse, resolved with restarting hydralazine, carvedilol, and Imdur, plus adding amlodipine # hx AAA - needs good BP control and needs to avoid cocaine # acute/chronic kidney injury - Nephrology consulted, avoid cocaine + other nephrotoxins, recheck BMP in am # cocaine abuse - CARE Team and Addiction Medicine consultations - screen HBV/HCV/HIV # EtOH abuse - no signs of withdrawal, monitor prn CIWA # VTE ppx - SCDs Quality Stroke Does the patient have a stroke diagnosis?: No VTE Prior VTE?: No VTE Risk Level:: Medical - moderate - high VTE Device Contraindication: N/A - Device Ordered VTE Drug Contraindication: Treatment Not Indicated
[2021-03-20 22:00] LABS: Creatinine Urine 98.54 mg/dL; Total Protein Urine Random 146 mg/dL (<12)
[2021-03-21] VITALS (10 sets, daily range): BP systolic 139–175; BP diastolic 81–99; PULSE 66–82; RESP 18–19; TEMP 35.5–37.2; O2SAT 96–98; BMI 17.7
[2021-03-21 07:52] LABS: HBS Num1 2.51 mIU/mL (0-7.99); HBsAGNum1 0.21 S/CO (0.00-0.99); HIV AB/AG Nonreactive (Nonreactive); HIV Num 1 0.06 S/CO (0.00-0.99); Hepatitis B Surface Antigen Negative (Negative); ~Hepatitis B Surface Antibody NONREACTIVE (Nonreactive)
[2021-03-21 08:07] LABS: HBc Num1 9.69 S/CO (0.00-0.79); ~HepC Num1 10.09 S/CO (0.00-0.79); ~Hepatitis C Antibody Reactive (Nonreactive)
--- NOTE | 2021-03-21 08:42 | MHC.CM.PN ---
CM met with Patient at bedside and addressed IMM, providing him with the original and placing a copy on the chart.Patient lives alone in [facility]/apartment and he uses a rollator to assist with mobility.Patient's HCP is on file and PCP is Dr. Peace Welsh. Patient's is agreeable to a new VNA referral and CM has initiated and will follow for dc planning.
[2021-03-21] MEDS: 0.9 % Sodium Chloride Flush 3 ML SYRINGE IVFLUSH ×3 (08:50→20:03)
[2021-03-21] MEDS: Atorvastatin Calcium 40 MG TABLET PO (08:50)
[2021-03-21] MEDS: Isosorbide Dinitrate 5 MG TABLET PO ×2 (08:50→20:00)
[2021-03-21] MEDS: amLODIPine Besylate 10 MG TABLET PO (08:50)
[2021-03-21] MEDS: hydrALAZINE HCl 50 MG TABLET PO (08:50)
--- NOTE | 2021-03-21 09:01 | P.CDIC_ITS ---
CDI Concurrent Query Documentation Clarification: PHYSICIAN'S DOCUMENTATION REQUEST Date of Query: 03/21/21 09 Patient Name: Froilan Nieto Jr Admit Date: 03/20/21 Dear Doctor, A review of the medical record indicates additional documentation may be needed. Please review below and update the documentation accordingly. Risk Factors/Clinical Indicators/Treatments Body mass index: 17.7 not eating good, low appetite, smoker. If possible, please provide an associated diagnosis related to the abnormal BMI, such as: For a BMI <= 19: * Underweight * Weight loss * Cachexia * Anorexia Or: * BMI is not significant * Other (please specify) * Unable to determine Use of terms such as suspected, likely, concern for, or probable (associated with a specific diagnosis that is being evaluated, monitored, or treated as if it exists) are acceptable and can be coded in the inpatient setting, when documented at the time of discharge. Thank you, Cheyenne Isaac [facility], CDIS Extension: [phone] Please use your independent medical judgment in providing your response. THIS QUERY IS PART OF THE PERMANENT MEDICAL RECORD
[2021-03-21 09:11] LABS: HBc Num2 9.44 S/CO; Hepatitis B Core Antibody Reactive (Nonreactive)
[2021-03-21 09:24] LABS: Anion Gap 14 (12-20); Blood Urea Nitrogen 40 mg/dL (9-16); Calcium 8.7 mg/dL (8.4-10.2); Carbon Dioxide 26 mmol/L (22-29); Chloride 103 mmol/L (96-108); Creatinine Clr Calc Pharmacy 17.5; Estimated Glomerular Filt Rate 24; Glucose Random 119 mg/dL (60-115); Potassium 3.4 mmol/L (3.3-5.1); Sodium 140 mmol/L (135-145)
[2021-03-21] MEDS: polyethylene glycoL 3350 17 GM POWD.PACK PO (12:19)
[2021-03-21] MEDS: 0.9 % Sodium Chloride 1,000 ML 100 ML IVCONT (12:20)
--- NOTE | 2021-03-21 12:33 | PM.PNNEP ---
Subjective Subjective Date of Service: 03/21/21 Principal diagnosis: JANAK and severe HTN Interval history: Seen and examined, events noted Physical Exam Vital Signs: Vital Signs: Last Vital Signs Temp 96 F L 03/21/21 10:59 Pulse 74 03/21/21 10:59 Resp 18 03/21/21 10:59 BP 139/81 03/21/21 10:59 Pulse Ox 96 03/21/21 10:59 Body Mass Index 17.7 Const: Other: Appears in pain General: cooperative Orientation/consciousness: patient oriented x3 Limitations: no limitations HENMT: Head: Yes normal to inspection Ears: hearing grossly normal bilaterally General nose exam: Normal external nose present Face and sinus: Yes normal facial exam Eyes: General: appearance normal, both eyes and all related structures EOM: EOMs intact bilaterally Neck: Neck: Yes normal visual inspection Resp: Effort & Inspection: normal respiratory effort Auscultation: clear to auscultation bilaterally, no rhonchi and no wheezes Cardio: Rate: regular rate Heart sounds: S1 normal heart sound present and S2 normal heart sound present Peripheral pulses: Peripheral pulses 2+ throughout GI: Inspection: Yes normal to inspection Palpation (GI): Soft to palpation, Tenderness to palpation present (GI) in the epigastrum, no guarding, not rigid and no pulsatile masses : General: Yes no CVA tenderness Back/Spine/Pelvis: Back: no CVA tenderness Skin: Rashes: no rashes Wounds: no wounds Neuro: General: patient oriented x3, tone normal and moves all extremities Gait exam (Neuro): Normal gait present Extrem: General: Yes normal to inspection and Yes no pedal edema Objective Data Labs CBC & Chem 7: 03/20/21 07:32 03/21/21 06:04 Labs: Laboratory Results - last 24 hr 03/20/21 03/21/21 03/21/21 21:38 06:04 06:04 Sodium 140 Potassium 3.4 Chloride 103 Carbon Dioxide 26 Anion Gap 14 BUN 40 H Creatinine 2.62 H Estim Creat Clear Calc 17.5 Estimated GFR 24 Random Glucose 119 H Calcium 8.7 Prealbumin 21.0 U Random Total Protein 146 H Urine Creatinine 98.54 Hep Bs Antigen Negative Hep Bs Antibody NONREACTIVE Hep B Core Total Ab Reactive Hepatitis C Ab (EIA) Reactive H HIV 1&2 Ab/P24 Ag 4thGn Nonreactive Procedures Date of Service Date of Service: 03/21/21 Assessment & Plan Assessment and plan (1) Acute kidney injury superimposed on CKD: Status: Acute (2) Hypertensive urgency: Status: Acute Assessment and Plan: 1. JANAK: incr SCr past 24 hrs is coincerning and may refelct IV C (CTA) he recieved on adm and/or effect of improved BP control and relative renal hypoperfsuion given his sever HTN on adm Other poss: AGN, AIN seem less likely; BUT cocaine can be assoc with anca ( Levsmisole effect) acute OBs not supported by lack of hydro on CT prog RVDz and or spont chol emboli: both seem unlikely 2. CKD 4: bsl SCr 1.5-2.0 c/w repetitive HTN insult and/ort cocaine itself injury to kidnye--ischemic hits 3. Severe HTN: BP better now with meds REC: cont to control BP; check anca ( I ordered); avoid NToxins; avoid [facility] hospital d#1 79yo M with chronic HFrEF, HTN, HLD, CKD3, hx AAA repair presenting with epigastric pain, admitted for HTN urgency + JANAK/CKD3, tested positive for cocaine # epigastric pain - resolved, likely was due to cocaine abuse, d/c IV H2RA # HTN urgency - also likely due to cocaine abuse, resolved with restarting hydralazine, carvedilol, and Imdur, plus adding amlodipine # hx AAA - needs good BP control and needs to avoid cocaine # acute/chronic kidney injury - Nephrology consulted, avoid cocaine + other nephrotoxins, recheck BMP in am # cocaine abuse - CARE Team and Addiction Medicine consultations - screen HBV/HCV/HIV # EtOH abuse - no signs of withdrawal, monitor prn CIWA # VTE ppx - SCDs Time Spent With Patient Time: Total time spent is greater than 50% in coordination of care (as documented) at patient's floor/unit and/or counseling patient: Progress Note: Quality Stroke Does the patient have a stroke diagnosis?: No
--- NOTE | 2021-03-21 13:34 | MHC.CLN ---
PT IS MODERATELY MALNOURISHED PT IS NON SEVERELY MALNOURISHED IN THE CONTEXT OF SOCIAL/BEHAVIORAL/ENVIRONMENTAL R/T DRUG AND ETOH ABUSE PT HAS MILD SUBCUTANEOUS FAT DEPLETION IN TRICEPS AND MILD MUSCLE MASS DEPLETION OF CLAVICLE PT EXPERIENCED A NON SIGNIFICANT 6% WT LOSS OVER 3 MONTHS AND HAS A BMI OF 17.7 DIET RX: LOW SODIUM, 2 GM NA-APPROPRIATE PT STATES HE DOES NOT HAVE A DECREASED APPETITE PO INTAKE DOCUMENTED 100% X 2 MEALS PT ALREADY RECEIVING ENSURE BID FOR EXTRA KCALS AND PROTEIN SUPP PROVIDES 700KCALS, 40G PROTEIN MONITOR PO INTAKE AND SUPPLEMENT ACCEPTANCE SEE ALSO CLINICAL NUTRITION ASSESSMENT
--- NOTE | 2021-03-21 15:11 | P.PNIM_ITS ---
Subjective Subjective Date of Service: 03/21/21 Interval History: abd pain resolved no chest pain states cocaine was a 1-time thing, not a habit Review of Systems Review of Systems: Yes all other systems are reviewed and are negative Physical Exam Vital Signs: Vital Signs: Last Vital Signs Temp 96 F L 03/21/21 10:59 Pulse 74 03/21/21 10:59 Resp 18 03/21/21 10:59 BP 139/81 03/21/21 10:59 Pulse Ox 96 03/21/21 10:59 Body Mass Index 17.7 Gen: in no acute distress, muscle wasting HEENT: sclera anicteric, moist mucus membranes, edentulous Neck: supple Lungs: clear to auscultation bilaterally Heart: regular rate and rhythm, no murmurs Abd: soft, non-tender, non-distended Ext: no edema Skin: warm/well-perfused Neuro: alert and oriented x3, no focal findings Psych: appropriate affect Objective Data Active Medications Acetaminophen (Acetaminophen 325 Mg Tablet) 650 mg PO Q6H PRN PRN Reason: Pain, Mild (Pain Scale 1-3) Amlodipine Besylate (Amlodipine Besylate 10 Mg Tablet) 10 mg PO DAILY [facility]; Protocol Last Admin: 03/21/21 08:50 Dose: 10 mg Documented by: ANTOLIN Atorvastatin Calcium (Atorvastatin Calcium 40 Mg Tablet) 40 mg PO DAILY [facility] Last Admin: 03/21/21 08:50 Dose: 40 mg Documented by: ANTOLIN Hydralazine HCl (Hydralazine Hcl 20 Mg/Ml Vial) 10 mg IVPUSH Q6H PRN; Protocol PRN Reason: BP>160/90 Hydralazine HCl (Hydralazine Hcl 25 Mg Tablet) 75 mg PO TID [facility]; Protocol Sodium Chloride (Ns) 1,000 mls @ 100 mls/hr IVCONT .Q10H [facility] Last Admin: 03/21/21 12:20 Dose: 100 mls/hr Documented by: ANTOLIN Isosorbide Dinitrate (Isosorbide Dinitrate 5 Mg Tablet) 5 mg PO BID [facility]; Protocol Last Admin: 03/21/21 08:50 Dose: 5 mg Documented by: ANTOLIN Melatonin (Melatonin 3 Mg Tablet) 6 mg PO BEDTIME PRN PRN Reason: Insomnia Pharmacy Consult (Consult Rx Perform Med Rec) 1 each MISCELLANE ONCE PRN PRN Reason: Consult order Polyethylene Glycol (Polyethylene Glycol 3350 17 Gm Powd.Pack) 17 gm PO DAILY [facility] Last Admin: 03/21/21 12:19 Dose: 17 gm Documented by: ANTOLIN Senna (Sennosides 8.6 Mg Tablet) 17.2 mg PO BEDTIME PRN PRN Reason: Constipation Sodium Chloride (0.9 % Sodium Chloride Flush 3 Ml Syringe) 3 ml IVFLUSH QSHIFT [facility] Last Admin: 03/21/21 08:50 Dose: 3 ml Documented by: ANTOLIN Labs CBC & Chem 7: 03/20/21 07:32 03/21/21 06:04 Labs: Laboratory Results - last 24 hr 03/20/21 03/21/21 03/21/21 21:38 06:04 06:04 Anion Gap 14 Estim Creat Clear Calc 17.5 Estimated GFR 24 Random Glucose 119 H Calcium 8.7 Prealbumin 21.0 U Random Total Protein 146 H Urine Creatinine 98.54 Hep Bs Antigen Negative Hep Bs Antibody NONREACTIVE Hep B Core Total Ab Reactive Hepatitis C Ab (EIA) Reactive H HIV 1&2 Ab/P24 Ag 4thGn Nonreactive Assessment and Plan (1) Acute kidney injury superimposed on CKD: Status: Acute (2) Hypertensive urgency: Status: Acute Assessment and Plan: hospital d#2 79yo M with chronic HFrEF, HTN, HLD, CKD3, hx AAA repair presenting with epigastric pain, admitted for HTN urgency + JANAK/CKD3, tested positive for cocaine # epigastric pain - resolved, likely was due to cocaine abuse, d/c'ed IV H2RA # HTN urgency - also likely due to cocaine abuse, resolved with restarting hydralazine, carvedilol, and Imdur, plus adding amlodipine - increase hydralazine dose today # hx AAA - needs good BP control and needs to avoid cocaine # acute/chronic kidney injury - Nephrology consulted, avoid cocaine + other nephrotoxins, recheck BMP in am, check FENa - no obstruction on CTA - will give trial of IV fluids # cocaine abuse - CARE Team and Addiction Medicine consultations - HIV negative; HCV Ab positive, viral load pending; isolated anti-HBc positive, viral load pending # EtOH abuse - no signs of withdrawal, monitor prn CIWA # VTE ppx - SCDs # dispo - PT eval - waiting for renal improvement Assessment and Plan: hospital d#1 79yo M with chronic HFrEF, HTN, HLD, CKD3, hx AAA repair presenting with epigastric pain, admitted for HTN urgency + JANAK/CKD3, tested positive for cocaine # epigastric pain - resolved, likely was due to cocaine abuse, d/c IV H2RA # HTN urgency - also likely due to cocaine abuse, resolved with restarting hydralazine, carvedilol, and Imdur, plus adding amlodipine # hx AAA - needs good BP control and needs to avoid cocaine # acute/chronic kidney injury - Nephrology consulted, avoid cocaine + other nephrotoxins, recheck BMP in am # cocaine abuse - CARE Team and Addiction Medicine consultations - screen HBV/HCV/HIV # EtOH abuse - no signs of withdrawal, monitor prn CIWA # VTE ppx - SCDs Quality Stroke Does the patient have a stroke diagnosis?: No VTE Prior VTE?: No VTE Risk Level:: Medical - moderate - high VTE Device Contraindication: N/A - Device Ordered VTE Drug Contraindication: Treatment Not Indicated
--- NOTE | 2021-03-21 15:19 | CONS_ITS ---
DATE OF SERVICE: 03/20/2021 REASON FOR CONSULTATION: I was asked to see patient to assist in evaluation and management of the patient's hypertensive urgency and advanced chronic kidney disease. HISTORY OF PRESENT ILLNESS: In summary, the patient is an 80-year-old gentleman with history of hypertension, hyperlipidemia, stage 4 chronic kidney disease, baseline creatinine 1.5 to 2.0, along with history of abdominal aortic aneurysm repair back in 2019, who presents to the hospital complaining of abdominal pain. The patient states he has not been feeling well for the past couple of days with poor p.o. intake. The patient admits to history of cocaine use. States he stopped using 2 weeks ago, although his cocaine screen was positive on admission here. He has taken marijuana routinely. It is unclear whether he is adherent to his medication regimen. On admission, blood pressure is markedly elevated. He is doing better now with medications. In the emergency room, as mentioned, he was given some IV labetalol, get a CTA to rule out dissection or PE. PAST MEDICAL HISTORY: As mentioned, his past medical history is notable for cocaine abuse, heart failure, cardiomyopathy, anemia, alcohol abuse, stage 4 chronic kidney disease, abdominal aortic aneurysm repair. MEDICATIONS: His home medications apparently include hydralazine 50 mg twice a day and isosorbide. Currently, he is on Lipitor, isosorbide, Norvasc 10, and hydralazine 50 twice a day. ALLERGIES: HE HAS NO KNOWN DRUG ALLERGIES. SOCIAL HISTORY: He has polysubstance abuse history, both cocaine and marijuana. He continues to smoke cigarettes. He drinks a couple times a week, per patient. REVIEW OF SYSTEMS: As noted above. PHYSICAL EXAMINATION: VITAL SIGNS: Blood pressure now 160/90, heart rate in the 70s. HEAD: Atraumatic, normocephalic. NECK: Supple. Mucous membranes moist. LUNGS: Clear. CARDIAC: Regular rate and rhythm. ABDOMEN: Soft. Nontender. Good bowel sounds. No CVA tenderness. EXTREMITIES: Shows no edema. LABORATORY DATA: Hemoglobin 11.9, hematocrit 35.7, white blood cell count 4.8, platelet count 133. Sodium 141, potassium 3.7, chloride 104, bicarb 29, BUN 41, creatinine 2.19. As mentioned, his serum creatinine has been in the 1.5 to 2.5 range going back to August of this year. He had urine studies, which showed 2+ protein. He had CT of the abdomen, pelvis, and chest, which showed no hydro. IMPRESSION: An 80-year-old hypertensive patient admitted with hypertensive urgency. 1. Hypertensive urgency. Blood pressure and control are current medications. Concerned that cocaine may have precipitated the hypertensive urgency. 2. Stage 4 chronic kidney disease. Baseline creatinine 1.5 to 2.5 over the past 6 months. Most likely he is multifactorial including hypertensive nephrosclerosis. Cocaine could effect the kidneys causing severe basal constriction and scar in the kidneys. This may be playing a contributing role. Other possibilities for his advanced kidney disease need to rule out, and we will see about obtaining serologies and urine studies. I do see he had Doppler studies of his kidneys back in October and there was no definitive evidence of renal artery stenosis. SUGGESTIONS: At this time include continue blood pressure medications as noted. Monitor urine output, renal function. We will check urine protein-creatinine ratio to see if he has significant proteinuria. We will review imaging studies that he has had in the past with Cardiology to see if there is any suggest that he might have renovascular mediated hypertension. We will follow the patient with the team. MD ELIER Lamar/CONSUELO / [phone]
--- NOTE | 2021-03-21 15:36 | HO.ADDICT_ITS ---
History of Present Illness Date of Service: 03/21/2021 Chief Complaint: Hypertensive urgency Reason for Consult: Cocaine use Requesting physician: Spring Reynoso Discussed with referring provider: Yes Sources of Information: patient interviewed and chart reviewed HPI Narrative: Patient is an 80-year-old male currently medically admitted with hypertensive emergency. Consult requested as patient reported cocaine use, and urine drug screen positive for cocaine. Patient seen in room 482, recovery support nurse present during interview. Patient awake, alert, pleasant and engaged in interview. Patient unwilling to engage in any discussions surrounding substance use, re ports that he does not ?like cocaine? States that he only does it every once in a great while and he does not use it with regularity. Attempted to engage patient in discussion around concerns related to health issues and previous hospital admissions with positive cocaine screens--the patient declined stated that he does not want to tell another person again that he does not have a problem with cocaine. He thanked this insurance writer for coming and stated that there is nothing else he had to say about that. Review of Systems Review of Systems Yes all other systems are reviewed and are negative Diagnostics Vital Signs (24Hr): Vital Signs - 24 hr 03/20/21 17:25 03/20/21 18:43 03/20/21 19:45 Temperature 98.2 F Pulse Rate 73 73 76 Respiratory Rate 17 Blood Pressure 161/90 H 161/90 H 174/91 H Pulse Oximetry 98 03/20/21 21:05 03/21/21 00:00 03/21/21 03:30 Temperature 98.9 F 98.2 F Pulse Rate 72 73 Respiratory Rate 18 18 Blood Pressure 165/96 H 175/99 H 173/96 H Pulse Oximetry 98 97 03/21/21 07:23 03/21/21 08:50 03/21/21 10:59 Temperature 96 F L 96 F L Pulse Rate 71 71 74 Respiratory Rate 18 18 Blood Pressure 160/90 H 160/90 H 139/81 Pulse Oximetry 97 96 03/21/21 15:16 Temperature 98.7 F Pulse Rate 66 Respiratory Rate 19 Blood Pressure 145/84 H Pulse Oximetry 97 Body Mass Index 17.7 Labs Results: 03/20/21 07:32 03/21/21 06:04 Labs: Laboratory Results - last 48 hr 03/19/21 03/19/21 03/19/21 17:30 17:30 17:30 WBC 4.8 RBC 4.02 L Hgb 11.6 L Hct 34.6 L MCV 86.1 MCH 28.9 MCHC 33.5 RDW 16.4 H Plt Count 113 L MPV 11.8 Immature Gran % (Auto) 0.2 Neut % (Auto) 61.8 Lymph % (Auto) 16.3 L Henderson % (Auto) 16.3 H Eos % (Auto) 4.8 H Baso % (Auto) 0.6 Lymph # (Auto) 0.8 L Henderson # (Auto) 0.8 Eos # (Auto) 0.2 Baso # (Auto) 0.0 Abs Immat Gran (auto) 0.01 Absolute Neuts (auto) 3.0 Absolute Nucleated RBC 0.000 Nucleated RBC % (auto) 0.0 Smear Tech's Comments VERIFIED PT INR APTT Sodium Potassium Chloride Carbon Dioxide Anion Gap BUN Creatinine Estim Creat Clear Calc Estimated GFR Random Glucose Lactic Acid 0.8 Calcium Magnesium Total Bilirubin Direct Bilirubin AST ALT Alkaline Phosphatase Troponin I High Sens 26.4 D B-Natriuretic Peptide 536 H Total Protein Albumin Prealbumin Lipase U Random Total Protein Urine Creatinine Urine Opiates Screen Urine Fentanyl Screen Ur Barbiturates Screen Ur Phencyclidine Scrn Ur Amphetamines Screen U Benzodiazepines Scrn Urine Cocaine Screen U Marijuana (THC) Screen Ethyl Alcohol COVID-19 ([facility]) COVID-19 Clin Com Hep Bs Antigen Hep Bs Antibody Hep B Core Total Ab Hepatitis C Ab (EIA) HIV 1&2 Ab/P24 Ag 4thGn 03/19/21 03/19/21 03/19/21 17:30 19:23 19:23 WBC RBC Hgb Hct MCV MCH MCHC RDW Plt Count MPV Immature Gran % (Auto) Neut % (Auto) Lymph % (Auto) Henderson % (Auto) Eos % (Auto) Baso % (Auto) Lymph # (Auto) Henderson # (Auto) Eos # (Auto) Baso # (Auto) Abs Immat Gran (auto) Absolute Neuts (auto) Absolute Nucleated RBC Nucleated RBC % (auto) Smear Tech's Comments PT INR APTT Sodium Potassium Chloride Carbon Dioxide Anion Gap BUN Creatinine Estim Creat Clear Calc Estimated GFR Random Glucose Lactic Acid Calcium Magnesium Total Bilirubin Direct Bilirubin AST ALT Alkaline Phosphatase Troponin I High Sens B-Natriuretic Peptide Total Protein Albumin Prealbumin Lipase U Random Total Protein Urine Creatinine Urine Opiates Screen Not Detected Urine Fentanyl Screen Not Detected Ur Barbiturates Screen Not Detected Ur Phencyclidine Scrn Not Detected Ur Amphetamines Screen Not Detected U Benzodiazepines Scrn Not Detected Urine Cocaine Screen POSITIVE H U Marijuana (THC) Screen POSITIVE H Ethyl Alcohol < 10 COVID-19 ([facility]) Negative COVID-19 Clin Com See Note Hep Bs Antigen Hep Bs Antibody Hep B Core Total Ab Hepatitis C Ab (EIA) HIV 1&2 Ab/P24 Ag 4thGn 03/19/21 03/19/21 03/19/21 19:33 19:33 19:33 WBC RBC Hgb Hct MCV MCH MCHC RDW Plt Count MPV Immature Gran % (Auto) Neut % (Auto) Lymph % (Auto) Henderson % (Auto) Eos % (Auto) Baso % (Auto) Lymph # (Auto) Henderson # (Auto) Eos # (Auto) Baso # (Auto) Abs Immat Gran (auto) Absolute Neuts (auto) Absolute Nucleated RBC Nucleated RBC % (auto) Smear Tech's Comments PT 10.9 INR 1.0 APTT 34.6 Sodium 137 Potassium 3.6 Chloride 97 Carbon Dioxide 31 H Anion Gap 13 BUN 38 H Creatinine 2.08 H Estim Creat Clear Calc 22.1 Estimated GFR 31 Random Glucose 94 Lactic Acid Calcium 8.8 Magnesium 2.2 Total Bilirubin 0.9 Direct Bilirubin 0.5 AST 59 H ALT 34 Alkaline Phosphatase 94 Troponin I High Sens 29.7 B-Natriuretic Peptide Total Protein 8.8 H Albumin 4.0 Prealbumin Lipase 85 H U Random Total Protein Urine Creatinine Urine Opiates Screen Urine Fentanyl Screen Ur Barbiturates Screen Ur Phencyclidine Scrn Ur Amphetamines Screen U Benzodiazepines Scrn Urine Cocaine Screen U Marijuana (THC) Screen Ethyl Alcohol COVID-19 ([facility]AKAR) COVID-19 Clin Com Hep Bs Antigen Hep Bs Antibody Hep B Core Total Ab Hepatitis C Ab (EIA) HIV 1&2 Ab/P24 Ag 4thGn 03/20/21 03/20/21 03/20/21 07:32 07:32 21:38 WBC 4.8 RBC 4.18 L Hgb 11.9 L Hct 35.7 L MCV 85.4 MCH 28.5 MCHC 33.3 RDW 16.6 H Plt Count 133 L MPV 11.8 Immature Gran % (Auto) 0.4 Neut % (Auto) 61.7 Lymph % (Auto) 18.4 L Henderson % (Auto) 16.4 H Eos % (Auto) 2.7 Baso % (Auto) 0.4 Lymph # (Auto) 0.9 L Henderson # (Auto) 0.8 Eos # (Auto) 0.1 Baso # (Auto) 0.0 Abs Immat Gran (auto) 0.02 Absolute Neuts (auto) 3.0 Absolute Nucleated RBC 0.000 Nucleated RBC % (auto) 0.0 Smear Tech's Comments PT INR APTT Sodium 141 Potassium 3.7 Chloride 104 Carbon Dioxide 29 Anion Gap 12 BUN 41 H Creatinine 2.19 H Estim Creat Clear Calc 21.0 Estimated GFR 29 Random Glucose 98 Lactic Acid Calcium 8.7 Magnesium 2.2 Total Bilirubin Direct Bilirubin AST ALT Alkaline Phosphatase Troponin I High Sens B-Natriuretic Peptide Total Protein Albumin Prealbumin Lipase U Random Total Protein 146 H Urine Creatinine 98.54 Urine Opiates Screen Urine Fentanyl Screen Ur Barbiturates Screen Ur Phencyclidine Scrn Ur Amphetamines Screen U Benzodiazepines Scrn Urine Cocaine Screen U Marijuana (THC) Screen Ethyl Alcohol COVID-19 (PR[facility]HAKAR) COVID-19 Clin Com Hep Bs Antigen Hep Bs Antibody Hep B Core Total Ab Hepatitis C Ab (EIA) HIV 1&2 Ab/P24 Ag 4thGn 03/21/21 03/21/21 06:04 06:04 WBC RBC Hgb Hct MCV MCH MCHC RDW Plt Count MPV Immature Gran % (Auto) Neut % (Auto) Lymph % (Auto) Henderson % (Auto) Eos % (Auto) Baso % (Auto) Lymph # (Auto) Henderson # (Auto) Eos # (Auto) Baso # (Auto) Abs Immat Gran (auto) Absolute Neuts (auto) Absolute Nucleated RBC Nucleated RBC % (auto) Smear Tech's Comments PT INR APTT Sodium 140 Potassium 3.4 Chloride 103 Carbon Dioxide 26 Anion Gap 14 BUN 40 H Creatinine 2.62 H Estim Creat Clear Calc 17.5 Estimated GFR 24 Random Glucose 119 H Lactic Acid Calcium 8.7 Magnesium Total Bilirubin Direct Bilirubin AST ALT Alkaline Phosphatase Troponin I High Sens B-Natriuretic Peptide Total Protein Albumin Prealbumin 21.0 Lipase U Random Total Protein Urine Creatinine Urine Opiates Screen Urine Fentanyl Screen Ur Barbiturates Screen Ur Phencyclidine Scrn Ur Amphetamines Screen U Benzodiazepines Scrn Urine Cocaine Screen U Marijuana (THC) Screen Ethyl Alcohol COVID-19 (PR[facility]AKAR) COVID-19 Clin Com Hep Bs Antigen Negative Hep Bs Antibody NONREACTIVE Hep B Core Total Ab Reactive Hepatitis C Ab (EIA) Reactive H HIV 1&2 Ab/P24 Ag 4thGn Nonreactive Imaging Radiology Impressions: ITS Impressions Abdomen/Pelvis CTA 03/19/21 17:29 IMPRESSION: * Chronic pulmonary emphysema and chronic thickening of the bronchial man. Correlate for history of chronic obstructive disease. No acute pneumonia or pleural effusion. * No evidence of pulmonary embolism. * Within the chest, the ascending thoracic aorta remains normal in size. There is chronic, stable dilatation of the aortic arch and descending thoracic aorta. The eccentric thickening of the wall of the aortic arch has a stable appearance compared to 08/16/2020. This could represent ulcerated plaque and/or old thrombus along the wall. No acute pathology. No acute aortic dissection. * Again noted is aortoiliac stent graft of the abdomen and pelvis. There is no contrast leakage from the graft. * No acute inflammatory change or obstruction along the gastrointestinal tract. * Prostate gland is chronically enlarged. Chest CTA 03/19/21 17:29 IMPRESSION: * Chronic pulmonary emphysema and chronic thickening of the bronchial man. Correlate for history of chronic obstructive disease. No acute pneumonia or pleural effusion. * No evidence of pulmonary embolism. * Within the chest, the ascending thoracic aorta remains normal in size. There is chronic, stable dilatation of the aortic arch and descending thoracic aorta. The eccentric thickening of the wall of the aortic arch has a stable appearance compared to 08/16/2020. This could represent ulcerated plaque and/or old thrombus along the wall. No acute pathology. No acute aortic dissection. * Again noted is aortoiliac stent graft of the abdomen and pelvis. There is no contrast leakage from the graft. * No acute inflammatory change or obstruction along the gastrointestinal tract. * Prostate gland is chronically enlarged. Mental Status Exam Mental Status Exam Patient Appearance: Appropriate Patient Orientation: Person, Place, Time and Situation Level of Consciousness: Awake, Appropriate and Alert Patient Behavior: Appropriate and Guarded Mood Description: Calm Affect Description: Calm Medications Medications Current Medications Acetaminophen (Acetaminophen 325 Mg Tablet) 650 mg PO Q6H PRN PRN Reason: Pain, Mild (Pain Scale 1-3) Amlodipine Besylate (Amlodipine Besylate 10 Mg Tablet) 10 mg PO DAILY [facility]; Protocol Last Admin: 03/21/21 08:50 Dose: 10 mg Documented by: Atorvastatin Calcium (Atorvastatin Calcium 40 Mg Tablet) 40 mg PO DAILY [facility] Last Admin: 03/21/21 08:50 Dose: 40 mg Documented by: Hydralazine HCl (Hydralazine Hcl 20 Mg/Ml Vial) 10 mg IVPUSH Q6H PRN; Protocol PRN Reason: BP>160/90 Hydralazine HCl (Hydralazine Hcl 25 Mg Tablet) 75 mg PO TID [facility]; Protocol Sodium Chloride (Ns) 1,000 mls @ 100 mls/hr IVCONT .Q10H [facility] Last Admin: 03/21/21 12:20 Dose: 100 mls/hr Documented by: Isosorbide Dinitrate (Isosorbide Dinitrate 5 Mg Tablet) 5 mg PO BID [facility]; Protocol Last Admin: 03/21/21 08:50 Dose: 5 mg Documented by: Melatonin (Melatonin 3 Mg Tablet) 6 mg PO BEDTIME PRN PRN Reason: Insomnia Pharmacy Consult (Consult Rx Perform Med Rec) 1 each MISCELLANE ONCE PRN PRN Reason: Consult order Polyethylene Glycol (Polyethylene Glycol 3350 17 Gm Powd.Pack) 17 gm PO DAILY [facility] Last Admin: 03/21/21 12:19 Dose: 17 gm Documented by: Senna (Sennosides 8.6 Mg Tablet) 17.2 mg PO BEDTIME PRN PRN Reason: Constipation Sodium Chloride (0.9 % Sodium Chloride Flush 3 Ml Syringe) 3 ml IVFLUSH QSHIFT [facility] Last Admin: 03/21/21 08:50 Dose: 3 ml Documented by: Allergies Allergies Allergy/AdvReac Type Severity Reaction Status Date / Time No Known Allergies Allergy Verified 10/08/20 21:48 Assessment & Plan Assessment & Plan (1) Hypertensive emergency: Status: Acute Code(s): I16.1 - Hypertensive emergency Assessment and Plan: * Briefly discussed harm reduction, though patient did not wish to discuss any further. * No medication recommendations at this time Greater than 50% of the session was spent on counseling and/or coordination of care [facility] Past Medical History Medical History Abnormal EKG Acute kidney injury superimposed on CKD Acute on chronic systolic and diastolic heart failure, NYHA class 3 Alcohol abuse Anemia Cardiomyopathy CHF (congestive heart failure) CHF exacerbation Cocaine abuse Hypertension Hypertensive urgency Iron deficiency anemia Occult GI bleeding Surgical History Surgical History History of AAA (abdominal aortic aneurysm) repair Social History Social History Household Members: None Household Members Other:: residential Housing: Apartment Housing Other:: residential Do you presently have visiting nurse or other home services: No Alcohol intake: current Alcohol intake frequency: a few times a week Alcohol type: beer Patient Tobacco Use Status: Current everyday Tobacco user Cigarette Packs Per Day: 0.5 Cigarettes Per Day: 10.0 Years Smoked: 40 Smoked in Last 30 Days: Yes Second Hand Smoke Exposure: No Use of substances other than those prescribed or required for medical reasons: Yes Substance Use Type: Crack/Cocaine Substance Use Frequency: Occasionally Currently Displaying Signs/Symptoms of Drug Intoxication Withdrawal: No Have you been hit, kicked, punched, or otherwise hurt by someone within the past year? If so, by whom?: No Do you feel safe in your current relationship?: No Current Relationship Is there a partner from a previous relationship who is making you feel unsafe now?: No Are you made to feel afraid or neglected: No Advance Directives: No Advance Directives Information Provided: Yes Do you have thoughts of harming others: None Do you have a plan to hurt others: No Plan Recently lost weight without trying: Yes How much weight loss: 24-33 pounds Eating poorly because of decreased appetite: No Nutrition screen score: 5 Nutrition Risks: No Nutritional Risk Poor oral hygiene: No service: No Current occupational status: retired
[2021-03-21] MEDS: hydrALAZINE HCl 25 MG TABLET 75 MG PO ×2 (16:18→20:01)
[2021-03-21 17:19] LABS: Creatinine Urine 116.43 mg/dL
[2021-03-22] MEDS: 0.9 % Sodium Chloride 1,000 ML 100 ML IVCONT ×2 (00:11→11:24)
[2021-03-22 03:33] VITALS: BP 174/96; PULSE 87; RESP 18; TEMP 36.4; O2SAT 95
[2021-03-22 06:19] LABS: Anion Gap 12 (12-20); Blood Urea Nitrogen 38 mg/dL (9-16); Calcium 8.4 mg/dL (8.4-10.2); Carbon Dioxide 25 mmol/L (22-29); Chloride 107 mmol/L (96-108); Creatinine Clr Calc Pharmacy 19.1; Estimated Glomerular Filt Rate 26; Glucose Random 88 mg/dL (60-115); Potassium 3.6 mmol/L (3.3-5.1); Sodium 140 mmol/L (135-145)
[2021-03-22 08:00] VITALS: BP 172/92; PULSE 87; RESP 18; TEMP 36.8
[2021-03-22 08:54] VITALS: BP 172/92; PULSE 87
[2021-03-22 09:32] LABS: Hepatitis B Core Antibody IgM NON-REACTIVE (NON-REACTIVE)
[2021-03-22 11:07] VITALS: BP 166/82; PULSE 73; RESP 18; TEMP 37; O2SAT 98
[2021-03-22 11:22] VITALS: BP 166/82; PULSE 73
[2021-03-22] MEDS: amLODIPine Besylate 10 MG TABLET PO (11:22)
[2021-03-22] MEDS: Isosorbide Dinitrate 5 MG TABLET PO (11:22)
[2021-03-22] MEDS: Atorvastatin Calcium 40 MG TABLET PO (11:22)
[2021-03-22 11:23] VITALS: BP 166/82; PULSE 73
[2021-03-22] MEDS: polyethylene glycoL 3350 17 GM POWD.PACK PO (11:23)
[2021-03-22] MEDS: hydrALAZINE HCl 25 MG TABLET 75 MG PO (11:23)
--- NOTE | 2021-03-22 12:05 | W.MHC.F2F ---
Service Date Service Date: 03/22/21 Encounter Date of encounter: 03/22/21 Reasons for Services Reason for senior living: CV/CP assess and/or care, medication management, medication treatment and teach disease management Reason for physical therapy: home safety and mobility, therapeutic exercises, gait/transfer training, assess need for DME, ADL training and energy conservation MD Overseeing Care: Jordana Way Homebound: Leaving the home is medically contraindicated at this time without the asist of a device and/or another person due th the listed conditions above and below. Reason homebound: unsteady gait / fall risk, psychologically impaired / unsafe, cognitively impaired / unsafe and weakness related to hospital stay Certification: Based on the above findings, I certify that this patient is confined to the home and needs intermittent senior living care, physical therapy and/or speech therapy, or continues to need occupational therapy. The patient is under my care, and I have initiated the establishment of the plan of care. The patient will be followed by a physician who will periodically review the plan of care.
--- NOTE | 2021-03-22 12:10 | P.DS_ITS ---
DS: Providers Provider Date of Service: 03/22/21 Date of admission: 03/20/21 01:37 Primary care physician: Jordana Way MD Consults: 03/20/21 01:39 Consult to Nephrology Routine Consulting Provider: Leonardo Weinberg Reason for consultation: JANAK on CKD; HTN urgency; hx AAA repair 03/20/21 08:26 Addiction Medicine Routine Consulting Provider: Batsheva Jaquez Reason for consultation: cocaine abuse -> HTn rgency Consult to Care Team Routine Comment: Reason for consultation: cocaine abuse -> htn urgency DS: Diagnosis Discharge Diagnosis (1) Hypertensive emergency: Status: Acute (2) Acute kidney injury superimposed on CKD: Status: Acute (3) Cocaine abuse: Status: Acute (4) Tobacco abuse: Status: Acute DS: Summary Hospital Course Hospital Course: from admission H+P by hospitalist Calvin Conde, 03/20/21: 80-year-old male with a past medical history of hypertension, hyperlipidemia, CKD, history of aortic aneurysm status post repair in 2019; presented to the hospital today with a chief complaint of epigastric discomfort. Patient reported a possible disease not feeling well and has not been eating good and has no appetite; today his family member came in and gave him orange juice and subsequently he developed acute epigastric discomfort, sharp in nature ; denies any lightheadedness dizziness or associated setting; subsequently came to the ER for further evaluation. Denies any headaches or numbness tingling. Denies any blurry vision. Denies any nausea vomiting or diarrhea. Denies any urinary symptoms. Review of all other systems is negative except mentioned above ER course: Per ER team patient on presentation noted to be having elevated blood pressure with systolic in 200s and diastolic in 100s; given couple doses of IV labetalol with no significant improvement; discussed with ICU who recommended p.o. amlodipine and hydralazine. Which were given followed by the [facility] a improved. Also noted to have JANAK on CKD. Admitted for further management. This 80yo M with chronic HFrEF, HTN, HLD, CKD3, and hx AAA repair presenting with epigastric pain was admitted for HTN urgency + JANAK/CKD3 and tested positive for cocaine. Epigastric pain resolved and was likely due to cocaine abuse. Likewise, HTN urgency was likely due to cocaine abuse. Carvedilol was discontinued and he was started on amlodipine; hydralazine was increased. The importance of good BP control was counseled, especially given history of AAA. He was also noted to have acute on chronic kidney injury, also attributable to cocaine and also prerenal state with FENa 0.3%. There was no obstructive uropathy on CTA. 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 He was counseled to avoid cocaine and also given NRT to stop smoking. He was screened for HIV and tested negative. His HCV antibody is positive; HCVviral load is pending. He also has isolated anti-HBc; HBV viral load is pending. Due to impaired mobility and balance issues, we recommended that he go to [facility] but he refused; so he was discharged home with VNA services. Time Spent with Patient Time attestation: Total time spent providing and/or coordinating discharge services: Discharge coordination time: Greater than 30 minutes Quality: Stroke Does the patient have a stroke diagnosis?: No Physical Exam Vital Signs: Vital Signs: Last Vital Signs Temp 98.6 F 03/22/21 11:07 Pulse 73 03/22/21 11:23 Resp 18 03/22/21 11:07 BP 166/82 H 03/22/21 11:23 Pulse Ox 98 03/22/21 11:07 Body Mass Index 17.7 Gen: in no acute distress, muscle wasting HEENT: sclera anicteric, moist mucus membranes, edentulous Neck: supple Lungs: clear to auscultation bilaterally Heart: regular rate and rhythm, no murmurs Abd: soft, non-tender, non-distended Ext: no edema Skin: warm/well-perfused Neuro: alert and oriented x3, no focal findings Psych: appropriate affect DS: Data Data Completed and Pending Completed studies during hospitalization [Text1]: Laboratory Results WBC 4.8 X10*3/uL (4.8-10.8) 03/20/21 07:32 RBC 4.18 X10*6/uL (4.60-5.80) L 03/20/21 07:32 Hgb 11.9 g/dl (14.0-18.0) L 03/20/21 07:32 Hct 35.7 % (42-52) L 03/20/21 07:32 MCV 85.4 fL (80-98) 03/20/21 07:32 MCH 28.5 pg (27.0-33.0) 03/20/21 07:32 MCHC 33.3 g/dl (31.0-36.0) 03/20/21 07:32 RDW 16.6 % (11.0-16.0) H 03/20/21 07:32 Plt Count 133 X10*3/uL (160-400) L 03/20/21 07:32 MPV 11.8 fL (9.4-12.4) 03/20/21 07:32 Immature Gran % (Auto) 0.4 % (0.0-0.4) 03/20/21 07:32 Neut % (Auto) 61.7 % (45-73) 03/20/21 07:32 Lymph % (Auto) 18.4 % (20-40) L 03/20/21 07:32 Piatt % (Auto) 16.4 % (2-11) H 03/20/21 07:32 Eos % (Auto) 2.7 % (0-4) 03/20/21 07:32 Baso % (Auto) 0.4 % (0-2) 03/20/21 07:32 Lymph # (Auto) 0.9 X10*3/uL (1.2-4.9) L 03/20/21 07:32 Piatt # (Auto) 0.8 X10*3/uL (0.1-1.2) 03/20/21 07:32 Eos # (Auto) 0.1 X10*3/uL (0.0-0.4) 03/20/21 07:32 Baso # (Auto) 0.0 X10*3/uL (0.0-0.2) 03/20/21 07:32 Abs Immat Gran (auto) 0.02 X10*3/uL (0.00-0.03) 03/20/21 07:32 Absolute Neuts (auto) 3.0 X10*3/uL (2.0-8.3) 03/20/21 07:32 Absolute Nucleated RBC 0.000 X10*3/uL (0.0-0.012) 03/20/21 07:32 Nucleated RBC % (auto) 0.0 /100WBC (0.0-0.2) 03/20/21 07:32 Smear Tech's Comments VERIFIED 03/19/21 17:30 PT 10.9 SEC (9.9-13.0) 03/19/21 19:33 INR 1.0 (0.9-1.1) 03/19/21 19:33 APTT 34.6 SEC (24.1-38.0) 03/19/21 19:33 Sodium 140 mmol/L (135-145) 03/22/21 05:09 Potassium 3.6 mmol/L (3.3-5.1) 03/22/21 05:09 Chloride 107 mmol/L (96-108) 03/22/21 05:09 Carbon Dioxide 25 mmol/L (22-29) 03/22/21 05:09 Anion Gap 12 (12-20) 03/22/21 05:09 BUN 38 mg/dL (9-16) H 03/22/21 05:09 Creatinine 2.40 mg/dL (0.5-1.4) H 03/22/21 05:09 Estim Creat Clear Calc 19.1 03/22/21 05:09 Estimated GFR 26 03/22/21 05:09 Random Glucose 88 mg/dL (60-115) 03/22/21 05:09 Lactic Acid 0.8 mmol/L (0.5-2.0) 03/19/21 17:30 Calcium 8.4 mg/dL (8.4-10.2) 03/22/21 05:09 Magnesium 2.2 mg/dL (1.6-2.6) 03/20/21 07:32 Total Bilirubin 0.9 mg/dL (0.0-1.0) 03/19/21 19:33 Direct Bilirubin 0.5 mg/dL (0.0-0.5) 03/19/21 19:33 AST 59 U/L (5-37) H 03/19/21 19:33 ALT 34 U/L (0-40) 03/19/21 19:33 Alkaline Phosphatase 94 U/L (39-117) 03/19/21 19:33 Troponin I High Sens 29.7 ng/L (<3.5-35.0) 03/19/21 19:33 B-Natriuretic Peptide 536 pg/mL (<100) H 03/19/21 17:30 Total Protein 8.8 g/dL (6.5-8.0) H 03/19/21 19:33 Albumin 4.0 g/dL (3.5-5.0) 03/19/21 19:33 Prealbumin 21.0 mg/dL (20-40) 03/21/21 06:04 Lipase 85 U/L (8-78) H 03/19/21 19:33 U Random Total Protein 146 mg/dL (<12) H 03/20/21 21:38 Ur Random Sodium 22.0 mmol/L 03/21/21 16:18 Urine Creatinine 116.43 mg/dL 03/21/21 16:18 Urine Opiates Screen Not Detected (Not Detect) 03/19/21 19:23 Urine Fentanyl Screen Not Detected (Not Detect) 03/19/21 19:23 Ur Barbiturates Screen Not Detected (Not Detect) 03/19/21 19:23 Ur Phencyclidine Scrn Not Detected (Not Detect) 03/19/21 19:23 Ur Amphetamines Screen Not Detected (Not Detect) 03/19/21 19:23 U Benzodiazepines Scrn Not Detected (Not Detect) 03/19/21 19:23 Urine Cocaine Screen POSITIVE (Not Detect) H 03/19/21 19:23 U Marijuana (THC) Screen POSITIVE (Not Detect) H 03/19/21 19:23 Ethyl Alcohol < 10 mg/dL 03/19/21 17:30 COVID-19 (PRABHAKAR) Negative (Negative) 03/19/21 19:23 COVID-19 Clin Com See Note 03/19/21 19:23 Hep Bs Antigen Negative (Negative) 03/21/21 06:04 Hep Bs Antibody NONREACTIVE (Nonreactive) 03/21/21 06:04 Hep B Core Total Ab Reactive (Nonreactive) 03/21/21 06:04 Hep B Core IgM Ab NON-REACTIVE (NON-REACTIVE) 03/21/21 06:04 Hepatitis C Ab (EIA) Reactive (Nonreactive) H 03/21/21 06:04 HIV 1&2 Ab/P24 Ag 4thGn Nonreactive (Nonreactive) 03/21/21 06:04 Impressions Abdomen/Pelvis CTA 03/19/21 17:29 IMPRESSION: * Chronic pulmonary emphysema and chronic thickening of the bronchial man. Correlate for history of chronic obstructive disease. No acute pneumonia or pleural effusion. * No evidence of pulmonary embolism. * Within the chest, the ascending thoracic aorta remains normal in size. There is chronic, stable dilatation of the aortic arch and descending thoracic aorta. The eccentric thickening of the wall of the aortic arch has a stable appearance compared to 08/16/2020. This could represent ulcerated plaque and/or old thrombus along the wall. No acute pathology. No acute aortic dissection. * Again noted is aortoiliac stent graft of the abdomen and pelvis. There is no contrast leakage from the graft. * No acute inflammatory change or obstruction along the gastrointestinal tract. * Prostate gland is chronically enlarged. Chest CTA 03/19/21 17:29 IMPRESSION: * Chronic pulmonary emphysema and chronic thickening of the bronchial man. Correlate for history of chronic obstructive disease. No acute pneumonia or pleural effusion. * No evidence of pulmonary embolism. * Within the chest, the ascending thoracic aorta remains normal in size. There is chronic, stable dilatation of the aortic arch and descending thoracic aorta. The eccentric thickening of the wall of the aortic arch has a stable appearance compared to 08/16/2020. This could represent ulcerated plaque and/or old thrombus along the wall. No acute pathology. No acute aortic dissection. * Again noted is aortoiliac stent graft of the abdomen and pelvis. There is no contrast leakage from the graft. * No acute inflammatory change or obstruction along the gastrointestinal tract. * Prostate gland is chronically enlarged. Discharge Plan Discharge Patient Disposition: Home Health Service Discharge Diagnosis: hypertensive urgency, acute/chronic kidney injury, cocaine abuse Referrals: Jordana Wya MD [Primary Care Provider] - 1 Week Leonardo Weinberg MD [Physician] - 2 Weeks Discharge Medications: New amlodipine 10 mg Tablet 10 mg PO DAILY Qty: 30 RF: 0 hydralazine 100 mg tablet 100 mg PO TID Qty: 90 RF: 0 nicotine 14 mg/24 hr patch 24 hour 1 patch transdermal DAILY Qty: 28 RF: 0 Continued atorvastatin [Lipitor] 40 mg tablet 40 mg PO DAILY Qty: 30 RF: 0 furosemide [Lasix] 40 mg tablet 40 mg PO DAILY 30 Days Qty: 30 RF: 0 isosorbide dinitrate 5 mg tablet 5 mg PO BID RF: 0 Discontinued carvedilol 12.5 mg Tablet 12.5 mg PO BID Qty: 60 RF: 0 hydralazine 50 mg tablet 50 mg PO BID RF: 0 Discharge Orders: Discharge Order (Routine); Ordered 03/22/21 Ordered By: Spring Reynoso Diet: advance to usual diet and low salt diet Activity on Discharge: As tolerated Stand Alone Forms: Patient Portal Discharge page Other Ambulatory Orders: Basic Metabolic Panel (Routine) Timeframe: 1 Week Facility: [facility] - Location: Laboratory Ordered By: Spring Reynoso Care Plan Goals: prevention of cardiovascular complications prevention of worsening kidney disease Health Concerns: uncontrolled high blood pressure acute/chronic kidney injury cocaine abuse tobacco abuse Plan of Treatment: STOP carvedilol; contraindicated with cocaine abuse START amlodipine 10 mg daily and hydralazine 100 mg 3x a day REPEAT lab draw, BMP, in 1 week FOLLOW UP with primary care doctor in 1 week, 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
--- NOTE | 2021-03-22 12:20 | P.PNNP_ITS ---
Subjective Subjective Date of Service: 03/22/21 Principal diagnosis: JANAK and severe HTN Interval history: seen and examined events reviewed no complaints Physical Exam Vital Signs: Vital Signs: Last Vital Signs Temp 98.6 F 03/22/21 11:07 Pulse 73 03/22/21 11:23 Resp 18 03/22/21 11:07 BP 166/82 H 03/22/21 11:23 Pulse Ox 98 03/22/21 11:07 Body Mass Index 17.7 Const: Other: Appears in pain General: cooperative Orientation/consciousness: patient oriented x3 Limitations: no limitations HENMT: Head: Yes normal to inspection Ears: hearing grossly normal bilaterally General nose exam: Normal external nose present Face and s inus: Yes normal facial exam Eyes: General: appearance normal, both eyes and all related structures EOM: EOMs intact bilaterally Neck: Neck: Yes normal visual inspection Resp: Effort & Inspection: normal respiratory effort Auscultation: clear to auscultation bilaterally, no rhonchi and no wheezes Cardio: Rate: regular rate Heart sounds: S1 normal heart sound present and S2 normal heart sound present Peripheral pulses: Peripheral pulses 2+ throughout GI: Inspection: Yes normal to inspection Palpation (GI): Soft to palpation, Tenderness to palpation present (GI) in the epigastrum, no guarding, not rigid and no pulsatile masses : General: Yes no CVA tenderness Back/Spine/Pelvis: Back: no CVA tenderness Skin: Rashes: no rashes Wounds: no wounds Neuro: General: patient oriented x3, tone normal and moves all extremities Gait exam (Neuro): Normal gait present Extrem: General: Yes normal to inspection and Yes no pedal edema Objective Data Labs CBC & Chem 7: 03/20/21 07:32 03/22/21 05:09 Labs: Laboratory Results - last 24 hr 03/21/21 03/21/21 03/21/21 06:04 16:18 16:18 Sodium Potassium Chloride Carbon Dioxide Anion Gap BUN Creatinine Estim Creat Clear Calc Estimated GFR Random Glucose Calcium Ur Random Sodium 22.0 Urine Creatinine 116.43 Hep B Core IgM Ab NON-REACTIVE 03/22/21 05:09 Sodium 140 Potassium 3.6 Chloride 107 Carbon Dioxide 25 Anion Gap 12 BUN 38 H Creatinine 2.40 H Estim Creat Clear Calc 19.1 Estimated GFR 26 Random Glucose 88 Calcium 8.4 Ur Random Sodium Urine Creatinine Hep B Core IgM Ab Procedures Date of Service Date of Service: 03/22/21 Assessment & Plan Assessment and plan (1) JANAK (acute kidney injury): Status: Acute (2) Hypertensive urgency: Status: Acute (3) CKD (chronic kidney disease) stage 4, GFR 15-29 ml/min: Status: Acute Assessment and Plan: stable kidney function JANAK probbaly due to contrast nephropathy and acute hypertensive nephrosclerosis s/p CTA he has proteinuria but no hematuria cocaine can be associated with anca no obstruction on CT scan 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
--- NOTE | 2021-03-22 12:25 | MHC.CM.PN ---
Patient has been medically cleared for dc to home today with services. A referral had been made to [facility], who has been made aware of today's dc. Last IMM addressed yesterday.
--- NOTE | 2021-03-22 12:27 | MHC.CM.PN ---
Patient will return home via [facility] today at 2PM.
[2021-03-24 15:11] LABS: Myeloperoxidase Antibody <1.0 AI; Proteinase 3 PR3 Antibodies <1.0 AI
[2021-03-24 20:31] LABS: HCV Log PCR 6.83 Log IU/mL (NOT DETECTED); HepC Viral Load 6760000 IU/mL (NOT DETECTED)
== END 2021-03-22 14:55 | disposition home health service (06) | DRG 918 ==
LOC: HO.ED 03-20 00:20 → HO.EDOVER 03-20 01:52 → HO.IMC 03-20 10:11
PROVIDERS: Internal Medicine Nephrology; Physician Assistant; Admitting Provider Hospitalist; Emergency Provider Emergency Medicine; PCP Pediatrics; Visit Provider Family Medicine
DX: T40.5X1A Poisoning by cocaine, accidental (unintentional), initial encounter (principal); N17.9 Acute kidney failure, unspecified; I13.0 Hypertensive heart and chronic kidney disease with heart failure and stage 1 through stage 4 chronic kidney disease, or unspecified chronic kidney disease; I50.32 Chronic diastolic (congestive) heart failure; N18.4 Chronic kidney disease, stage 4 (severe); Y92.9 Unspecified place or not applicable; F17.210 Nicotine dependence, cigarettes, uncomplicated; F14.10 Cocaine abuse, uncomplicated; B19.20 Unspecified viral hepatitis C without hepatic coma; I25.2 Old myocardial infarction; I16.0 Hypertensive urgency; F10.10 Alcohol abuse, uncomplicated; Z20.822 Contact with and (suspected) exposure to COVID-19; Z71.6 Tobacco abuse counseling; Z79.899 Other long term (current) drug therapy
CPT/HCPCS: 36415; 71275; 74174; 80048; 80076; 80307; 82077; 83605; 83690; 83735; 83880; 84134; 84156; 84300; 84484; 85025; 85610; 85730; 86021; 86704; 86705; 86706; 86803; 87340; 87389; 87522; 87635; 93005; 97162; 99284; Q9967

== ENCOUNTER 2021-07-18 15:23 | Emergency (ER) | payer MEDICARE, OTHER, SELFPAY ==
[2021-07-18] VITALS (8 sets, daily range): BP systolic 141–220; BP diastolic 70–140; PULSE 89–107; RESP 12–20; TEMP 36.5–37; O2SAT 93–100
--- NOTE | ~2021-07-18 | CT_ITS ---
EXAMINATION: CT HEAD WITHOUT CONTRAST CLINICAL INFORMATION: Fall, alcohol use suspected. COMPARISON: CT head dated from 01/09/2021. TECHNIQUE: Contiguous axial imaging was performed from the skull base to vertex without intravenous administration of contrast. This CT examination was performed using dose optimization techniques as appropriate, variously including the following: *Automated exposure control *Adjustment of mA and/or kV according to patient size (this includes techniques or standardized protocols for targeted exams where dose is matched to indication/reason for exam; i.e. extremities or head) *Use of iterative reconstruction technique DLP: 722 mGy-cm FINDINGS: There is no evidence of acute intracranial hemorrhage or edematous territorial infarction. Scattered hypoattenuation in the periventricular and deep white matter are consistent with moderate microangiopathy. Gomez-white matter differentiation is preserved. Proportional prominence of the ventricles and sulcal spaces. No evidence for obstructive hydrocephalus. No abnormal mass effect or midline shift. No extra-axial fluid collections. Small contusion in the right posterior parietal scalp. No acute osseous abnormalities. Mucosal thickening of the paranasal sinuses. The mastoids are clear. CT/CT head/brain wo con IMPRESSION: Small right posterior parietal scalp hematoma without acute intracranial abnormalities. Paranasal sinus disease.
--- NOTE | 2021-07-18 16:07 | ECG_ITS ---
Test Reason : FALL Blood Pressure : / mmHG Vent. Rate : 102 BPM Atrial Rate : 102 BPM P-R Int : 180 ms QRS Dur : 088 ms QT Int : 374 ms P-R-T Axes : 075 072 080 degrees QTc Int : 487 ms Sinus tachycardia with frequent Premature ventricular complexes and Fusion complexes ST & T wave abnormality, consider inferolateral ischemia Abnormal ECG When compared with ECG of 19-MAR-2021 17:32, Fusion complexes are now Present ST now depressed in Anterior leads T wave inversion now evident in Inferior leads Referred By: Cecilia Olmos Electronically Signed By:Celestino Connors
--- NOTE | 2021-07-18 16:09 | ED_ITS ---
HPI - General Adult General Chief complaint: General Medical Stated complaint: fall Time Seen by Provider: 07/18/21 16:00 Source: EMS Mode of arrival: EMS Limitations: altered mental status History of Present Illness HPI narrative: Patient is brought to the emergency room by EMS. Seems that patient's neighbors found him on the floor in his apartment. It is unknown how long the patient had been on the floor. Patient is a poor historian. Patient states that he was watching TV and does not remember anything. Patient does not remember if he fell , does not remember anything of what happened. Related Data Home Medications Medication Instructions Recorded Confirmed isosorbide dinitrate 5 mg tablet 5 mg PO BID 03/19/21 03/19/21 Previous Rx's Medication Instructions Recorded atorvastatin 40 mg tablet (Lipitor) 40 mg PO DAILY #30 tab 08/21/20 furosemide 40 mg tablet (Lasix) 40 mg PO DAILY 30 Days #30 tab 10/11/20 amlodipine 10 mg tablet 10 mg PO DAILY #30 tab 03/22/21 hydralazine 100 mg tablet 100 mg PO TID #90 tab 03/22/21 nicotine 14 mg/24 hr daily 1 patch TRANSDERMAL DAILY #28 ea 03/22/21 transdermal patch Allergies Allergy/AdvReac Type Severity Reaction Status Date / Time No Known Allergies Allergy Verified 10/08/20 21:48 Review of Systems Review of Systems: Constitutional : No Weight loss, No Fever, No Chills, No Night Sweats, No Fatigue, No Malaise ENT/Mouth : No Hearing loss, No Ear Pain, No Nasal Congestion, No Sinus Pain, No Hoarseness, No sore throat, No Rhinorrhea, No Swallowing Difficulty Eyes: No Eye Pain, No Swelling, No Redness, No Foreign Body, No Discharge, No Vision Changes Cardiovascular : No Chest Pain, No SOB, No Dyspnea on Exertion, No Orthopnea, No Edema, No Palpitations Respiratory : No Cough, No Sputum, No Wheezing, No Smoke Exposure, No Dyspnea Gastrointestinal : No Nausea, No Vomiting, No Diarrhea, No Constipation, No abdominal Pain, No Hematochezia, No Melena Genitourinary : no irregular bleeding, No Dysuria, No Urinary Frequency, No Hematuria, No Urinary Incontinence, No Urgency, No Flank Pain, No Urinary Flow Changes, No Hesitancy Musculoskeletal : Complaining ?pain all over? Skin : No Skin Lesions, No rash Neuro : No Weakness, No Numbness, No Paresthesias, No Loss of Consciousness, No Dizziness, No Headache Psych : No Anxiety/Panic, No Depression, No SI/HI/AH/VH, No Social Issues, Heme/Lymph: No Bruising, No Bleeding,No Lymphadenopathy Endocrine : No Polyuria, No Polydipsia, No Temperature Intolerance [facility] Past Medical History Medical History Abnormal EKG Acute kidney injury superimposed on CKD Acute kidney injury superimposed on CKD Acute on chronic systolic and diastolic heart failure, NYHA class 3 JANAK (acute kidney injury) Alcohol abuse Anemia Cardiomyopathy CHF (congestive heart failure) CHF exacerbation CKD (chronic kidney disease) stage 4, GFR 15-29 ml/min Cocaine abuse Hypertension Hypertensive emergency Hypertensive urgency Hypertensive urgency Iron deficiency anemia Occult GI bleeding Surgical History History of AAA (abdominal aortic aneurysm) repair Social History Social History Household Members: None Household Members Other:: nursing home Housing: Apartment Housing Other:: nursing home Do you presently have visiting nurse or other home services: No Alcohol intake: current Alcohol intake frequency: a few times a week Alcohol type: beer Patient Tobacco Use Status: Current everyday Tobacco user Cigarette Packs Per Day: 0.5 Cigarettes Per Day: 10.0 Years Smoked: 40 Second Hand Smoke Exposure: No Substance Use Type: Crack/Cocaine Advance Directives: No Advance Directives Information Provided: No service: No Current occupational status: retired Physical Exam ED Vital Signs: Vital Signs - 24 hr 07/18/21 15:39 07/18/21 16:15 07/18/21 18:12 Temperature 98.6 F Pulse Rate 89 100 107 H Respiratory Rate 18 12 14 Blood Pressure 207/126 H 211/131 H 204/124 H Pulse Oximetry 93 96 97 07/18/21 18:33 07/18/21 19:13 07/18/21 21:56 Temperature 98.5 F Pulse Rate 105 H 100 104 H Respiratory Rate 14 15 18 Blood Pressure 177/94 H 141/70 H 144/88 H Pulse Oximetry 98 97 95 BMI result Body Mass Index 20.0 Const Other: Appearance: Alert. Oriented x2. No acute distress. Eyes: Pupils equal, round and reactive to light. ENT: Pharynx normal. Neck: Normal inspection. Neck supple. No lymph nodes noted. No crepitus CVS: Normal heart rate and rhythm. Pulses normal. Normal S1 and S2 Respiratory: No respiratory distress. Breath sounds normal. No Wheezing. No rales Abdomen: Soft and nontender. No rigidity. No distention. good BS x4 Skin: Skin warm and dry. Normal skin color. Normal skin turgor. Extremities: No lower extremity edema. No Lacerations. No Rash Neuro: Oriented X 3. No motor deficit. No sensory deficit. Moving all extermities. No slurred speech. Course Course Course Narrative: Patient received 200 of labetalol p.o., hydralazine 5 mg IV. Patient remains stable, blood pressure in the 140 systolic. Patient will need case management physical therapy. Sign-out given to Dr. Dalton Medical Decision Making Lab Data Result diagrams: 07/18/21 17:20 07/18/21 17:20 Labs: Lab Results 07/18/21 07/18/21 07/18/21 Range/Units 16:43 17:20 17:20 WBC 5.0 (4.8-10.8) X10*3/uL RBC 4.23 L (4.60-5.80) X10*6/uL Hgb 13.0 L (14.0-18.0) g/dl Hct 38.8 L (42.0-52.0) % MCV 91.7 (80.0-98.0) fL MCH 30.7 (27.0-33.0) pg MCHC 33.5 (31.0-36.0) g/dl RDW 14.8 (11.0-16.0) % Plt Count 147 L (160-400) X10*3/uL MPV 11.2 (9.4-12.4) fL Immature Gran % (Auto) 0.2 (0.0-0.4) % Neut % (Auto) 60.7 (45-73) % Lymph % (Auto) 23.7 (20-40) % Sullivan % (Auto) 10.2 (2-11) % Eos % (Auto) 4.4 H (0-4) % Baso % (Auto) 0.8 (0-2) % Lymph # (Auto) 1.2 (1.2-4.9) X10*3/uL Sullivan # (Auto) 0.5 (0.1-1.2) X10*3/uL Eos # (Auto) 0.2 (0.0-0.4) X10*3/uL Baso # (Auto) 0.0 (0.0-0.2) X10*3/uL Abs Immat Gran (auto) 0.01 (0.00-0.03) X10*3/uL Absolute Neuts (auto) 3.1 (2.0-8.3) x10*3/uL Absolute Nucleated RBC 0.000 (0.0-0.012) X10*3/uL Nucleated RBC % (auto) 0.0 (0.0-0.2) /100WBC PT 10.3 (9.9-13.0) SEC INR 0.9 (0.9-1.1) Sodium (135-145) mmol/L Potassium (3.3-5.1) mmol/L Chloride (96-108) mmol/L Carbon Dioxide (22-29) mmol/L Anion Gap (12-20) BUN (9-16) mg/dL Creatinine (0.5-1.4) mg/dL Estim Creat Clear Calc Estimated GFR Random Glucose (60-115) mg/dL Lactic Acid (0.5-2.0) mmol/L Calcium (8.4-10.2) mg/dL Magnesium (1.6-2.6) mg/dL Total Bilirubin (0.0-1.0) mg/dL Direct Bilirubin (0.0-0.5) mg/dL AST (5-37) U/L ALT (0-40) U/L Alkaline Phosphatase (39-117) U/L Ammonia (13-55) umol/L Total Creatine Kinase (38-174) U/L Troponin I High Sens (<3.5-35.0) ng/L Total Protein (6.5-8.0) g/dL Albumin (3.5-5.0) g/dL Ethyl Alcohol mg/dL COVID-19 (PRABHAKAR) Negative (Negative) COVID-19 Clin Com See Note 07/18/21 07/18/21 07/18/21 Range/Units 17:20 17:20 17:20 WBC (4.8-10.8) X10*3/uL RBC (4.60-5.80) X10*6/uL Hgb (14.0-18.0) g/dl Hct (42.0-52.0) % MCV (80.0-98.0) fL MCH (27.0-33.0) pg MCHC (31.0-36.0) g/dl RDW (11.0-16.0) % Plt Count (160-400) X10*3/uL MPV (9.4-12.4) fL Immature Gran % (Auto) (0.0-0.4) % Neut % (Auto) (45-73) % Lymph % (Auto) (20-40) % Sullivan % (Auto) (2-11) % Eos % (Auto) (0-4) % Baso % (Auto) (0-2) % Lymph # (Auto) (1.2-4.9) X10*3/uL Sullivan # (Auto) (0.1-1.2) X10*3/uL Eos # (Auto) (0.0-0.4) X10*3/uL Baso # (Auto) (0.0-0.2) X10*3/uL Abs Immat Gran (auto) (0.00-0.03) X10*3/uL Absolute Neuts (auto) (2.0-8.3) x10*3/uL Absolute Nucleated RBC (0.0-0.012) X10*3/uL Nucleated RBC % (auto) (0.0-0.2) /100WBC PT (9.9-13.0) SEC INR (0.9-1.1) Sodium 141 (135-145) mmol/L Potassium 4.4 D (3.3-5.1) mmol/L Chloride 106 (96-108) mmol/L Carbon Dioxide 23 (22-29) mmol/L Anion Gap 16 (12-20) BUN 23 H (9-16) mg/dL Creatinine 1.62 H (0.5-1.4) mg/dL Estim Creat Clear Calc 32.1 Estimated GFR 41 Random Glucose 82 (60-115) mg/dL Lactic Acid 2.0 (0.5-2.0) mmol/L Calcium 8.7 (8.4-10.2) mg/dL Magnesium 1.9 (1.6-2.6) mg/dL Total Bilirubin 0.4 (0.0-1.0) mg/dL Direct Bilirubin 0.2 (0.0-0.5) mg/dL AST 83 H (5-37) U/L ALT 42 H (0-40) U/L Alkaline Phosphatase 91 (39-117) U/L Ammonia (13-55) umol/L Total Creatine Kinase 285 H (38-174) U/L Troponin I High Sens 62.3 H (<3.5-35.0) ng/L Total Protein 8.5 H (6.5-8.0) g/dL Albumin 3.5 (3.5-5.0) g/dL Ethyl Alcohol mg/dL COVID-19 (PRABHAKAR) (Negative) COVID-19 Clin Com 07/18/21 07/18/21 Range/Units 17:20 17:20 WBC (4.8-10.8) X10*3/uL RBC (4.60-5.80) X10*6/uL Hgb (14.0-18.0) g/dl Hct (42.0-52.0) % MCV (80.0-98.0) fL MCH (27.0-33.0) pg MCHC (31.0-36.0) g/dl RDW (11.0-16.0) % Plt Count (160-400) X10*3/uL MPV (9.4-12.4) fL Immature Gran % (Auto) (0.0-0.4) % Neut % (Auto) (45-73) % Lymph % (Auto) (20-40) % Sullivan % (Auto) (2-11) % Eos % (Auto) (0-4) % Baso % (Auto) (0-2) % Lymph # (Auto) (1.2-4.9) X10*3/uL Sullivan # (Auto) (0.1-1.2) X10*3/uL Eos # (Auto) (0.0-0.4) X10*3/uL Baso # (Auto) (0.0-0.2) X10*3/uL Abs Immat Gran (auto) (0.00-0.03) X10*3/uL Absolute Neuts (auto) (2.0-8.3) x10*3/uL Absolute Nucleated RBC (0.0-0.012) X10*3/uL Nucleated RBC % (auto) (0.0-0.2) /100WBC PT (9.9-13.0) SEC INR (0.9-1.1) Sodium (135-145) mmol/L Potassium (3.3-5.1) mmol/L Chloride (96-108) mmol/L Carbon Dioxide (22-29) mmol/L Anion Gap (12-20) BUN (9-16) mg/dL Creatinine (0.5-1.4) mg/dL Estim Creat Clear Calc Estimated GFR Random Glucose (60-115) mg/dL Lactic Acid (0.5-2.0) mmol/L Calcium (8.4-10.2) mg/dL Magnesium (1.6-2.6) mg/dL Total Bilirubin (0.0-1.0) mg/dL Direct Bilirubin (0.0-0.5) mg/dL AST (5-37) U/L ALT (0-40) U/L Alkaline Phosphatase (39-117) U/L Ammonia 37 (13-55) umol/L Total Creatine Kinase (38-174) U/L Troponin I High Sens (<3.5-35.0) ng/L Total Protein (6.5-8.0) g/dL Albumin (3.5-5.0) g/dL Ethyl Alcohol 233 mg/dL COVID-19 (PRABHAKAR) (Negative) COVID-19 Clin Com Imaging Data CT scan - head: Radiologist's impression: FINDINGS: There is no evidence of acute intracranial hemorrhage or edematous territorial infarction. Scattered hypoattenuation in the periventricular and deep white matter are consistent with moderate microangiopathy. Gomez-white matter differentiation is preserved. Proportional prominence of the ventricles and sulcal spaces. No evidence for obstructive hydrocephalus. No abnormal mass effect or midline shift. No extra-axial fluid collections. Small contusion in the right posterior parietal scalp. No acute osseous abnormalities. Mucosal thickening of the paranasal sinuses. The mastoids are clear. ? CT/CT head/brain wo con IMPRESSION: Small right posterior parietal scalp hematoma without acute intracranial abnormalities. Paranasal sinus disease. ? Discharge Plan Discharge Clinical Impression: Alcohol abuse, Falls, Hypertension Patient Disposition: Still a Patient Prescriptions: No Action atorvastatin [Lipitor] 40 mg tablet 40 mg PO DAILY Qty: 30 0RF furosemide [Lasix] 40 mg tablet 40 mg PO DAILY 30 Days Qty: 30 0RF isosorbide dinitrate 5 mg tablet 5 mg PO BID 0RF Protocol: Hold for SBP< HOLD for SBP < : 90 amlodipine 10 mg Tablet 10 mg PO DAILY Qty: 30 0RF Protocol: Hold for SBP< HOLD for SBP < : 90 hydralazine 100 mg tablet 100 mg PO TID Qty: 90 0RF nicotine 14 mg/24 hr patch 24 hour 1 patch transdermal DAILY Qty: 28 0RF
[2021-07-18] MEDS: Labetalol HCL 100 MG TABLET PO ×2 (16:50→17:30)
[2021-07-18 17:08] LABS: COVID-19 Test Negative (Negative)
[2021-07-18] MEDS: Nitroglycerin 2 % Oint 1 GM Packet 1 INCH TRANSDERMA (17:29)
[2021-07-18 17:37] LABS: MANUAL DIFF FLAG NO
[2021-07-18 17:40] LABS: Basophils Percent Auto 0.8 % (0-2); Eosinophils Absolute Auto 0.2 X10*3/uL (0.0-0.4); Eosinophils Percent Auto 4.4 % (0-4); Hematocrit 38.8 % (42.0-52.0); Imm Gran Abs Auto 0.01 X10*3/uL (0.00-0.03); Imm Gran Pct Auto 0.2 % (0.0-0.4); Lymphocytes Absolute Auto 1.2 X10*3/uL (1.2-4.9); Lymphocytes Percent Auto 23.7 % (20-40); Mean Corpuscular HGB Conc 33.5 g/dl (31.0-36.0); Mean Corpuscular Hemoglobin 30.7 pg (27.0-33.0); Mean Corpuscular Volume 91.7 fL (80.0-98.0); Mean Platelet Volume 11.2 fL (9.4-12.4); Monocytes Absolute Auto 0.5 X10*3/uL (0.1-1.2); Monocytes Percent Auto 10.2 % (2-11); Neutrophils Absolute Auto 3.1 x10*3/uL (2.0-8.3); Neutrophils Percent Auto 60.7 % (45-73); Platelet Count 147 X10*3/uL (160-400); Red Blood Count 4.23 X10*6/uL (4.60-5.80); Red Cell Distribution Width 14.8 % (11.0-16.0)
[2021-07-18 17:46] LABS: INTERNATIONAL NORM RATIO 0.9 (0.9-1.1); Prothrombin Time 10.3 SEC (9.9-13.0)
[2021-07-18 17:58] LABS: Alanine Aminotransferase 42 U/L (0-40); Albumin Level 3.5 g/dL (3.5-5.0); Alkaline Phosphatase 91 U/L (39-117); Ammonia 37 umol/L (13-55); Anion Gap 16 (12-20); Aspartate Amino Transferase 83 U/L (5-37); Bilirubin Direct 0.2 mg/dL (0.0-0.5); Bilirubin Total 0.4 mg/dL (0.0-1.0); Blood Urea Nitrogen 23 mg/dL (9-16); Calcium 8.7 mg/dL (8.4-10.2); Carbon Dioxide 23 mmol/L (22-29); Chloride 106 mmol/L (96-108); Creatinine Clr Calc Pharmacy 32.1; Estimated Glomerular Filt Rate 41; Ethanol 233 mg/dL; Glucose Random 82 mg/dL (60-115); Magnesium 1.9 mg/dL (1.6-2.6); Potassium 4.4 mmol/L (3.3-5.1); Sodium 141 mmol/L (135-145); Total Protein 8.5 g/dL (6.5-8.0)
[2021-07-18 17:59] LABS: Troponin-I High Sensitivity 62.3 ng/L (<3.5-35.0)
[2021-07-18] MEDS: hydrALAZINE HCl 20 MG/ML VIAL 5 MG IVPUSH (18:11)
[2021-07-19] VITALS (12 sets, daily range): BP systolic 147–195; BP diastolic 90–122; PULSE 78–98; RESP 14–20; TEMP 36.6–37.1; O2SAT 95–98
[2021-07-19] MEDS: Metoprolol Tartrate 25 MG TABLET PO (05:09)
[2021-07-19 05:16] LABS: Appearance Urine CLEAR; Color Urine YELLOW; Glucose Urine UA NEG (NEG); Leukocyte Esterase Urine NEG (NEG); Nitrite Urine NEG (NEG); Specific Gravity - Urine 1.025 (1.005-1.025); UACC Culture Trigger NO; Urine Blood TRACE (NEG); Urine Ketones NEG (NEG); Urine Protein 3+ MG/DL (NEG-TRACE)
[2021-07-19 05:21] LABS: Squamous Epithelial Cell Urine TRACE /LPF; WBC Urine 0 /HPF (0-4)
[2021-07-19 05:31] LABS: Amphetamine Screen Urine Not Detected (Not Detect); Barbiturates, Urine Not Detected (Not Detect); Benzodiazepines Screen Urine Not Detected (Not Detect); Cannabinoid Screen Urine Not Detected (Not Detect); Cocaine Screen Urine Not Detected (Not Detect); Fentanyl, urine POSITIVE (Not Detect); Opiate Screen Urine Not Detected (Not Detect); Phencyclidine Screen Urine Not Detected (Not Detect)
[2021-07-19] MEDS: hydrALAZINE HCl 50 MG TABLET PO ×2 (06:24→08:32)
[2021-07-19] MEDS: amLODIPine Besylate 10 MG TABLET PO (08:32)
--- NOTE | 2021-07-19 14:49 | MHC.CM.PN ---
Male 80 S/P Fall PT Eval recommends STR. Attempted to reach pts daughters. 1st and 2nd contacts called. There was ability to leave a VM for #2 [place]. A detailed VM RE PT REC STR. CM reviewed prior admit discharge plans in EMR. [facility], now [facility], as well as [facility] were STR preferrences, documented 10/25 we referred. Clinical information has been sent for review. CM will follow.
[2021-07-20] VITALS (10 sets, daily range): BP systolic 150–196; BP diastolic 88–119; PULSE 61–113; RESP 12–23; TEMP 36.7–37; O2SAT 95–100
[2021-07-20] MEDS: hydrALAZINE HCl 50 MG TABLET 100 MG PO ×4 (01:07→22:38)
[2021-07-20] MEDS: Isosorbide Dinitrate 5 MG TABLET PO ×3 (01:07→22:38)
--- NOTE | 2021-07-20 01:18 | PC.NURSE ---
Pt alert and oriented x4, calm and cooperative. Received BP meds and tolerated well. Resting asleep in stretcher at this time.
--- NOTE | 2021-07-20 05:38 | PC.NURSE ---
pt awake, alert, speaking in full and complete sentences without distress. Pt denies pain at this time however reports intermittent pain in his bilateral lower legs and described it as spasms. The pt is hypertensive but denies headache, dizziness, visual changes, etc. CAll morales is in reach, pt requesting something to drink. RN will continue to monitor.
--- NOTE | 2021-07-20 06:33 | PC.NURSE ---
MD hsu aware of the patient's elevated blood pressures. Pt continues to deny or exhibit neuro deficits/changes. Per MD Villa patient is scheduled to receive BP meds as part of his routine AM medication which should assist. RN will provide this information in nurse to nurse report. Oncoming RN should update MD Olmos with any additional needs s/p AM med administration
--- NOTE | 2021-07-20 07:43 | PC.NURSE ---
received pt A?O in bed. Able to eat most of breakfast. Made comfortable. Will give BP meds at 9 and re-evaluate per MD. Awaiting PT consult for disposition decision.
[2021-07-20] MEDS: amLODIPine Besylate 10 MG TABLET PO (08:58)
[2021-07-20] MEDS: Atorvastatin Calcium 40 MG TABLET PO (08:59)
[2021-07-20] MEDS: Furosemide 40 MG TABLET PO (08:59)
--- NOTE | 2021-07-20 12:27 | PC.NURSE ---
patient a&ox3, desk monitor sinus tach, patient noted to be extremly hypertensive- 9am hydralazine was not given by previous nurse, this nurse noted it was not given and administered due to the htn, will call pharmacy as well. patient denies pain or discomfort, using urinal independently, will continue to monitor.
--- NOTE | 2021-07-20 14:30 | MHC.CM.PN ---
Male 80 PLACEMENT: The referrals that were sent yesterday, did not offer a bed. Met with Ramos Gerson today. He is A+Ox3 and pleasant. Explained that we have not found a facility for STR. Patient preferences obtained referrals sent. He has [employer] Medicare advantage. [facility] is interested in making a bed offer. Authorization will need to be obtained by the facility.
--- NOTE | 2021-07-20 15:29 | PC.NURSE ---
spoke with pharmacy about bp medication. pharmacist stated to hold 3pm bp medication due to the late administration from the first dose. pharmacist stated to recheck bp at 5pm and do an unscheduled administration at 5 then administer the evening dose a bit later to catch the patient back up. pt currently is mildly hypertensive in comparison to earlier. will redo vitals at 5
--- NOTE | 2021-07-20 16:03 | PC.NURSE ---
patient awake/alert, watching tv, no c/o pain or discomfort at this time, terrazzo roller sinus tach with pvcs, call morales within reach, will continue to monitor.
[2021-07-20] MEDS: Acetaminophen 325 MG TABLET 650 MG PO (18:34)
--- NOTE | 2021-07-20 18:35 | PC.NURSE ---
pt medicated for headache
--- NOTE | 2021-07-20 21:14 | PC.NURSE ---
patient currently sleeping, manager monitoring nsr 90s, vss, will continue to monitor.
[2021-07-21 01:04] VITALS: BP 151/97; PULSE 101; RESP 16; TEMP 37.1; O2SAT 98
[2021-07-21 01:23] VITALS: BP 166/97; PULSE 102; RESP 20; O2SAT 99
[2021-07-21 06:05] VITALS: BP 162/102; PULSE 100; RESP 15; TEMP 36.9; O2SAT 98
[2021-07-21 08:00] VITALS: BP 163/103; PULSE 104; RESP 14; TEMP 36.5; O2SAT 99
--- NOTE | 2021-07-21 08:44 | MHC.CM.ED ---
Patient remains in ER. No bed offers made yet. Referral broadcasted within 20 miles of patient's residence to all facilities that are contracted with patient's insurance. Continue to monitor for d/c needs.
[2021-07-21] MEDS: Furosemide 40 MG TABLET PO (09:07)
[2021-07-21] MEDS: amLODIPine Besylate 10 MG TABLET PO (09:07)
[2021-07-21] MEDS: Isosorbide Dinitrate 5 MG TABLET PO (09:07)
[2021-07-21] MEDS: Atorvastatin Calcium 40 MG TABLET PO (09:07)
[2021-07-21] MEDS: hydrALAZINE HCl 50 MG TABLET 100 MG PO (09:07)
--- NOTE | 2021-07-21 10:32 | MHC.RECOVSUP ---
Recovery Support note: Patient is an 80 year old Rwandan speaking male who presented to [facility] ED after a fall. This junior underwriter met with patient to discuss substance use and mental health. Patient reports he typically drinks 1-2 large beers daily. Patient reports some times he doesn't feel like drinking and he will go a period without consuming alcohol. According to patient, he had consumed 4 large beers prior to the fall. Patient attributes the fall in part to his alcohol use and also to his poor balance. Patient denies recent cocaine use. Patient states he has not used cocaine since his last hospitalization in March of 2021. Discussed positive fentanyl result in toxicology report. Patient reports he has not used any substances aside from beer and that he does not know how fentanyl got in his system. Patient reports he has never heard of fentanyl and he continues to deny drug use. Patient reports he is too old to be using drugs. Patient denies SI/HI/AH/VH. Discussed case with Gasoline [employer]isher.
[2021-07-21 12:28] VITALS: BP 152/92
--- NOTE | 2021-07-21 13:08 | MHC.CM.ED ---
Addendum entered by Nancy Ordonez 07/21/21 15:45: Received notification from Gerard KEY HOLDER that patient has not been able to make contact with daughter. Bruno booked and will be arriving at [facility]. Ayleen MCCARTHY aware. Original Note: Patient remains in ER. Patient lives alone, ambulates with a rolling walker and had no services prior to coming to the hospital. PCP verified. HCP verified to be on file. Patient has not received any Covid vaccines. Patient is declining the need for STR because he will be moving with his daughter in [place] in September. Patient's other daughter will transport him home at 2pm. Alina DUNAWAY aware. Continue to monitor for d/c needs.
[2021-07-21 13:53] VITALS: BP 164/98; PULSE 101; RESP 22; O2SAT 99
--- NOTE | 2021-07-21 20:40 | PC.NURSE ---
PATIENT ASKED BY TRIAGE NURSE IF HE WOULD LIKE TO CHECK BACK INTO EMERGENCY DEPARTMENT, AND COORDINATE A RIDE HOME FOR CRISSY. PATIENTS FAMILY MEMBER HIS DAUGHTER CALLED MULTIPLE TIMES ON DAY SHIFT TO ATTEMPT TO GET A RIDE. DAY SHIFT REPORTING HE WAS MEANT TO PICK HIM UP BUT NEVER CAME THIS AFTERNOON. A LYFT RIDE WAS CALLED FOR PATIENT BUT PATIENT MISSED THE RIDE. PATIENTS DAUGHTER CALLED AGAIN AND NO RESPONSE. AT THIS TIME PATIENT IS REFUSING TO SIGN BACK IN TO THE EMERGENCY DEPARTMENT AND BE SEEN AGAIN BY A PROVIDER. PATIENT IS ALERT AND CONVERSING APPROPRIATELY, CAPABLE OF MAKING HIS OWN CHOICES AT THIS TIME. PATIENT SITTING IN A WHEELCHAIR IN THE WAITING ROOM. WILL CONTINUE TO OFFER AND ATTEMPT TREATMENT FOR PATIENT.
--- NOTE | 2021-07-22 04:22 | PC.NURSE ---
CHECKING IN WITH PATIENT AGAIN, PATIENT CONTINUES TO REPORT THAT HE DOES NOT WANT TO BE SEEN AND EVALUATED, ASKING TO REATTEMPT TO CALL DAUGHTER IN THE MORNING. PATIENT OFFERED A BED FOR THE NIGHT, PATIENT DECLINING. GIVEN BLANKET AND OFFERED FOOD AND BEVERAGES. PATIENT WAS PREVIOUS IN DEPARTMENT AND SEEN BY PROVIDER FOR CASE MANAGEMENT AND PHYSICAL THERAPY, PATIENT LEFT AMA BUT WAS UNABLE TO WALK. WILL CONTINUE TO OFFER EMERGENCY DEPARTMENT SERVICES TO PATIENT.
--- NOTE | 2021-07-22 04:40 | PC.NURSE ---
At 2300 pt was in the waiting room and was still waiting for a ride home. pt was offered to still be able to come back into the main ed to have a comfortable waiting area, pt states he is fine and kindly stated he is ok for now. pt seamed to be enjoying the people around him. continue to check on pt due to he is weak in the knees and uses a wheelchair to get to the bathroom on his own. no s/s of distress noted.
--- NOTE | 2021-07-22 04:43 | PC.NURSE ---
pt offered to rest in a emc bed per financial services internship and pt accepted. pt was also given a sandwhich and beverage which he ate 100%. pt very kind and cooperative aox4.
== END 2021-07-21 15:59 | disposition left against medical advice (07) ==
PROVIDERS: Emergency Provider Emergency Medicine; PCP Pediatrics
DX: F10.10 Alcohol abuse, uncomplicated (principal); Y90.7 Blood alcohol level of 200-239 mg/100 ml; I13.0 Hypertensive heart and chronic kidney disease with heart failure and stage 1 through stage 4 chronic kidney disease, or unspecified chronic kidney disease; N18.4 Chronic kidney disease, stage 4 (severe); I50.9 Heart failure, unspecified; Z91.81 History of falling; F14.10 Cocaine abuse, uncomplicated; F17.200 Nicotine dependence, unspecified, uncomplicated; Z20.822 Contact with and (suspected) exposure to COVID-19; Z79.899 Other long term (current) drug therapy
CPT/HCPCS: 36415; 70450; 80048; 80076; 80307; 81001; 82077; 82140; 82550; 83605; 83735; 84484; 85025; 85610; 87040; 87635; 93005; 96374; 97162; 99285

== ENCOUNTER 2021-07-22 08:01 | Inpatient (IN) | payer MEDICARE, OTHER, SELFPAY ==
[2021-07-22] VITALS (11 sets, daily range): BP systolic 148–219; BP diastolic 83–132; PULSE 98–117; RESP 14–22; TEMP 36.2–37.3; O2SAT 97–100; BMI 23.4; BMI 19.1
--- NOTE | ~2021-07-22 | MR_ITS ---
MRI OF THE BRAIN WITHOUT IV CONTRAST INDICATION: Question CVA. COMPARISON: Head CT 07/22/2021. TECHNIQUE: Multiplanar multisequence MR imaging of the brain was obtained without IV contrast. FINDINGS: There is global cerebral volume loss and there is advanced chronic microangiopathy. There is no hydrocephalus, extra-axial surface collection, or herniation. The major flow voids at the skull base are preserved. There is no acute infarct on diffusion-weighted imaging. There is no intracranial hemorrhage on the gradient recalled echo acquisition. There is a 4 mm focus of susceptibility signal within the posterior left temporal lobe that could reflect a small focus of chronic hemosiderin staining or a small cavernoma. The midline structures are normal. The cerebellar tonsils are normally positioned. The cerebellum and brainstem are normal. The craniocervical junction is normal. Osseous marrow signal intensity is homogenous. The visualized soft tissues are unremarkable. There is mild mucosal thickening within the left maxillary sinus and throughout the ethmoid air cells bilaterally. The mastoid air cells are clear. Partially imaged postoperative changes following ACDF at and below the C4 level. Suggestion of severe junctional level disease at C3-C4 greater than C2-C3 with possible severe central canal stenosis and mass effect on the cervical cord at C3-C4 that would be better assessed with a cervical spine MRI. MR/MR head/brain wo con IMPRESSION: - Partially imaged postoperative changes following ACDF at and below the C4 level. Suggestion of severe junctional level disease at C3-C4 greater than C2-C3 with possible severe central canal stenosis and mass effect on the cervical cord at C3-C4 that would be better assessed with a cervical spine MRI. - No acute infarcts. There is global cerebral volume loss and there is advanced chronic microangiopathy. - There is a 4 mm focus of susceptibility signal within the posterior left temporal lobe that could reflect a small focus of chronic hemosiderin staining or a small cavernoma.
--- NOTE | ~2021-07-22 | CT_ITS ---
EXAMINATION: CT HEAD WITHOUT CONTRAST CLINICAL INFORMATION: Altered mental status COMPARISON: Previous head CT most recent 07/18/2021 TECHNIQUE: Contiguous axial imaging was performed from the skull base to vertex without intravenous administration of contrast. This CT examination was performed using dose optimization techniques as appropriate, variously including the following: *Automated exposure control *Adjustment of mA and/or kV according to patient size (this includes techniques or standardized protocols for targeted exams where dose is matched to indication/reason for exam; i.e. extremities or head) *Use of iterative reconstruction technique DLP: 651 mGy-cm FINDINGS: There is no evidence of an extra-axial collection. There is no evidence of intra-axial or extra-axial hemorrhage. The ventricles and extra-axial CSF spaces are prominent suggestive of generalized atrophy. There is nonspecific periventricular white matter disease. There is low-attenuation in the left basal ganglia questionable for infarct axial image 24 series 2 measuring 1.2 x 2 cm. No mass or mass effect is seen. Review at bone windows is normal. No skull fracture is seen. Visualized paranasal sinuses, mastoid air cells and middle ears are clear. CT/CT head/brain wo con IMPRESSION: Generalized atrophy and nonspecific periventricular white matter disease. Question left basal ganglia infarct new in the interval from 07/18/2021 exam. This could be further evaluated with MRI if clinically indicated.
--- NOTE | ~2021-07-22 | XR_ITS ---
EXAMINATION: 1. CHEST X-RAY 2. KUB CLINICAL INFORMATION: Screening COMPARISON: CTA chest, abdomen and pelvis 03/19/2021 and chest x-ray 01/09/2021 TECHNIQUE: Frontal views of the chest and abdomen were obtained. FINDINGS: Cardiac silhouette is normal in size. Atherosclerotic disease of the aortic arch. The lungs are well aerated. There is no lobar consolidation. No pleural effusion or pneumothorax. No dilated air-filled loops of small bowel to suggest an obstructive process. Mild to moderate stool burden noted throughout the distal colon. Aortobiiliac stent graft noted. No acute osseous abnormality identified. XR/XR chest 1V IMPRESSION: -No acute pulmonary pathology. -Nonobstructing bowel gas pattern.
--- NOTE | ~2021-07-22 | XR_ITS ---
EXAMINATION: 1. CHEST X-RAY 2. KUB CLINICAL INFORMATION: Screening COMPARISON: CTA chest, abdomen and pelvis 03/19/2021 and chest x-ray 01/09/2021 TECHNIQUE: Frontal views of the chest and abdomen were obtained. FINDINGS: Cardiac silhouette is normal in size. Atherosclerotic disease of the aortic arch. The lungs are well aerated. There is no lobar consolidation. No pleural effusion or pneumothorax. No dilated air-filled loops of small bowel to suggest an obstructive process. Mild to moderate stool burden noted throughout the distal colon. Aortobiiliac stent graft noted. No acute osseous abnormality identified. XR/XR KUB IMPRESSION: -No acute pulmonary pathology. -Nonobstructing bowel gas pattern.
--- NOTE | 2021-07-22 08:45 | ED_ITS ---
HPI - General Adult General Chief complaint: General Medical Stated complaint: ams Time Seen by Provider: 07/22/21 08:26 Related Data Home Medications Medication Instructions Recorded Confirmed isosorbide dinitrate 5 mg tablet 5 mg PO BID 03/19/21 07/19/21 Previous Rx's Medication Instructions Recorded atorvastatin 40 mg tablet (Lipitor) 40 mg PO DAILY #30 tab 08/21/20 furosemide 40 mg tablet (Lasix) 40 mg PO DAILY 30 Days #30 tab 10/11/20 amlodipine 10 mg tablet 10 mg PO DAILY #30 tab 03/22/21 hydralazine 100 mg tablet 100 mg PO TID #90 tab 03/22/21 Allergies Allergy/AdvReac Type Severity Reaction Status Date / Time No Known Allergies Allergy Verified 10/08/20 21:48 [facility] Past Medical History Medical History Abnormal EKG Acute kidney injury superimposed on CKD Acute kidney injury superimposed on CKD Acute on chronic systolic and diastolic heart failure, NYHA class 3 JANAK (acute kidney injury) Alcohol abuse Anemia Cardiomyopathy CHF (congestive heart failure) CHF exacerbation CKD (chronic kidney disease) stage 4, GFR 15-29 ml/min Cocaine abuse Hypertension Hypertensive emergency Hypertensive urgency Hypertensive urgency Iron deficiency anemia Occult GI bleeding Surgical History History of AAA (abdominal aortic aneurysm) repair Social History Social History Household Members: None Household Members Other:: penitentiary Housing: Apartment Housing Other:: penitentiary Do you presently have visiting nurse or other home services: No Alcohol intake: current Alcohol intake frequency: 3 or more drinks per day Alcohol type: beer Patient Tobacco Use Status: Current someday Tobacco user Cigarette Packs Per Day: 0.5 Cigarettes Per Day: 10.0 Years Smoked: 40 Second Hand Smoke Exposure: No Substance Use Type: Crack/Cocaine Advance Directives: Yes Advance Directives on File: Yes Advance Directives Date on File: 10/09/20 service: No Current occupational status: retired Physical Exam ED Vital Signs: Vital Signs - 24 hr 07/22/21 08:16 Temperature 97.1 F Pulse Rate 98 Respiratory Rate 18 Blood Pressure 178/114 H Pulse Oximetry 100 BMI result Body Mass Index 23.4 Discharge Plan Discharge Prescriptions: No Action atorvastatin [Lipitor] 40 mg tablet 40 mg PO DAILY Qty: 30 0RF furosemide [Lasix] 40 mg tablet 40 mg PO DAILY 30 Days Qty: 30 0RF isosorbide dinitrate 5 mg tablet 5 mg PO BID 0RF Protocol: Hold for SBP< HOLD for SBP < : 90 amlodipine 10 mg Tablet 10 mg PO DAILY Qty: 30 0RF Protocol: Hold for SBP< HOLD for SBP < : 90 hydralazine 100 mg tablet 100 mg PO TID Qty: 90 0RF
--- NOTE | 2021-07-22 08:49 | ED_ITS ---
HPI - Altered Mental Status General Chief Complaint: General Medical Stated Complaint: ams Time Seen by Provider: 07/22/21 08:26 Source: patient Mode of arrival: ambulatory Limitations: no limitations History of Present Illness HPI narrative: Patient is an 80-year-old male with a past medical history of AAA s/p repair in 2019, CHF, hypertension, CKD, anemia, cardiomyopathy, NSTEMI. Patient presented to the emergency department on 07/18/2021 after being found on the floor of his apartment by neighbors. He was a poor historian regarding the event, and his ethanol level on arrival was 233. urine in the emergency department for 3 days after initial evaluation and medical clearance as physical therapy had advised short-term rehab placement. case management had been involved and facilitating placement, yesterday patient was refusing to go to short-term rehab reporting that he was to go home with his daughter, Cosme. At the time of evaluation patient was alert oriented to person place time and event. He was ambulatory with steady gait. He left against medical advice. Nursing staff discharged patient to the waiting room awaiting his daughter to pick him up. Patient's daughter never came to pick patient up from the emergency department and he was found by hospital staff to be confused this morning therefore signed back in as a patient. During exam, he is pleasantly confused disoriented to time place and event. Appears to be having hallucinations, reporting staff are performing actions whic h they are not, and believing other patients in the department are his family members. He has no complaints when asked review of systems, denies headache, neck pain, chest pain, shortness of breath, nausea vomiting, abdominal pain, muscle pain. He is hypertensive this morning, has not yet taken any of his medications. MD complaint: confusion Related Data Home Medications Medication Instructions Recorded Confirmed isosorbide dinitrate 5 mg tablet 5 mg PO BID 03/19/21 07/22/21 Previous Rx's Medication Instructions Recorded atorvastatin 40 mg tablet (Lipitor) 40 mg PO DAILY #30 tab 08/21/20 furosemide 40 mg tablet (Lasix) 40 mg PO DAILY 30 Days #30 tab 10/11/20 amlodipine 10 mg tablet 10 mg PO DAILY #30 tab 03/22/21 hydralazine 100 mg tablet 100 mg PO TID #90 tab 03/22/21 Allergies Allergy/AdvReac Type Severity Reaction Status Date / Time No Known Allergies Allergy Verified 10/08/20 21:48 Review of Systems Review of Systems: Constitutional: No weight loss, fever, chills, weakness. HEENT: No visual loss or yellow sclera. No sneezing, congestion, runny nose or sore throat. Skin: No rash or itching. Cardiovascular: No chest pain, chest pressure or chest discomfort. No palpitations or pedal edema. Respiratory: No shortness of breath, cough or sputum production. Gastrointestinal: No anorexia, nausea, vomiting or diarrhea. No abdominal pain or blood in stool. Genitourinary: No burning micturition. No urinary frequency. Neurologic: No headache, dizziness, syncope, unilateral weakness, ataxia, numbness or tingling in the extremities. No change in bowel or bladder control. Musculoskeletal: No muscle pain, back pain, joint pain or stiffness. Psychiatric:No depression or anxiety. Endocrine: No polyuria or polydipsia. Yes all other systems are reviewed and are negative PMFSH Past Medical History Attestation statement: The following information was validated with the patient. Source: old records reviewed Medical History Abnormal EKG Acute kidney injury superimposed on CKD Acute kidney injury superimposed on CKD Acute on chronic systolic and diastolic heart failure, NYHA class 3 JANAK (acute kidney injury) Alcohol abuse Anemia Cardiomyopathy CHF (congestive heart failure) CHF exacerbation CKD (chronic kidney disease) stage 4, GFR 15-29 ml/min Cocaine abuse Hypertension Hypertensive emergency Hypertensive urgency Hypertensive urgency Iron deficiency anemia Occult GI bleeding Surgical History History of AAA (abdominal aortic aneurysm) repair Social History Social History Household Members: None Household Members Other:: long term Housing: Apartment Housing Other:: long term Do you presently have visiting nurse or other home services: No Alcohol intake: current Alcohol intake frequency: 3 or more drinks per day Alcohol type: beer Patient Tobacco Use Status: Current someday Tobacco user Cigarette Packs Per Day: 0.5 Cigarettes Per Day: 10.0 Years Smoked: 40 Second Hand Smoke Exposure: No Substance Use Type: Crack/Cocaine Advance Directives: Yes Advance Directives on File: Yes Advance Directives Date on File: 10/09/20 service: No Current occupational status: retired Physical Exam ED Vital Signs: Vital Signs - 24 hr 07/22/21 08:16 07/22/21 10:27 07/22/21 10:55 Temperature 97.1 F Pulse Rate 98 104 H 106 H Respiratory Rate 18 14 Blood Pressure 178/114 H 202/132 H 199/118 H Pulse Oximetry 100 07/22/21 11:00 07/22/21 11:20 07/22/21 12:16 Temperature 99.2 F Pulse Rate 104 H Respiratory Rate 22 H Blood Pressure 208/127 H 219/114 H Pulse Oximetry 97 07/22/21 13:16 07/22/21 15:22 Temperature Pulse Rate 117 H 103 H Respiratory Rate 15 Blood Pressure 157/113 H 179/103 H Pulse Oximetry 99 BMI result Body Mass Index 23.4 Vital signs have been reviewed and appeared to be correct. Blood pressure elevated 178/114.? Heart rate normal.? Respiration rate normal. Temperature normal.? Oxygen saturation normal. Appearance: Alert.?Oriented to person, disoriented to place time and event. No acute distress.?Normal affect. Eyes: Pupils equal, round and reactive to light. EOMi. No Nystagmus? ENT: Pharynx normal.?? Neck: Normal inspection.? Neck supple.?? CVS: Heart sounds normal. Normal heart rate and rhythm.? Pulses normal.?? Respiratory: + hypertensive. No respiratory distress.? Lung sounds clear to auscultation bilaterally?? Abdomen: Soft and non-tender. Normoactive bowel sounds. No pulsatile mass.?? Skin: Skin warm and dry.? Normal skin color.? Normal skin turgor.?? Extremities: No lower extremity edema.? Neuro: No focal neurological deficit observed, CN II-XII intact, normal sensory observed, normal coordination observed. Level of consciousness: altered. Motor strength: Proximal right upper extremity 5 /5, distal right upper extremity 5 /5, proximal left upper extremity 5 /5, distal left upper extremity 5 /5, right lower extremity 5 /5, left lower extremity 5 /5.? Speech: [id number] test: Normal, [id number] test: patient unable to perform reporting baseline weakness and pain of the bilateral legs from hips. NIH Stroke Scale Internal: Initial- Upon Arrival Time: 08:15 Level of Consciousness: Alert Level of Consciousness Questions: Answers one question correctly Level of Consciousness Commands: Performs both tasks correctly Best Gaze: Normal Visual: No visual loss Facial Palsy: Normal Motor Arm (Right): No drift Motor Arm (Left): No drift Motor Leg (Right): No drift Motor Leg (Left): No drift Limb Ataxia: Absent Sensory: Normal Best Language: No aphasia Dysarthia: Normal Extinction and Inattention: No abnormality Score: 1 Course Course Course Narrative: Patient is an 80-year-old male who was referred for placement in short-term rehab due to generalized weakness and deconditioning, left against medical advice yesterday. He returns today with confusion, disorientation, and concern for visual hallucination with onset of unknown timing. There has been no report of additional falls from patient. He had a head CT on 07/18/2021 which indicated a small parietal scalp hematoma without acute intracranial abnormalities. Today will obtain repeat head CT, NIH scale of 1 due to altered level of consciousness. Will obtain repeat labs including CBC is CMP today to evaluate for leukocytosis, anemia, electrolyte abnormality, abnormal renal function. He is hypertensive on arrival 178/114 but is not yet taken his antihypertensive medications this morning, therefore will administer them at this time. His blood pressure does not improve will consider administration of hydralazine. Patient will require case management referral again for placement, at this time I do not think he is able to make his own medical decisions due to his confusion. Reevaluation(s) Reevaluation #1: There is no clear onset at the time of his confusion. Repeat head CT indicates generalized atrophy and nonspecific periventricular white matter disease there i s question of left basal ganglia infarct new in the interval from 07/18/2021 exam, with radiology recommendation of MRI if clinically indicated. Given the onset of confusion is unable to be determined over 18 hour period prior to readmission to the emergency department this morning, He would not be a candidate for tPA at this time. Aspirin 325 mg p.o. ordered. Discussed case with Attending Dr. Dalton, at this time do not believe neurology consult is required. Attempted to contact patient's daughter Cosme, unable to make contact therefore voice message was left. Time: 10:11 Reevaluation #2: Blood pressure continues to be elevated to 208/127 after receiving normal antihypertensive regimen. Will order hydralazine 5 mg IV with goal to lower blood pressure no more than 20% to 176/96 as he has been chronically hyperten sive, EKG and troponin to be obtained to evaluate for ischemia, ACS. CBC indicates pancytopenia, WBC 3.8, RBC 4.09, hemoglobin 12.8, hematocrit 37.4, platelet 117, overall consistent with prior labs although leukopenia is new. BUN of 33 creatinine 2.09 consistent with baseline. patient was incontinent of foul-smelling urine, will obtain urinalysis to evaluate for infection. Time: 11:45 Reevaluation #3: EKG with ST and T-wave abnormality, concern for ST elevation in V2 and T-wave inversions in the V3-V6, discussed with Dr. Dalton, troponin is pending. Patient declines chest pain, palpitations, neck pain, shortness of breath, headache, dizziness or lightheadedness at this time. Blood pressure has improved after IV hydralazine currently 157/113, tachycardia at 117, given he is afebrile I suspect this is secondary to rebound tachycardia with hydralazine administration. Time: 13:05 Additional Reevaluation(s): 1340: Noted add on troponin to be 72.5 from 0953 today, at this point is nonspecific given he is not having any active complaints of chest pain. Will obtain repeat troponin for comparison at this time. 1420: Repeat troponin 94.8, delta <50%, therefore ACS is unlikely, this is likely secondary to hypertension. Urinalysis is unremarkable for urinary tract infection. 1525: blood pressure currently 179/103 which is improved from max elevated blood pressure 220/120 throughout this stay. Will contact hospitalist Dr. Calderon for admission at this time. 1610: Hospitalist Dr. Rubio at bedside, patient accepted for admission at this time, bp 167/83. MDM - Altered Mental Status Medical Records Attestation: I reviewed the patient's medical records. Lab Data Attestation: I reviewed the patient's lab results. Result diagrams: 07/22/21 09:53 07/22/21 09:53 Labs: Lab Results 07/22/21 07/22/21 07/22/21 Range/Units 09:44 09:53 09:53 WBC 3.8 L (4.8-10.8) X10*3/uL RBC 4.09 L (4.60-5.80) X10*6/uL Hgb 12.8 L (14.0-18.0) g/dl Hct 37.4 L (42.0-52.0) % MCV 91.4 (80.0-98.0) fL MCH 31.3 (27.0-33.0) pg MCHC 34.2 (31.0-36.0) g/dl RDW 14.9 (11.0-16.0) % Plt Count 117 L (160-400) X10*3/uL MPV Not Reportable Immature Gran % (Auto) 0.3 (0.0-0.4) % Neut % (Auto) 69.5 (45-73) % Lymph % (Auto) 15.2 L (20-40) % [place] % (Auto) 13.6 H (2-11) % Eos % (Auto) 1.1 (0-4) % Baso % (Auto) 0.3 (0-2) % Lymph # (Auto) 0.6 L (1.2-4.9) X10*3/uL [place] # (Auto) 0.5 (0.1-1.2) X10*3/uL Eos # (Auto) 0.0 (0.0-0.4) X10*3/uL Baso # (Auto) 0.0 (0.0-0.2) X10*3/uL Abs Immat Gran (auto) 0.01 (0.00-0.03) X10*3/uL Absolute Neuts (auto) 2.6 (2.0-8.3) x10*3/uL Absolute Nucleated RBC 0.000 (0.0-0.012) X10*3/uL Nucleated RBC % (auto) 0.0 (0.0-0.2) /100WBC Smear Tech's Comments VERIFIED Sodium 139 (135-145) mmol/L Potassium 4.2 (3.3-5.1) mmol/L Chloride 100 (96-108) mmol/L Carbon Dioxide 26 (22-29) mmol/L Anion Gap 17 (12-20) BUN 33 H (9-16) mg/dL Creatinine 2.09 H (0.5-1.4) mg/dL Estim Creat Clear Calc 26.8 Estimated GFR 31 Random Glucose 119 H D (60-115) mg/dL Calcium 9.5 D (8.4-10.2) mg/dL Magnesium 1.8 (1.6-2.6) mg/dL Total Bilirubin 1.3 H (0.0-1.0) mg/dL AST 67 H (5-37) U/L ALT 34 (0-40) U/L Alkaline Phosphatase 86 (39-117) U/L Troponin I High Sens (<3.5-35.0) ng/L Total Protein 9.1 H (6.5-8.0) g/dL Albumin 3.8 (3.5-5.0) g/dL Urine Color Urine Appearance Urine pH (5.0-8.0) Ur Specific [place] (1.005-1.025) Urine Protein (NEG-TRACE) MG/DL Urine Glucose (UA) (NEG) MG/DL Urine Ketones (NEG) MG/DL Urine Blood (NEG) Urine Nitrite (NEG) Ur Leukocyte Esterase (NEG) Urine RBC (0) /HPF Urine WBC (0-4) /HPF Ur Squamous Epith Cells /LPF Urine Bacteria /LPF Ethyl Alcohol mg/dL COVID-19 (PRABHAKAR) Negative (Negative) COVID-19 Clin Com See Note 07/22/21 07/22/21 07/22/21 Range/Units 09:53 09:53 13:54 WBC (4.8-10.8) X10*3/uL RBC (4.60-5.80) X10*6/uL Hgb (14.0-18.0) g/dl Hct (42.0-52.0) % MCV (80.0-98.0) fL MCH (27.0-33.0) pg MCHC (31.0-36.0) g/dl RDW (11.0-16.0) % Plt Count (160-400) X10*3/uL MPV Immature Gran % (Auto) (0.0-0.4) % Neut % (Auto) (45-73) % Lymph % (Auto) (20-40) % [place] % (Auto) (2-11) % Eos % (Auto) (0-4) % Baso % (Auto) (0-2) % Lymph # (Auto) (1.2-4.9) X10*3/uL [place] # (Auto) (0.1-1.2) X10*3/uL Eos # (Auto) (0.0-0.4) X10*3/uL Baso # (Auto) (0.0-0.2) X10*3/uL Abs Immat Gran (auto) (0.00-0.03) X10*3/uL Absolute Neuts (auto) (2.0-8.3) x10*3/uL Absolute Nucleated RBC (0.0-0.012) X10*3/uL Nucleated RBC % (auto) (0.0-0.2) /100WBC Smear Tech's Comments Sodium (135-145) mmol/L Potassium (3.3-5.1) mmol/L Chloride (96-108) mmol/L Carbon Dioxide (22-29) mmol/L Anion Gap (12-20) BUN (9-16) mg/dL Creatinine (0.5-1.4) mg/dL Estim Creat Clear Calc Estimated GFR Random Glucose (60-115) mg/dL Calcium (8.4-10.2) mg/dL Magnesium (1.6-2.6) mg/dL Total Bilirubin (0.0-1.0) mg/dL AST (5-37) U/L ALT (0-40) U/L Alkaline Phosphatase (39-117) U/L Troponin I High Sens 72.5 H 94.8 H (<3.5-35.0) ng/L Total Protein (6.5-8.0) g/dL Albumin (3.5-5.0) g/dL Urine Color Urine Appearance Urine pH (5.0-8.0) Ur Specific [place] (1.005-1.025) Urine Protein (NEG-TRACE) MG/DL Urine Glucose (UA) (NEG) MG/DL Urine Ketones (NEG) MG/DL Urine Blood (NEG) Urine Nitrite (NEG) Ur Leukocyte Esterase (NEG) Urine RBC (0) /HPF Urine WBC (0-4) /HPF Ur Squamous Epith Cells /LPF Urine Bacteria /LPF Ethyl Alcohol < 10 mg/dL COVID-19 (PRABHAKAR) (Negative) COVID-19 Clin Com 07/22/21 Range/Units 14:05 WBC (4.8-10.8) X10*3/uL RBC (4.60-5.80) X10*6/uL Hgb (14.0-18.0) g/dl Hct (42.0-52.0) % MCV (80.0-98.0) fL MCH (27.0-33.0) pg MCHC (31.0-36.0) g/dl RDW (11.0-16.0) % Plt Count (160-400) X10*3/uL MPV Immature Gran % (Auto) (0.0-0.4) % Neut % (Auto) (45-73) % Lymph % (Auto) (20-40) % [place] % (Auto) (2-11) % Eos % (Auto) (0-4) % Baso % (Auto) (0-2) % Lymph # (Auto) (1.2-4.9) X10*3/uL [place] # (Auto) (0.1-1.2) X10*3/uL Eos # (Auto) (0.0-0.4) X10*3/uL Baso # (Auto) (0.0-0.2) X10*3/uL Abs Immat Gran (auto) (0.00-0.03) X10*3/uL Absolute Neuts (auto) (2.0-8.3) x10*3/uL Absolute Nucleated RBC (0.0-0.012) X10*3/uL Nucleated RBC % (auto) (0.0-0.2) /100WBC Smear Tech's Comments Sodium (135-145) mmol/L Potassium (3.3-5.1) mmol/L Chloride (96-108) mmol/L Carbon Dioxide (22-29) mmol/L Anion Gap (12-20) BUN (9-16) mg/dL Creatinine (0.5-1.4) mg/dL Estim Creat Clear Calc Estimated GFR Random Glucose (60-115) mg/dL Calcium (8.4-10.2) mg/dL Magnesium (1.6-2.6) mg/dL Total Bilirubin (0.0-1.0) mg/dL AST (5-37) U/L ALT (0-40) U/L Alkaline Phosphatase (39-117) U/L Troponin I High Sens (<3.5-35.0) ng/L Total Protein (6.5-8.0) g/dL Albumin (3.5-5.0) g/dL Urine Color YELLOW Urine Appearance CLEAR Urine pH 6.5 (5.0-8.0) Ur Specific [place] 1.010 (1.005-1.025) Urine Protein 2+ H (NEG-TRACE) MG/DL Urine Glucose (UA) NEG (NEG) MG/DL Urine Ketones NEG (NEG) MG/DL Urine Blood NEG (NEG) Urine Nitrite NEG (NEG) Ur Leukocyte Esterase NEG (NEG) Urine RBC 1-4 (0) /HPF Urine WBC 0-2 (0-4) /HPF Ur Squamous Epith Cells TRACE /LPF Urine Bacteria NONE /LPF Ethyl Alcohol mg/dL COVID-19 (PRABHAKAR) (Negative) COVID-19 Clin Com Imaging Data CT scan - head: Radiologist's impression: IMPRESSION: Generalized atrophy and nonspecific periventricular white matter disease. Question left basal ganglia infarct new in the interval from 07/18/2021 exam. This could be further evaluated with MRI if clinically indicated. ECG Data ECG #1: Attestation: I personally reviewed and interpreted this ECG as follows: ECG interpretation date: 07/22/21 ECG interpretation time: 13:06 Prior ECG tracings: available for review Interpretation: Rate: 108 Rhythm:? sinus tachycardia with PVC [place]:?noral Normal P waves.? Normal ALEXANDRA.?? Normal QRS complex.?? ST elevation in V2 and t-wave inversions in V3-V6; reviewed with Dr. Dalton. qTC: 466 prior studies:?07/18/2021 The study has been interpreted contemporaneously by me. Critical Care Time Critical Care Time Critical Care Time: Yes Total Critical Care Time: 60 Attestation: I personally attest to this time spent taking care of the patient Discharge Plan Discharge Clinical Impression: Stroke, Hypertensive crisis Patient Disposition: Admitted As Inpatient
[2021-07-22] MEDS: Furosemide 40 MG TABLET PO (09:56)
[2021-07-22] MEDS: Isosorbide Dinitrate 5 MG TABLET PO ×2 (09:56→21:39)
[2021-07-22] MEDS: amLODIPine Besylate 10 MG TABLET PO (09:56)
[2021-07-22] MEDS: Atorvastatin Calcium 40 MG TABLET PO (09:56)
[2021-07-22] MEDS: hydrALAZINE HCl 50 MG TABLET 100 MG PO ×3 (09:56→21:38)
[2021-07-22 10:19] LABS: Basophils Percent Auto 0.3 % (0-2); Eosinophils Percent Auto 1.1 % (0-4); Hematocrit 37.4 % (42.0-52.0); Hemoglobin 12.8 g/dl (14.0-18.0); Imm Gran Abs Auto 0.01 X10*3/uL (0.00-0.03); Imm Gran Pct Auto 0.3 % (0.0-0.4); Lymphocytes Absolute Auto 0.6 X10*3/uL (1.2-4.9); Lymphocytes Percent Auto 15.2 % (20-40); MANUAL DIFF FLAG SCAN; Mean Corpuscular HGB Conc 34.2 g/dl (31.0-36.0); Mean Corpuscular Hemoglobin 31.3 pg (27.0-33.0); Mean Corpuscular Volume 91.4 fL (80.0-98.0); Monocytes Absolute Auto 0.5 X10*3/uL (0.1-1.2); Monocytes Percent Auto 13.6 % (2-11); Neutrophils Absolute Auto 2.6 x10*3/uL (2.0-8.3); Neutrophils Percent Auto 69.5 % (45-73); PLT CLUMP 1; Red Cell Distribution Width 14.9 % (11.0-16.0); SCAN SMEAR FLAG 1
[2021-07-22 10:21] LABS: Red Blood Count 4.09 X10*6/uL (4.60-5.80)
--- NOTE | 2021-07-22 10:30 | PC.NURSE ---
PT PLACED ON THE MONITOR, HE REMAINS CONVERSATIONAL WITH CONFUSION. HE WAS INCONTINENT OF URINE. STATES LEFT EYE IRRITATION AND REPORTS VISUAL FIELD CHANGE, PROVIDER AWARE.
[2021-07-22 10:45] LABS: Platelet Count 117 X10*3/uL (160-400); White Blood Count 3.8 X10*3/uL (4.8-10.8)
[2021-07-22 10:46] LABS: Alanine Aminotransferase 34 U/L (0-40); Albumin Level 3.8 g/dL (3.5-5.0); Alkaline Phosphatase 86 U/L (39-117); Anion Gap 17 (12-20); Aspartate Amino Transferase 67 U/L (5-37); Bilirubin Total 1.3 mg/dL (0.0-1.0); Blood Urea Nitrogen 33 mg/dL (9-16); Calcium 9.5 mg/dL (8.4-10.2); Carbon Dioxide 26 mmol/L (22-29); Chloride 100 mmol/L (96-108); Creatinine Clr Calc Pharmacy 26.8; Estimated Glomerular Filt Rate 31; Glucose Random 119 mg/dL (60-115); Magnesium 1.8 mg/dL (1.6-2.6); Potassium 4.2 mmol/L (3.3-5.1); SLIDE REVIEW VERIFIED; Sodium 139 mmol/L (135-145); Total Protein 9.1 g/dL (6.5-8.0)
[2021-07-22] MEDS: Aspirin 325 MG TABLET PO (10:49)
[2021-07-22 10:50] LABS: Ethanol < 10 mg/dL
[2021-07-22] MEDS: hydrALAZINE HCl 20 MG/ML VIAL 5 MG IVPUSH (12:00)
--- NOTE | 2021-07-22 12:06 | ECG_ITS ---
Test Reason : confusion Blood Pressure : / mmHG Vent. Rate : 108 BPM Atrial Rate : 108 BPM P-R Int : 162 ms QRS Dur : 082 ms QT Int : 348 ms P-R-T Axes : 071 082 -52 degrees QTc Int : 466 ms Sinus tachycardia with occasional Premature ventricular complexes ST & T wave abnormality, consider inferior ischemia ST & T wave abnormality, consider anterolateral ischemia Abnormal ECG When compared with ECG of 18-JUL-2021 18:04, Fusion complexes are no longer Present ST no longer depressed in Anterior leads T wave inversion now evident in Anterior leads Referred By: Jory Jose Electronically Signed By:TOMMY MINOR MD
[2021-07-22 13:26] LABS: Troponin-I High Sensitivity 72.5 ng/L (<3.5-35.0)
--- NOTE | 2021-07-22 13:48 | PHA.MEDREC ---
Pharmacy Consult ? Medication Reconciliation Pharmacy has completed the medication reconciliation. PATIENT VAGUE HISTORIAN, CONFUSED. HAS NOT FILLED WITH PHARMACY SINCE 10/2020. [facility] SENT IN 03/2021 BUT NEVER PICKED UP. LEFT MESSAGE WITH PATIENT'S FAMILY TO CALL ABOUT MEDS BUT HAVE NOT HEARD ANYTHING. SUSPECT PATIENT IS NON-ADHERENT TO MEDICATION REGIMEN.
[2021-07-22 14:13] LABS: Appearance Urine CLEAR; Color Urine YELLOW; Glucose Urine UA NEG (NEG); Leukocyte Esterase Urine NEG (NEG); Nitrite Urine NEG (NEG); PH 6.5 (5.0-8.0); UACC Culture Trigger NO; Urine Blood NEG (NEG); Urine Ketones NEG (NEG); Urine Protein 2+ MG/DL (NEG-TRACE)
[2021-07-22 14:19] LABS: Troponin-I High Sensitivity 94.8 ng/L (<3.5-35.0)
[2021-07-22 14:32] LABS: WBC Urine 0-2 /HPF (0-4)
[2021-07-22 14:33] LABS: Squamous Epithelial Cell Urine TRACE /LPF
[2021-07-22 15:23] LABS: COVID-19 Test Negative (Negative); IDNOW Serial# 9DD0AD1C
--- NOTE | 2021-07-22 15:24 | PC.NURSE ---
pt disoriented to date, ,aware he is in hospital in [place] but delusional in statements we own this part of the building, we can start our own [employer] company and fix it up around here . pt also concerned with who is going to go to the liquor store for him
--- NOTE | 2021-07-22 16:25 | PM.IMHP ---
History of Present Illness Date of Service: 07/22/21 Chief Complaint: Confusion Patient is an 80-year-old male with a past medical history of AAA s/p repair in 2019, CHF, hypertension, CKD, anemia, cardiomyopathy, NSTEMI. Patient presented to the emergency department on 07/18/2021 after being found on the floor of his apartment by neighbors.? He was a poor historian regarding the event,? and his ethanol level on arrival was 233.? urine in the emergency department for 3 days after initial evaluation and medical clearance as physical therapy had advised short-term rehab placement.? case management had been involved and facilitating placement, yesterday patient was refusing to go to short-term rehab reporting that he was to go home with his daughter, Cosme. At the time of evaluation patient was alert oriented to person place time and event.? He was ambulatory with steady gait.? He left against medical advice.? Nursing staff discharged patient to the waiting room awaiting his daughter to pick him up.? Patient's daughter never came to pick patient up from the emergency department and he was found by hospital staff to be confused this morning therefore signed back in as a patient. During exam, he is pleasantly confused disoriented to time place and event.? Appears to be having hallucinations, reporting staff are performing actions which they are not, and believing other patients in the department are his family members.? He has no complaints when asked review of systems,? denies headache, neck pain, chest pain, shortness of breath, nausea vomiting, abdominal pain, muscle pain.? He is hypertensive this morning,? has not yet taken any of his medications. ER Course Received hydralazine x 3 doses along with amlodipine on Imdur. BP slightly improved. AOCRI noted along with new delusions. CT demonstrates new CVA Review of Systems Review of Systems: unable to obtain [facility] Medical History Abnormal EKG Acute kidney injury superimposed on CKD Acute kidney injury superimposed on CKD Acute on chronic systolic and diastolic heart failure, NYHA class 3 JANAK (acute kidney injury) Alcohol abuse Anemia Cardiomyopathy CHF (congestive heart failure) CHF exacerbation CKD (chronic kidney disease) stage 4, GFR 15-29 ml/min Cocaine abuse Hypertension Hypertensive emergency Hypertensive urgency Hypertensive urgency Iron deficiency anemia Occult GI bleeding Surgical History History of AAA (abdominal aortic aneurysm) repair Social History Household Members: None Household Members Other:: [facility] Housing: Apartment Housing Other:: [facility] Do you presently have visiting nurse or other home services: No Alcohol intake: current Alcohol intake frequency: 3 or more drinks per day Alcohol type: beer Patient Tobacco Use Status: Current someday Tobacco user Cigarette Packs Per Day: 0.5 Cigarettes Per Day: 10.0 Years Smoked: 40 Second Hand Smoke Exposure: No Substance Use Type: Crack/Cocaine Advance Directives: Yes Advance Directives on File: Yes Advance Directives Date on File: 10/09/20 service: No Current occupational status: retired Meds Allergies Allergy/AdvReac Type Severity Reaction Status Date / Time No Known Allergies Allergy Verified 10/08/20 21:48 Active Medications: Current Medications Enoxaparin Sodium (Enoxaparin Sodium 30 Mg/0.3 Ml Syringe) 30 mg SUBCUT Q24H [facility] Pharmacy Consult (Consult Rx Perform Med Rec) 1 each MISCELLANE ONCE PRN PRN Reason: Consult order Sodium Chloride (0.9 % Sodium Chloride Flush 3 Ml Syringe) 3 ml IVFLUSH QSHIFT [facility] Home Medications Medication Instructions Recorded Confirmed Last Taken Type isosorbide dinitrate 5 mg tablet 5 mg PO BID 03/19/21 07/19/21 03/19/21 History Physical Exam Vital Signs and Narrative: Vital Signs: Last Vital Signs Temp 99.2 F 07/22/21 11:00 Pulse 103 H 07/22/21 15:22 Resp 15 07/22/21 15:22 BP 167/83 H 07/22/21 16:24 Pulse Ox 99 07/22/21 15:22 BMI result Body Mass Index 23.4 Const: Other: delusional Resp: Other: clear A/P Cardio: Other: -S4 +S1/S2 - S3 MRG GI: Other: soft NT/ND NABS x 4 quads Neuro: Other: CNII-XII grossly intact. GRAHAM with equal power. Confused/delusional Extrem: Other: no edema Results Labs CBC and Chem 7: 07/22/21 09:53 07/22/21 09:53 Labs: Laboratory Results - last 24 hr 07/22/21 07/22/21 07/22/21 09:44 09:53 09:53 MCV 91.4 MCH 31.3 MCHC 34.2 RDW 14.9 Plt Count 117 L MPV Not Reportable Immature Gran % (Auto) 0.3 Neut % (Auto) 69.5 Lymph % (Auto) 15.2 L Andrew % (Auto) 13.6 H Eos % (Auto) 1.1 Baso % (Auto) 0.3 Lymph # (Auto) 0.6 L Andrew # (Auto) 0.5 Eos # (Auto) 0.0 Baso # (Auto) 0.0 Abs Immat Gran (auto) 0.01 Absolute Neuts (auto) 2.6 Absolute Nucleated RBC 0.000 Nucleated RBC % (auto) 0.0 Smear Tech's Comments VERIFIED Anion Gap 17 Estim Creat Clear Calc 26.8 Estimated GFR 31 Random Glucose 119 H D Calcium 9.5 D Magnesium 1.8 Total Bilirubin 1.3 H AST 67 H ALT 34 Alkaline Phosphatase 86 Total Protein 9.1 H Albumin 3.8 Urine Color Urine Appearance Urine pH Ur Specific [place] Urine Protein Urine Glucose (UA) Urine Ketones Urine Blood Urine Nitrite Ur Leukocyte Esterase Urine RBC Urine WBC Ur Squamous Epith Cells Urine Bacteria Ethyl Alcohol COVID-19 (PRABHAKAR) Negative COVID-19 Clin Com See Note 07/22/21 07/22/21 09:53 14:05 MCV MCH MCHC RDW Plt Count MPV Immature Gran % (Auto) Neut % (Auto) Lymph % (Auto) Andrew % (Auto) Eos % (Auto) Baso % (Auto) Lymph # (Auto) Andrew # (Auto) Eos # (Auto) Baso # (Auto) Abs Immat Gran (auto) Absolute Neuts (auto) Absolute Nucleated RBC Nucleated RBC % (auto) Smear Tech's Comments Anion Gap Estim Creat Clear Calc Estimated GFR Random Glucose Calcium Magnesium Total Bilirubin AST ALT Alkaline Phosphatase Total Protein Albumin Urine Color YELLOW Urine Appearance CLEAR Urine pH 6.5 Ur Specific [place] 1.010 Urine Protein 2+ H Urine Glucose (UA) NEG Urine Ketones NEG Urine Blood NEG Urine Nitrite NEG Ur Leukocyte Esterase NEG Urine RBC 1-4 Urine WBC 0-2 Ur Squamous Epith Cells TRACE Urine Bacteria NONE Ethyl Alcohol < 10 COVID-19 (PRABHAKAR) COVID-19 Clin Com Imaging Radiologist's Impressions: Impressions Head CT 07/22/21 09:22 IMPRESSION: Generalized atrophy and nonspecific periventricular white matter disease. Question left basal ganglia infarct new in the interval from 07/18/2021 exam. This could be further evaluated with MRI if clinically indicated. Assessment and Plan (1) Stroke: Status: Acute (2) Hypertensive crisis: Status: Acute (3) Acute worsening of stage 3 chronic kidney disease: Status: Acute Plan 80-year-old male with a past medical history of AAA s/p repair in 2019, CHF, hypertension, CKD, anemia, cardiomyopathy, NSTEMI; discharged last night towiating room...family did not picker / packer. A/A/Ox3 last night per staff. This am, confused/delusional with ? new CVA 1. CVA..? new left basil ganglia infarct - admit Tele - Neuro consult - BP appropriate at this time...adjust meds in am -MRI to define lesion 2. Hypertensive Crisis -restart home meds in am - caution dropping BP to abruptly overnight 3. JANAK on CKD - BP control....tighter in am - Renal consult - follow renals/divalents 4. Acute confusion with delusion - easily redirected..no meds at this time -Psych eval when medically appropriate Full Code Quality Stroke Does the patient have a stroke diagnosis?: Yes Reason for No Anti-thrombotic by Day Two: N/A - Med Ordered VTE Prior VTE?: No VTE Risk Level:: Medical - moderate - high VTE Device Contraindication: N/A - Device Ordered VTE Drug Contraindication: Treatment Not Indicated
--- NOTE | 2021-07-22 16:39 | PHA.MEDREC ---
Pharmacy Consult ? Medication Reconciliation Pharmacy has completed the medication reconciliation. Med rec taken from retail pharmacy. Pt has not had meds filled in over 6 months
--- NOTE | 2021-07-22 18:12 | PC.NURSE ---
pt a poor historian - attempted to complete an MRI screening form on him and pt answered yes to everything. Dr. Rubio notified and stated he will discuss a plan with Dr. Calderon but to hold off on MRI for now. MRI notified
[2021-07-22] MEDS: Enoxaparin Sodium 30 MG/0.3 ML SYRINGE SUBCUT (18:22)
--- NOTE | 2021-07-22 21:34 | PC.NURSE ---
Called ED overflow for report. Nurse is unavailable, will call back in a few minutes.
[2021-07-22] MEDS: 0.9 % Sodium Chloride Flush 3 ML SYRINGE IVFLUSH (22:51)
--- NOTE | 2021-07-23 | EEG_ITS ---
This is a 16-channel EEG with an EKG lead. The patient is reported awake, drowsy during the tracing. Background EEG rhythm is 10 hertz, 5 to 20 microvolt posteriorly, lower amplitude fast anteriorly. Photic stimulation does not produce any significant abnormality. Hyperventilation is not performed. No sharp wave spikes or paroxysmal tendencies noted. Cardiac lead does not reveal any significant abnormality. IMPRESSION: No significant abnormality noted on this EEG to suggest seizure disorder. MD EDDIE Prajapati/CONSUELO / [id number]
[2021-07-23 03:13] VITALS: BP 163/96; PULSE 90; RESP 20; TEMP 36.8; O2SAT 97
[2021-07-23 06:24] LABS: MANUAL DIFF FLAG NO
[2021-07-23 06:34] LABS: Basophils Percent Auto 0.3 % (0-2); Eosinophils Absolute Auto 0.1 X10*3/uL (0.0-0.4); Eosinophils Percent Auto 3.2 % (0-4); Hemoglobin 12.1 g/dl (14.0-18.0); Imm Gran Abs Auto 0.02 X10*3/uL (0.00-0.03); Imm Gran Pct Auto 0.6 % (0.0-0.4); Lymphocytes Absolute Auto 0.6 X10*3/uL (1.2-4.9); Lymphocytes Percent Auto 18.3 % (20-40); Mean Corpuscular HGB Conc 33.6 g/dl (31.0-36.0); Mean Corpuscular Hemoglobin 31.2 pg (27.0-33.0); Mean Corpuscular Volume 92.8 fL (80.0-98.0); Mean Platelet Volume 11.6 fL (9.4-12.4); Monocytes Absolute Auto 0.7 X10*3/uL (0.1-1.2); Monocytes Percent Auto 19.2 % (2-11); Neutrophils Percent Auto 58.4 % (45-73); Platelet Count 145 X10*3/uL (160-400); Red Blood Count 3.88 X10*6/uL (4.60-5.80); Red Cell Distribution Width 15.3 % (11.0-16.0); White Blood Count 3.4 X10*3/uL (4.8-10.8)
[2021-07-23 07:09] LABS: Alanine Aminotransferase 32 U/L (0-40); Albumin Level 3.3 g/dL (3.5-5.0); Alkaline Phosphatase 76 U/L (39-117); Anion Gap 13 (12-20); Aspartate Amino Transferase 56 U/L (5-37); Bilirubin Total 0.7 mg/dL (0.0-1.0); Blood Urea Nitrogen 34 mg/dL (9-16); Calcium 9.1 mg/dL (8.4-10.2); Carbon Dioxide 28 mmol/L (22-29); Chloride 103 mmol/L (96-108); Cholesterol 178 mg/dL; Creatinine Clr Calc Pharmacy 21.6; Estimated Glomerular Filt Rate 29; Glucose Fasting 90 mg/dL (60-99); HDL Cholesterol 76 mg/dL; LDL Cholesterol Calculated 92 mg/dl; Potassium 3.9 mmol/L (3.3-5.1); Sodium 140 mmol/L (135-145); Triglycerides 53 mg/dL
[2021-07-23 07:24] VITALS: BP 158/94; PULSE 92; RESP 20; TEMP 36.9; O2SAT 98
[2021-07-23] MEDS: 0.9 % Sodium Chloride Flush 3 ML SYRINGE IVFLUSH ×3 (08:30→21:04)
[2021-07-23] MEDS: hydrALAZINE HCl 50 MG TABLET 100 MG PO ×3 (08:31→21:03)
[2021-07-23] MEDS: amLODIPine Besylate 10 MG TABLET PO (08:31)
[2021-07-23] MEDS: Aspirin 325 MG TABLET PO (08:31)
[2021-07-23] MEDS: Furosemide 40 MG TABLET PO (08:31)
[2021-07-23] MEDS: Atorvastatin Calcium 40 MG TABLET PO (08:31)
[2021-07-23] MEDS: Isosorbide Dinitrate 5 MG TABLET PO ×2 (08:31→21:03)
[2021-07-23 09:16] VITALS: BP 158/94; PULSE 92; O2SAT 98
--- NOTE | 2021-07-23 09:41 | MHC.CM.PN ---
CM met with Patient at bedside with the intent to address IMM with him but soon into the conversation, it was apparent that Patient is confused/hallucinating. CM attempted to reach both of Patient's listed contacts but never was actually able to speak to anyone. Per chert review, it appears that Patient yesterday refused the recommendation for str and left ama but Daughters never picked him up. Now confused, Patient is here in the hospital. Patient appears to live alone in senior housing/apartment and has a rollator. PCP is Dr. Peace Welsh. CM awaits a return call from Patient's Daughter. IMM will be left on the chart for now, either until Patient's mental status improves or CM receives a call from Patient's Daughter.
--- NOTE | 2021-07-23 09:54 | P.CNNE_ITS ---
History of Present Illness Data of Consult Service Date: 07/23/21 Primary Care Provider: [facility] Reason for consult: Question stroke 80 years old man who probably has underlying history of dementia living at home stated that he lost balance and fell down. There was no obvious seizure or loss of consciousness. There was no new weakness though he felt generally weak and unsteady and was brought to hospital. Initial evaluation did not reveal any acute finding. When I interviewed him, he was somewhat resistant to interview and examination. Review of Systems Review of Systems: No recent cold or flu-like illness. [facility] Past Medical History Medical History Abnormal EKG Acute kidney injury superimposed on CKD Acute kidney injury superimposed on CKD Acute on chronic systolic and diastolic heart failure, NYHA class 3 JANAK (acute kidney injury) Alcohol abuse Anemia Cardiomyopathy CHF (congestive heart failure) CHF exacerbation CKD (chronic kidney disease) stage 4, GFR 15-29 ml/min Cocaine abuse Hypertension Hypertensive emergency Hypertensive urgency Hypertensive urgency Iron deficiency anemia Occult GI bleeding Surgical History Surgical History History of AAA (abdominal aortic aneurysm) repair Social History Social History Household Members: None Household Members Other:: retirement Housing: Apartment Housing Other:: retirement Do you presently have visiting nurse or other home services: No Alcohol intake: current Alcohol intake frequency: 3 or more drinks per day Alcohol type: beer Patient Tobacco Use Status: Current everyday Tobacco user Tobacco use type: Cigarette Cigarette Packs Per Day: 0.5 Cigarettes Per Day: 3 Years Smoked: 40 Second Hand Smoke Exposure: No Substance Use Type: Crack/Cocaine Advance Directives Date on File: 10/09/20 service: No Current occupational status: retired Meds Allergies Allergy/AdvReac Type Severity Reaction Status Date / Time No Known Allergies Allergy Verified 10/08/20 21:48 Active Medications: Current Medications Amlodipine Besylate (Amlodipine Besylate 10 Mg Tablet) 10 mg PO DAILY [facility]; Protocol Last Admin: 07/23/21 08:31 Dose: 10 mg Documented by: Aspirin (Aspirin 325 Mg Tablet) 325 mg PO DAILY [facility] Last Admin: 07/23/21 08:31 Dose: 325 mg Documented by: Atorvastatin Calcium (Atorvastatin Calcium 40 Mg Tablet) 40 mg PO DAILY [facility] Last Admin: 07/23/21 08:31 Dose: 40 mg Documented by: Enoxaparin Sodium (Enoxaparin Sodium 30 Mg/0.3 Ml Syringe) 30 mg SUBCUT Q24H [facility] Last Admin: 07/22/21 18:22 Dose: 30 mg Documented by: Furosemide (Furosemide 40 Mg Tablet) 40 mg PO DAILY [facility]; Protocol Last Admin: 07/23/21 08:31 Dose: 40 mg Documented by: Hydralazine HCl (Hydralazine Hcl 50 Mg Tablet) 100 mg PO TID [facility]; Protocol Last Admin: 07/23/21 08:31 Dose: 100 mg Documented by: Thiamine HCl 100 mg/ Sodium (Chloride) 101 mls @ 202 mls/hr IV DAILY [facility] Isosorbide Dinitrate (Isosorbide Dinitrate 5 Mg Tablet) 5 mg PO BID [facility]; Protocol Last Admin: 07/23/21 08:31 Dose: 5 mg Documented by: Pharmacy Consult (Consult Rx Perform Med Rec) 1 each MISCELLANE ONCE PRN PRN Reason: Consult order Sodium Chloride (0.9 % Sodium Chloride Flush 3 Ml Syringe) 3 ml IVFLUSH QSHIFT [facility] Last Admin: 07/23/21 08:30 Dose: 3 ml Documented by: Home Medications Medication Instructions Recorded Confirmed Last Taken Type isosorbide dinitrate 5 mg tablet 5 mg PO BID 03/19/21 07/22/21 03/19/21 History Physical Exam Vital Signs: Vital Signs: Last Vital Signs Temp 98.5 F 07/23/21 07:24 Pulse 92 07/23/21 09:16 Resp 20 07/23/21 07:24 BP 158/94 H 07/23/21 09:16 Pulse Ox 98 07/23/21 09:16 BMI result Body Mass Index 19.1 Neuro: Other: Alert and awake with normal spontaneity of speech fluency comprehension and irritated affect. Face was symmetrical. Visual chris are full. There was no obvious focal arm or leg weakness. Deep tendon reflexes were absent with flexor plantars. Speech was normal. He was sitting in a wheelchair. Results Labs CBC & Chem 7: 07/23/21 06:11 07/23/21 06:11 Labs: Short CBC 07/22/21 07/23/21 Range/Units 09:53 06:11 WBC 3.8 L 3.4 L (4.8-10.8) X10*3/uL Hgb 12.8 L 12.1 L (14.0-18.0) g/dl Hct 37.4 L 36.0 L (42.0-52.0) % Plt Count 117 L 145 L (160-400) X10*3/uL BMP 07/22/21 07/23/21 07/23/21 09:53 06:11 06:11 Sodium 139 Cancelled 140 Potassium 4.2 Cancelled 3.9 Chloride 100 Cancelled 103 Carbon Dioxide 26 Cancelled 28 BUN 33 H Cancelled 34 H Creatinine 2.09 H Cancelled 2.16 H Calcium 9.5 D Cancelled 9.1 Liver Function 07/22/21 07/23/21 07/23/21 Range/Units 09:53 06:11 06:11 Total Bilirubin 1.3 H Cancelled 0.7 (0.0-1.0) mg/dL AST 67 H Cancelled 56 H (5-37) U/L ALT 34 Cancelled 32 (0-40) U/L Alkaline Phosphatase 86 Cancelled 76 (39-117) U/L Albumin 3.8 Cancelled 3.3 L (3.5-5.0) g/dL Urine 07/22/21 Range/Units 14:05 Urine Color YELLOW Urine Appearance CLEAR Urine pH 6.5 (5.0-8.0) Ur Specific [place] 1.010 (1.005-1.025) Urine Protein 2+ H (NEG-TRACE) MG/DL Urine Glucose (UA) NEG (NEG) MG/DL His noncontrast MRI of brain did not reveal any acute pathology. Moderately severe diffuse cerebral atrophy and moderately severe chronic microvascular ischemic changes were noted. 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 Weakness in problem with balancing is likely chronic. At this time there was no indication of acute stroke. His blood pressure was quite high at that could contribute to his problems. For now mainstay of management is blood pressure control a baby aspirin daily use of a walker regular basis and appropriate precautions management for dementia and gait disorder. Overall history is not suggestive of a seizure disorder either though he is at risk for this condition. If any further unexplained spells occurs, an EEG can be considered for further evaluation. Procedures Date of Service Date of Service: 07/23/21
--- NOTE | 2021-07-23 10:58 | PC.NURSE ---
Skin assessment completed today. Patient has an abrasion to left lateral buttock with pink bed. Thin layer of Woundres gel applied covered with Tegaderm. Patient also has a scabbed linear abrasion to top of forehead.
[2021-07-23 11:38] VITALS: BP 163/98; PULSE 98; RESP 20; TEMP 37.3; O2SAT 100
[2021-07-23] MEDS: Thiamine HCL 100 MG in 0.9 % Sodium Chloride 100 ML 202 MG IV (11:38)
--- NOTE | 2021-07-23 13:49 | CONS_ITS ---
DATE OF SERVICE: 07/23/2021 REASON FOR CONSULTATION: I was called to see this patient to assist in management of patient's chronic kidney disease and hypertension. HISTORY OF PRESENT ILLNESS: To summarize, Mr. Nieto is an 80-year-old man with history of chronic kidney disease secondary to longstanding hypertension and cardiomyopathy. Baseline creatinine is around 1.6 to 2.0 mg/dL. He has had multiple episodes of admissions and history of alcohol abuse. He came in a few days ago and at that time, his alcohol level was 233. He was safe for discharge home with short-term rehab, although he refused to go to rehab and was brought to the hospital yesterday. After evaluation, apparently, he was discharged and no one picked him up and he was therefore admitted. Since admission, his blood pressure has been difficult to control and he has some confusion as well. There has been a bump in his serum creatinine and hence this consultation. He has received IV hydralazine x3 doses along with amlodipine and Imdur. PAST MEDICAL HISTORY: Ongoing medical problems include history of chronic kidney disease, hypertension, chronic congestive heart failure, cardiomyopathy, anemia. PAST SURGICAL HISTORY: Includes significant for history of AAA repair. SOCIAL HISTORY: He lives in an apartment/custodial. He also smokes cigarettes about 10 per day. History of drug abuse including crack cocaine. He did test positive for fentanyl this admission. ALLERGIES: NO KNOWN DRUG ALLERGIES. MEDICATIONS AT TIME OF ADMISSION: Included isosorbide and it is unclear if he has taken any antidepressant medication at home. REVIEW OF SYSTEMS: Patient is not a reliable historian. All the information is obtained from the chart. PHYSICAL EXAMINATION: GENERAL: He is awake, he is confused, not in any distress. NECK: Supple. No JVD. LUNGS: Air entry equal. No rales. HEART: S1, S2 heard. No gallop. No rub. ABDOMEN: Soft, nontender. Bowel sounds heard. NEURO: Alert and awake. No focal motor deficits. CURRENT MEDICATIONS: Include amlodipine 10 mg, aspirin, atorvastatin, Lasix 40 mg daily, hydralazine p.o. 100 mg was given p.r.n. PROBLEMS: 1. Stage IV chronic kidney disease in the setting of longstanding hypertension. 2. Accelerated hypertension. 3. Anemia. 4. Alcohol abuse. 5. Chronic kidney disease in the setting of long-standing hypertension with superimposed acute kidney injury due to hypoperfusion. There is no reason to believe he has any active glomerular interstitial disease based on the recent urine studies. Obstruction seems unlikely as well. RECOMMENDATIONS: Optimize his blood pressure, avoid rapidly acting intravenous agents. I agree with current oral medications. We can add hydralazine 3 times a day and goes to maintain systolic blood pressure less than 140 mmHg. The renal function is close to baseline. Once he is hemodynamically stabilized, renal function should return to baseline. We will follow him along with the team. Pradeep Moscoso MD BPA/MODL / [id number]
--- NOTE | 2021-07-23 14:44 | P.PNIM_ITS ---
Subjective Subjective Date of Service: 07/23/21 Interval History: C/o generalized weakness Delusional- stated to 2 different staff members that he owns this hospital and you'll find out who pays you Refuses to go to rehab Review of Systems Review of Systems: Yes all other systems are reviewed and are negative Physical Exam Vital Signs: Vital Signs: Last Vital Signs Temp 99.1 F 07/23/21 11:38 Pulse 98 07/23/21 11:38 Resp 20 07/23/21 11:38 BP 163/98 H 07/23/21 11:38 Pulse Ox 100 07/23/21 11:38 BMI result Body Mass Index 19.1 Gen: in no acute distress HEENT: sclera anicteric, moist mucus membranes Neck: supple Lungs: clear to auscultation bilaterally Heart: regular rate and rhythm, no murmurs Abd: soft, non-tender, non-distended Ext: no edema Skin: warm/well-perfused Neuro: alert, oriented to self and place, generalized non-lateralizing weakness Psych: somewhat hostile/guarded Objective Data Active Medications Amlodipine Besylate (Amlodipine Besylate 10 Mg Tablet) 10 mg PO DAILY [facility]; Protocol Last Admin: 07/23/21 08:31 Dose: 10 mg Documented by: YOMAIRA Aspirin (Aspirin 325 Mg Tablet) 325 mg PO DAILY [facility] Last Admin: 07/23/21 08:31 Dose: 325 mg Documented by: YOMAIRA Atorvastatin Calcium (Atorvastatin Calcium 40 Mg Tablet) 40 mg PO DAILY [facility] Last Admin: 07/23/21 08:31 Dose: 40 mg Documented by: YOMAIRA Enoxaparin Sodium (Enoxaparin Sodium 30 Mg/0.3 Ml Syringe) 30 mg SUBCUT Q24H [facility] Last Admin: 07/22/21 18:22 Dose: 30 mg Documented by: RENE Furosemide (Furosemide 40 Mg Tablet) 40 mg PO DAILY [facility]; Protocol Last Admin: 07/23/21 08:31 Dose: 40 mg Documented by: YOMAIRA Hydralazine HCl (Hydralazine Hcl 50 Mg Tablet) 100 mg PO TID [facility]; Protocol Last Admin: 07/23/21 08:31 Dose: 100 mg Documented by: YOMAIRA Thiamine HCl 250 mg/ Sodium (Chloride) 102.5 mls @ 202 mls/hr IV Q8H [facility] Isosorbide Dinitrate (Isosorbide Dinitrate 5 Mg Tablet) 5 mg PO BID [facility]; Protocol Last Admin: 07/23/21 08:31 Dose: 5 mg Documented by: YOMAIRA Pharmacy Consult (Consult Rx Perform Med Rec) 1 each MISCELLANE ONCE PRN PRN Reason: Consult order Sodium Chloride (0.9 % Sodium Chloride Flush 3 Ml Syringe) 3 ml IVFLUSH QSHIFT [facility] Last Admin: 07/23/21 08:30 Dose: 3 ml Documented by: YOMAIRA Labs CBC & Chem 7: 07/23/21 06:11 07/23/21 06:11 Labs: Laboratory Results - last 24 hr 07/22/21 07/23/21 07/23/21 09:44 06:11 06:11 MCV 92.8 MCH 31.2 MCHC 33.6 RDW 15.3 Plt Count 145 L MPV 11.6 Immature Gran % (Auto) 0.6 H Neut % (Auto) 58.4 Lymph % (Auto) 18.3 L [place] % (Auto) 19.2 H Eos % (Auto) 3.2 Baso % (Auto) 0.3 Lymph # (Auto) 0.6 L [place] # (Auto) 0.7 Eos # (Auto) 0.1 Baso # (Auto) 0.0 Abs Immat Gran (auto) 0.02 Absolute Neuts (auto) 2.0 Absolute Nucleated RBC 0.000 Nucleated RBC % (auto) 0.0 Anion Gap Cancelled Estim Creat Clear Calc Cancelled Estimated GFR Cancelled Fasting Glucose Cancelled Calcium Cancelled Total Bilirubin Cancelled AST Cancelled ALT Cancelled Alkaline Phosphatase Cancelled Total Protein Cancelled Albumin Cancelled Triglycerides Cholesterol LDL Cholesterol, Calc HDL Cholesterol COVID-19 (PRABHAKAR) Negative COVID-19 Clin Com See Note 07/23/21 06:11 MCV MCH MCHC RDW Plt Count MPV Immature Gran % (Auto) Neut % (Auto) Lymph % (Auto) [place] % (Auto) Eos % (Auto) Baso % (Auto) Lymph # (Auto) [place] # (Auto) Eos # (Auto) Baso # (Auto) Abs Immat Gran (auto) Absolute Neuts (auto) Absolute Nucleated RBC Nucleated RBC % (auto) Anion Gap 13 Estim Creat Clear Calc 21.6 Estimated GFR 29 Fasting Glucose 90 Calcium 9.1 Total Bilirubin 0.7 AST 56 H ALT 32 Alkaline Phosphatase 76 Total Protein 8.0 Albumin 3.3 L Triglycerides 53 Cholesterol 178 LDL Cholesterol, Calc 92 HDL Cholesterol 76 D COVID-19 (PRABHAKAR) COVID-19 Clin Com ITS Impressions Head CT 07/22/21 09:22 IMPRESSION: Generalized atrophy and nonspecific periventricular white matter disease. Question left basal ganglia infarct new in the interval from 07/18/2021 exam. This could be further evaluated with MRI if clinically indicated. Chest X-Ray 07/22/21 19:50 IMPRESSION: -No acute pulmonary pathology. -Nonobstructing bowel gas pattern. KUB X-Ray 07/22/21 19:50 IMPRESSION: -No acute pulmonary pathology. -Nonobstructing bowel gas pattern. Brain MRI 07/23/21 09:41 IMPRESSION: - Partially imaged postoperative changes following ACDF at and below the C4 level. Suggestion of severe junctional level disease at C3-C4 greater than C2-C3 with possible severe central canal stenosis and mass effect on the cervical cord at C3-C4 that would be better assessed with a cervical spine MRI. - No acute infarcts. There is global cerebral volume loss and there is advanced chronic microangiopathy. - There is a 4 mm focus of susceptibility signal within the posterior left temporal lobe that could reflect a small focus of chronic hemosiderin staining or a small cavernoma. Assessment and Plan (1) Encephalopathy: Status: Acute (2) Hypertensive crisis: Status: Acute Plan hospital d#2 80yo M with hx AAA s/p repair in 2019, CHF, HTN, CKD, anemia, NSTEMI, cardiomyopathy, chronic HCV, hx cocaine abuse Presented to ED 07/18/21 after found by neighbors down on floor of his apartment, where he lives alone; he was intoxicated with EtOH Was in the ED for 3d awaiting for STR placement. Pt left AMA and reported that he was going to go home with his daughter, who never picked him up from the ED waiting room. 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 Question of Wernicke-Korsakoff encephalopathy; will send thiamine level and replete IV. ASA for secondary prevention per Neurology. EEG. will also check TSH, B12, RPR, NH3 # delusions - Psych consult # HTN urgency # chronic HFrEF - restarted Isordil, furosemide, hydralazine, amlodipine # JANAK/CKD3-4 - SCr close to baseline, monitor + avoid nephrotoxins, Nephrology following # VTE ppx - LMWH # dispo - STR recommended; Psych consult re capacity pending Quality Stroke Does the patient have a stroke diagnosis?: Yes Reason for No Anti-thrombotic by Day Two: N/A - Med Ordered VTE Prior VTE?: No VTE Risk Level:: Medical - moderate - high VTE Device Contraindication: N/A - Device Ordered VTE Drug Contraindication: Treatment Not Indicated
[2021-07-23 15:25] VITALS: BP 153/83; PULSE 84; RESP 14; TEMP 37.4; O2SAT 99
[2021-07-23] MEDS: Enoxaparin Sodium 30 MG/0.3 ML SYRINGE SUBCUT (17:24)
[2021-07-23 19:05] VITALS: BP 133/79; PULSE 85; RESP 16; TEMP 37.4; O2SAT 98
[2021-07-23] MEDS: Thiamine HCL 250 MG in 0.9 % Sodium Chloride 100 ML 201.97 MG IV (21:52)
[2021-07-24] VITALS (7 sets, daily range): BP systolic 120–177; BP diastolic 78–96; PULSE 78–96; RESP 15–18; TEMP 36.3–37.3; O2SAT 96–98
[2021-07-24] MEDS: Thiamine HCL 250 MG in 0.9 % Sodium Chloride 100 ML 201.97 MG IV ×3 (04:45→21:02)
[2021-07-24 06:50] LABS: Basophils Percent Auto 0.2 % (0-2); Eosinophils Absolute Auto 0.1 X10*3/uL (0.0-0.4); Eosinophils Percent Auto 3.2 % (0-4); Hematocrit 30.2 % (42.0-52.0); Imm Gran Abs Auto 0.01 X10*3/uL (0.00-0.03); Imm Gran Pct Auto 0.2 % (0.0-0.4); Lymphocytes Absolute Auto 0.9 X10*3/uL (1.2-4.9); Lymphocytes Percent Auto 20.1 % (20-40); MANUAL DIFF FLAG SCAN; Mean Corpuscular HGB Conc 33.1 g/dl (31.0-36.0); Mean Corpuscular Hemoglobin 30.5 pg (27.0-33.0); Mean Corpuscular Volume 92.1 fL (80.0-98.0); Mean Platelet Volume 10.5 fL (9.4-12.4); Monocytes Percent Auto 21.7 % (2-11); Neutrophils Absolute Auto 2.4 x10*3/uL (2.0-8.3); Neutrophils Percent Auto 54.6 % (45-73); Platelet Count 131 X10*3/uL (160-400); Red Blood Count 3.28 X10*6/uL (4.60-5.80); Red Cell Distribution Width 15.6 % (11.0-16.0); SCAN SMEAR FLAG 1; White Blood Count 4.4 X10*3/uL (4.8-10.8)
[2021-07-24 07:01] LABS: Ammonia 24 umol/L (13-55)
[2021-07-24 07:09] LABS: Alanine Aminotransferase 25 U/L (0-40); Alkaline Phosphatase 67 U/L (39-117); Anion Gap 10 (12-20); Aspartate Amino Transferase 44 U/L (5-37); Bilirubin Total 0.5 mg/dL (0.0-1.0); Blood Urea Nitrogen 39 mg/dL (9-16); Calcium 8.3 mg/dL (8.4-10.2); Carbon Dioxide 28 mmol/L (22-29); Chloride 103 mmol/L (96-108); Creatinine Clr Calc Pharmacy 18.6; Estimated Glomerular Filt Rate 25; Glucose Fasting 104 mg/dL (60-99); Potassium 3.3 mmol/L (3.3-5.1); Sodium 138 mmol/L (135-145); Total Protein 6.9 g/dL (6.5-8.0)
[2021-07-24 07:31] LABS: TSH reflex Free T4 1.08 uIU/mL (0.32-4.0)
[2021-07-24 07:46] LABS: Vitamin B12 440 pg/mL (200-900)
[2021-07-24 08:51] LABS: SLIDE REVIEW VERIFIED
[2021-07-24] MEDS: Atorvastatin Calcium 40 MG TABLET PO (10:01)
[2021-07-24] MEDS: amLODIPine Besylate 10 MG TABLET PO (10:01)
[2021-07-24] MEDS: Furosemide 40 MG TABLET PO (10:01)
[2021-07-24] MEDS: Aspirin 325 MG TABLET PO (10:01)
[2021-07-24] MEDS: hydrALAZINE HCl 50 MG TABLET 100 MG PO ×3 (10:01→21:02)
[2021-07-24] MEDS: 0.9 % Sodium Chloride Flush 3 ML SYRINGE IVFLUSH ×3 (10:02→21:03)
--- NOTE | 2021-07-24 10:05 | P.CDIC_ITS ---
CDI Concurrent Query Documentation Clarification: PHYSICIAN'S DOCUMENTATION REQUEST Date of Query: 07/24/21 1006 Patient Name: Froilan Nieto Jr Admit Date: 07/22/21 Dear Doctor, A review of the medical record indicates additional documentation may be needed. Please review below and update the documentation accordingly. Risk Factors/Clinical Indicators/Treatments Confusion, hallucinations, thinking others are family members, disorientation, disoriented to time and place. Somewhat hostile. PN 07/23 - Encephalopathy probable multifactorial dementia per Neurology - Alzheimers, vascular, question of Wernicke-Korsafoff. If possible, please further clarify type of Alzheimer's and any associated manifestations: Clarity of documentation: Disease Type: * Early onset * Late onset * Other Alzheimer's disease * Dementia without behavioral disturbance * Dementia with behavioral disturbance * Vascular Dementia Encephalopathy, Wernicke-korsafoff, Toxic/Metabolic etc. * Dementia with delusions * Confusion * Sundowning * Other ? please specify * Unable to determine Use of terms such as suspected, likely, concern for, or probable (associated with a specific diagnosis that is being evaluated, monitored, or treated as if it exists) are acceptable and can be coded in the inpatient setting, when documented at the time of discharge. Thank you, Cheyenne Isaac [facility], CDIS Extension: [phone] Please use your independent medical judgment in providing your response. THIS QUERY IS PART OF THE PERMANENT MEDICAL RECORD Provider Response: Other Other Diagnosis: Dementia- multifactorial. Per Neuro likely Alzheimer + vascular, with added contribution of Wernicke/Korsakoff
[2021-07-24] MEDS: 0.9 % Sodium Chloride 1,000 ML 100 ML IVCONT (10:07)
[2021-07-24] MEDS: Isosorbide Dinitrate 5 MG TABLET PO ×2 (10:12→21:03)
--- NOTE | 2021-07-24 10:26 | P.CNPS_ITS ---
History of Present Illness Date of Service: 07/24/21 Chief Complaint: CVA Reason for Consult: capacity evaluation Requesting physician: Spring Reynoso Discussed with referring provider: Yes Sources of Information: patient interviewed and chart reviewed HPI Narrative: Patient is an 80-year-old male with PMH of AAA s/p repair in 2019, CHF, hypertension, CKD, anemia, cardiomyopathy, NSTEMI. He had presented to ED after being found on the floor of his apartment by neighbors. At that time he was treated and PT had advised short-term rehab placement. Case management had been involved, but patient had left AMA. He was discharged to the waiting room for his daughter to pick him up. Ever came, he was found by hospital staff to be confused, therefore readmitted as a patient. Consult for Psychiatry was placed due to confusion, with some grandiosity. Case Management has been working with client regarding a short-term rehab placement, patient had been refusing, and appeared delusional. Patient was resting comfortably in bed, appeared to be alert and oriented when I entered the room. He was pleasant upon approach, and cooperative with interview. He was oriented to place ([facility]), date, as well as situation. He was able to state that he had been drinking beer, had fallen, and a neighbor had activated EMS. He states that he had an aneurysm last year, as well as having a stent in his chest. He states that he is aware he has serious health issues, and that he most likely should go to rehab. He states he has difficulty walking, as well as weakness with upper limbs, especially his left hand. A chart search does not reveal any psychiatric hospitalizations at this facility. Mood and affect were slightly anxious but appropriate. He did not report any history of psychiatric illness, or thoughts of harm to self or others. He was clear and coherent during encounter, and did not appear to have any delusional thought, or be responding in any way to internal stimuli. No abnormal new movements were noted, no tics or tremors were present. When discussing reason for being in hospital, and consequences of refusing treatment, he was able to verbalize fully that he understood the information being presented regarding his medical condition. He was able to process it in a meaningful way, and make appropriate decisions based on that information. He stated that he knew he needed short-term rehab, as he needed physical therapy in order to be safely at home again. He reports that his daughter has his groceries delivered to the home every 2 weeks. He also has neighbors that check in on him on a regular basis, and that he feels safe at home. He is willing at this time to go to a rehab. He did not appear to lack capacity in any way at this time. Past Psychiatric History: None reported. Medical Evaluation Reviewed: Yes Personal & Social History: Retired, lives alone in senior housing. Has several adult children. Daughter has groceries delivered to his home every 2 weeks. Review of Systems Review of Systems A full review of systems was completed and was negative with the exception of pertinent positives noted in history of the presenting illness (HPI). Constitutional: Reports no additional constitutional complaints [facility] Medical History Abnormal EKG Acute kidney injury superimposed on CKD Acute kidney injury superimposed on CKD Acute on chronic systolic and diastolic heart failure, NYHA class 3 JANAK (acute kidney injury) Alcohol abuse Anemia Cardiomyopathy CHF (congestive heart failure) CHF exacerbation CKD (chronic kidney disease) stage 4, GFR 15-29 ml/min Cocaine abuse Hypertension Hypertensive emergency Hypertensive urgency Hypertensive urgency Iron deficiency anemia Occult GI bleeding Surgical History History of AAA (abdominal aortic aneurysm) repair Family History: none reported Social History: retired, lives in correction housing. Has adult children that are involved in his care. One daughter has groceries delivered to him on regular basis. Substance History: Longstanding alcohol use disorder. cocaine abuse Opioid abuse. Trauma History: None reported Diagnostics Vital Signs (24Hr): Vital Signs - 24 hr 07/23/21 11:38 07/23/21 15:25 07/23/21 19:05 Temperature 99.1 F 99.4 F 99.4 F Pulse Rate 98 84 85 Respiratory Rate 20 14 16 Blood Pressure 163/98 H 153/83 H 133/79 Pulse Oximetry 100 99 98 07/24/21 00:00 07/24/21 03:59 07/24/21 07:57 Temperature 97.3 F 97.5 F 98.0 F Pulse Rate 90 87 96 Respiratory Rate 18 18 18 Blood Pressure 177/96 H 147/87 H 145/87 H Pulse Oximetry 96 97 98 BMI result Body Mass Index 19.1 Labs Results: 07/24/21 06:31 07/24/21 06:31 Labs: Laboratory Results - last 48 hr 07/22/21 07/22/21 07/22/21 09:44 09:53 09:53 WBC 3.8 L RBC Hgb Hct MCV MCH MCHC RDW Plt Count 117 L MPV Immature Gran % (Auto) 0.3 Neut % (Auto) 69.5 Lymph % (Auto) 15.2 L [place] % (Auto) 13.6 H Eos % (Auto) 1.1 Baso % (Auto) 0.3 Lymph # (Auto) 0.6 L [place] # (Auto) 0.5 Eos # (Auto) 0.0 Baso # (Auto) 0.0 Abs Immat Gran (auto) 0.01 Absolute Neuts (auto) 2.6 Absolute Nucleated RBC 0.000 Nucleated RBC % (auto) 0.0 Smear Tech's Comments VERIFIED Sodium 139 Potassium 4.2 Chloride 100 Carbon Dioxide 26 Anion Gap 17 BUN 33 H Creatinine 2.09 H Estim Creat Clear Calc 26.8 Estimated GFR 31 Random Glucose 119 H D Fasting Glucose Calcium 9.5 D Magnesium 1.8 Total Bilirubin 1.3 H AST 67 H ALT 34 Alkaline Phosphatase 86 Ammonia Troponin I High Sens Total Protein 9.1 H Albumin 3.8 Triglycerides Cholesterol LDL Cholesterol, Calc HDL Cholesterol Vitamin B12 TSH Urine Color Urine Appearance Urine pH Ur Specific [place] Urine Protein Urine Glucose (UA) Urine Ketones Urine Blood Urine Nitrite Ur Leukocyte Esterase Urine RBC Urine WBC Ur Squamous Epith Cells Urine Bacteria Ethyl Alcohol COVID-19 (PRABHAKAR) Negative COVID-19 Clin Com See Note 07/22/21 07/22/21 07/22/21 09:53 09:53 13:54 WBC RBC Hgb Hct MCV MCH MCHC RDW Plt Count MPV Immature Gran % (Auto) Neut % (Auto) Lymph % (Auto) [place] % (Auto) Eos % (Auto) Baso % (Auto) Lymph # (Auto) [place] # (Auto) Eos # (Auto) Baso # (Auto) Abs Immat Gran (auto) Absolute Neuts (auto) Absolute Nucleated RBC Nucleated RBC % (auto) Smear Tech's Comments Sodium Potassium Chloride Carbon Dioxide Anion Gap BUN Creatinine Estim Creat Clear Calc Estimated GFR Random Glucose Fasting Glucose Calcium Magnesium Total Bilirubin AST ALT Alkaline Phosphatase Ammonia Troponin I High Sens 72.5 H 94.8 H Total Protein Albumin Triglycerides Cholesterol LDL Cholesterol, Calc HDL Cholesterol Vitamin B12 TSH Urine Color Urine Appearance Urine pH Ur Specific [place] Urine Protein Urine Glucose (UA) Urine Ketones Urine Blood Urine Nitrite Ur Leukocyte Esterase Urine RBC Urine WBC Ur Squamous Epith Cells Urine Bacteria Ethyl Alcohol < 10 COVID-19 (PRABHAKAR) COVID-19 Clin Com 07/22/21 07/23/21 07/23/21 14:05 06:11 06:11 WBC 3.4 L RBC 3.88 L Hgb 12.1 L Hct 36.0 L MCV 92.8 MCH 31.2 MCHC 33.6 RDW 15.3 Plt Count 145 L MPV 11.6 Immature Gran % (Auto) 0.6 H Neut % (Auto) 58.4 Lymph % (Auto) 18.3 L [place] % (Auto) 19.2 H Eos % (Auto) 3.2 Baso % (Auto) 0.3 Lymph # (Auto) 0.6 L [place] # (Auto) 0.7 Eos # (Auto) 0.1 Baso # (Auto) 0.0 Abs Immat Gran (auto) 0.02 Absolute Neuts (auto) 2.0 Absolute Nucleated RBC 0.000 Nucleated RBC % (auto) 0.0 Smear Tech's Comments Sodium Cancelled Potassium Cancelled Chloride Cancelled Carbon Dioxide Cancelled Anion Gap Cancelled BUN Cancelled Creatinine Cancelled Estim Creat Clear Calc Cancelled Estimated GFR Cancelled Random Glucose Fasting Glucose Cancelled Calcium Cancelled Magnesium Total Bilirubin Cancelled AST Cancelled ALT Cancelled Alkaline Phosphatase Cancelled Ammonia Troponin I High Sens Total Protein Cancelled Albumin Cancelled Triglycerides Cholesterol LDL Cholesterol, Calc HDL Cholesterol Vitamin B12 TSH Urine Color YELLOW Urine Appearance CLEAR Urine pH 6.5 Ur Specific [place] 1.010 Urine Protein 2+ H Urine Glucose (UA) NEG Urine Ketones NEG Urine Blood NEG Urine Nitrite NEG Ur Leukocyte Esterase NEG Urine RBC 1-4 Urine WBC 0-2 Ur Squamous Epith Cells TRACE Urine Bacteria NONE Ethyl Alcohol COVID-19 (PRABHAKAR) COVID-19 Clin Com 07/23/21 07/24/21 07/24/21 06:11 06:31 06:31 WBC 4.4 L RBC 3.28 L Hgb 10.0 L Hct 30.2 L MCV 92.1 MCH 30.5 MCHC 33.1 RDW 15.6 Plt Count 131 L MPV 10.5 Immature Gran % (Auto) 0.2 Neut % (Auto) 54.6 Lymph % (Auto) 20.1 [place] % (Auto) 21.7 H Eos % (Auto) 3.2 Baso % (Auto) 0.2 Lymph # (Auto) 0.9 L [place] # (Auto) 1.0 Eos # (Auto) 0.1 Baso # (Auto) 0.0 Abs Immat Gran (auto) 0.01 Absolute Neuts (auto) 2.4 Absolute Nucleated RBC 0.000 Nucleated RBC % (auto) 0.0 Smear Tech's Comments VERIFIED Sodium 140 138 Potassium 3.9 3.3 Chloride 103 103 Carbon Dioxide 28 28 Anion Gap 13 10 L BUN 34 H 39 H Creatinine 2.16 H 2.51 H Estim Creat Clear Calc 21.6 18.6 Estimated GFR 29 25 Random Glucose Fasting Glucose 90 104 H Calcium 9.1 8.3 L D Magnesium Total Bilirubin 0.7 0.5 AST 56 H 44 H ALT 32 25 Alkaline Phosphatase 76 67 Ammonia Troponin I High Sens Total Protein 8.0 6.9 Albumin 3.3 L 3.0 L Triglycerides 53 Cholesterol 178 LDL Cholesterol, Calc 92 HDL Cholesterol 76 D Vitamin B12 TSH Urine Color Urine Appearance Urine pH Ur Specific [place] Urine Protein Urine Glucose (UA) Urine Ketones Urine Blood Urine Nitrite Ur Leukocyte Esterase Urine RBC Urine WBC Ur Squamous Epith Cells Urine Bacteria Ethyl Alcohol COVID-19 (PRABHAKAR) COVID-19 Clin Com 07/24/21 07/24/21 07/24/21 06:31 06:31 06:31 WBC RBC Hgb Hct MCV MCH MCHC RDW Plt Count MPV Immature Gran % (Auto) Neut % (Auto) Lymph % (Auto) [place] % (Auto) Eos % (Auto) Baso % (Auto) Lymph # (Auto) [place] # (Auto) Eos # (Auto) Baso # (Auto) Abs Immat Gran (auto) Absolute Neuts (auto) Absolute Nucleated RBC Nucleated RBC % (auto) Smear Tech's Comments Sodium Potassium Chloride Carbon Dioxide Anion Gap BUN Creatinine Estim Creat Clear Calc Estimated GFR Random Glucose Fasting Glucose Calcium Magnesium Total Bilirubin AST ALT Alkaline Phosphatase Ammonia 24 Troponin I High Sens Total Protein Albumin Triglycerides Cholesterol LDL Cholesterol, Calc HDL Cholesterol Vitamin B12 440 TSH 1.08 Urine Color Urine Appearance Urine pH Ur Specific [place] Urine Protein Urine Glucose (UA) Urine Ketones Urine Blood Urine Nitrite Ur Leukocyte Esterase Urine RBC Urine WBC Ur Squamous Epith Cells Urine Bacteria Ethyl Alcohol COVID-19 (PRABHAKAR) COVID-19 Clin Com Imaging Radiology Impressions: ITS Impressions Head CT 07/22/21 09:22 IMPRESSION: Generalized atrophy and nonspecific periventricular white matter disease. Question left basal ganglia infarct new in the interval from 07/18/2021 exam. This could be further evaluated with MRI if clinically indicated. Chest X-Ray 07/22/21 19:50 IMPRESSION: -No acute pulmonary pathology. -Nonobstructing bowel gas pattern. KUB X-Ray 07/22/21 19:50 IMPRESSION: -No acute pulmonary pathology. -Nonobstructing bowel gas pattern. Brain MRI 07/23/21 09:41 IMPRESSION: - Partially imaged postoperative changes following ACDF at and below the C4 level. Suggestion of severe junctional level disease at C3-C4 greater than C2-C3 with possible severe central canal stenosis and mass effect on the cervical cord at C3-C4 that would be better assessed with a cervical spine MRI. - No acute infarcts. There is global cerebral volume loss and there is advanced chronic microangiopathy. - There is a 4 mm focus of susceptibility signal within the posterior left temporal lobe that could reflect a small focus of chronic hemosiderin staining or a small cavernoma. Mental Status Exam Mental Status Exam Narrative: Elderly male, thin, in NAD. No evidence of any type of substance withdrawals or cravings observed or reported. Reclining in supine position, wearing hospital garb. No abnormal movements, no tics or tremors noted. Patient Appearance: Disheveled and Appropriate Patient Orientation: Person, Place, Time and Situation Level of Consciousness: Awake, Appropriate and Alert Patient Behavior: Appropriate, Cooperative and Good Eye Contact Mood Description: Calm, Appropriate and Anxious (Slightly anxious.) Affect Description: Appropriate and Anxious (Slightly anxious.) Patient Cognition Impaired: No Ability to Follow Directions: Good Speech Pattern: Clear, Appropriate and Coherent Memory Description: Intact (Memory grossly adequate.) Hallucinations: None Delusions: Not Present Thought Process: Intact, Goal Oriented and Linear Thought Content: positive for Intact, positive for Goal Oriented and positive for Linear Judgement: Good Medications Medications Current Medications Amlodipine Besylate (Amlodipine Besylate 10 Mg Tablet) 10 mg PO DAILY [facility]; Protocol Last Admin: 07/24/21 10:01 Dose: 10 mg Documented by: Aspirin (Aspirin 325 Mg Tablet) 325 mg PO DAILY [facility] Last Admin: 07/24/21 10:01 Dose: 325 mg Documented by: Atorvastatin Calcium (Atorvastatin Calcium 40 Mg Tablet) 40 mg PO DAILY [facility] Last Admin: 07/24/21 10:01 Dose: 40 mg Documented by: Enoxaparin Sodium (Enoxaparin Sodium 30 Mg/0.3 Ml Syringe) 30 mg SUBCUT Q24H [facility] Last Admin: 07/23/21 17:24 Dose: 30 mg Documented by: Furosemide (Furosemide 40 Mg Tablet) 40 mg PO DAILY [facility]; Protocol Last Admin: 07/24/21 10:01 Dose: 40 mg Documented by: Hydralazine HCl (Hydralazine Hcl 50 Mg Tablet) 100 mg PO TID [facility]; Protocol Last Admin: 07/24/21 10:01 Dose: 100 mg Documented by: Thiamine HCl 250 mg/ Sodium (Chloride) 102.5 mls @ 201.97 mls/hr IV Q8H [facility] Last Infusion: 07/24/21 05:52 Dose: Infused Documented by: Sodium Chloride (Ns) 1,000 mls @ 100 mls/hr IVCONT .Q10H [facility] Stop: 07/24/21 17:59 Last Admin: 07/24/21 10:07 Dose: 100 mls/hr Documented by: Isosorbide Dinitrate (Isosorbide Dinitrate 5 Mg Tablet) 5 mg PO BID [facility]; Protocol Last Admin: 07/24/21 10:12 Dose: 5 mg Documented by: Pharmacy Consult (Consult Rx Perform Med Rec) 1 each MISCELLANE ONCE PRN PRN Reason: Consult order Sodium Chloride (0.9 % Sodium Chloride Flush 3 Ml Syringe) 3 ml IVFLUSH QSHIFT [facility] Last Admin: 07/24/21 10:02 Dose: 3 ml Documented by: Allergies Allergies Allergy/AdvReac Type Severity Reaction Status Date / Time No Known Allergies Allergy Verified 10/08/20 21:48 Assessment & Plan Assessment & Plan (1) Encounter for assessment of healthcare decision-making capacity: Status: Acute Code(s): Z02.79 - Encounter for issue of other medical certificate Assessment and Plan: When discussing reason for being in hospital, and consequences of refusing treatment, he was able to verbalize fully that he understood the information being presented regarding his medical condition. He was able to process it in a meaningful way, and make appropriate decisions based on that information. He stated that he knew he needed short-term rehab, as he needed physical therapy in order to be safely at home again. He reports that his daughter has his groceries delivered to the home every 2 weeks. He also has neighbors that check in on him on a regular basis, and that he feels safe at home. He is willing at this time to go to a rehab. He did not appear to lack capacity in any way at this time. He did report that when he fell at home he had been drinking. He did not identify any substance use including alcohol as a concern at this time. Plan Patient appears to have capacity for medical decision making at this time. This information has been shared with provider , as well as unit case fitter, via secure electronic messaging system. Thank you for this psychiatric consultation. If you have any further questions or concerns, please do not hesitate to contact psychiatry service. I spent minutes with the patient and/or on the patient floor today, greater than?50% of which was spent counseling/coordinating care. Patient educated on: diagnosis, therapeutic strategies and medical condition Informed Consent: understands
--- NOTE | 2021-07-24 10:49 | P.PNNP_ITS ---
Subjective Subjective Date of Service: 08/06/21 Interval history: Events noted more awake Physical Exam Vital Signs: Vital Signs: Last Vital Signs Temp 98.0 F 07/24/21 07:57 Pulse 96 07/24/21 07:57 Resp 18 07/24/21 07:57 BP 145/87 H 07/24/21 07:57 Pulse Ox 98 07/24/21 07:57 BMI result Body Mass Index 19.1 Const: Other: delusional Resp: Other: clear A/P Cardio: Other: -S4 +S1/S2 - S3 MRG GI: Other: soft NT/ND NABS x 4 quads Neuro: Other: Alert and awake with normal spontaneity of speech fluency comprehension and irritated affect. Face was symmetrical. Visual chris are full. There was no obvious focal arm or leg weakness. Deep tendon reflexes were absent with flexor plantars. Speech was normal. He was sitting in a wheelchair. Extrem: Other: no edema Objective Data Labs CBC & Chem 7: 07/25/21 06:13 07/25/21 06:13 Labs: Laboratory Results - last 24 hr 07/24/21 07/24/21 07/24/21 06:31 06:31 06:31 WBC 4.4 L RBC 3.28 L Hgb 10.0 L Hct 30.2 L MCV 92.1 MCH 30.5 MCHC 33.1 RDW 15.6 Plt Count 131 L MPV 10.5 Immature Gran % (Auto) 0.2 Neut % (Auto) 54.6 Lymph % (Auto) 20.1 [place] % (Auto) 21.7 H Eos % (Auto) 3.2 Baso % (Auto) 0.2 Lymph # (Auto) 0.9 L [place] # (Auto) 1.0 Eos # (Auto) 0.1 Baso # (Auto) 0.0 Abs Immat Gran (auto) 0.01 Absolute Neuts (auto) 2.4 Absolute Nucleated RBC 0.000 Nucleated RBC % (auto) 0.0 Smear Tech's Comments VERIFIED Sodium 138 Potassium 3.3 Chloride 103 Carbon Dioxide 28 Anion Gap 10 L BUN 39 H Creatinine 2.51 H Estim Creat Clear Calc 18.6 Estimated GFR 25 Fasting Glucose 104 H Calcium 8.3 L D Total Bilirubin 0.5 AST 44 H ALT 25 Alkaline Phosphatase 67 Ammonia Total Protein 6.9 Albumin 3.0 L Vitamin B12 440 TSH 07/24/21 07/24/21 06:31 06:31 WBC RBC Hgb Hct MCV MCH MCHC RDW Plt Count MPV Immature Gran % (Auto) Neut % (Auto) Lymph % (Auto) [place] % (Auto) Eos % (Auto) Baso % (Auto) Lymph # (Auto) [place] # (Auto) Eos # (Auto) Baso # (Auto) Abs Immat Gran (auto) Absolute Neuts (auto) Absolute Nucleated RBC Nucleated RBC % (auto) Smear Tech's Comments Sodium Potassium Chloride Carbon Dioxide Anion Gap BUN Creatinine Estim Creat Clear Calc Estimated GFR Fasting Glucose Calcium Total Bilirubin AST ALT Alkaline Phosphatase Ammonia 24 Total Protein Albumin Vitamin B12 TSH 1.08 Procedures Date of Service Date of Service: 07/24/21 Assessment & Plan Assessment and plan (1) Encephalopathy: Status: Acute (2) Hypertensive crisis: Status: Acute Plan 1.JANAK super imposed on CKD DDX Most likely form hypoperfusion form rapid decrease in BP ( 210 to 133 in less than 18 hrs) JANAK due to ATN r/o obstruction AGN/AIN seem unlikley( no hematuria) HTN BP better controlled Anemia/Leucopenia ALcohol abuse Suggest Check urine: pro: creatinine Avoid rapid decrease in BP or hypotension Keep I > O Continue to avoid nephrotoxins If creatinine does not improve, check renal sonogram Time Spent With Patient Time: Total time spent is greater than 50% in coordination of care (as documented) at patient's floor/unit and/or counseling patient: Time with patient: 15 - 24 minutes Progress Note: Quality Stroke Does the patient have a stroke diagnosis?: Yes Reason for No Anti-thrombotic by Day Two: N/A - Med Ordered
--- NOTE | 2021-07-24 11:19 | MHC.CM.PN ---
Per ROUNDS discussion, Patient has capacity and is willing to go to [facility]. Referrals have been made and CM will continue to assist Patient with SNF choices/placement. CM will follow.
--- NOTE | 2021-07-24 14:30 | HO.PM.IMPN ---
Subjective Subjective Date of Service: 07/24/21 Interval History: Not delusional today. Generalized weakness. No chest pain. No dyspnea. Review of Systems Review of Systems: Yes all other systems are reviewed and are negative Physical Exam Vital Signs: Vital Signs: Last Vital Signs Temp 98.0 F 07/24/21 12:00 Pulse 78 07/24/21 12:00 Resp 18 07/24/21 12:00 BP 132/83 07/24/21 12:00 Pulse Ox 97 07/24/21 12:00 BMI result Body Mass Index 19.1 Gen: in no acute distress HEENT: sclera anicteric, moist mucus membranes Neck: supple Lungs: clear to auscultation bilaterally Heart: regular rate and rhythm, no murmurs Abd: soft, non-tender, non-distended Ext: no edema Skin: warm/well-perfused Neuro: alert, oriented to self and place, generalized non-lateralizing weakness Psych: somewhat hostile/guarded Objective Data Active Medications Amlodipine Besylate (Amlodipine Besylate 10 Mg Tablet) 10 mg PO DAILY [facility]; Protocol Last Admin: 07/24/21 10:01 Dose: 10 mg Documented by: YAHIR Aspirin (Aspirin 325 Mg Tablet) 325 mg PO DAILY [facility] Last Admin: 07/24/21 10:01 Dose: 325 mg Documented by: YAHIR Atorvastatin Calcium (Atorvastatin Calcium 40 Mg Tablet) 40 mg PO DAILY [facility] Last Admin: 07/24/21 10:01 Dose: 40 mg Documented by: YAHIR Enoxaparin Sodium (Enoxaparin Sodium 30 Mg/0.3 Ml Syringe) 30 mg SUBCUT Q24H [facility] Last Admin: 07/23/21 17:24 Dose: 30 mg Documented by: YOMAIRA Furosemide (Furosemide 40 Mg Tablet) 40 mg PO DAILY [facility]; Protocol Last Admin: 07/24/21 10:01 Dose: 40 mg Documented by: YAHIR Hydralazine HCl (Hydralazine Hcl 50 Mg Tablet) 100 mg PO TID [facility]; Protocol Last Admin: 07/24/21 10:01 Dose: 100 mg Documented by: YAHIR Thiamine HCl 250 mg/ Sodium (Chloride) 102.5 mls @ 201.97 mls/hr IV Q8H [facility] Last Infusion: 07/24/21 13:59 Dose: 0 mls/hr Documented by: YAHIR Sodium Chloride (Ns) 1,000 mls @ 100 mls/hr IVCONT .Q10H [facility] Stop: 07/24/21 17:59 Last Admin: 07/24/21 10:07 Dose: 100 mls/hr Documented by: YAHIR Isosorbide Dinitrate (Isosorbide Dinitrate 5 Mg Tablet) 5 mg PO BID [facility]; Protocol Last Admin: 07/24/21 10:12 Dose: 5 mg Documented by: YAHIR Pharmacy Consult (Consult Rx Perform Med Rec) 1 each MISCELLANE ONCE PRN PRN Reason: Consult order Sodium Chloride (0.9 % Sodium Chloride Flush 3 Ml Syringe) 3 ml IVFLUSH QSHIFT [facility] Last Admin: 07/24/21 10:02 Dose: 3 ml Documented by: YAHIR Labs CBC & Chem 7: 07/24/21 06:31 07/24/21 06:31 Labs: Laboratory Results - last 24 hr 07/24/21 07/24/21 07/24/21 06:31 06:31 06:31 MCV 92.1 MCH 30.5 MCHC 33.1 RDW 15.6 Plt Count 131 L MPV 10.5 Immature Gran % (Auto) 0.2 Neut % (Auto) 54.6 Lymph % (Auto) 20.1 [place] % (Auto) 21.7 H Eos % (Auto) 3.2 Baso % (Auto) 0.2 Lymph # (Auto) 0.9 L [place] # (Auto) 1.0 Eos # (Auto) 0.1 Baso # (Auto) 0.0 Abs Immat Gran (auto) 0.01 Absolute Neuts (auto) 2.4 Absolute Nucleated RBC 0.000 Nucleated RBC % (auto) 0.0 Smear Tech's Comments VERIFIED Anion Gap 10 L Estim Creat Clear Calc 18.6 Estimated GFR 25 Fasting Glucose 104 H Calcium 8.3 L D Total Bilirubin 0.5 AST 44 H ALT 25 Alkaline Phosphatase 67 Ammonia Total Protein 6.9 Albumin 3.0 L Vitamin B12 440 TSH 07/24/21 07/24/21 06:31 06:31 MCV MCH MCHC RDW Plt Count MPV Immature Gran % (Auto) Neut % (Auto) Lymph % (Auto) [place] % (Auto) Eos % (Auto) Baso % (Auto) Lymph # (Auto) [place] # (Auto) Eos # (Auto) Baso # (Auto) Abs Immat Gran (auto) Absolute Neuts (auto) Absolute Nucleated RBC Nucleated RBC % (auto) Smear Tech's Comments Anion Gap Estim Creat Clear Calc Estimated GFR Fasting Glucose Calcium Total Bilirubin AST ALT Alkaline Phosphatase Ammonia 24 Total Protein Albumin Vitamin B12 TSH 1.08 Assessment and Plan (1) Encephalopathy: Status: Acute (2) Hypertensive crisis: Status: Acute Plan hospital d#3 80yo M with hx AAA s/p repair in 2019, CHF, HTN, CKD, anemia, NSTEMI, cardiomyopathy, chronic HCV, hx cocaine abuse Presented to ED 07/18/21 after found by neighbors down on floor of his apartment, where he lives alone; he was intoxicated with EtOH Was in the ED for 3d awaiting for STR placement. Pt left AMA and reported that he was going to go home with his daughter, who never picked him up from the ED waiting room. 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 Question of Wernicke-Korsakoff encephalopathy; thiamine level pending and repleting thiamine 250 mg IV q8h. ASA for secondary prevention per Neurology. EEG. B12, TSH normal. 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
[2021-07-24] MEDS: Enoxaparin Sodium 30 MG/0.3 ML SYRINGE SUBCUT (18:06)
[2021-07-25] VITALS (8 sets, daily range): BP systolic 138–166; BP diastolic 64–93; PULSE 73–106; RESP 16–21; TEMP 36.1–37.2; O2SAT 95–99
[2021-07-25] MEDS: Thiamine HCL 250 MG in 0.9 % Sodium Chloride 100 ML 201.97 MG IV ×2 (04:41→09:26)
[2021-07-25 06:37] LABS: Basophils Percent Auto 0.5 % (0-2); Eosinophils Absolute Auto 0.2 X10*3/uL (0.0-0.4); Eosinophils Percent Auto 4.2 % (0-4); Hemoglobin 10.4 g/dl (14.0-18.0); Imm Gran Abs Auto 0.02 X10*3/uL (0.00-0.03); Imm Gran Pct Auto 0.5 % (0.0-0.4); Lymphocytes Absolute Auto 0.7 X10*3/uL (1.2-4.9); Lymphocytes Percent Auto 17.3 % (20-40); MANUAL DIFF FLAG SCAN; Mean Corpuscular HGB Conc 33.5 g/dl (31.0-36.0); Mean Corpuscular Hemoglobin 31.2 pg (27.0-33.0); Mean Corpuscular Volume 93.1 fL (80.0-98.0); Mean Platelet Volume 11.5 fL (9.4-12.4); Monocytes Absolute Auto 1.1 X10*3/uL (0.1-1.2); Monocytes Percent Auto 25.1 % (2-11); Neutrophils Absolute Auto 2.2 x10*3/uL (2.0-8.3); Neutrophils Percent Auto 52.4 % (45-73); Platelet Count 143 X10*3/uL (160-400); Red Blood Count 3.33 X10*6/uL (4.60-5.80); Red Cell Distribution Width 15.4 % (11.0-16.0); SCAN SMEAR FLAG 1; White Blood Count 4.3 X10*3/uL (4.8-10.8)
[2021-07-25 07:21] LABS: SLIDE REVIEW VERIFIED
[2021-07-25 07:22] LABS: Alanine Aminotransferase 21 U/L (0-40); Albumin Level 2.9 g/dL (3.5-5.0); Alkaline Phosphatase 65 U/L (39-117); Anion Gap 12 (12-20); Aspartate Amino Transferase 38 U/L (5-37); Bilirubin Total 0.5 mg/dL (0.0-1.0); Blood Urea Nitrogen 38 mg/dL (9-16); Calcium 8.3 mg/dL (8.4-10.2); Carbon Dioxide 26 mmol/L (22-29); Chloride 105 mmol/L (96-108); Creatinine Clr Calc Pharmacy 18.9; Estimated Glomerular Filt Rate 25; Glucose Fasting 101 mg/dL (60-99); Potassium 3.5 mmol/L (3.3-5.1); Sodium 139 mmol/L (135-145); Total Protein 6.8 g/dL (6.5-8.0)
[2021-07-25 08:43] LABS: Syphilis Screen Nonreactive (Nonreactive)
--- NOTE | 2021-07-25 08:58 | P.CDIC_ITS ---
CDI Concurrent Query Documentation Clarification: PHYSICIAN'S DOCUMENTATION REQUEST Date of Query: 07/25/21 0858 Patient Name: Froilan Nieto Jr Admit Date: 07/22/21 Dear Doctor, A review of the medical record indicates additional documentation may be needed. Please review below and update the documentation accordingly. Risk Factors/Clinical Indicators/Treatments CKD 3-4: Progress note 07/23 & 07/24 CKD 3-4, Scr close to baseline. Nephrology note 07/23 - Stage IV CKD H&P: CKD IV Based on the above, could you clarify in the Progress Notes the appropriate diagnosis, if significant, that supports the above abnormalities and additional evaluation, monitoring, and/or treatment rendered: Consistency and clarity of specifics: * CKD 3 * CKD 4 * Other * Unable to determine Use of terms such as suspected, likely, concern for, or probable (associated with a specific diagnosis that is being evaluated, monitored, or treated as if it exists) are acceptable and can be coded in the inpatient setting, when documented at the time of discharge. Thank you, Cheyenne Isaac [facility], CDIS Extension: [phone] Please use your independent medical judgment in providing your response. THIS QUERY IS PART OF THE PERMANENT MEDICAL RECORD Provider Response: CKD Stage 4
[2021-07-25] MEDS: amLODIPine Besylate 10 MG TABLET PO (09:02)
[2021-07-25] MEDS: 0.9 % Sodium Chloride Flush 3 ML SYRINGE IVFLUSH ×3 (09:02→20:23)
[2021-07-25] MEDS: hydrALAZINE HCl 50 MG TABLET 100 MG PO ×3 (09:02→20:23)
[2021-07-25] MEDS: Isosorbide Dinitrate 5 MG TABLET PO ×2 (09:02→20:22)
[2021-07-25] MEDS: Atorvastatin Calcium 40 MG TABLET PO (09:03)
[2021-07-25] MEDS: Furosemide 40 MG TABLET PO (09:03)
[2021-07-25] MEDS: Aspirin 81 MG TAB.CHEW PO (09:25)
[2021-07-25 09:37] LABS: COVID-19 Test Negative (Negative)
--- NOTE | 2021-07-25 13:02 | HO.PM.IMPN ---
Subjective Subjective Date of Service: 07/25/21 Interval History: No new events; awaiting rehab placement. Review of Systems Review of Systems: Yes all other systems are reviewed and are negative Physical Exam Vital Signs: Vital Signs: Last Vital Signs Temp 97.8 F 07/25/21 10:58 Pulse 96 07/25/21 10:58 Resp 18 07/25/21 10:58 BP 152/93 H 07/25/21 10:58 Pulse Ox 96 07/25/21 10:58 BMI result Body Mass Index 19.1 Gen: in no acute distress HEENT: sclera anicteric, moist mucus membranes Neck: supple Lungs: clear to auscultation bilaterally Heart: regular rate and rhythm, no murmurs Abd: soft, non-tender, non-distended Ext: no edema Skin: warm/well-perfused Neuro: alert, oriented to self and place, generalized non-lateralizing weakness Psych: somewhat hostile/guarded Objective Data Active Medications Amlodipine Besylate (Amlodipine Besylate 10 Mg Tablet) 10 mg PO DAILY [facility]; Protocol Last Admin: 07/25/21 09:02 Dose: 10 mg Documented by: JAMESON Aspirin (Aspirin 81 Mg Tab.Chew) 81 mg PO DAILY [facility] Last Admin: 07/25/21 09:25 Dose: 81 mg Documented by: JAMESON Atorvastatin Calcium (Atorvastatin Calcium 40 Mg Tablet) 40 mg PO DAILY [facility] Last Admin: 07/25/21 09:03 Dose: 40 mg Documented by: JAMESON Enoxaparin Sodium (Enoxaparin Sodium 30 Mg/0.3 Ml Syringe) 30 mg SUBCUT Q24H [facility] Last Admin: 07/24/21 18:06 Dose: 30 mg Documented by: JAMESON Furosemide (Furosemide 40 Mg Tablet) 40 mg PO DAILY [facility]; Protocol Last Admin: 07/25/21 09:03 Dose: 40 mg Documented by: JAMESON Hydralazine HCl (Hydralazine Hcl 50 Mg Tablet) 100 mg PO TID [facility]; Protocol Last Admin: 07/25/21 09:02 Dose: 100 mg Documented by: JAMESON Thiamine HCl 250 mg/ Sodium (Chloride) 102.5 mls @ 201.97 mls/hr IV Q24H [facility] Last Infusion: 07/25/21 10:04 Dose: 0 mls/hr Documented by: JAMESON Isosorbide Dinitrate (Isosorbide Dinitrate 5 Mg Tablet) 5 mg PO BID [facility]; Protocol Last Admin: 07/25/21 09:02 Dose: 5 mg Documented by: JAMESON Pharmacy Consult (Consult Rx Perform Med Rec) 1 each MISCELLANE ONCE PRN PRN Reason: Consult order Sodium Chloride (0.9 % Sodium Chloride Flush 3 Ml Syringe) 3 ml IVFLUSH QSHIFT [facility] Last Admin: 07/25/21 09:02 Dose: 3 ml Documented by: JAMESON Labs CBC & Chem 7: 07/25/21 06:13 07/25/21 06:13 Labs: Laboratory Results - last 24 hr 07/24/21 07/25/21 07/25/21 06:31 06:13 06:13 MCV 93.1 MCH 31.2 MCHC 33.5 RDW 15.4 Plt Count 143 L MPV 11.5 Immature Gran % (Auto) 0.5 H Neut % (Auto) 52.4 Lymph % (Auto) 17.3 L [place] % (Auto) 25.1 H Eos % (Auto) 4.2 H Baso % (Auto) 0.5 Lymph # (Auto) 0.7 L [place] # (Auto) 1.1 Eos # (Auto) 0.2 Baso # (Auto) 0.0 Abs Immat Gran (auto) 0.02 Absolute Neuts (auto) 2.2 Absolute Nucleated RBC 0.000 Nucleated RBC % (auto) 0.0 Smear Tech's Comments VERIFIED Anion Gap 12 Estim Creat Clear Calc 18.9 Estimated GFR 25 Fasting Glucose 101 H Calcium 8.3 L Total Bilirubin 0.5 AST 38 H ALT 21 Alkaline Phosphatase 65 Total Protein 6.8 Albumin 2.9 L T.pallidum Ab (EIA) Nonreactive COVID-19 ([facility]) COVID-19 Clin Com 07/25/21 09:09 MCV MCH MCHC RDW Plt Count MPV Immature Gran % (Auto) Neut % (Auto) Lymph % (Auto) [place] % (Auto) Eos % (Auto) Baso % (Auto) Lymph # (Auto) [place] # (Auto) Eos # (Auto) Baso # (Auto) Abs Immat Gran (auto) Absolute Neuts (auto) Absolute Nucleated RBC Nucleated RBC % (auto) Smear Tech's Comments Anion Gap Estim Creat Clear Calc Estimated GFR Fasting Glucose Calcium Total Bilirubin AST ALT Alkaline Phosphatase Total Protein Albumin T.pallidum Ab (EIA) COVID-19 (PRABHAKAR) Negative COVID-19 Clin Com See Note Assessment and Plan (1) Encephalopathy: Status: Acute (2) Hypertensive crisis: Status: Acute Plan hospital d#4 80yo M with hx AAA s/p repair in 2019, CHF, HTN, CKD, anemia, NSTEMI, cardiomyopathy, chronic HCV, hx cocaine abuse Presented to ED 07/18/21 after found by neighbors down on floor of his apartment, where he lives alone; he was intoxicated with EtOH Was in the ED for 3d awaiting for STR placement. Pt left AMA and reported that he was going to go home with his daughter, who never picked him up from the ED waiting room. 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 Question of Wernicke-Korsakoff encephalopathy; thiamine level pending and repleting thiamine 250 mg IV q8h-> q24h. ASA for secondary prevention per Neurology. EEG. B12, TSH, T pallidum EIA all normal - per Psych, pt has capacity # HTN urgency # chronic HFrEF - continue Isordil, furosemide, hydralazine, amlodipine # JANAK/CKD4 - SCr close to baseline, monitor + avoid nephrotoxins, Nephrology following # VTE ppx - LMWH # dispo - STR recommended, awaiting bed placement, Covid-19 negative Quality Stroke Does the patient have a stroke diagnosis?: Yes Reason for No Anti-thrombotic by Day Two: N/A - Med Ordered VTE Prior VTE?: No VTE Risk Level:: Medical - moderate - high VTE Device Contraindication: N/A - Device Ordered VTE Drug Contraindication: Treatment Not Indicated
--- NOTE | 2021-07-25 13:09 | MHC.CM.PN ---
per rounds pt is ready for dc bed search in place pt is not vaccinated which will be a barrier in additon to his behaviors
--- NOTE | 2021-07-25 14:59 | PM.PNNEP ---
Subjective Subjective Date of Service: 07/25/21 Interval history: seen and examined no complaints Physical Exam Vital Signs: Vital Signs: Last Vital Signs Temp 97.8 F 07/25/21 10:58 Pulse 96 07/25/21 10:58 Resp 18 07/25/21 10:58 BP 152/93 H 07/25/21 10:58 Pulse Ox 96 07/25/21 10:58 BMI result Body Mass Index 19.1 Const: General: no acute distress HENMT: Head: Yes normocephalic and Yes atraumatic Neck: Neck: Yes supple Resp: Auscultation: diminished lung sounds Cardio: Heart sounds: S1 normal heart sound present and S2 normal heart sound present GI: Palpation (GI): Soft to palpation and nontender Extrem: General: Yes no pedal edema Objective Data Labs CBC & Chem 7: 07/25/21 06:13 07/25/21 06:13 Labs: Laboratory Results - last 24 hr 07/24/21 07/25/21 07/25/21 06:31 06:13 06:13 WBC 4.3 L RBC 3.33 L Hgb 10.4 L Hct 31.0 L MCV 93.1 MCH 31.2 MCHC 33.5 RDW 15.4 Plt Count 143 L MPV 11.5 Immature Gran % (Auto) 0.5 H Neut % (Auto) 52.4 Lymph % (Auto) 17.3 L [place] % (Auto) 25.1 H Eos % (Auto) 4.2 H Baso % (Auto) 0.5 Lymph # (Auto) 0.7 L [place] # (Auto) 1.1 Eos # (Auto) 0.2 Baso # (Auto) 0.0 Abs Immat Gran (auto) 0.02 Absolute Neuts (auto) 2.2 Absolute Nucleated RBC 0.000 Nucleated RBC % (auto) 0.0 Smear Tech's Comments VERIFIED Sodium 139 Potassium 3.5 Chloride 105 Carbon Dioxide 26 Anion Gap 12 BUN 38 H Creatinine 2.47 H Estim Creat Clear Calc 18.9 Estimated GFR 25 Fasting Glucose 101 H Calcium 8.3 L Total Bilirubin 0.5 AST 38 H ALT 21 Alkaline Phosphatase 65 Total Protein 6.8 Albumin 2.9 L T.pallidum Ab (EIA) Nonreactive COVID-19 ([facility]AKAR) COVID-19 Clin Com 07/25/21 09:09 WBC RBC Hgb Hct MCV MCH MCHC RDW Plt Count MPV Immature Gran % (Auto) Neut % (Auto) Lymph % (Auto) [place] % (Auto) Eos % (Auto) Baso % (Auto) Lymph # (Auto) [place] # (Auto) Eos # (Auto) Baso # (Auto) Abs Immat Gran (auto) Absolute Neuts (auto) Absolute Nucleated RBC Nucleated RBC % (auto) Smear Tech's Comments Sodium Potassium Chloride Carbon Dioxide Anion Gap BUN Creatinine Estim Creat Clear Calc Estimated GFR Fasting Glucose Calcium Total Bilirubin AST ALT Alkaline Phosphatase Total Protein Albumin T.pallidum Ab (EIA) COVID-19 (PRABHAKAR) Negative COVID-19 Clin Com See Note Procedures Date of Service Date of Service: 07/25/21 Assessment & Plan Assessment and plan (1) JANAK (acute kidney injury): Status: Acute (2) HTN (hypertension): Status: Acute (3) CKD (chronic kidney disease) stage 3, GFR 30-59 ml/min: Status: Acute Plan Sc plateau JANAK probably due 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 HFrEF REC avoid abrupt drop in BP follow kidney function and electrolytes Time Spent With Patient Time: Total time spent is greater than 50% in coordination of care (as documented) at patient's floor/unit and/or counseling patient: Progress Note: Quality Stroke Does the patient have a stroke diagnosis?: Yes Reason for No Anti-thrombotic by Day Two: N/A - Med Ordered
[2021-07-25] MEDS: Enoxaparin Sodium 30 MG/0.3 ML SYRINGE SUBCUT (15:55)
[2021-07-25] MEDS: polyethylene glycoL 3350 17 GM POWD.PACK PO (18:06)
[2021-07-25] MEDS: Sodium Phosphate,Mono-Dibasic 133 ML ENEMA PR (18:10)
--- NOTE | 2021-07-25 19:22 | PC.NURSE ---
Constipation pt c/o of not moving his bowels and that he is having some pain. MD notifed, enema was ordered along with glycolax. Pt had a huge BM
[2021-07-25] MEDS: Sennosides/Docusate Sodium TABLET 2 TAB PO (20:23)
[2021-07-26 03:26] VITALS: BP 160/85; PULSE 93; RESP 20; TEMP 36.8; O2SAT 96
[2021-07-26 07:33] VITALS: BP 158/99; PULSE 88; RESP 18; TEMP 37.3; O2SAT 96
[2021-07-26] MEDS: Sennosides/Docusate Sodium TABLET 2 TAB PO ×2 (09:25→19:32)
[2021-07-26] MEDS: Aspirin 81 MG TAB.CHEW PO (09:25)
[2021-07-26] MEDS: Atorvastatin Calcium 40 MG TABLET PO (09:25)
[2021-07-26] MEDS: Isosorbide Dinitrate 5 MG TABLET PO ×2 (09:25→19:32)
[2021-07-26] MEDS: amLODIPine Besylate 10 MG TABLET PO (09:25)
[2021-07-26] MEDS: Furosemide 40 MG TABLET PO (09:25)
[2021-07-26] MEDS: 0.9 % Sodium Chloride Flush 3 ML SYRINGE IVFLUSH ×2 (09:25→19:33)
[2021-07-26] MEDS: hydrALAZINE HCl 50 MG TABLET 100 MG PO ×3 (09:26→19:32)
[2021-07-26] MEDS: Thiamine HCL 250 MG in 0.9 % Sodium Chloride 100 ML 201.97 MG IV (09:26)
[2021-07-26 11:42] VITALS: BP 131/79; PULSE 83; RESP 20; TEMP 37.2; O2SAT 99
--- NOTE | 2021-07-26 12:38 | P.PNIM_ITS ---
Subjective Subjective Date of Service: 07/26/21 Interval History: No new events Awaiting STR placement Review of Systems Review of Systems: Yes all other systems are reviewed and are negative Physical Exam Vital Signs: Vital Signs: Last Vital Signs Temp 98.9 F 07/26/21 11:42 Pulse 83 07/26/21 11:42 Resp 20 07/26/21 11:42 BP 131/79 07/26/21 11:42 Pulse Ox 99 07/26/21 11:42 BMI result Body Mass Index 19.1 Gen: in no acute distress HEENT: sclera anicteric, moist mucus membranes Neck: supple Lungs: clear to auscultation bilaterally Heart: regular rate and rhythm, no murmurs Abd: soft, non-tender, non-distended Ext: no edema Skin: warm/well-perfused Neuro: alert, oriented to self and place, generalized non-lateralizing weakness Psych: somewhat hostile/guarded Objective Data Active Medications Amlodipine Besylate (Amlodipine Besylate 10 Mg Tablet) 10 mg PO DAILY [facility]; Protocol Last Admin: 07/26/21 09:25 Dose: 10 mg Documented by: MANDEEP Aspirin (Aspirin 81 Mg Tab.Chew) 81 mg PO DAILY [facility] Last Admin: 07/26/21 09:25 Dose: 81 mg Documented by: MANDEEP Atorvastatin Calcium (Atorvastatin Calcium 40 Mg Tablet) 40 mg PO DAILY [facility] Last Admin: 07/26/21 09:25 Dose: 40 mg Documented by: MANDEEP Enoxaparin Sodium (Enoxaparin Sodium 30 Mg/0.3 Ml Syringe) 30 mg SUBCUT Q24H [facility] Last Admin: 07/25/21 15:55 Dose: 30 mg Documented by: JAMESON Furosemide (Furosemide 40 Mg Tablet) 40 mg PO DAILY [facility]; Protocol Last Admin: 07/26/21 09:25 Dose: 40 mg Documented by: MANDEEP Hydralazine HCl (Hydralazine Hcl 50 Mg Tablet) 100 mg PO TID [facility]; Protocol Last Admin: 07/26/21 09:26 Dose: 100 mg Documented by: MANDEEP Thiamine HCl 250 mg/ Sodium (Chloride) 102.5 mls @ 201.97 mls/hr IV Q24H [facility] Last Infusion: 07/26/21 09:59 Dose: 0 mls/hr Documented by: MANDEEP Isosorbide Dinitrate (Isosorbide Dinitrate 5 Mg Tablet) 5 mg PO BID [facility]; Protocol Last Admin: 07/26/21 09:25 Dose: 5 mg Documented by: MANDEEP Pharmacy Consult (Consult Rx Perform Med Rec) 1 each MISCELLANE ONCE PRN PRN Reason: Consult order Senna/Docusate Sodium (Sennosides/Docusate Sodium Tablet) 2 tab PO BID [facility] Last Admin: 07/26/21 09:25 Dose: 2 tab Documented by: MANDEEP Sodium Biphosphate/Sodium Phosphate (Sodium Phosphate,[place]-Dibasic 133 Ml Enema) 133 ml DC ONCE [facility] Last Admin: 07/25/21 18:10 Dose: 133 ml Documented by: JAMESON Sodium Chloride (0.9 % Sodium Chloride Flush 3 Ml Syringe) 3 ml IVFLUSH QSHIFT [facility] Last Admin: 07/26/21 09:25 Dose: 3 ml Documented by: MANDEEP Labs CBC & Chem 7: 07/25/21 06:13 07/25/21 06:13 Assessment and Plan (1) Encephalopathy: Status: Acute (2) Hypertensive crisis: Status: Acute Plan hospital d#5 80yo M with hx AAA s/p repair in 2019, CHF, HTN, CKD, anemia, NSTEMI, cardiomyopathy, chronic HCV, hx cocaine abuse Presented to ED 07/18/21 after found by neighbors down on floor of his apartment, where he lives alone; he was intoxicated with EtOH Was in the ED for 3d awaiting for STR placement. Pt left AMA and reported that he was going to go home with his daughter, who never picked him up from the ED waiting room. 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 Question of Wernicke-Korsakoff encephalopathy; thiamine level pending and repleting thiamine thiamine; switch to oral upon discharge - ASA for secondary prevention per Neurology. EEG. B12, TSH, T pallidum EIA all normal - per Psych, pt has decision-making capacity # HTN urgency # chronic HFrEF - continue Isordil, furosemide, hydralazine, amlodipine # JANAK/CKD4 - SCr close to baseline, monitor + avoid nephrotoxins, Nephrology following # VTE ppx - LMWH # dispo - STR recommended, awaiting bed placement, Covid-19 negative Quality Stroke Does the patient have a stroke diagnosis?: Yes Reason for No Anti-thrombotic by Day Two: N/A - Med Ordered VTE Prior VTE?: No VTE Risk Level:: Medical - moderate - high VTE Device Contraindication: N/A - Device Ordered VTE Drug Contraindication: Treatment Not Indicated
--- NOTE | 2021-07-26 13:24 | PM.PNNEP ---
Subjective Subjective Date of Service: 07/26/21 Interval history: seen and examined no complaints Physical Exam Vital Signs: Vital Signs: Last Vital Signs Temp 98.9 F 07/26/21 11:42 Pulse 83 07/26/21 11:42 Resp 20 07/26/21 11:42 BP 131/79 07/26/21 11:42 Pulse Ox 99 07/26/21 11:42 BMI result Body Mass Index 19.1 Const: General: no acute distress HENMT: Head: Yes normocephalic and Yes atraumatic Neck: Neck: Yes supple Resp: Auscultation: diminished lung sounds Cardio: Heart sounds: S1 normal heart sound present and S2 normal heart sound present GI: Palpation (GI): Soft to palpation and nontender Extrem: General: Yes no pedal edema Objective Data Labs CBC & Chem 7: 07/25/21 06:13 07/25/21 06:13 Procedures Date of Service Date of Service: 07/26/21 Assessment & Plan Assessment and plan (1) JANAK (acute kidney injury): Status: Acute (2) HTN (hypertension): Status: Acute (3) CKD (chronic kidney disease) stage 3, GFR 30-59 ml/min: Status: Acute Plan Sc plateau JANAK probably due 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 HFrEF REC continue supportive management follow kidney function and electrolytes Time Spent With Patient Time: Total time spent is greater than 50% in coordination of care (as documented) at patient's floor/unit and/or counseling patient: Progress Note: Quality Stroke Does the patient have a stroke diagnosis?: Yes Reason for No Anti-thrombotic by Day Two: N/A - Med Ordered
[2021-07-26] MEDS: Enoxaparin Sodium 30 MG/0.3 ML SYRINGE SUBCUT (14:25)
[2021-07-26 15:32] VITALS: BP 148/77; PULSE 90; RESP 16; TEMP 37; O2SAT 99
[2021-07-26 19:03] VITALS: BP 160/83; PULSE 98; RESP 16; TEMP 37.7; O2SAT 99
[2021-07-26 23:22] VITALS: BP 149/89; PULSE 89; RESP 20; TEMP 36.7; O2SAT 98
[2021-07-27 03:17] VITALS: BP 145/82; PULSE 98; RESP 19; TEMP 36.9; O2SAT 93
[2021-07-27 07:44] VITALS: BP 173/85; PULSE 90; RESP 18; TEMP 37.3; O2SAT 97
[2021-07-27] MEDS: Thiamine HCL 250 MG in 0.9 % Sodium Chloride 100 ML 201.97 MG IV (09:11)
[2021-07-27] MEDS: Sennosides/Docusate Sodium TABLET 2 TAB PO (09:12)
[2021-07-27] MEDS: 0.9 % Sodium Chloride Flush 3 ML SYRINGE IVFLUSH ×2 (09:12→15:45)
[2021-07-27] MEDS: Atorvastatin Calcium 40 MG TABLET PO (09:12)
[2021-07-27] MEDS: hydrALAZINE HCl 50 MG TABLET 100 MG PO ×2 (09:12→15:42)
[2021-07-27] MEDS: Aspirin 81 MG TAB.CHEW PO (09:13)
[2021-07-27] MEDS: amLODIPine Besylate 10 MG TABLET PO (09:13)
[2021-07-27] MEDS: Furosemide 40 MG TABLET PO (09:13)
[2021-07-27] MEDS: Isosorbide Dinitrate 5 MG TABLET PO (09:13)
--- NOTE | 2021-07-27 09:53 | PM.PNNEP ---
Subjective Subjective Date of Service: 07/27/21 Interval history: seen and examined no complaints Physical Exam Vital Signs: Vital Signs: Last Vital Signs Temp 99.2 F 07/27/21 07:44 Pulse 90 07/27/21 07:44 Resp 18 07/27/21 07:44 BP 173/85 H 07/27/21 07:44 Pulse Ox 97 07/27/21 07:44 BMI result Body Mass Index 19.1 Const: General: no acute distress HENMT: Head: Yes normocephalic and Yes atraumatic Neck: Neck: Yes supple Resp: Auscultation: diminished lung sounds Cardio: Heart sounds: S1 normal heart sound present and S2 normal heart sound present GI: Palpation (GI): Soft to palpation and nontender Extrem: General: Yes no pedal edema Objective Data Labs CBC & Chem 7: 07/25/21 06:13 07/25/21 06:13 Procedures Date of Service Date of Service: 07/27/21 Assessment & Plan Assessment and plan (1) JANAK (acute kidney injury): Status: Acute (2) HTN (hypertension): Status: Acute (3) CKD (chronic kidney disease) stage 3, GFR 30-59 ml/min: Status: Acute Plan Scr at plateau JANAK probably due 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 HFrEF REC continue supportive management follow kidney function and electrolytes Time Spent With Patient Time: Total time spent is greater than 50% in coordination of care (as documented) at patient's floor/unit and/or counseling patient: Progress Note: Quality Stroke Does the patient have a stroke diagnosis?: Yes Reason for No Anti-thrombotic by Day Two: N/A - Med Ordered
[2021-07-27 11:53] VITALS: BP 136/83; PULSE 98; RESP 18; TEMP 36.8; O2SAT 98
[2021-07-27 11:56] LABS: Vitamin B1 11 nmol/L (8-30)
--- NOTE | 2021-07-27 13:07 | HO.PM.IMPN ---
Subjective Subjective Date of Service: 07/27/21 Interval History: No new events Awaiting STR placement Review of Systems Denies chest pain Denies shortness of breath Denies nausea vomiting diarrhea Physical Exam Vital Signs: Vital Signs: Last Vital Signs Temp 98.2 F 07/27/21 11:53 Pulse 98 07/27/21 11:53 Resp 18 07/27/21 11:53 BP 136/83 07/27/21 11:53 Pulse Ox 98 07/27/21 11:53 BMI result Body Mass Index 19.1 Const: Other: delusional Resp: Other: clear A/P Cardio: Other: -S4 +S1/S2 - S3 MRG GI: Other: soft NT/ND NABS x 4 quads Neuro: Other: CNII-XII grossly intact. GRAHAM with equal power. Confused improved Extrem: Other: no edema Objective Data Active Medications Amlodipine Besylate (Amlodipine Besylate 10 Mg Tablet) 10 mg PO DAILY [facility]; Protocol Last Admin: 07/27/21 09:13 Dose: 10 mg Documented by: MICH Aspirin (Aspirin 81 Mg Tab.Chew) 81 mg PO DAILY [facility] Last Admin: 07/27/21 09:13 Dose: 81 mg Documented by: MICH Atorvastatin Calcium (Atorvastatin Calcium 40 Mg Tablet) 40 mg PO DAILY [facility] Last Admin: 07/27/21 09:12 Dose: 40 mg Documented by: MICH Enoxaparin Sodium (Enoxaparin Sodium 30 Mg/0.3 Ml Syringe) 30 mg SUBCUT Q24H [facility] Last Admin: 07/26/21 14:25 Dose: 30 mg Documented by: MANDEEP Furosemide (Furosemide 40 Mg Tablet) 40 mg PO DAILY [facility]; Protocol Last Admin: 07/27/21 09:13 Dose: 40 mg Documented by: MICH Hydralazine HCl (Hydralazine Hcl 50 Mg Tablet) 100 mg PO TID [facility]; Protocol Last Admin: 07/27/21 09:12 Dose: 100 mg Documented by: MICH Thiamine HCl 250 mg/ Sodium (Chloride) 102.5 mls @ 201.97 mls/hr IV Q24H [facility] Last Infusion: 07/27/21 09:45 Dose: 0 mls/hr Documented by: MICH Isosorbide Dinitrate (Isosorbide Dinitrate 5 Mg Tablet) 5 mg PO BID [facility]; Protocol Last Admin: 07/27/21 09:13 Dose: 5 mg Documented by: MICH Pharmacy Consult (Consult Rx Perform Med Rec) 1 each MISCELLANE ONCE PRN PRN Reason: Consult order Senna/Docusate Sodium (Sennosides/Docusate Sodium Tablet) 2 tab PO BID [facility] Last Admin: 07/27/21 09:12 Dose: 2 tab Documented by: MICH Sodium Biphosphate/Sodium Phosphate (Sodium Phosphate,[place]-Dibasic 133 Ml Enema) 133 ml [place] ONCE FROILAN Last Admin: 07/25/21 18:10 Dose: 133 ml Documented by: JAMESON Sodium Chloride (0.9 % Sodium Chloride Flush 3 Ml Syringe) 3 ml IVFLUSH QSHIFT [facility] Last Admin: 07/27/21 09:12 Dose: 3 ml Documented by: MICH Labs CBC & Chem 7: 07/25/21 06:13 07/25/21 06:13 Labs: Laboratory Results - last 24 hr 07/23/21 10:26 Vitamin B1 11 Assessment and Plan (1) Dementia: Status: Acute (2) HTN (hypertension): Status: Acute (3) Acute kidney injury superimposed on CKD: Status: Acute Plan 80yo M with hx AAA s/p repair in 2019, CHF, HTN, CKD, anemia, NSTEMI, cardiomyopathy, chronic HCV, hx cocaine abuse Presented to ED 07/18/21 after found by neighbors down on floor of his apartment, where he lives alone; he was intoxicated with EtOH Was in the ED for 3d awaiting for STR placement. Pt left AMA and reported that he was going to go home with his daughter, who never picked him up from the ED waiting room. Noted to be confused and hallucinating, ruled out on MRI Mental status has improved now 1. 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 - per Psych, pt has decision-making capacity 2. HTN - acceptable control on current therapies (amlodipine/hydralazine/Isosorbide/lasix) - adjust as indicated 3.Chronic HFrEF - well compenstaed - continue Isordil, furosemide, hydralazine, amlodipine 4.CKD4 - SCr baseline - follow renals/divalents VTE - LMWH Full Code Quality Stroke Does the patient have a stroke diagnosis?: Yes Reason for No Anti-thrombotic by Day Two: N/A - Med Ordered VTE Prior VTE?: No VTE Risk Level:: Medical - moderate - high VTE Device Contraindication: N/A - Device Ordered VTE Drug Contraindication: Treatment Not Indicated
[2021-07-27 15:19] VITALS: BP 122/87; PULSE 99; RESP 16; TEMP 36.9; O2SAT 99
[2021-07-27] MEDS: Enoxaparin Sodium 30 MG/0.3 ML SYRINGE SUBCUT (15:42)
--- NOTE | 2021-07-27 18:47 | PC.NURSE ---
Patient had been referring to leaving today all day throughout the shift. Stated he changed his mind and did not want to go to rehab because they couldn't do anything for his legs. He also stated he needed to get home to pack, as [place]. This evening his daughter arrived with clothes saying he's checking out . Dr.s Rubio and Elton were notified. Patient's IV's were removed and AMA paperwork was signed and stress was put on the decision to let him leave when the doctor has not cleared him for discharge. Risks of this were explained. Patient and Daughter acknowledged risks and signed the AMA paper.
--- NOTE | 2021-10-23 15:05 | PM.DS ---
DS: Providers Provider Date of Service: 10/23/21 Date of admission: 07/22/21 16:19 Date of discharge: 10/24/21 Primary care physician: [facility] Consults: 07/22/21 16:47 Consult to Nephrology Routine Consulting Provider: Pradeep Moscoso Reason for consultation: JANAK Has provider been notified: No Consult to Neurology Routine Consulting Provider: [facility] Reason for consultation: CVA Has provider been notified: No 07/23/21 14:45 Consult to Psychiatry Routine Consulting Provider: Psych Covering Reason for consultation: capacity? DS: Diagnosis Discharge Diagnosis (1) Encephalopathy: Status: Acute (2) Hypertensive crisis: Status: Acute DS: Summary Hospital Course Hospital Course: ?80-year-old male with a past medical history of AAA s/p repair in 2019, CHF, hypertension, CKD, anemia, cardiomyopathy, NSTEMI. Patient presented to the emergency department on 07/18/2021 after being found on the floor of his apartment by neighbors.? He was a poor historian regarding the event,? and his ethanol level on arrival was 233.? urine in the emergency department for 3 days after initial evaluation and medical clearance as physical therapy had advised short-term rehab placement.? case management had been involved and facilitating placement, yesterday patient was refusing to go to short-term rehab reporting that he was to go home with his daughter, Cosme. At the time of evaluation patient was alert oriented to person place time and event.? He was ambulatory with steady gait.? He left against medical advice.? Nursing staff discharged patient to the waiting room awaiting his daughter to pick him up.? Patient's daughter never came to pick patient up from the emergency department and he was found by hospital staff to be confused this morning therefore signed back in as a patient. During exam, he is pleasantly confused disoriented to time place and event.? Appears to be having hallucinations, reporting staff are performing actions which they are not, and believing other patients in the department are his family members.? He has no complaints when asked review of systems,? denies headache, neck pain, chest pain, shortness of breath, nausea vomiting, abdominal pain, muscle pain.? He is hypertensive this morning,? has not yet taken any of his medications. Hospital [facility] Admitted to general medical floor. MRI of brain as well as CT of head failed to demonstrate acute pathology. Seen by Neurology in consultation felt this was progression of baseline dementia. Seen by Physical therapy and deemed a candidate for short-term rehab but refused placement. Seen by Psychiatry and deemed capable to make decisions. Left AMA Time Spent with Patient Time attestation: Total time spent providing and/or coordinating discharge services: Discharge coordination time: Greater than 30 minutes Quality: Safe Use of Opioids Does Pt have an Active Cancer Diagnosis on the Problem List?: No Quality: Stroke Does the patient have a stroke diagnosis?: No Physical Exam Vital Signs: Vital Signs: Last Vital Signs Temp 98.4 F 07/27/21 15:19 Pulse 99 07/27/21 15:19 Resp 16 07/27/21 15:19 BP 122/87 07/27/21 15:19 Pulse Ox 99 07/27/21 15:19 BMI result Body Mass Index 19.1 Const: Other: delusional Resp: Other: clear A/P Cardio: Other: -S4 +S1/S2 - S3 MRG GI: Other: soft NT/ND NABS x 4 quads Neuro: Other: CNII-XII grossly intact. GRAHAM with equal power. Confused improved Extrem: Other: no edema DS: Data Data Completed and Pending Completed studies during hospitalization [Text1]: Procedures Transfusion of Nonautologous Red Blood Cells into Peripheral Vein, Percutaneous Approach (10/09/20) Discharge Plan Discharge Patient Disposition: Left Against Medical Advice Discharge Diagnosis: Dementia Referrals: [facility] [Primary Care Provider] - 1 Week Discharge Medications: No Action atorvastatin [Lipitor] 40 mg tablet 40 mg PO DAILY Qty: 30 0RF furosemide [Lasix] 40 mg tablet 40 mg PO DAILY 30 Days Qty: 30 0RF isosorbide dinitrate 5 mg tablet 5 mg PO BID 0RF Protocol: Hold for SBP< HOLD for SBP < : 90 amlodipine 10 mg Tablet 10 mg PO DAILY Qty: 30 0RF Protocol: Hold for SBP< HOLD for SBP < : 90 hydralazine 100 mg tablet 100 mg PO TID Qty: 90 0RF Discharge Orders: Discharge Order (Routine); Ordered 10/23/21 Ordered By: Harrison Rubio Diet: advance to usual diet Activity on Discharge: As tolerated Care Plan Goals: AMA Health Concerns: AMA Plan of Treatment: AMA Assessment: And may Discharge Date/Time: 07/27/21 18:45
== END 2021-07-27 18:45 | disposition left against medical advice (07) | DRG 305 ==
LOC: HO.ED 13:53 → HO.EDOVER 16:30 → HO.IMC 20:02
PROVIDERS: Family Medicine; Nurse Practitioner Family; Admitting Provider Hospitalist; Emergency Provider Emergency Medicine; Visit Provider Hospitalist
DX: I16.9 Hypertensive crisis, unspecified (principal); I50.22 Chronic systolic (congestive) heart failure; E51.2 Wernicke's encephalopathy; M31.9 Necrotizing vasculopathy, unspecified; N18.4 Chronic kidney disease, stage 4 (severe); I13.0 Hypertensive heart and chronic kidney disease with heart failure and stage 1 through stage 4 chronic kidney disease, or unspecified chronic kidney disease; R29.701 NIHSS score 1; F10.10 Alcohol abuse, uncomplicated; G30.9 Alzheimer's disease, unspecified; D72.819 Decreased white blood cell count, unspecified; F02.80 Dementia in other diseases classified elsewhere, unspecified severity, without behavioral disturbance, psychotic disturbance, mood disturbance, and anxiety; D63.1 Anemia in chronic kidney disease; I25.2 Old myocardial infarction; Z71.6 Tobacco abuse counseling; F17.210 Nicotine dependence, cigarettes, uncomplicated; Z79.899 Other long term (current) drug therapy
CPT/HCPCS: 36415; 70450; 70551; 71045; 74018; 80053; 80061; 81001; 82077; 82140; 82607; 83735; 84425; 84443; 84484; 85025; 86780; 87635; 93005; 95816; 96374; 97110; 97116; 97163; 97167; 97530; 99285; 99291; J1650; J3411

== ENCOUNTER 2021-08-10 18:40 | Emergency (ER) | payer MEDICARE, OTHER, SELFPAY ==
--- NOTE | ~2021-08-10 | CT_ITS ---
EXAMINATION: CT CERVICAL SPINE WITHOUT CONTRAST CLINICAL INFORMATION: Neck pain. Fall. COMPARISON: Brain MRI July 2021 TECHNIQUE: Axial images through the cervical spine without contrast. Sagittal and coronal reconstructions on the technologist workstation were performed. This CT examination was performed using dose optimization techniques as appropriate, variously including the following: *Automated exposure control *Adjustment of mA and/or kV according to patient size (this includes techniques or standardized protocols for targeted exams where dose is matched to indication/reason for exam; i.e. extremities or head) *Use of iterative reconstruction technique DLP: 360 mGy-cm FINDINGS: No fracture or dislocation is seen. There is slight curvature of the proximal cervical spine to the right and lower cervical and upper thoracic spine to the left. There is fusion hardware and bony ankylosis at the C4-C5 and C5-C6 disc space levels. There is severe degenerative change at the C1 dens articulation. There is significant pannus formation. There is degenerative spondylosis and degenerative disc disease at C6-C7 and C7-T1. There is bilateral multilevel facet arthritis. There may be spinal stenosis due to bony osteophyte in the proximal cervical spine. Prevertebral soft tissues are normal. There is evidence of emphysema. CT/CT cervical spine wo con IMPRESSION: No fracture or dislocation seen. Postsurgical fusion and bony ankylosis at C4-C5 and C5-C6. Severe degenerative changes particularly at the C1-C2 articulation with large pannus formation. Fleischner guidelines were followed.
--- NOTE | ~2021-08-10 | CT_ITS ---
EXAMINATION: CT HEAD WITHOUT CONTRAST CLINICAL INFORMATION: Fall. Head trauma. COMPARISON: Previous head CT most recent July 2021 TECHNIQUE: Contiguous axial imaging was performed from the skull base to vertex without intravenous administration of contrast. This CT examination was performed using dose optimization techniques as appropriate, variously including the following: *Automated exposure control *Adjustment of mA and/or kV according to patient size (this includes techniques or standardized protocols for targeted exams where dose is matched to indication/reason for exam; i.e. extremities or head) *Use of iterative reconstruction technique DLP: 725 mGy-cm FINDINGS: There is no evidence of an extra-axial collection. There is no evidence of intra or extra-axial hemorrhage. The ventricles and extra-axial CSF spaces are appropriate. There is nonspecific periventricular white matter disease. No mass, mass effect or infarct is seen. There is soft tissue scalp hematoma adjacent to the right posterior parietal bone. No skull fracture is seen. There are inflammatory changes seen in the sphenoid, bilateral ethmoid and right frontal sinuses. CT/CT head/brain wo con IMPRESSION: No acute intracranial pathology. Nonspecific periventricular white matter disease. Small scalp hematoma adjacent to the right posterior parietal bone. Sinus disease.
--- NOTE | ~2021-08-10 | XR_ITS ---
EXAMINATION: XR KNEE, LEFT CLINICAL INFORMATION: Knee pain after fall COMPARISON: None TECHNIQUE: Four views of the left knee. FINDINGS: Mild degenerative changes are present in the medial and lateral compartment with narrowing medially and bilateral chondrocalcinosis. Some prepatellar soft tissue swelling is seen. No definite joint effusion is seen. No definite fracture is seen. XR/XR knee LT 4V IMPRESSION: Bicompartmental degenerative changes and chondrocalcinosis. An acute fracture is not seen.
[2021-08-10 18:45] VITALS: BP 184/109; PULSE 93; RESP 20; TEMP 36.8; O2SAT 97; BMI 19.1
--- NOTE | 2021-08-10 18:45 | ED.ALCOHOL ---
HPI - Alcohol General Chief Complaint: ETOH/Substance Use <Kun Romero MD - Last Filed: 08/11/21 00:41> Stated Complaint: etoh/fall <Kun Romero MD - Last Filed: 08/11/21 00:41> Time Seen by Provider: 08/10/21 18:43 <Kun Romero MD - Last Filed: 08/11/21 00:41> Source: patient and EMS <Kun Romero MD - Last Filed: 08/11/21 00:41> Mode of arrival: EMS <Kun Romeor MD - Last Filed: 08/11/21 00:41> Limitations: no limitations <Kun Romero MD - Last Filed: 08/11/21 00:41> History of Present Illness HPI narrative: Patient with history of alcohol abuse walks with a walker lost balance fell forward hitting his left knee and the head to the ground no loss of consciousness complaining of pain in the left knee. Cervical collar placed prior to arrival <Kun Romero MD - Last Filed: 08/11/21 00:41> Related Data Home Medications: Home Medications Medication Instructions Recorded Confirmed isosorbide dinitrate 5 mg tablet 5 mg PO BID 03/19/21 07/22/21 Previous Rx's Medication Instructions Recorded atorvastatin 40 mg tablet (Lipitor) 40 mg PO DAILY #30 tab 08/21/20 furosemide 40 mg tablet (Lasix) 40 mg PO DAILY 30 Days #30 tab 10/11/20 amlodipine 10 mg tablet 10 mg PO DAILY #30 tab 03/22/21 hydralazine 100 mg tablet 100 mg PO TID #90 tab 03/22/21 <Kun Romero MD - Last Filed: 08/11/21 00:41> Allergies/Adverse Reactions: Allergies Allergy/AdvReac Type Severity Reaction Status Date / Time No Known Allergies Allergy Verified 10/08/20 21:48 <Kun Romero MD - Last Filed: 08/11/21 00:41> Review of Systems Review of Systems: Yes all other systems are reviewed and are negative <MD Jonathan Martinez Last Filed: 08/11/21 00:41> [facility] Past Medical History Medical History: Medical History Abnormal EKG Acute kidney injury superimposed on CKD Acute kidney injury superimposed on CKD Acute on chronic systolic and diastolic heart failure, NYHA class 3 JANAK (acute kidney injury) Alcohol abuse Anemia Cardiomyopathy CHF (congestive heart failure) CHF exacerbation CKD (chronic kidney disease) stage 4, GFR 15-29 ml/min Cocaine abuse Hypertension Hypertensive emergency Hypertensive urgency Hypertensive urgency Iron deficiency anemia Occult GI bleeding <Kun Romero MD - Last Filed: 08/11/21 00:41> Surgical History: Surgical History History of AAA (abdominal aortic aneurysm) repair <Kun Romero MD - Last Filed: 08/11/21 00:41> Social History Social History: Social History Household Members: None Household Members Other:: senior living Housing: Apartment Housing Other:: senior living Do you presently have visiting nurse or other home services: No Alcohol intake: current Alcohol intake frequency: 3 or more drinks per day Alcohol type: beer Patient Tobacco Use Status: Current everyday Tobacco user Tobacco use type: Cigarette Cigarette Packs Per Day: 0.5 Cigarettes Per Day: 3 Years Smoked: 40 Second Hand Smoke Exposure: No Substance Use Type: Crack/Cocaine Advance Directives: Yes Advance Directives on File: Yes Advance Directives Date on File: 10/09/20 service: No Current occupational status: retired <Kun Romero MD - Last Filed: 08/11/21 00:41> Physical Exam ED Vital Signs: Vital Signs - 24 hr 08/10/21 18:45 08/10/21 19:36 08/10/21 20:00 Temperature 98.2 F 98.0 F Pulse Rate 93 98 Respiratory Rate 20 16 16 Blood Pressure 184/109 H 191/120 H Pulse Oximetry 97 98 08/10/21 23:34 08/11/21 00:02 Temperature Pulse Rate 92 Respiratory Rate 16 16 Blood Pressure 215/118 H Pulse Oximetry 97 BMI result Body Mass Index 19.1 <Kun Romero MD - Last Filed: 08/11/21 00:41> Appearance: Alert. Oriented X3. No acute distress. Intoxicated Eyes: PERRLA, No Nystagmus ENT: Pharynx normal. Oral Mucosa moist Neck: Normal inspection. Neck supple. No midline tenderness cervical collar in place CVS: Normal heart rate and rhythm. Pulses normal. Respiratory: No respiratory distress. Equal air entry bilateral, no wheezing/rales/rhonchi Abdomen: Soft and nontender. Bowel sounds are present, no mass palpable, no CVA tenderness Skin: Skin warm and dry. Normal skin color. Normal skin turgor. Extremities: No lower extremity edema. No calf tenderness left knee superficial abrasion diffuse tenderness no joint effusion Neuro: Oriented X 3. No motor deficit. No sensory deficit.No cerebellar signs , cranial nerves II-XII intact <Kun Romero MD - Last Filed: 08/11/21 00:41> MDM - Alcohol MDM Narrative Medical decision making narrative: Patient intoxicated with mechanical fall with history of hypertension missed his medication for the evening was given hydralazine 100 mg and also given clonidine 0.2 mg. It does not want any help does not want to go to detox CT scan of the head and C-spine negative and left knee x-ray is also negative, labs are stable chronic renal disease <Kun Romero MD - Last Filed: 08/11/21 00:41> Differential Diagnosis Differential diagnosis: Likely alcohol intoxication <Kun Romero MD - Last Filed: 08/11/21 00:41> Lab Data Attestation: I reviewed the patient's lab results. <Kun Romero MD - Last Filed: 08/11/21 00:41> Result diagrams: : 08/10/21 21:49 08/10/21 21:49 <Kun Romero MD - Last Filed: 08/11/21 00:41> Labs: Lab Results 08/10/21 08/10/21 08/10/21 Range/Units 21:01 21:49 21:49 WBC 3.7 L (4.8-10.8) X10*3/uL RBC 4.41 L D (4.60-5.80) X10*6/uL Hgb 13.5 L D (14.0-18.0) g/dl Hct 40.1 L D (42.0-52.0) % MCV 90.9 (80.0-98.0) fL MCH 30.6 (27.0-33.0) pg MCHC 33.7 (31.0-36.0) g/dl RDW 14.5 (11.0-16.0) % Plt Count 181 D (160-400) X10*3/uL MPV 9.9 (9.4-12.4) fL Immature Gran % (Auto) 0.3 (0.0-0.4) % Neut % (Auto) 50.8 (45-73) % Lymph % (Auto) 32.8 (20-40) % [place] % (Auto) 11.0 (2-11) % Eos % (Auto) 4.3 H (0-4) % Baso % (Auto) 0.8 (0-2) % Lymph # (Auto) 1.2 (1.2-4.9) X10*3/uL [place] # (Auto) 0.4 (0.1-1.2) X10*3/uL Eos # (Auto) 0.2 (0.0-0.4) X10*3/uL Baso # (Auto) 0.0 (0.0-0.2) X10*3/uL Abs Immat Gran (auto) 0.01 (0.00-0.03) X10*3/uL Absolute Neuts (auto) 1.9 L (2.0-8.3) x10*3/uL Absolute Nucleated RBC 0.000 (0.0-0.012) X10*3/uL Nucleated RBC % (auto) 0.0 (0.0-0.2) /100WBC Sodium 142 (135-145) mmol/L Potassium 3.6 (3.3-5.1) mmol/L Chloride 104 (96-108) mmol/L Carbon Dioxide 26 (22-29) mmol/L Anion Gap 16 (12-20) BUN 26 H (9-16) mg/dL Creatinine 2.08 H (0.5-1.4) mg/dL Estim Creat Clear Calc 26.5 Estimated GFR 31 Random Glucose 85 (60-115) mg/dL Calcium 9.1 D (8.4-10.2) mg/dL Magnesium 2.2 (1.6-2.6) mg/dL Total Bilirubin 0.4 (0.0-1.0) mg/dL AST 60 H (5-37) U/L ALT 36 (0-40) U/L Alkaline Phosphatase 94 D (39-117) U/L Total Protein 8.4 H D (6.5-8.0) g/dL Albumin 3.6 D (3.5-5.0) g/dL Ethyl Alcohol mg/dL COVID-19 (PRABHAKAR) Negative (Negative) COVID-19 Clin Com See Note 08/10/21 Range/Units 21:49 WBC (4.8-10.8) X10*3/uL RBC (4.60-5.80) X10*6/uL Hgb (14.0-18.0) g/dl Hct (42.0-52.0) % MCV (80.0-98.0) fL MCH (27.0-33.0) pg MCHC (31.0-36.0) g/dl RDW (11.0-16.0) % Plt Count (160-400) X10*3/uL MPV (9.4-12.4) fL Immature Gran % (Auto) (0.0-0.4) % Neut % (Auto) (45-73) % Lymph % (Auto) (20-40) % [place] % (Auto) (2-11) % Eos % (Auto) (0-4) % Baso % (Auto) (0-2) % Lymph # (Auto) (1.2-4.9) X10*3/uL [place] # (Auto) (0.1-1.2) X10*3/uL Eos # (Auto) (0.0-0.4) X10*3/uL Baso # (Auto) (0.0-0.2) X10*3/uL Abs Immat Gran (auto) (0.00-0.03) X10*3/uL Absolute Neuts (auto) (2.0-8.3) x10*3/uL Absolute Nucleated RBC (0.0-0.012) X10*3/uL Nucleated RBC % (auto) (0.0-0.2) /100WBC Sodium (135-145) mmol/L Potassium (3.3-5.1) mmol/L Chloride (96-108) mmol/L Carbon Dioxide (22-29) mmol/L Anion Gap (12-20) BUN (9-16) mg/dL Creatinine (0.5-1.4) mg/dL Estim Creat Clear Calc Estimated GFR Random Glucose (60-115) mg/dL Calcium (8.4-10.2) mg/dL Magnesium (1.6-2.6) mg/dL Total Bilirubin (0.0-1.0) mg/dL AST (5-37) U/L ALT (0-40) U/L Alkaline Phosphatase (39-117) U/L Total Protein (6.5-8.0) g/dL Albumin (3.5-5.0) g/dL Ethyl Alcohol 188 mg/dL COVID-19 (PRABHAKAR) (Negative) COVID-19 Clin Com <Kun Romero MD - Last Filed: 08/11/21 00:41> Discharge Plan Discharge Clinical Impression: Alcoholic intoxication, Fall <Kun Romero MD - Last Filed: 08/11/21 00:41> Patient Disposition: Home, Self-Care <Kun Romero MD - Last Filed: 08/11/21 00:41> Instructions: Fall Prevention for Older Adults (ED), Alcohol Intoxication (ED) <Kun Romero MD - Last Filed: 08/11/21 00:41> Additional Instructions: Stop drinking alcohol follow with detox if any problems Caution while walking use walker <Kun Romero MD - Last Filed: 08/11/21 00:41> Prescriptions: No Action atorvastatin [Lipitor] 40 mg tablet 40 mg PO DAILY Qty: 30 0RF furosemide [Lasix] 40 mg tablet 40 mg PO DAILY 30 Days Qty: 30 0RF isosorbide dinitrate 5 mg tablet 5 mg PO BID 0RF Protocol: Hold for SBP< HOLD for SBP < : 90 amlodipine 10 mg Tablet 10 mg PO DAILY Qty: 30 0RF Protocol: Hold for SBP< HOLD for SBP < : 90 hydralazine 100 mg tablet 100 mg PO TID Qty: 90 0RF <Kun Romero MD - Last Filed: 08/11/21 00:41>
[2021-08-10 19:36] VITALS: BP 191/120; PULSE 98; RESP 16; TEMP 36.7; O2SAT 98
[2021-08-10] MEDS: hydrALAZINE HCl 50 MG TABLET 100 MG PO (19:49)
[2021-08-10 20:00] VITALS: RESP 16
[2021-08-10 21:42] LABS: COVID-19 Test Negative (Negative)
[2021-08-10 21:54] LABS: MANUAL DIFF FLAG NO
[2021-08-10 21:55] LABS: Basophils Percent Auto 0.8 % (0-2); Eosinophils Absolute Auto 0.2 X10*3/uL (0.0-0.4); Eosinophils Percent Auto 4.3 % (0-4); Hematocrit 40.1 % (42.0-52.0); Hemoglobin 13.5 g/dl (14.0-18.0); Imm Gran Abs Auto 0.01 X10*3/uL (0.00-0.03); Imm Gran Pct Auto 0.3 % (0.0-0.4); Lymphocytes Absolute Auto 1.2 X10*3/uL (1.2-4.9); Lymphocytes Percent Auto 32.8 % (20-40); Mean Corpuscular HGB Conc 33.7 g/dl (31.0-36.0); Mean Corpuscular Hemoglobin 30.6 pg (27.0-33.0); Mean Corpuscular Volume 90.9 fL (80.0-98.0); Mean Platelet Volume 9.9 fL (9.4-12.4); Monocytes Absolute Auto 0.4 X10*3/uL (0.1-1.2); Neutrophils Absolute Auto 1.9 x10*3/uL (2.0-8.3); Neutrophils Percent Auto 50.8 % (45-73); Platelet Count 181 X10*3/uL (160-400); Red Blood Count 4.41 X10*6/uL (4.60-5.80); Red Cell Distribution Width 14.5 % (11.0-16.0); White Blood Count 3.7 X10*3/uL (4.8-10.8)
[2021-08-10 22:12] LABS: Ethanol 188 mg/dL
[2021-08-10 22:15] LABS: Alanine Aminotransferase 36 U/L (0-40); Albumin Level 3.6 g/dL (3.5-5.0); Alkaline Phosphatase 94 U/L (39-117); Anion Gap 16 (12-20); Aspartate Amino Transferase 60 U/L (5-37); Bilirubin Total 0.4 mg/dL (0.0-1.0); Blood Urea Nitrogen 26 mg/dL (9-16); Calcium 9.1 mg/dL (8.4-10.2); Carbon Dioxide 26 mmol/L (22-29); Chloride 104 mmol/L (96-108); Creatinine Clr Calc Pharmacy 26.5; Estimated Glomerular Filt Rate 31; Glucose Random 85 mg/dL (60-115); Magnesium 2.2 mg/dL (1.6-2.6); Potassium 3.6 mmol/L (3.3-5.1); Sodium 142 mmol/L (135-145); Total Protein 8.4 g/dL (6.5-8.0)
[2021-08-10 23:34] VITALS: BP 215/118; PULSE 92; RESP 16; O2SAT 97
[2021-08-11 00:02] VITALS: RESP 16
[2021-08-11] MEDS: cloNIDine HCL 0.2 MG TABLET PO (00:11)
== END 2021-08-11 01:05 | disposition home or self-care (01) ==
PROVIDERS: Physician Assistant; Emergency Provider Internal Medicine
DX: F10.129 Alcohol abuse with intoxication, unspecified (principal); M54.2 Cervicalgia; M25.562 Pain in left knee; G44.309 Post-traumatic headache, unspecified, not intractable; Y90.6 Blood alcohol level of 120-199 mg/100 ml; F14.10 Cocaine abuse, uncomplicated; Z71.41 Alcohol abuse counseling and surveillance of alcoholic; Z20.822 Contact with and (suspected) exposure to COVID-19; F17.200 Nicotine dependence, unspecified, uncomplicated; Z71.6 Tobacco abuse counseling; Z79.899 Other long term (current) drug therapy
CPT/HCPCS: 36415; 70450; 72125; 73564; 80053; 82077; 83735; 85025; 87635; 96374; 99284